=== PATIENT | female | born 1935 | race Caucasian/White ===

== ENCOUNTER 2021-04-11 13:52 | Inpatient (IN) | payer OTHER ==
[2021-04-11 14:26] LABS: Absolute Lymphocytes (CBC) 1.9 K/uL (0.7-4.9); Basophils % 0.3 % (0-1.3); Hematocrit 36.1 % (36.0-45.0); Lymphocytes % 13.7 % (15.3-44.8); RBC Red Blood Cell Count 4.06 M/uL (3.86-4.86)
[2021-04-11] MEDS ORDERED: NA CHLORIDE 0.9% 1,000 ML ONE ×2 (14:27→21:23)
[2021-04-11] MEDS ORDERED: METOPROLOL TARTRATE 5 MG/5 ML INJ IV ONE (14:27)
[2021-04-11 14:35] LABS: Protime INR 1.53
[2021-04-11] MEDS ORDERED: METHYLPREDNISOLONE 125 MG INJ ONE (14:37)
[2021-04-11] MEDS ORDERED: ONDANSETRON 4 MG/2 ML VIAL ONE (14:41)
--- NOTE | 2021-04-11 15:15 | RAD REPORT ---
EXAM DESCRIPTION: RAD - Chest Single View - 04/11/2021 3:00 pm CLINICAL HISTORY: DYSPNEA Chest pain. COMPARISON: No comparisons FINDINGS: Portable technique limits examination quality. Extensive bilateral pulmonary opacities are present, greater on the right. The heart is mildly enlarg ed in size. No displaced fractures.The findings likely indicate underlying COVID infection.
[2021-04-11 15:32] LABS: ALT/SGPT 170 U/L (12-78); AST/SGOT 88 U/L (15-37); Albumin 3.4 g/dL (3.4-5.0); Alkaline Phosphatase 183 U/L (45-117); BUN Blood Urea Nitrogen 22 mg/dL (7-18); Bicarbonate 24 mmol/L (21-32); Bilirubin Direct 0.1 mg/dL (0-0.2); Bilirubin Total 0.5 mg/dL (0.2-1.0); Ferritin 88.3 ng/mL (8-388); Glucose Level 118 mg/dL (74-106); Lipase 96 U/L (73-393); Potassium 3.7 mmol/L (3.5-5.1); Protein, Total 7.3 g/dL (6.4-8.2); Sodium Level 139 mmol/L (136-145); Troponin (Emerg Dept Use Only) < 0.02 ng/mL (0.0-0.045)
[2021-04-11] MEDS ORDERED: HYDROCODONE/CHLORPHEN 5 ML/OSYR ONE (15:34)
[2021-04-11] MEDS ORDERED: PROMETHAZINE-DM 5 ML OSYR PO ONE (16:00)
[2021-04-11] MEDS ORDERED: AMIODARONE HCL 150 MG in D5W 100 ML IV STA (16:43)
--- NOTE | 2021-04-11 16:48 | EDPHYS ---
Physician Documentation [facility] Name: Jarrell Rodrigez Age: 85 yrs Sex: Female : 1935 Arrival Date: 04/11/2021 Time: 13:53 Bed 7 Private MD: ED Physician Bartolome Pinzon HPI: 04/11 16:44 This 85 yrs old Female presents to ER via EMS with complaints of Chest Pain, jr8 shortness of breath - covid+. 16:44 This is a 85-year-old female patient that was brought in by EMS for chest pain and jr8 shortness of breath. Patient recently diagnosed with Covid at [facility] along with atrial fibrillation. Patient was started on Eliquis and diltiazem. Patient also received Regeneron that same day. Patient was discharged home. Normally off oxygen and has not been requiring oxygen per her. Today started to become markedly worse. Patient arrived in atrial fibrillation with RVR and hypoxic at 86% room air.. Historical: - Allergies: 14:53 [place]; jl7 14:53 Levaquin; jl7 14:53 Macrodantin; jl7 - Home Meds: 14:53 amitriptyline 10 mg Oral tab 2 tabs once daily [Active]; apixaban 5 mg oral tab 1 tab 2 jl7 times per day [Active]; aspirin 81 mg Oral TbEC 1 tab once daily [Active]; atorvastatin 20 mg oral tab 1 tab once daily [Active]; chlordiazepoxide HCl 5 mg Oral cap 1 cap [Active]; diltiazem HCl 240 mg Oral CDER 1 cap once daily [Active]; montelukast 10 mg oral tab 1 tab once daily [Active]; Bystolic 10 mg oral tab 1 tab once daily [Active]; - PMHx: 14:53 Hypertensive disorder; Atrial fibrillation; high cholesterol; jl7 - Immunization history:: Adult Immunizations up to date, Client reports receiving the 2nd dose of the Covid vaccine, Date received: September 2020 Sissy. - Social history:: Smoking status: Patient denies any tobacco usage or history of. ROS: 16:44 Eyes: Negative for injury, pain, redness, and discharge, ENT: Negative for injury, jr8 pain, and discharge, Neck: Negative for injury, pain, and swelling, Abdomen/GI: Negative for abdominal pain, nausea, vomiting, diarrhea, and constipation, Back: Negative for injury and pain, MS/Extremity: Negative for injury and deformity, Skin: Negative for injury, rash, and discoloration, Neuro: Negative for headache, weakness, numbness, tingling, and seizure. 16:44 Cardiovascular: Positive for chest pain, Negative for orthopnea, palpitations, paroxysmal nocturnal dyspnea. 16:44 Respiratory: Positive for cough, dyspnea on exertion, shortness of breath. Exam: 16:44 Eyes: Pupils equal round and reactive to light, extra-ocular motions intact. Lids and jr8 lashes normal. Conjunctiva and sclera are non-icteric and not injected. Cornea within normal limits. Periorbital areas with no swelling, redness, or edema. ENT: Nares patent. No nasal discharge, no septal abnormalities noted. Tympanic membranes are normal and external auditory canals are clear. Oropharynx with no redness, swelling, or masses, exudates, or evidence of obstruction, uvula midline. Mucous membranes moist. Neck: Trachea midline, no thyromegaly or masses palpated, and no cervical lymphadenopathy. Supple, full range of motion without nuchal rigidity, or vertebral point tenderness. No Meningismus. 16:44 Abdomen/GI: Soft, non-tender, with normal bowel sounds. No distension or tympany. No guarding or rebound. No evidence of tenderness throughout. Back: No spinal tenderness. No costovertebral tenderness. Full range of motion. Skin: Warm, dry with normal turgor. Normal color with no rashes, no lesions, and no evidence of cellulitis. MS/ Extremity: Pulses equal, no cyanosis. Neurovascular intact. Full, normal range of motion. Neuro: Awake and alert, GCS 15, oriented to person, place, time, and situation. Cranial nerves II-XII grossly intact. Motor strength 5/5 in all extremities. Sensory grossly intact. 16:44 Constitutional: The patient appears alert, awake, uncomfortable. 16:44 Cardiovascular: Rate: tachycardic, Rhythm: irregularly irregular, Pulses: Pulses are 2+ in right radial artery and left radial artery. Heart sounds: S1, normal, S2, normal, Edema: is not appreciated. 16:44 Respiratory: mild respiratory distress is noted, Respirations: tachypnea, that is mild, Breath sounds: wheezing: expiratory that is mild, is heard diffusely. Vital Signs: 13:53 BP 162 / 124; Pulse 145; Resp 26 S; Temp 98.6(O); Pulse Ox 86% on R/A; Weight 77.11 kg jl7 (R); Pain 2/10; 14:00 BP 132 / 117; Pulse 133; Resp 26 S; Pulse Ox 93% on 4 lpm NC; jl7 14:15 BP 158 / 124; Pulse 136; Resp 26; Pulse Ox 92% ; jl7 14:30 BP 152 / 116; Pulse 129; Resp 28; Pulse Ox 90% ; jl7 14:45 BP 157 / 111; Pulse 126; Resp 25; Pulse Ox 90% ; jl7 15:00 BP 152 / 90; Pulse 137; Resp 29 S; Pulse Ox 88% on 4 lpm NC; jl7 15:45 BP 151 / 102; Pulse 134; Resp 29; Pulse Ox 87% on 4 lpm NC; jl7 16:15 BP 157 / 105; Pulse 138; Resp 37; Pulse Ox 84% on 6 lpm NC; jl7 17:00 BP 119 / 90; Pulse 131; Resp 29; Pulse Ox 91% on 100% BiPAP; jl7 17:30 BP 151 / 99; Pulse 116; Resp 32; Pulse Ox 94% on 100% BiPAP; jl7 18:00 BP 128 / 86; Pulse 115; Resp 25; Pulse Ox 98% on 100% BiPAP; jl7 18:30 BP 130 / 96; Pulse 116; Resp 30; Pulse Ox 98% ; jl7 MDM: 13:59 Patient medically screened. jr8 16:46 Data reviewed: vital signs, nurses notes, lab test result(s), EKG, radiologic studies, jr8 CT scan, plain films. Data interpreted: Pulse oximetry: on room air is 86 %. Interpretation: hypoxia. Plan: O2 by NC applied. Counseling: I had a detailed discussion with the patient and/or guardian regarding: the historical points, exam findings, and any diagnostic results supporting the discharge/admit diagnosis, lab results, radiology results, the need for further work-up and treatment in the hospital. 04/11 14:01 Order name: BMP jr8 04/11 14:01 Order name: Blood Culture Adult (2) jr8 04/11 14: Order name: C-Reactive Protein jr8 04/11 14:01 Order name: CBC with Diff jr8 04/11 14:01 Order name: Ferritin; Complete Time: 15:59 jr8 04/11 14:01 Order name: Flu; Complete Time: 15:59 jr8 04/11 14:01 Order name: LFT's; Complete Time: 15:59 8 04/11 14:01 Order name: Lactate; Complete Time: 15:59 8 04/11 14:01 Order name: Lipase; Complete Time: 15:59 8 04/11 14:01 Order name: PT-INR; Complete Time: 15:59 jr8 04/11 14:01 Order name: Procalcitonin; Complete Time: 17:29 8 04/11 14:01 Order name: Ptt, Activated; Complete Time: 15:59 8 04/11 14:01 Order name: Troponin (emerg Dept Use Only); Complete Time: 15:59 8 04/11 14:01 Order name: Urine Microscopic Only [facility] 04/11 14:01 Order name: CXR XRAY; Complete Time: 15:59 8 04/11 14:01 Order name: EKG; Complete Time: 14:02 8 04/11 14:01 Order name: Cardiac monitoring; Complete Time: 14:09 8 04/11 14:02 Order name: Basic Metabolic Panel; Complete Time: 15:59 EDMS 04/11 14:02 Order name: Blood Culture EDNJ 04/11 14:02 Order name: C-Reactive Protein; Complete Time: 15:59 EDMS 04/11 14:02 Order name: CBC with Automated Diff; Complete Time: 14:29 EDMS 04/11 15:59 Order name: CT Chest For PE Angio; Complete Time: 16:58 8 04/11 14:01 Order name: Droplet/Contact Precautions; Complete Time: 14:09 8 04/11 14:01 Order name: EKG - Nurse/Tech; Complete Time: 14:09 8 04/11 14:01 Order name: IV Start; Complete Time: 14:09 8 04/11 14:01 Order name: O2 Per Protocol; Complete Time: 14:09 8 04/11 14:01 Order name: O2 Sat Monitoring; Complete Time: 14:09 8 04/11 17:53 Order name: Veliz; Complete Time: 17:53 jl7 Administered Medications: 14:05 Drug: Lopressor (metoprolol) 5 mg Route: IVP; Site: right forearm; jl7 14:05 Drug: NS 0.9% 1000 ml Route: IV; Rate: 1 bolus; Site: right forearm; jl7 15:00 Follow up: Response: No adverse reaction; IV Intake: 1000ml jl7 15:00 Follow up: Response: No adverse reaction; IV Status: Completed infusion; IV Intake: jl7 1000ml 14:08 Drug: Zofran (Ondansetron) 4 mg Route: IVP; Site: right forearm; jl7 14:52 Follow up: Response: No adverse reaction; Nausea is decreased jl7 14:10 Drug: SOLU-Medrol (methylPrednisoLONE) 125 mg Route: IVP; Site: right forearm; jl7 14:52 Follow up: Response: No adverse reaction jl7 14:15 Drug: Lopressor (metoprolol) 5 mg Route: IVP; Site: right forearm; jl7 14:30 Drug: Lopressor (metoprolol) 5 mg Route: IVP; Site: right forearm; jl7 14:52 Follow up: Response: No adverse reaction; Cardiac rhythm is unchanged jl7 14:37 Not Given (Other Intervention Used): SOLU-Medrol (methylPREDNISolone sodium succinate) jl7 125 mg IM once 16:05 Drug: Promethazine-Dextromethorphan Liquid 5 ml Route: PO; jl7 17:23 Follow up: Response: No adverse reaction jl7 17:00 Drug: amiodarone 150 mg Volume: 100 ml; Route: IVPB; Infused Over: 10 mins; Site: right jl7 forearm; 17:10 Follow up: Response: No adverse reaction; IV Status: Completed infusion jl7 17:11 Drug: amiodarone 900 mg, D5W 500 ml Route: IVPB; Rate: 1 mg/min; Site: right forearm; jl7 19:01 Follow up: IV Status: Infusion continued upon admission jl7 Disposition Summary: 04/11/21 16:48 Hospitalization Ordered Hospitalization Status: Inpatient Admission jr8 Provider: Andrew Pinzon Location: Intensive Care Unit [facility] Condition: Fair jr8 Problem: new jr8 Symptoms: have improved jr8 Bed/Room Type: Standard [facility] Room Assignment: 2-(04/11/21 23:13) tt3 Diagnosis - Persistent atrial fibrillation - With RVR jr8 - Pneumonia due to SARS-associated coronavirus jr8 - Acute respiratory failure with hypoxia jr8 Forms: - Medication Reconciliation Form jr8 - SBAR form jr8 Addendum: 04/14/2021 07:04 Co-signature as Attending Physician, Bartolome Pinzon MD I agree with the assessment and r n plan of care. Attestation: The patient's history, exam findings, diagnostics, and a summary of any interventions or procedures was reviewed in detail with Hira ISLAS. Signatures: Dispatcher [employer] EDNJ Bartolome Pinzon MD MD rn Roszak, Josh, PA PA jr8 Emely Ibarra RN RN jl7 Ernesto Simpson tt3 Corrections: (The following items were deleted from the chart) 04/11 23:13 16:48 jr8 tt3
--- NOTE | 2021-04-11 16:48 | ER ---
Nurse's Notes [facility] Name: Jarrell Rodrigez Age: 85 yrs Sex: Female : 1935 Arrival Date: 04/11/2021 Time: 13:53 Bed 7 Private MD: Diagnosis: Persistent atrial fibrillation-With RVR;Pneumonia due to SARS-associated coronavirus;Acute respiratory failure with hypoxia Presentation: 04/11 13:53 Chief complaint: EMS states: Toned out for chest pain and shortness of breath since jl7 last night, gave nitro paste in route with 81 mg Aspirin, pain decreased from 7/10 to 4/10. Pt O2 88% on RA, gave 4 lpm NC and O2 up to 95%. Pt covid + since Wednesday, had Regeneron infusion yesterday. 13:53 Coronavirus screen: Vaccine status: Patient reports receiving the 2nd dose of the covid jl7 vaccine. Date September 2020 [employer]a shortness of breath, Client presents with at least one sign or symptom that may indicate coronavirus-19. Standard/surgical mask placed on the client. Provider contacted for isolation considerations. Client reports previous positive COVID test result. Date of collection: April 06, 2021 [facility]. Ebola Screen: No symptoms or risks identified at this time. Initial Sepsis Screen: Does the patient meet any 2 criteria? RR > 20 per min. HR > 90 bpm. Yes Does the patient have a suspected source of infection? No. Patient's initial sepsis screen is negative. Risk Assessment: Do you want to hurt yourself or someone else? Patient reports no desire to harm self or others. Onset of symptoms is unknown. Care prior to arrival: Medication(s) given: ASA, 81 mg, x 1, NitroPaste IV initiated. 18 GA, in the right forearm, Glucose check: 130 Oxygen administered. via nasal cannula. Transition of care: patient was not received from another setting of care. 13:53 Method Of Arrival: EMS: [place] [id number] 13:53 Acuity: JAY 2 jl7 Triage Assessment: 13:53 General: Appears in no apparent distress. uncomfortable, Behavior is calm, cooperative, jl7 appropriate for age. Pain: Complains of pain in chest Pain currently is 2 out of 10 on a pain scale. Quality of pain is described as pressure. Neuro: Level of Consciousness is awake, alert, obeys commands, Oriented to person, place, time, situation. Cardiovascular: Patient's skin is warm and dry. Rhythm is atrial fibrillation with rapid ventricular response. Respiratory: Airway is patent Respiratory effort is even, unlabored, Respiratory pattern is symmetrical, tachypnea. Derm: Skin is pink, warm \T\ dry. Historical: - Allergies: 14:53 [place]; jl7 14:53 Levaquin; jl7 14:53 Macrodantin; jl7 - Home Meds: 14:53 amitriptyline 10 mg Oral tab 2 tabs once daily [Active]; apixaban 5 mg oral tab 1 tab 2 jl7 times per day [Active]; aspirin 81 mg Oral TbEC 1 tab once daily [Active]; atorvastatin 20 mg oral tab 1 tab once daily [Active]; chlordiazepoxide HCl 5 mg Oral cap 1 cap [Active]; diltiazem HCl 240 mg Oral CDER 1 cap once daily [Active]; montelukast 10 mg oral tab 1 tab once daily [Active]; Bystolic 10 mg oral tab 1 tab once daily [Active]; - PMHx: 14:53 Hypertensive disorder; Atrial fibrillation; high cholesterol; jl7 - Immunization history:: Adult Immunizations up to date, Client reports receiving the 2nd dose of the Covid vaccine, Date received: September 2020 Sissy. - Social history:: Smoking status: Patient denies any tobacco usage or history of. Screenin:00 Abuse screen: Denies threats or abuse. Denies injuries from another. Nutritional jl7 screening: No deficits noted. Tuberculosis screening: No symptoms or risk factors identified. Fall Risk IV access (20 points). Total [place] Fall Scale indicates No Risk (0-24 pts). Assessment: 14:00 General: See triage assessment. jl7 15:00 Reassessment: Patient appears in no apparent distress at this time. No changes from jl7 previously documented assessment. Patient and/or family updated on plan of care and expected duration. Pain level reassessed. Patient is alert, oriented x 3, equal unlabored respirations, skin warm/dry/pink. 16:21 Reassessment: Pt O2 sats 84% on 6 lpm NC and diaphoretic, ERP notified and at bedside, jl7 high flow O2 ordered, pt's O2 decreased to 80% on 6 lpm NC, placed on non-rebreather, O2 sats increased to 90%, pt transported to CT via stretcher on non- rebreather. 17:23 Reassessment: Pt placed on high flow O2 by RT Ryan, O2 sats remained 87%, pt placed on jl7 BiPap, O2 up to 90%, pt reports feeling better. 18:00 Reassessment: Patient appears in no apparent distress at this time. Patient and/or jl7 family updated on plan of care and expected duration. Pain level reassessed. Patient is alert, oriented x 3, equal unlabored respirations, skin warm/dry/pink. Patient states symptoms have improved. Vital Signs: 13:53 BP 162 / 124; Pulse 145; Resp 26 S; Temp 98.6(O); Pulse Ox 86% on R/A; Weight 77.11 kg jl7 (R); Pain 2/10; 14:00 BP 132 / 117; Pulse 133; Resp 26 S; Pulse Ox 93% on 4 lpm NC; jl7 14:15 BP 158 / 124; Pulse 136; Resp 26; Pulse Ox 92% ; jl7 14:30 BP 152 / 116; Pulse 129; Resp 28; Pulse Ox 90% ; jl7 14:45 BP 157 / 111; Pulse 126; Resp 25; Pulse Ox 90% ; jl7 15:00 BP 152 / 90; Pulse 137; Resp 29 S; Pulse Ox 88% on 4 lpm NC; jl7 15:45 BP 151 / 102; Pulse 134; Resp 29; Pulse Ox 87% on 4 lpm NC; jl7 16:15 BP 157 / 105; Pulse 138; Resp 37; Pulse Ox 84% on 6 lpm NC; jl7 17:00 BP 119 / 90; Pulse 131; Resp 29; Pulse Ox 91% on 100% BiPAP; jl7 17:30 BP 151 / 99; Pulse 116; Resp 32; Pulse Ox 94% on 100% BiPAP; jl7 18:00 BP 128 / 86; Pulse 115; Resp 25; Pulse Ox 98% on 100% BiPAP; jl7 18:30 BP 130 / 96; Pulse 116; Resp 30; Pulse Ox 98% ; jl7 ED Course: 13:53 Patient arrived in ED. as 13:55 Oxygen administration via nasal cannula \T\ 4L/min Response to oxygen therapy: symptoms jl7 improved. 13:59 Hira Julien PA is PHCP. jr8 13:59 Bartolome Pinzon MD is Attending Physician. jr8 14:01 EKG done, by ED staff, reviewed by Hira ISLAS. em1 14:08 Emely Ibarra, MARLEN is Primary Nurse. jl7 14:10 Maintain EMS IV. Dressing intact. Good blood return noted. Site clean \T\ dry. jl7 14:30 Inserted saline lock: 20 gauge in left forearm, using aseptic technique. Blood jl7 collected. 14:30 Arm band placed on right wrist. jl7 14:49 Triage completed. jl7 15:00 CXR XRAY In Process Unspecified. EDMS 15:00 Patient has correct armband on for positive identification. Placed in gown. Bed in low jl7 position. Call light in reach. Side rails up X 1. mosaic floor layer on. Pulse ox on. NIBP on. 16:25 Admitting physician to see patient. jl7 16:39 CT Chest For PE Angio In Process Unspecified. EDMS 16:47 Andrew Pinzon MD is Hospitalizing Provider. jr8 17:52 Veliz cath inserted, using sterile technique, 16 Fr., by nc, balloon inflated, urine jl7 specimen collected. returned clear yellow urine. Patient tolerated well. 19:02 No provider procedures requiring assistance completed. Patient admitted, IV remains in jl7 place. intact, No redness/swelling at site. Administered Medications: 14:05 Drug: Lopressor (metoprolol) 5 mg Route: IVP; Site: right forearm; jl7 14:05 Drug: NS 0.9% 1000 ml Route: IV; Rate: 1 bolus; Site: right forearm; jl7 15:00 Follow up: Response: No adverse reaction; IV Intake: 1000ml jl7 15:00 Follow up: Response: No adverse reaction; IV Status: Completed infusion; IV Intake: jl7 1000ml 14:08 Drug: Zofran (Ondansetron) 4 mg Route: IVP; Site: right forearm; jl7 14:52 Follow up: Response: No adverse reaction; Nausea is decreased jl7 14:10 Drug: SOLU-Medrol (methylPrednisoLONE) 125 mg Route: IVP; Site: right forearm; jl7 14:52 Follow up: Response: No adverse reaction jl7 14:15 Drug: Lopressor (metoprolol) 5 mg Route: IVP; Site: right forearm; jl7 14:30 Drug: Lopressor (metoprolol) 5 mg Route: IVP; Site: right forearm; jl7 14:52 Follow up: Response: No adverse reaction; Cardiac rhythm is unchanged jl7 14:37 Not Given (Other Intervention Used): SOLU-Medrol (methylPREDNISolone sodium succinate) jl7 125 mg IM once 16:05 Drug: Promethazine-Dextromethorphan Liquid 5 ml Route: PO; jl7 17:23 Follow up: Response: No adverse reaction jl7 17:00 Drug: amiodarone 150 mg Volume: 100 ml; Route: IVPB; Infused Over: 10 mins; Site: right jl7 forearm; 17:10 Follow up: Response: No adverse reaction; IV Status: Completed infusion jl7 17:11 Drug: amiodarone 900 mg, D5W 500 ml Route: IVPB; Rate: 1 mg/min; Site: right forearm; jl7 19:01 Follow up: IV Status: Infusion continued upon admission jl7 Intake: 15:00 IV: 1000ml; Total: 1000ml. jl7 15:00 IV: 1000ml; Total: 2000ml. jl7 Outcome: 16:48 Decision to Hospitalize by Provider. jr8 04/12 00:15 Patient left the ED. kc4 Signatures: Dispatcher [employer] Roxana Baker Eric em1 Hira Julien PA PA jr8 Emely Ibarra RN RN jl7 Halina Mireels kc4
--- NOTE | 2021-04-11 16:49 | RAD REPORT ---
EXAM DESCRIPTION: CT - Chest For Pe Angio - 04/11/2021 4:39 pm CLINICAL HISTORY: Chest pain. CHEST PAIN COMPARISON: No comparisons TECHNIQUE: CT angiogram of the pulmonary arteries was performed with MIP. All CT scans are performed using dose optimization technique as appropriate and may include automated exposure control or mA/KV adjustment according to patient size. FINDINGS: No evidence of pulmonary thromboembolism. Thoracic aorta is suboptimally contrast opacified without gross acute finding. Extensive bilateral pulmonary infiltrates are present most likely representing pulmonary edema or pne umonia. Small bilateral pleural effusions are noted, slightly greater on the right. No concerning bony finding. IMPRESSION: No evidence of pulmonary thromboembolism. Extensive bilateral pulmonary opacities likely representing pulmonary edema or pneumonia. Small bilat eral pleural effusions.
[2021-04-11] MEDS ORDERED: AMIODARONE IN DEXTROSE,ISO-OSM 360 MG/200 ML BAG IV ONE (16:52)
[2021-04-11] MEDS ORDERED: AMIODARONE HCL 900 MG in Dextrose 5%-Water 482 ML IV SCH ×2 (17:00→19:00)
[2021-04-11] MEDS: NA CHLORIDE 0.9% 1,000 ML IV SCH (20:28)
[2021-04-11] MEDS ORDERED: BENZONATATE 100 MG CAP PO PRN (20:28)
[2021-04-11] MEDS ORDERED: ACETAMINOPHEN 500 MG TAB PO PRN (20:28)
[2021-04-11] MEDS ORDERED: ONDANSETRON 4 MG/2 ML VIAL IV PRN (20:28)
[2021-04-11] MEDS: ASCORBIC ACID 500 MG TABLET PO SCH (21:00)
[2021-04-11] MEDS ORDERED: METHYLPRED NA SUC 80 MG in NA CHLORIDE 0.9% 100 ML IV SCH (21:00)
[2021-04-11] MEDS ORDERED: ASCORBIC ACID 500 MG TABLET ONE (21:22)
[2021-04-11] MEDS ORDERED: METHYLPREDNISOLONE 40 MG INJ ONE (21:23)
--- NOTE | 2021-04-11 23:23 | P.HP ---
Certification for Inpatient Patient admitted to: Inpatient With expected LOS: >2 Midnights Patient will require the following post-hospital care: Home Health Services (Oxygen, likely home health nursing) Practitioner: I am a practitioner with admitting privileges, knowledge of patient current condition, hospital course, and medical plan of care. Services: Services provided to patient in accordance with Admission requirements found in Title 42 Section 412.3 of the Code of Federal Regulations Patient History Date of Service: 04/11/21 Primary Care Provider: Dr. Austin Reason for admission: Covid Pneumonia/ Atrial Fibrillation with RVR History of Present Illness: Chest Single View - 04/11/2021 3:00 pm CLINICAL HISTORY: DYSPNEA Chest pain. COMPARISON: No comparisons FINDINGS: Extensive bilateral pulmonary opacities are present, greater on the right. The heart is mildly enlarged in size. No displaced fractures. The findings likely indicate underlying COVID infection. CT - Chest For Pe Angio - 04/11/2021 4:39 pm CLINICAL HISTORY: Chest pain. COMPARISON: No comparisons FINDINGS: No evidence of pulmonary thromboembolism. Thoracic aorta is suboptimally contrast opacified without gross acute finding. Extensive bilateral pulmonary infiltrates are present most likely representing pulmonary edema or pneumonia. Small bilateral pleural effusions are noted, slightly greater on the right. No concerning bony finding. IMPRESSION: No evidence of pulmonary thromboembolism. Extensive bilateral pulmonary opacities likely representing pulmonary edema or pneumonia. Small bilateral pleural effusions. 85 year old female diagnosed with Covid and new onset A.Fib in [place] one week ago. She was doing well and had Regeneron Therapy yesterday. This morning she felt a little weak and not quite right. Very soon thereafter she developed significant malaise and severe dyspnea with chest pain. On arrival she was noted to have Atrial Fibrillation with RVR. Her initial O2 was 86%. Allergies No Known Allergies Allergy (Unverified 04/11/21 16:38) Home medications list reviewed: Yes - Past Medical/Surgical History Diabetic: No -: HTN -: CVA -: Hysterectomy -: Cholecystectomy Psychosocial/ Personal History: Retired, lives at home by self - Family History Father -: Heart disease - Social History Smoking Status: Never smoker Alcohol use: No CD- Drugs: No Caffeine use: Yes Place of Residence: Home Review of Systems 10-point ROS is otherwise unremarkable General: Weakness, Malaise Eyes: Unremarkable ENT: Unremarkable Respiratory: Cough, Shortness of Breath, SOB with Excertion Cardiovascular: Chest Pain, Palpitations, Light Headedness Gastrointestinal: Nausea Genitourinary: Unremarkable Musculoskeletal: Unremarkable Integumentary: Unremarkable Neurological: Unremarkable Lymphatics: Unremarkable Physical Examination - Vital Signs Temperature: 98.8 F Blood Pressure: 130/95 Pulse: 100 Respirations: 20 Pulse Ox (%): 98 - Physical Exam General: Alert, Oriented x3, Cooperative, Severe distress HEENT: Atraumatic, Normocephalic Neck: Supple, JVD not distended Respiratory: Normal air movement, Crackles/rales Cardiovascular: Normal pulses, Irregular heart rate/rhythm Capillary refill: Brisk Gastrointestinal: Soft and benign, Non-distended Musculoskeletal: No swelling, No contractures, No erythema Integumentary: No rashes, No breakdown, No significant lesion Neurological: Normal speech, Normal strength at 5/5 x4 extr, Normal tone, Sensation intact External genitalia: Deferred Rectal: Deferred - Studies Laboratory Data (last 24 hrs) 04/11/21 14:10: PT 17.7 H, INR 1.53, APTT 29.1 04/11/21 14:10: WBC 13.60 H, Hgb 11.9 L, Hct 36.1, Plt Count 278 04/11/21 14:10: Sodium 139, Potassium 3.7, BUN 22 H, Creatinine 0.90, Glucose 118 H, Total Bilirubin 0.5, AST 88 H, ALT 170 H, Alkaline Phosphatase 183 H, Lipase 96 Microbiology Data (last 24 hrs): 04/11/21 14:20 Nasopharnyx Influenza Type A Antigen Screen - Final 04/11/21 14:20 Nasopharnyx Influenza Type B Antigen Screen - Final Assessment and Plan - Plan Assessment Pneumonia Atrial Fibrillation HTN Plan Pneumonia: Titrate Oxygen (Bipap) to greater than 92%, Pulmonology Consult. Repeat procalcitonin. Draw Ferritin, D-dimer and CRP. Atrial Fibrillation: Monitor. Cardiology Consult, currently on amiodarone. Rate 100 HTN: Bp not elevated. Monitor DVT prophylaxis: Lovenox 40mg SQ Code Status: DNR Discharge Plan: Home Plan to discharge in: Unknown - Advance Directives Does patient have a Living Will: No Does patient have a Durable POA for Healthcare: No - Code Status/Comfort Care Code Status Assessed: Yes Code Status: Do Not Attempt Resuscitat Critical Care: No Time Spent Managing Pts Care (In Minutes): 70
[2021-04-12 00:58] VITALS: BMI 27.7
[2021-04-12] MEDS: NA CHLORIDE 0.9% 1,000 ML IV SCH (05:46)
[2021-04-12 05:48] LABS: Absolute Lymphocytes (CBC) 0.6 K/uL (0.7-4.9); Basophils % 0.2 % (0-1.3); Hematocrit 33.7 % (36.0-45.0); Lymphocytes % 5.6 % (15.3-44.8); MPV 8.3 fL (7.6-11.3); RBC Red Blood Cell Count 3.79 M/uL (3.86-4.86)
--- NOTE | 2021-04-12 05:54 | P.PN ---
Date of Service: 04/12/21 Subjective: Patient reports feeling significantly better today, breathing much more comfortably, on a nonrebreather overnight. Without any new complaints, denies chest pain. Denies dysuria, nausea/vomiting, diarrhea. 10 point review of systems otherwise negative Physical exam GEN: Alert, oriented HEENT: Normal conjunctiva, sclera anicteric CV: Regular rate and rhythm, no edema Pulm: Mildly labored respirations on nonrebreather ABD: Soft, nontender, nondistended Integumentary: No rashes Neuro: Normal speech, normal affect Problem list Acute hypoxemic respiratory failure secondary to COVID-19 pneumonia, s/p vaccination Rapid atrial fibrillation, paroxysmal, on chronic anticoagulation (eliquis) Titrate oxygen as needed, goal 92% or greater Continue steroids, vitamin supplementation, oxygen supplementation Pulmonology consulted CRP increased today Atrial fibrillation with better rate control, still tachycardic, cardiology consulted. Continue amiodarone drip for now Continue to trend inflammatory markers. Continue ICU level of care VTE: Continue home Eliquis 5 mg twice daily Code: DNR Dispo: Anticipate DC home in a few days. Will need home oxygen Time spent managing patient's care: 35 minutes
[2021-04-12 06:24] LABS: Albumin 2.8 g/dL (3.4-5.0); Bilirubin Total 0.4 mg/dL (0.2-1.0); C-Reactive Protein 75.3 mg/L (<3.00); Ferritin 80.8 ng/mL (8-388); Protein, Total 6.3 g/dL (6.4-8.2); Thyroid Stimulating Hormone 0.352 uIU/mL (0.360-3.740)
[2021-04-12 06:25] LABS: Magnesium 2.2 mg/dL (1.8-2.4); Potassium 4.5 mmol/L (3.5-5.1)
[2021-04-12 06:30] LABS: Blood Morphology Comment NOT SEEN (NOT SEEN); Platelet Estimate ADEQ; White Blood Cell Scan OK (OK)
[2021-04-12] MEDS ORDERED: ENOXAPARIN 40 MG/0.4 ML SQ SCH (09:00)
[2021-04-12] MEDS: VITAMIN D 1000 UNIT TAB PO SCH (09:24)
[2021-04-12] MEDS: ASCORBIC ACID 500 MG TABLET PO SCH ×4 (09:24→19:48)
[2021-04-12] MEDS: THIAMINE HCL 100 MG TABLET PO SCH (09:24)
[2021-04-12] MEDS: ASPIRIN EC 81 MG TAB PO SCH (09:24)
[2021-04-12] MEDS: ZINC SULFATE 220 MG CAP PO SCH (09:24)
[2021-04-12] MEDS: APIXABAN 5 MG TABLET PO SCH ×2 (09:24→19:48)
[2021-04-12] MEDS: METHYLPREDNISOLONE 40 MG INJ IV SCH ×2 (09:24→19:48)
--- NOTE | 2021-04-12 11:14 | EKG ---
Test Date: 2021-04-11 Test Time: 13:55:22 Apartment Property Manager: EUNICE MEASUREMENT RESULTS: Intervals: Rate: 146 CO: QRSD: 76 QT: 308 QTc: 479 Gates: P: CO: QRS: 74 T: 41 INTERPRETIVE STATEMENTS: Atrial fibrillation with rapid ventricular response with premature ventricular or aberrantly conducted complexes Cannot rule out Anterior infarct, age undetermined Abnormal ECG Compared to ECG 08/12/1999 12:29:00 Ventricular premature complex(es) now present Myocardial infarct finding now present Sinus rhythm no longer present Electronically Signed On 04-12-21 11:13:09 CDT by Cedric Talavera
--- NOTE | 2021-04-12 11:56 | P.CNS ---
Date of Consult: 04/12/21 Primary Care Provider: Dr. Austin Chief Complaint: Covid Pneumonia/ Atrial Fibrillation with RVR History of Present Illness: AGe 89 AW COVID penumonia andAfib, was DC home became worse/ SP Regeneron TX/ CT bialteral infiltrates and Bilateral effusion Allergies acetaminophen [From [place]] Allergy (Verified 04/12/21 02:44) Itching hydrocodone [From [place]] Allergy (Verified 04/12/21 02:44) Itching levofloxacin [From Levaquin] Allergy (Verified 04/12/21 02:44) Nausea/Vomiting nitrofurantoin [From Macrodantin] Allergy (Verified 04/12/21 02:44) Hives/Rash Home Medications: Amitriptyline [Elavil] 20 mg PO BEDTIME 04/12/21 Apixaban [Eliquis] 5 mg PO DAILY 04/12/21 Aspirin [Aspirin EC 81 MG] 81 mg PO DAILY 04/12/21 Atorvastatin Calcium 20 mg PO BEDTIME 04/12/21 Chlordiazepoxide HCl [Librium] 5 mg PO BEDTIME 04/12/21 Diltiazem Tab [Cardizem Tab*] 240 mg PO DAILY 04/12/21 Montelukast [Singulair] 10 mg PO DAILY 04/12/21 Nebivolol HCl [Bystolic] 10 mg PO DAILY 04/12/21 - Past Medical/Surgical History Diabetic: No -: HTN -: CVA -: Hysterectomy -: Cholecystectomy Psychosocial/ Personal History: Retired, lives at home by self - Family History Father Medical History: Heart disease - Social History Alcohol use: No CD- Drugs: No Caffeine use: Yes Place of Residence: Home Review of Systems General: Weakness Respiratory: Shortness of Breath Physical Examination Temp Pulse Resp BP Pulse Ox 97.2 F 111 H 20 147/98 H 96 04/12/21 08:00 04/12/21 11:00 04/12/21 11:00 04/12/21 11:00 04/12/21 11:00 General: Alert, In no apparent distress, Oriented x3 Laboratory Data (last 24 hrs) 04/11/21 14:10: PT 17.7 H, INR 1.53, APTT 29.1 04/11/21 14:10: WBC 13.60 H, Hgb 11.9 L, Hct 36.1, Plt Count 278 04/11/21 14:10: Sodium 139, Potassium 3.7, BUN 22 H, Creatinine 0.90, Glucose 118 H, Total Bilirubin 0.5, AST 88 H, ALT 170 H, Alkaline Phosphatase 183 H, Lipase 96 - Problems (1) Pneumonia due to coronavirus disease 2018 Current Visit: Yes Status: Acute Plan: Patient is 85 years of age admitted with coronavirus pneumonia previously vaccinated abnormal liver function tests continue with steroids patient will not qualify for Barcitinib of also added some Lasix patient has a history of chronic A. fib started on amiodarone drip labs reviewed CT scan shows bilateral pleural effusion bilateral infiltrates echo is pending doing better
[2021-04-12] MEDS: FUROSEMIDE 20 MG/ 2ML VIAL IV SCH ×2 (12:23→19:48)
[2021-04-12] MEDS: PANTOPRAZOLE 40MG TABLET PO SCH (12:55)
[2021-04-12] MEDS ORDERED: MAGNESIUM HYDROXIDE 8% 30 ML PO ONE (18:17)
[2021-04-12] MEDS ORDERED: AMIODARONE IN DEXTROSE,ISO-OSM 360 MG/200 ML BAG IV ONE (22:06)
[2021-04-13] MEDS: MELATONIN 5 MG TABLET PO PRN ×2 (00:28→20:05)
[2021-04-13] MEDS: PANTOPRAZOLE 40MG TABLET PO SCH (05:28)
[2021-04-13 05:46] LABS: Absolute Lymphocytes (CBC) 0.7 K/uL (0.7-4.9); MPV 8.2 fL (7.6-11.3)
[2021-04-13 05:51] LABS: Hematocrit 37.5 % (36.0-45.0); Lymphocytes % 3.7 % (15.3-44.8); RBC Red Blood Cell Count 4.21 M/uL (3.86-4.86)
--- NOTE | 2021-04-13 05:54 | P.PN ---
Date of Service: 04/13/21 Subjective: improving, feeling better, more SOB overnight down to 4L NC this morning HR remains elevated, afib, 110-130s. on amio drip BP improved 10 point review of systems otherwise negative Physical exam GEN: Alert, oriented HEENT: Normal conjunctiva, sclera anicteric CV: irregular rate/rhythm, HR: 120s, no edema Pulm: Mildly labored respirations on 4L NC ABD: Soft, nontender, nondistended Integumentary: No rashes Neuro: Normal speech, normal affect Problem list Acute hypoxemic respiratory failure secondary to COVID-19 pneumonia, s/p vaccination Rapid atrial fibrillation, paroxysmal, on chronic anticoagulation (eliquis) Titrate oxygen as needed, goal 92% or greater Continue steroids, vitamin supplementation, oxygen supplementation Pulmonology consulted oxygen requirement improving Afib with slightly better rate control, still in afib. cardiology consulted, recommended increasing amio drip BP much better, restarting bystolic and cardizem Continue to trend inflammatory markers. Continue ICU level of care VTE: Continue home Eliquis 5 mg twice daily Code: DNR Dispo: Anticipate DC home in ~2 days. Will need home oxygen likely downgrade to floor tomorrow Time spent managing patient's care: 35 minutes
[2021-04-13 07:04] LABS: Bilirubin Total 0.5 mg/dL (0.2-1.0); C-Reactive Protein 54.1 mg/L (<3.00); Ferritin 94.7 ng/mL (8-388); Protein, Total 6.8 g/dL (6.4-8.2)
[2021-04-13 07:15] LABS: Magnesium 2.4 mg/dL (1.8-2.4)
[2021-04-13] MEDS ORDERED: AMIODARONE HCL 900 MG in Dextrose 5%-Water 482 ML IV SCH (07:26)
[2021-04-13] MEDS: VITAMIN D 1000 UNIT TAB PO SCH (08:30)
[2021-04-13] MEDS: ASPIRIN EC 81 MG TAB PO SCH (08:31)
[2021-04-13] MEDS: THIAMINE HCL 100 MG TABLET PO SCH (08:31)
[2021-04-13] MEDS: ASCORBIC ACID 500 MG TABLET PO SCH ×4 (08:31→20:05)
[2021-04-13] MEDS: ZINC SULFATE 220 MG CAP PO SCH (08:31)
[2021-04-13] MEDS: MONTELUKAST 10 MG TAB PO SCH (08:31)
[2021-04-13] MEDS: APIXABAN 5 MG TABLET PO SCH ×2 (08:31→20:05)
[2021-04-13] MEDS: FUROSEMIDE 20 MG/ 2ML VIAL IV SCH (08:31)
[2021-04-13] MEDS: METHYLPREDNISOLONE 40 MG INJ IV SCH ×2 (08:32→20:05)
[2021-04-13] MEDS ORDERED: HOME MED 1 EA UNK (Nebivolol Hcl [Bystolic] 10 MG Tablet) PO SCH (09:00)
--- NOTE | 2021-04-13 10:40 | P.PN ---
Subjective Date of Service: 04/13/21 Primary Care Provider: Dr. Austin Chief Complaint: Covid Pneumonia/ Atrial Fibrillation with RVR Subjective: Improving (Patient is doing well alert oriented responsive in A. fib) Review of Systems Respiratory: Shortness of Breath Physical Examination - Vital Signs Temperature: 97.6 F Blood Pressure: 150/86 Pulse: 126 Respirations: 14 Pulse Ox (%): 94 - Physical Exam General: Alert, Oriented x3, Cooperative Assessment & Plan - Problems (Diagnosis) (1) Pneumonia due to coronavirus disease 2018 Current Visit: Yes Status: Acute Plan: Patient is 85 years of age has been previously vaccinated admitted with coronavirus pneumonia and A. fib currently doing better on 4 L of nasal cannula oxygen reduce dose of Solu-Medrol DC Lasix changed to spironolactone blood pressure is elevated labs reviewed white count is mildly elevated blood pressure elevated resume diltiazem and by systolic also on amiodarone drip history of chronic A. fib
[2021-04-13] MEDS: DILTIAZEM HCL 60 MG TAB PO SCH (11:14)
[2021-04-13] MEDS: SPIRONOLACTONE 25 MG TABLET PO SCH (11:14)
[2021-04-13] MEDS ORDERED: NEBIVOLOL HCL 5 MG TAB PO SCH (12:00)
--- NOTE | 2021-04-13 16:49 | PN ---
Date of Progress Note: 04/12/2021 Ms. Rodrigez remained in atrial fibrillation at a rate of 125, blood pressure is 152/86, and O2 saturat ion 94% on nasal cannula. Her white count has gone up to 18. Creatinine remains at 0.9. Her liver function and enzymes remained elevated. Her C-reactive protein remains elevated. Her procalcitonin is 0.05. She is now on amiodarone, Eliquis, aspirin, diltiazem, furosemide, Bystolic. She remained on steroids and antibiotics as well as spironolactone. I think we can increase her amiodarone to 1 m g/minute, continue her diltiazem, and continue her Bystolic, but again I would prefer to try to go of f the amiodarone in the near future and keep her on the other medication and increase the dose for bl ood pressure and heart rate control while continuing the Eliquis. No cardiac workup needed at this p oint. She is a do not resuscitate. I will follow her as needed. DENNIS/KIANNA Voice ID: [id number] Report ID: [id number]
--- NOTE | 2021-04-13 17:34 | CON ---
Date of Consultation: 04/11/2021 Reason For Consultation: Atrial fibrillation in the setting of COVID pneumonia. History Of Present Illness: Ms. Rodrigez is 85. She is a do not resuscitate. Has a history of hypert ension, dyslipidemia, and chronic atrial fibrillation. Came in with COVID pneumonia, rapid atrial fi brillation, 94% saturation on BiPAP, elevated CPKs, CRPs, liver function tests, white count, negative troponin. The patient was taking Singulair at home as well as diltiazem, Bystolic, Eliquis, aspirin , and Lipitor for her medical issues. IV amiodarone has been added in the hospital for rate control. She is also on thiamine, zinc, steroids. In addition to her aspirin, Eliquis and Bystolic have bee n continued. We should also continue her diltiazem. Past Medical History: As stated above. Allergies: SHE IS ALLERGIC TO TYLENOL, LEVAQUIN, MACRODANTIN, AND HYDROCODONE. Review of Systems: Positive for being a do not resuscitate. Social History: Negative. Family History: Unremarkable. Medications: Include Singulair, diltiazem, Bystolic, Eliquis, aspirin, and Lipitor. Physical Examination: Vital Signs: Atrial fibrillation, rate of 113. Vital signs were otherwise stable. Afebrile. HEENT: Negative. Neck: Supple with no bruit. Chest: Revealed some crackles both bases. Cardiac: Revealed atrial fibrillation. Abdomen: Benign. Extremities: Revealed no clubbing, cyanosis. She had trace edema. Diagnostic Data: As stated earlier. Impression And Plan: 1.COVID pneumonia. 2.Hypertension. 3.Dyslipidemia. 4.Rapid atrial fibrillation that is chronic. We should aim for rate control, not cardioversion. Ec hocardiogram is pending. Continue Bystolic, diltiazem, and amiodarone. Increase the rate of amiodar one as needed. Continue treatment for her other problems including dyslipidemia and COVID pneumonia. Continue Eliquis. See what the echocardiogram shows. I will continue to follow. DENNIS/KIANNA Voice ID: [id number] Report ID: [id number]
[2021-04-13] MEDS: ATORVASTATIN 20 MG TAB PO SCH (20:05)
[2021-04-13] MEDS: AMITRIPTYLINE 10 MG TAB PO SCH (20:13)
[2021-04-13] MEDS ORDERED: AMITRIPTYLINE 25 MG TAB PO SCH (21:00)
[2021-04-14 04:58] LABS: Absolute Lymphocytes (CBC) 0.8 K/uL (0.7-4.9); Basophils % 0.1 % (0-1.3); MPV 7.6 fL (7.6-11.3); RBC Red Blood Cell Count 4.18 M/uL (3.86-4.86)
[2021-04-14] MEDS: PANTOPRAZOLE 40MG TABLET PO SCH (05:30)
[2021-04-14 05:37] LABS: Albumin 2.9 g/dL (3.4-5.0); Bilirubin Total 0.6 mg/dL (0.2-1.0); Ferritin 93.2 ng/mL (8-388); Magnesium 2.4 mg/dL (1.8-2.4); Potassium 4.1 mmol/L (3.5-5.1); Protein, Total 6.5 g/dL (6.4-8.2)
--- NOTE | 2021-04-14 06:04 | P.PN ---
Date of Service: 04/14/21 Subjective: Improving, breathing better, slept well last night, heart rate still 110s to low 120s Off amiodarone. No new complaints ROS 10 point review of systems otherwise negative Physical exam GEN: Alert, oriented HEENT: Normal conjunctiva, sclera anicteric CV: irregular rate/rhythm, HR: 120s, no edema Pulm: Mildly labored respirations on 2L NC, mild cough ABD: Soft, nontender, nondistended Integumentary: No rashes Neuro: Normal speech, normal affect Problem list Acute hypoxemic respiratory failure secondary to COVID-19 pneumonia, s/p vaccination Rapid atrial fibrillation, paroxysmal, on chronic anticoagulation (eliquis) Titrate oxygen as needed, goal 92% or greater Continue steroids, vitamin supplementation, oxygen supplementation Pulmonology consulted oxygen requirement improving A. fib is slightly better controlled, off amiodarone. Continue Cardizem. Discontinue Bystolic, changed to metoprolol 100 mg twice daily Patient states she does not believe she has taken metoprolol before. Does not recall any adverse reaction or allergy Inflammatory markers improving VTE: Continue home Eliquis 5 mg twice daily Code: DNR Dispo: Anticipate DC home ~24hrs Continue ICU level of care this morning, if heart rate more stable under 100 bpm. Could possibly be downgraded to the floor this evening Time spent managing patient's care: 35 minutes
[2021-04-14] MEDS: METHYLPREDNISOLONE 40 MG INJ IV SCH ×2 (08:34→19:43)
[2021-04-14] MEDS: ZINC SULFATE 220 MG CAP PO SCH (08:35)
[2021-04-14] MEDS: VITAMIN D 1000 UNIT TAB PO SCH (08:35)
[2021-04-14] MEDS: THIAMINE HCL 100 MG TABLET PO SCH (08:35)
[2021-04-14] MEDS: METOPROLOL TAR 50 MG TAB PO SCH ×2 (08:35→19:42)
[2021-04-14] MEDS: SPIRONOLACTONE 25 MG TABLET PO SCH (08:36)
[2021-04-14] MEDS: ASPIRIN EC 81 MG TAB PO SCH (08:36)
[2021-04-14] MEDS: DILTIAZEM HCL 60 MG TAB PO SCH (08:36)
[2021-04-14] MEDS: MONTELUKAST 10 MG TAB PO SCH (08:36)
[2021-04-14] MEDS: ASCORBIC ACID 500 MG TABLET PO SCH ×4 (08:37→19:43)
[2021-04-14] MEDS: APIXABAN 5 MG TABLET PO SCH ×2 (08:37→19:43)
[2021-04-14] MEDS: MELATONIN 5 MG TABLET PO PRN (19:42)
[2021-04-14] MEDS: AMITRIPTYLINE 10 MG TAB PO SCH (19:42)
[2021-04-14] MEDS: ATORVASTATIN 20 MG TAB PO SCH (19:43)
[2021-04-15] MEDS: PANTOPRAZOLE 40MG TABLET PO SCH (05:19)
[2021-04-15 05:21] LABS: Absolute Lymphocytes (CBC) 0.8 K/uL (0.7-4.9); Basophils % 0.2 % (0-1.3); Lymphocytes % 6.3 % (15.3-44.8); MPV 7.7 fL (7.6-11.3)
[2021-04-15 05:36] LABS: C-Reactive Protein 14.5 mg/L (<3.00); Ferritin 93.1 ng/mL (8-388); Magnesium 2.5 mg/dL (1.8-2.4); Potassium 3.8 mmol/L (3.5-5.1)
[2021-04-15] MEDS: METHYLPREDNISOLONE 40 MG INJ IV SCH (08:24)
[2021-04-15] MEDS: APIXABAN 5 MG TABLET PO SCH ×2 (08:24→19:56)
[2021-04-15] MEDS: ASCORBIC ACID 500 MG TABLET PO SCH (08:24)
[2021-04-15] MEDS: MONTELUKAST 10 MG TAB PO SCH (08:24)
[2021-04-15] MEDS: THIAMINE HCL 100 MG TABLET PO SCH (08:24)
[2021-04-15] MEDS: ZINC SULFATE 220 MG CAP PO SCH (08:24)
[2021-04-15] MEDS: VITAMIN D 1000 UNIT TAB PO SCH (08:24)
[2021-04-15] MEDS: ASPIRIN EC 81 MG TAB PO SCH (08:25)
[2021-04-15] MEDS: SPIRONOLACTONE 25 MG TABLET PO SCH (08:25)
[2021-04-15] MEDS: DILTIAZEM HCL 60 MG TAB PO SCH (08:25)
[2021-04-15] MEDS: METOPROLOL TAR 50 MG TAB PO SCH ×2 (08:26→19:54)
--- NOTE | 2021-04-15 08:57 | ECHO ---
HEIGHT: 5 ft 7 in WEIGHT: 177 lb 0 oz DATE OF STUDY: 04/14/[address]: Cedric Talavera MD 2-DIMENSIONAL: YES M.MODE: YES DOPPLER: YES COLOR FLOW: YES TDS: NO PORTABLE: NO DEFINITY: NO BUBBLE STUDY: NO DIAGNOSIS: ATRIAL FIBRILLATION CARDIAC HISTORY: CATHERIZATION: NO SURGERY: NO PROSTHETIC VALVE: NO PACEMAKER: NO MEASUREMENTS (cm) DIASTOLIC (NORMALS) SYSTOLIC (NORMALS) IVSd 1.1 (0.6-1.2) LA Diam 4.5 (1.9-4.0) LVEF 60% LVIDd 3.3 (3.5-5.7) LVIDs 2.3 (2.0-3.5) %FS 31% LVPWd 1.1 (0.6-1.2) Ao Diam 2.6 (2.0-3.7) 2 DIMENSIONAL ASSESSMENT: RIGHT ATRIUM: NORMAL LEFT ATRIUM: ENLARGED RIGHT VENTRICLE: NORMAL LEFT VENTRICLE: NORMAL TRICUSPID VALVE: MITRAL VALVE: MITRAL ANNULAR CALCIFICATION PULMONIC VALVE: AORTIC VALVE: PERICARDIAL EFFUSION: NONE AORTIC ROOT: NORMAL LEFT VENTRICULAR WALL MOTION: NORMAL DOPPLER/COLOR FLOW: SEE BELOW COMMENTS: NORMAL LEFT VENTRICULAR EJECTION FRACTION 55-60%. DIASTOLIC DYSFUNCTION. 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 MILD TRICUSPID, ATRIAL AND PULMONARY REGURGITATION. LEFT ATRIAL ENLARGEMENT. TECHNOLOGIST: Sepideh GAR
[2021-04-15] MEDS ORDERED: POTASSIUM 25 MEQ EFFERV TAB PO ONE (09:00)
--- NOTE | 2021-04-15 11:30 | P.PN ---
Subjective Date of Service: 04/15/21 Primary Care Provider: Dr. Austin Chief Complaint: Covid Pneumonia/ Atrial Fibrillation with RVR Subjective: Improving (Doign better AFIB) Review of Systems General: Weakness Respiratory: Shortness of Breath Physical Examination - Vital Signs Temperature: 97.4 F Blood Pressure: 146/109 Pulse: 127 Respirations: 19 Pulse Ox (%): 91 - Physical Exam General: Alert, Oriented x1 Assessment & Plan - Problems (Diagnosis) (1) Pneumonia due to coronavirus disease 2019 Current Visit: Yes Status: Acute Plan: Doign well Reduce steroids plan for DC Afib
--- NOTE | 2021-04-15 12:55 | P.PN ---
Subjective Date of Service: 04/15/21 Primary Care Provider: Dr. Austin Chief Complaint: Covid Pneumonia/ Atrial Fibrillation with RVR Patient reports feeling better today. His heart rate is in the 120-130s. Patient denies shortness of breath. She is eating well. She is concerned she will grow weak spending more time in bed. Physical Examination - Vital Signs Temperature: 97.4 F Blood Pressure: 146/109 Pulse: 127 Respirations: 19 Pulse Ox (%): 91 - Physical Exam General: Alert, In no apparent distress, Oriented x3 HEENT: Mucous membr. moist/pink Neck: JVD not distended Respiratory: Clear to auscultation bilaterally, Normal air movement Cardiovascular: No edema, Normal S1 S2, Irregular heart rate/rhythm Gastrointestinal: Soft and benign, Non-distended, No tenderness Musculoskeletal: No swelling Integumentary: No rashes Neurological: Normal strength at 5/5 x4 extr Assessment And Plan - Current Problems (Diagnosis) (1) Acute respiratory failure with hypoxia Current Visit: Yes Status: Acute (2) Pneumonia due to coronavirus disease 2018 Current Visit: Yes Status: Acute (3) Atrial fibrillation with RVR Current Visit: Yes Status: Acute (4) Hypertension Current Visit: Yes Status: Acute - Plan Patient to be in rapid atrial fibrillation. Status post amiodarone drip and currently on Cardizem 240 mg daily and metoprolol 100 mg b.i.d. Case discussed with Dr. Talavera who recommended to increase Cardizem to 360. Patient is on Eliquis. Continue steroids, vitamin supplementation, oxygen supplementation Pulmonology is following. oxygen requirement improving Monitor inflammatory markers. Wean down oxygen as tolerated. VTE: Continue home Eliquis 5 mg twice daily Code: DNR
[2021-04-15] MEDS ORDERED: DILTIAZEM HCL 120 MG SR CAP PO ONE (13:00)
[2021-04-15] MEDS: AMITRIPTYLINE 10 MG TAB PO SCH (19:53)
[2021-04-15] MEDS: ATORVASTATIN 20 MG TAB PO SCH (19:54)
[2021-04-15] MEDS: predniSONE 10 MG TAB PO SCH (19:55)
[2021-04-15] MEDS: MELATONIN 5 MG TABLET PO PRN (19:55)
[2021-04-16 04:48] LABS: Absolute Lymphocytes (CBC) 0.9 K/uL (0.7-4.9); Basophils % 0.4 % (0-1.3); Hematocrit 36.2 % (36.0-45.0); Lymphocytes % 6.5 % (15.3-44.8); MPV 7.5 fL (7.6-11.3); RBC Red Blood Cell Count 4.09 M/uL (3.86-4.86)
[2021-04-16 05:14] LABS: C-Reactive Protein 7.63 mg/L (<3.00); Ferritin 91.4 ng/mL (8-388)
[2021-04-16 05:30] LABS: Blood Morphology Comment NOT SEEN (NOT SEEN); Platelet Estimate ADEQ
[2021-04-16] MEDS: PANTOPRAZOLE 40MG TABLET PO SCH (06:20)
[2021-04-16] MEDS: predniSONE 10 MG TAB PO SCH ×2 (08:01→20:47)
[2021-04-16] MEDS: APIXABAN 5 MG TABLET PO SCH ×2 (08:01→20:47)
[2021-04-16] MEDS: ASPIRIN EC 81 MG TAB PO SCH (08:01)
[2021-04-16] MEDS: MONTELUKAST 10 MG TAB PO SCH (08:01)
[2021-04-16] MEDS: ZINC SULFATE 220 MG CAP PO SCH (08:02)
[2021-04-16] MEDS: METOPROLOL TAR 50 MG TAB PO SCH ×2 (08:02→20:47)
[2021-04-16] MEDS: SPIRONOLACTONE 25 MG TABLET PO SCH (08:02)
[2021-04-16] MEDS: DILTIAZEM HCL 180 MG SR CAP PO SCH (08:03)
[2021-04-16] MEDS: POLYETHYL GLY 3350 17 GM/DOSE PO PRN (10:51)
--- NOTE | 2021-04-16 16:16 | P.PN ---
Subjective Date of Service: 04/16/21 Primary Care Provider: Dr. Austin Chief Complaint: Covid Pneumonia/ Atrial Fibrillation with RVR Patient has no new complaint His heart rate is in the 110-120s Patient denies shortness of breath. She is eating well. Patient ambulating short distances with a walker during PT sessions. Physical Examination - Vital Signs Temperature: 98.1 F Blood Pressure: 117/83 Pulse: 120 Respirations: 15 Pulse Ox (%): 95 - Physical Exam General: Alert, In no apparent distress Neck: JVD not distended Respiratory: Other (Nonlabored breathing) Cardiovascular: No edema, Normal S1 S2, Irregular heart rate/rhythm Gastrointestinal: Normal bowel sounds, Soft and benign, Non-distended, No tenderness Musculoskeletal: No swelling Integumentary: No rashes Neurological: Normal strength at 5/5 x4 extr - Studies Microbiology Data (last 24 hrs): 04/11/21 14:30 Blood - Blood Aerobic Blood Culture - Final No growth in 5 days. 04/11/21 14:30 Blood - Blood Anaerobic Blood Culture - Final No growth in 5 days. 04/11/21 14:25 Blood - Blood Aerobic Blood Culture - Final No growth in 5 days. 04/11/21 14:25 Blood - Blood Anaerobic Blood Culture - Final No growth in 5 days. Assessment And Plan - Current Problems (Diagnosis) (1) Acute respiratory failure with hypoxia Current Visit: Yes Status: Acute (2) Pneumonia due to coronavirus disease 2018 Current Visit: Yes Status: Acute (3) Atrial fibrillation with RVR Current Visit: Yes Status: Acute (4) Hypertension Current Visit: Yes Status: Acute - Plan Patient still in AFib with heart rate between 110-120. Status post amiodarone drip. Cardizem titrated to 360 mg daily. On metoprolol 100 mg b.i.d. Cardiology is following Patient is on Eliquis. Continue steroids, vitamin supplementation, oxygen supplementation Pulmonology is following. oxygen requirement improved Wean down oxygen as tolerated. PT recommend inpatient rehab. Consult placed for acute rehab to evaluate. VTE: Continue home Eliquis 5 mg twice daily Code: DNR
[2021-04-16] MEDS: AMITRIPTYLINE 10 MG TAB PO SCH (20:47)
[2021-04-16] MEDS: ATORVASTATIN 20 MG TAB PO SCH (20:47)
[2021-04-16] MEDS: SENOSIDES 8.6 MG TAB PO SCH (20:48)
[2021-04-17 05:13] LABS: Absolute Lymphocytes (CBC) 1.5 K/uL (0.7-4.9); Basophils % 0.3 % (0-1.3); Hematocrit 39.3 % (36.0-45.0); Lymphocytes % 8.9 % (15.3-44.8); MPV 7.4 fL (7.6-11.3); RBC Red Blood Cell Count 4.45 M/uL (3.86-4.86)
[2021-04-17] MEDS: PANTOPRAZOLE 40MG TABLET PO SCH (05:34)
[2021-04-17 05:50] LABS: Potassium 4.9 mmol/L (3.5-5.1)
[2021-04-17] MEDS: DILTIAZEM HCL 180 MG SR CAP PO SCH (08:05)
[2021-04-17] MEDS: APIXABAN 5 MG TABLET PO SCH (08:08)
[2021-04-17] MEDS: ASPIRIN EC 81 MG TAB PO SCH (08:08)
[2021-04-17] MEDS: ZINC SULFATE 220 MG CAP PO SCH (08:08)
[2021-04-17] MEDS: MONTELUKAST 10 MG TAB PO SCH (08:08)
[2021-04-17] MEDS: SPIRONOLACTONE 25 MG TABLET PO SCH (08:08)
[2021-04-17] MEDS: METOPROLOL TAR 50 MG TAB PO SCH (08:08)
[2021-04-17] MEDS: predniSONE 10 MG TAB PO SCH (08:09)
[2021-04-17] MEDS: POLYETHYL GLY 3350 17 GM/DOSE PO PRN (08:10)
[2021-04-17] MEDS: SENOSIDES 8.6 MG TAB PO SCH (08:10)
[2021-04-17 09:02] VITALS: TEMP 97.7
--- NOTE | 2021-04-17 14:17 | P.PN ---
Subjective Date of Service: 04/17/21 Primary Care Provider: Dr. Austin Chief Complaint: Covid Pneumonia/ Atrial Fibrillation with RVR Patient has no complain His heart rate is in the 100-110 Patient denies shortness of breath. She is eating well. Per physical therapist patient ambulated several feet with with ease yesterday. Physical Examination - Vital Signs Temperature: 97.7 F Blood Pressure: 82/61 Pulse: 106 Respirations: 21 Pulse Ox (%): 97 - Physical Exam General: Alert, In no apparent distress, Oriented x3 HEENT: Mucous membr. moist/pink Neck: JVD not distended Respiratory: Normal air movement, Other (Nonlabored breathing) Cardiovascular: No edema, Normal S1 S2, Irregular heart rate/rhythm Gastrointestinal: Soft and benign, Non-distended, No tenderness Musculoskeletal: No swelling Integumentary: No rashes Neurological: Normal strength at 5/5 x4 extr - Studies Microbiology Data (last 24 hrs): 04/11/21 14:30 Blood - Blood Aerobic Blood Culture - Final No growth in 5 days. 04/11/21 14:30 Blood - Blood Anaerobic Blood Culture - Final No growth in 5 days. 04/11/21 14:25 Blood - Blood Aerobic Blood Culture - Final No growth in 5 days. 04/11/21 14:25 Blood - Blood Anaerobic Blood Culture - Final No growth in 5 days. Assessment And Plan - Current Problems (Diagnosis) (1) Acute respiratory failure with hypoxia Current Visit: Yes Status: Acute (2) Pneumonia due to coronavirus disease 2018 Current Visit: Yes Status: Acute (3) Atrial fibrillation with RVR Current Visit: Yes Status: Acute (4) Hypertension Current Visit: Yes Status: Acute - Plan Status post amiodarone drip. Continue Cardizem 360 mg daily and metoprolol 100 mg b.i.d. Case discussed with Dr. Talavera recommended to continue current dose Cardizem and metoprolol. He will arrange for outpatient evaluation by EP. Continue Eliquis. Continue steroids, vitamin supplementation, oxygen supplementation Pulmonology is following. Patient is stable on 2 L oxygen by nasal cannula VTE: Continue home Eliquis 5 mg twice daily Disposition: Home with home health. Awaiting oxygen to be delivered for discharge. Code: DNR
[2021-04-17 17:04] VITALS: O2SAT 96
--- NOTE | 2021-04-17 17:31 | P.DS ---
Admission Date: 04/11/21 Discharge Date: 04/17/21 Primary Care Provider: Dr. Austin Disposition: DC HOME/HOME HEALTH CARE Discharge Condition: FAIR Reason for Admission: Covid Pneumonia/ Atrial Fibrillation with RVR - Problems (1) Acute respiratory failure with hypoxia Current Visit: Yes Status: Acute (2) Pneumonia due to coronavirus disease 2019 Current Visit: Yes Status: Acute (3) Atrial fibrillation with RVR Current Visit: Yes Status: Acute (4) Hypertension Current Visit: Yes Status: Acute Brief History of Present Illness: 85 year old female diagnosed with Covid and A.Fib in [place] one week ago, had Regeneron Therapy, presented to the emergency department with a complaint of generalized, shortness of breath and chest pain. On arrival she was noted to have Atrial Fibrillation with RVR. Her initial O2 was 86%. Chest x-ray and CTA thorax demonstrated extensive bilateral infiltrates. No PE. Patient was hospit alized for further management. Hospital Course: Patient admitted to the ICU and treated with amiodarone drip. She was transitioned from amiodarone drip to oral Cardizem and metoprolol. She is on Bystolic which was discontinued. Cardizem was titrated up to 360 mg daily. Metoprolol 100 mg twice a day. Patient seen by cardiology-Dr. Talavera recommended rate control. He also recommend outpatient evaluation by EP. Patient was placed on Eliquis anticoagulation. Dr. Talavera will see her in the office and help with arrangement. Patient was stable on oxygen by nasal cannula. She was treated for COVID pneumonia with steroid, vitamin supplementation. Patient seen by pulmonary. She remained stable and oxygen weaned down to 2 L by nasal cannula. She tolerated room air with good oxygen saturation that she desaturate with ambulation. She is deemed stable for discharge. She is discharged with a tapering dose of prednisone. Vital Signs/Physical Exam: Temp Pulse Resp BP Pulse Ox 97.7 F 90 22 H 135/85 91 04/17/21 14:17 04/17/21 16:00 04/17/21 16:00 04/17/21 16:00 04/17/21 16:00 General: Alert, In no apparent distress, Oriented x3 HEENT: Mucous membr. moist/pink Neck: JVD not distended Respiratory: Other (Nonlabored breathing) Cardiovascular: No edema, Irregular heart rate/rhythm Gastrointestinal: Soft and benign, Non-distended Musculoskeletal: No swelling Integumentary: No rashes Neurological: Normal strength at 5/5 x4 extr Laboratory Data at Discharge: WBC 16.90 K/uL (4.3-10.9) H D 04/17/21 04:54 Hgb 13.1 g/dL (12.0-15.0) 04/17/21 04:54 Hct 39.3 % (36.0-45.0) 04/17/21 04:54 Plt Count 314 K/uL (152-406) 04/17/21 04:54 PT 17.7 SECONDS (9.5-12.5) H 04/11/21 14:10 INR 1.53 04/11/21 14:10 APTT 29.1 SECONDS (24.3-36.9) 04/11/21 14:10 Sodium 141 mmol/L (136-145) 04/17/21 04:54 Potassium 4.9 mmol/L (3.5-5.1) 04/17/21 04:54 BUN 25 mg/dL (7-18) H 04/17/21 04:54 Creatinine 0.90 mg/dL (0.55-1.3) 04/17/21 04:54 Glucose 144 mg/dL (74-106) H 04/17/21 04:54 Magnesium 2.4 mg/dL (1.8-2.4) 04/15/21 13:49 Total Bilirubin 0.6 mg/dL (0.2-1.0) 04/14/21 04:40 AST 31 U/L (15-37) 04/14/21 04:40 ALT 123 U/L (12-78) H 04/14/21 04:40 Alkaline Phosphatase 156 U/L (45-117) H 04/14/21 04:40 Triglycerides 57 mg/dL (<150) 04/12/21 05:09 Cholesterol 115 mg/dL (<200) 04/12/21 05:09 HDL Cholesterol 64 mg/dL (40-60) H 04/12/21 05:09 Cholesterol/HDL Ratio 1.80 04/12/21 05:09 Lipase 96 U/L (73-393) 04/11/21 14:10 Home Medications: Amitriptyline [Elavil*] 20 mg PO BEDTIME 04/12/21 Aspirin [Aspirin EC 81 MG] 81 mg PO DAILY 04/12/21 Atorvastatin Calcium 20 mg PO BEDTIME 04/12/21 Chlordiazepoxide HCl [Librium] 5 mg PO BEDTIME 04/12/21 Montelukast [Singulair*] 10 mg PO DAILY 04/12/21 Apixaban [Eliquis] 5 mg PO BID #60 tablet 04/17/21 Benzonatate [Tessalon Perle*] 100 mg PO TID PRN #30 cap 04/17/21 Cholecalciferol (Vitamin D3) [Vitamin D3] 4,000 unit PO DAILY #60 capsule 04/17/21 Diltiazem Cd [Cardizem Cd] 360 mg PO DAILY #60 cap 04/17/21 Metoprolol Tartrate [Lopressor*] 100 mg PO BID #60 tab 04/17/21 Pantoprazole [Protonix Tab*] 40 mg PO DAILYAC #60 tab 04/17/21 Polyethyl Gly 3350 [Glycolax*] 17 gm PO DAILY PRN #30 udbot 04/17/21 Senosides [Senokot*] 17.2 mg PO BID #120 tab 04/17/21 Spironolactone [Aldactone*] 25 mg PO DAILY #30 tab 04/17/21 Zinc Sulfate [Zinc Sulfate*] 220 mg PO DAILY #30 cap 04/17/21 predniSONE [Deltasone*] 10 mg PO BID #21 tab 04/17/21 New Medications: Spironolactone [Aldactone*] 25 mg PO DAILY #30 tab Diltiazem Cd [Cardizem Cd] 360 mg PO DAILY #60 cap predniSONE [Deltasone*] 10 mg PO BID #21 tab Apixaban [Eliquis] 5 mg PO BID #60 tablet Polyethyl Gly 3350 [Glycolax*] 17 gm PO DAILY PRN #30 udbot PRN Reason: Constipation Metoprolol Tartrate [Lopressor*] 100 mg PO BID #60 tab Pantoprazole [Protonix Tab*] 40 mg PO DAILYAC #60 tab Senosides [Senokot*] 17.2 mg PO BID #120 tab Benzonatate [Tessalon Perle*] 100 mg PO TID PRN #30 cap PRN Reason: Cough Cholecalciferol (Vitamin D3) [Vitamin D3] 4,000 unit PO DAILY #60 capsule Zinc Sulfate [Zinc Sulfate*] 220 mg PO DAILY #30 cap Diet: AHA Activity: Ad julienne Followup: NONE,NONE [Primary Care Provider] - 1 Week Ander Jackson MD [ACTIVE - CAN ADMIT] - 1 Week Cedric Talavera MD [ACTIVE - CAN ADMIT] - 1 Week (Dr. Talavera would like to arrange for you to see an chair springer regarding your atrial fibril lation.) Time spent managing pt's care (in minutes): 42
[2021-04-17 17:37] VITALS: BP 132/83
== END 2021-04-17 18:10 | disposition home or self-care (01) | DRG 177 ==
LOC: ER 13:52 → ERHOLD 17:36 → 3RD-ICU 23:56
PROVIDERS: ADMIT Hospitalist; ATTEND Hospitalist
DX: U07.1 COVID-19 (principal); J12.82 Pneumonia due to coronavirus disease 2019; J96.01 Acute respiratory failure with hypoxia; I48.20 Chronic atrial fibrillation, unspecified; I10 Essential (primary) hypertension; E78.5 Hyperlipidemia, unspecified; Z79.01 Long term (current) use of anticoagulants; Z66 Do not resuscitate; Z86.73 Personal history of transient ischemic attack (TIA), and cerebral infarction without residual deficits
CPT/HCPCS: 36415; 51702; 71045; 71275; 80048; 80053; 80061; 80076; 82728; 83605; 83690; 83735; 84132; 84145; 84439; 84443; 84484; 85025; 85379; 85610; 85730; 86140; 87040; 87804; 93005; 93306; 94002; 94660; 96361; 96365; 96366; 96375; 97110; 97116; 97161; 97530; 99285; J0282; J1940; J2405; J2920; J2930; J7030; J7060; J7512; Q9967

== ENCOUNTER 2021-04-27 20:21 | Emergency (ER) | payer OTHER ==
--- NOTE | 2021-04-27 21:21 | EDPHYS ---
Physician Documentation [facility] Name: Jarrell Rodrigez Age: 85 yrs Sex: Female : 1935 Arrival Date: 04/27/2021 Time: 20:24 Bed 16 Private MD: ED Physician Kiel Becker HPI: 04/27 21:15 This 85 yrs old Female presents to ER via Ambulatory with complaints of pkl Hives, Allergic Reaction. 21:15 The patient presents with itching, rash, of the chest and back. Onset: The pkl symptoms/episode began/occurred 4 day(s) ago. Associated signs and symptoms: The patient has no apparent associated signs or symptoms. Possible causes: The patient has no known obvious cause for the symptoms. Historical: - Allergies: 20:57 Levaquin; dc2 20:57 Macrodantin; dc2 20:57 [place]; dc2 - Home Meds: 20:57 amitriptyline 10 mg Oral tab 2 tabs once daily [Active]; aspirin 81 mg Oral TbEC 1 tab dc2 once daily [Active]; apixaban 5 mg Oral tab 1 tab 2 times per day [Active]; Bystolic 10 mg Oral tab 1 tab once daily [Active]; montelukast 10 mg Oral tab 1 tab once daily [Active]; chlordiazepoxide HCl 5 mg Oral cap 1 cap [Active]; atorvastatin 20 mg Oral tab 1 tab once daily [Active]; diltiazem HCl 240 mg Oral CDER 1 cap once daily [Active]; - PMHx: 20:57 Atrial fibrillation; High Cholesterol; Hypertensive disorder; dc2 - Immunization history:: Adult Immunizations up to date, Client reports receiving the 2nd dose of the Covid vaccine, Last tetanus immunization: up to date Flu vaccine is up to date. - Social history:: Smoking status: Patient denies any tobacco usage or history of. Patient/guardian denies using alcohol, street drugs, IV drugs. ROS: 21:15 Eyes: Negative for injury, pain, redness, and discharge, ENT: Negative for injury, pkl pain, and discharge, Neck: Negative for injury, pain, and swelling, Cardiovascular: Negative for chest pain, palpitations, and edema, Respiratory: Negative for shortness of breath, cough, wheezing, and pleuritic chest pain, Abdomen/GI: Negative for abdominal pain, nausea, vomiting, diarrhea, and constipation, Back: Negative for injury and pain, : Negative for injury, bleeding, discharge, and swelling, MS/Extremity: Negative for injury and deformity, Neuro: Negative for headache, weakness, numbness, tingling, and seizure. 21:15 Skin: Positive for rash, of the chest and back. Exam: 21:15 Head/Face: Normocephalic, atraumatic. Eyes: Pupils equal round and reactive to light, pkl extra-ocular motions intact. Lids and lashes normal. Conjunctiva and sclera are non-icteric and not injected. Cornea within normal limits. Periorbital areas with no swelling, redness, or edema. ENT: Nares patent. No nasal discharge, no septal abnormalities noted. Tympanic membranes are normal and external auditory canals are clear. Oropharynx with no redness, swelling, or masses, exudates, or evidence of obstruction, uvula midline. Mucous membranes moist. Neck: Trachea midline, no thyromegaly or masses palpated, and no cervical lymphadenopathy. Supple, full range of motion without nuchal rigidity, or vertebral point tenderness. No Meningismus. Chest/axilla: Normal chest wall appearance and motion. Nontender with no deformity. No lesions are appreciated. Cardiovascular: Regular rate and rhythm with a normal S1 and S2. No gallops, murmurs, or rubs. Normal PMI, no JVD. No pulse deficits. Respiratory: Lungs have equal breath sounds bilaterally, clear to auscultation and percussion. No rales, rhonchi or wheezes noted. No increased work of breathing, no retractions or nasal flaring. Abdomen/GI: Soft, non-tender, with normal bowel sounds. No distension or tympany. No guarding or rebound. No evidence of tenderness throughout. Back: No spinal tenderness. No costovertebral tenderness. Full range of motion. MS/ Extremity: Pulses equal, no cyanosis. Neurovascular intact. Full, normal range of motion. 21:15 Skin: rash can be described as erythematous, on the chest and back. Vital Signs: 20:53 BP 136 / 78; Pulse 92; Resp 18; Temp 97.0; Pulse Ox 100% on 2 lpm NC; Weight 72.57 kg; dc2 Height 5 ft. 7 in. (170.18 cm); Pain 0/10; 20:59 BP 136 / 78; Pulse 92; Resp 18; Temp 97.0; Pulse Ox 98% on R/A; Pain 0/10; dc2 22:01 BP 111 / 98; Pulse 90; Resp 15; Temp 98.6(O); Pulse Ox 100% on 2 lpm NC; Pain 0/10; bc5 20:53 Body Mass Index 25.06 (72.57 kg, 170.18 cm) dc2 MDM: 21:01 Patient medically screened. pkl 21:15 Data reviewed: vital signs, nurses notes. pkl Administered Medications: 21:33 Drug: Decadron (dexamethasone) 10 mg Route: IM; Site: left deltoid; bc5 22:02 Follow up: Response: No adverse reaction bc5 Disposition Summary: 04/27/21 21:20 Discharge Ordered Location: Home pkl Problem: new pkl Symptoms: are unchanged pkl Condition: Stable pkl Diagnosis - Allergic Rash ( Chest and back ) pkl Followup: pkl - With: Steven Iniguez MD - When: 2 - 3 days - Reason: Re-evaluation by your physician Discharge Instructions: - Discharge Summary Sheet pkl Forms: - Medication Reconciliation Form pkl - Thank You Letter pkl - Antibiotic Education pkl - Prescription Opioid Use pkl Prescriptions: - Prednisone 20 mg Oral Tablet - take 1 tablet by ORAL route once daily for 5 days; 5 tablet; Refills: 0, pkl Product Selection Permitted Signatures: Kiel Becker MD MD pkl Samantha Gaspar RN RN bc5 Samaria Hurst RN RN dc2
--- NOTE | 2021-04-27 21:21 | ER ---
Nurse's Notes [facility] Name: Jarrell Rodrigez Age: 85 yrs Sex: Female : 1935 Arrival Date: 04/27/2021 Time: 20:24 Bed 16 Private MD: Diagnosis: Allergic Rash ( Chest and back ) Presentation: 04/27 20:53 Chief complaint: Patient states: " I noticed a bump on my chest last Wednesday and over dc2 the past few days my torso is covered with hives," Pt denies pain but co itching. Denies SOB. Pt is on oxygen ( dependent since having covid) . Coronavirus screen: Vaccine status: Patient reports receiving the 2nd dose of the covid vaccine. Has not received booster of mad[place] Patient reports receiving the 1st dose of the Covid vaccine. Ebola Screen: Patient negative for fever greater than or equal to 101.5 degrees Fahrenheit, and additional compatible Ebola Virus Disease symptoms Patient denies exposure to infectious person. Patient denies travel to an Ebola-affected area in the 21 days before illness onset. No symptoms or risks identified at this time. Onset: The symptoms/episode began/occurred gradually, 1 week(s) ago. Anaphylaxis evaluation, no signs or symptoms of anaphylaxis were noted. Initial Sepsis Screen: Does the patient meet any 2 criteria? No. Patient's initial sepsis screen is negative. Risk Assessment: Do you want to hurt yourself or someone else? Patient reports no desire to harm self or others. Onset of symptoms was March 21, 2021. 20:53 Method Of Arrival: Ambulatory dc2 20:53 Acuity: JAY 3 dc2 21:14 Initial Sepsis Screen: Does the patient have a suspected source of infection? No. bc5 Patient's initial sepsis screen is negative. Triage Assessment: 20:58 General: Appears in no apparent distress. Behavior is calm, cooperative, Pt is on home dc2 oxygen due to covid . Pain: Denies pain. Historical: - Allergies: 20:57 Levaquin; dc2 20:57 Macrodantin; dc2 20:57 [place]; dc2 - Home Meds: 20:57 amitriptyline 10 mg Oral tab 2 tabs once daily [Active]; aspirin 81 mg Oral TbEC 1 tab dc2 once daily [Active]; apixaban 5 mg Oral tab 1 tab 2 times per day [Active]; Bystolic 10 mg Oral tab 1 tab once daily [Active]; montelukast 10 mg Oral tab 1 tab once daily [Active]; chlordiazepoxide HCl 5 mg Oral cap 1 cap [Active]; atorvastatin 20 mg Oral tab 1 tab once daily [Active]; diltiazem HCl 240 mg Oral CDER 1 cap once daily [Active]; - PMHx: 20:57 Atrial fibrillation; High Cholesterol; Hypertensive disorder; dc2 - Immunization history:: Adult Immunizations up to date, Client reports receiving the 2nd dose of the Covid vaccine, Last tetanus immunization: up to date Flu vaccine is up to date. - Social history:: Smoking status: Patient denies any tobacco usage or history of. Patient/guardian denies using alcohol, street drugs, IV drugs. Screenin:13 Abuse screen: Denies threats or abuse. Denies injuries from another. Nutritional bc5 screening: No deficits noted. Tuberculosis screening: No symptoms or risk factors identified. Fall Risk None identified. No fall in past 12 months (0 pts). No secondary diagnosis (0 pts). No IV (0 pts). Ambulatory Aid- None/Bed Rest/Nurse Assist (0 pts). Gait- Normal/Bed Rest/Wheelchair (0 pts) Mental Status- Oriented to own ability (0 pts). Total [place] Fall Scale indicates No Risk (0-24 pts). Assessment: 21:14 Respiratory: Airway is patent Respiratory effort is even, unlabored, Breath sounds are bc5 clear bilaterally. 21:23 Reassessment: Pt reports rash to chest which has gotten progressively worse over the bc5 last week, Pt recently started on multiple new medications. Pt denies SOB at this time. A\\T\\O x 3, RR is even and unlabored, speaking in clear and complete sentences at this time. 21:27 Neuro: No deficits noted. Cardiovascular: No deficits noted. bc5 Vital Signs: 20:53 BP 136 / 78; Pulse 92; Resp 18; Temp 97.0; Pulse Ox 100% on 2 lpm NC; Weight 72.57 kg; dc2 Height 5 ft. 7 in. (170.18 cm); Pain 0/10; 20:59 BP 136 / 78; Pulse 92; Resp 18; Temp 97.0; Pulse Ox 98% on R/A; Pain 0/10; dc2 22:01 BP 111 / 98; Pulse 90; Resp 15; Temp 98.6(O); Pulse Ox 100% on 2 lpm NC; Pain 0/10; bc5 20:53 Body Mass Index 25.06 (72.57 kg, 170.18 cm) dc2 ED Course: 20:24 Patient arrived in ED. bp1 20:57 Triage completed. dc2 21:01 Kiel Becker MD is Attending Physician. pkl 21:02 Samantha Gaspar, RN is Primary Nurse. bc5 21:14 Patient has correct armband on for positive identification. Bed in low position. Call bc5 light in reach. Side rails up X 1. Adult w/ patient. 21:14 Arm band placed on right wrist. bc5 21:14 No provider procedures requiring assistance completed. bc5 21:19 Steven Iniguez MD is Referral Physician. pkl 22:01 Patient did not have IV access during this emergency room visit. bc5 Administered Medications: 21:33 Drug: Decadron (dexamethasone) 10 mg Route: IM; Site: left deltoid; bc5 22:02 Follow up: Response: No adverse reaction bc5 Outcome: 21:20 Discharge ordered by . pkl 22:01 Discharged to home ambulatory, with family. bc5 22:01 Condition: stable 22:01 Discharge instructions given to patient, family, Instructed on discharge instructions, follow up and referral plans. medication usage, Prescriptions given X 2. 22:02 Patient left the ED. bc5 Signatures: Kiel Becker MD MD pkl Louise Mae bp1 Samantha Gaspar, RN RN bc5 Aris, MARLEN Mera RN dc2
[2021-04-27] MEDS ORDERED: dexAMETHasone 10 MG/ML VIAL ONE (21:54)
[2021-04-27 22:15] VITALS: BP 111/98; TEMP 98.6; O2SAT 100
== END 2021-04-27 22:02 | disposition home or self-care (01) ==
LOC: ER 20:21
DX: R21 Rash and other nonspecific skin eruption (principal); I10 Essential (primary) hypertension; E78.00 Pure hypercholesterolemia, unspecified; I48.91 Unspecified atrial fibrillation; Z79.82 Long term (current) use of aspirin; Z88.1 Allergy status to other antibiotic agents; Z88.8 Allergy status to other drugs, medicaments and biological substances
CPT/HCPCS: 96372; 99283; J1100

== ENCOUNTER 2021-05-09 09:00 | Day surgery (SDC) | payer OTHER ==
[2021-05-07 13:14] LABS: Absolute Lymphocytes (CBC) 0.5 K/uL (0.7-4.9); Basophils % 0.3 % (0-1.3); Hematocrit 39.2 % (36.0-45.0); Lymphocytes % 5.6 % (15.3-44.8); RBC Red Blood Cell Count 4.37 M/uL (3.86-4.86)
[2021-05-07 13:26] LABS: Potassium 4.5 mmol/L (3.5-5.1)
[2021-05-07 13:31] LABS: Protime INR 1.41
[2021-05-07 13:54] LABS: Blood Morphology Comment NOT SEEN (NOT SEEN); Platelet Estimate ADEQ; White Blood Cell Scan OK (OK)
[2021-05-09] MEDS ORDERED: NA CHLORIDE 0.9% 500 ML ONE (10:02)
[2021-05-09] MEDS ORDERED: METOPROLOL TARTRATE 5 MG/5 ML INJ IV ONE (10:56)
[2021-05-09] MEDS ORDERED: FLUMAZENIL 0.1 MG/ML (5 mL VIAL) IV ONE (10:57)
[2021-05-09] MEDS ORDERED: MIDAZOLAM HCL 10 ML ONE (10:57)
[2021-05-09] MEDS ORDERED: ATROPINE SULF 1 MG/10 ML SYR IV ONE (10:57)
[2021-05-09 11:44] VITALS: TEMP 97.6
[2021-05-09 12:56] VITALS: BP 124/77; O2SAT 100
--- NOTE | 2021-05-09 21:47 | OP ---
Surgeon: Cedric Talavera MD Blow Off Worker: Argentina Noonan. Admitted on 05/09/2021 as an outpatient for cardioversion. Procedure Performed: Direct current cardioversion. Indication: Recurrent atrial fibrillation, failed amiodarone. She is on Eliquis. Procedure In Detail: The patient brought to the recovery room, given 7 mg of Versed IV push for tota l sedation. Received 1 shock of 100 joules and she converted to sinus rhythm without any complicatio n. She has a few PACs. There were no blood loss. Postoperative Diagnosis: Status post successful cardioversion of atrial fibrillation to sinus rhythm . We will continue her medication including 200 mg of amiodarone p.o. b.i.d. as well as her Eliquis and then she can go home whenever she wakes up. I will see her in the office in about 2 weeks. DENNIS/KIANNA Voice ID: [id number] Report ID: [id number]
--- NOTE | 2021-05-10 14:23 | EKG ---
Test Date: 2021-05-09 Test Time: 11:05:46 Tool Shaper Set Up Operator: [email or web address] MEASUREMENT RESULTS: Intervals: Rate: 80 MA: 194 QRSD: 86 QT: 410 QTc: 472 [place]: P: 82 MA: 194 QRS: -5 T: 41 INTERPRETIVE STATEMENTS: Sinus rhythm with premature atrial complexes Otherwise normal ECG Compared to ECG 04/11/2021 13:55:22 Atrial premature complex(es) now present Atrial fibrillation no longer present Ventricular premature complex(es) no longer present Myocardial infarct finding no longer present Electronically Signed On 05-10-21 14:21:42 CDT by Cedric Talavera
== END 2021-05-09 13:17 | disposition home or self-care (01) ==
LOC: CCL 09:00
DX: I48.0 Paroxysmal atrial fibrillation (principal); I34.0 Nonrheumatic mitral (valve) insufficiency; I65.23 Occlusion and stenosis of bilateral carotid arteries; I10 Essential (primary) hypertension; E78.2 Mixed hyperlipidemia; I87.2 Venous insufficiency (chronic) (peripheral); Z88.6 Allergy status to analgesic agent; Z88.3 Allergy status to other anti-infective agents; Z88.8 Allergy status to other drugs, medicaments and biological substances; Z86.16 Personal history of COVID-19; Z82.49 Family history of ischemic heart disease and other diseases of the circulatory system
CPT/HCPCS: 93005; 85025; 80048; 36415; 85610; 85730; 92960; J2250; J7040

== ENCOUNTER 2022-01-23 09:04 | Inpatient (IN) | payer OTHER ==
[2022-01-23] MEDS ORDERED: NA CHLORIDE 0.9% 500 ML ONE (09:44)
[2022-01-23] MEDS ORDERED: NA CHLORIDE 0.9% 1,000 ML ONE (09:44)
--- NOTE | 2022-01-23 10:01 | RAD REPORT ---
EXAM DESCRIPTION: CT - Head Brain Wo Cont - 01/23/2022 9:52 am CLINICAL HISTORY: dizzywith history of TIA, atrial fibrillation and hypertension COMPARISON: No comparisons TECHNIQUE: Axial 5 mm thick images of the head were obtained without IV contrast. All CT scans are performed using dose optimization technique as appropriate and may include automated exposure control or mA/KV adjustment according to patient size. FINDINGS: No intracranial hemorrhage, mass, edema or shift of mid-line structures. No acute cortical level infarction. No cortical edema or sulcal effacement. Moderate severity chronic ischemic pattern seen throughout the cerebral white matter. A 4 centimeter area of gliosis is present in the posterom edial left occipital lobe. No abnormal extra-axial fluid collections. Ventricles are normal. No signi ficant atrophy changes seen for patient age. Arterial and physiologic calcifications are present. Mastoid air cells and visualized portions of the paranasal sinuses are clear. No acute bony findings. IMPRESSION: No intracranial hemorrhage is present and no acute cortical level infarction seen. Minimal atrophy changes are present. Moderate severity chronic ischemic change seen throughout the ce rebral white matter. 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 Chronic ischemic changes can mask nonhemorrhagic acute infarction. MR brain followup can be obtained if there is ongoing concern for acute ischemia.
[2022-01-23 10:33] LABS: Absolute Lymphocytes (CBC) 1.4 K/uL (0.7-4.9); Hematocrit 38.3 % (36.0-45.0); Lymphocytes % 14.9 % (15.3-44.8); MCV 89.6 fL (80-100); MPV 7.6 fL (7.6-11.3); RBC Red Blood Cell Count 4.27 M/uL (3.86-4.86)
[2022-01-23 10:37] LABS: Protime INR 1.48
[2022-01-23 10:58] LABS: Albumin 3.5 g/dL (3.4-5.0); Bilirubin Direct 0.2 mg/dL (0-0.2); Bilirubin Total 0.5 mg/dL (0.2-1.0); Magnesium 2.4 mg/dL (1.8-2.4); Potassium 3.9 mmol/L (3.5-5.1); Protein, Total 7.3 g/dL (6.4-8.2); Troponin High Sensitivity 7.6 pg/mL (<58.9)
--- NOTE | 2022-01-23 11:36 | RAD REPORT ---
EXAM DESCRIPTION: RAD - Chest Single View - 01/23/2022 10:45 am CLINICAL HISTORY: COUGH COMPARISON: Portable 04/11/2021 TECHNIQUE: AP portable chest image was obtained 01/23/2022 10:45 am . FINDINGS: Diffusely prominent interstitial markings noted. Findings are substantially less prominent than the comparison study which had significant acute disease. No true baseline comparison for the p atient available. Patient could of chronic interstitial lung disease. Acute interstitial edema or inf iltrate are possible. Findings are overall relatively mild. Trachea is midline. Heart and vasculature are normal. No measurable pleural effusion and no pneumotho rax. No acute bony abnormality seen. No acute aortic findings suspected. IMPRESSION: Diffusely prominent interstitial pattern far less pronounced than seen on the only avail able comparison. No focal mass or consolidation. True baseline for the patient is unknown. Interstitial infiltrate or edema cannot be excluded.
--- NOTE | 2022-01-23 12:28 | RAD REPORT ---
EXAM DESCRIPTION: - CP - 01/23/2022 12:14 pm CLINICAL HISTORY: DIZZINESS COMPARISON: No comparisons TECHNIQUE: Real-time sonographic evaluation of bilateral carotid and vertebral systems was performed . Arciniega scale and Doppler interrogation were performed with waveform tracing bilaterally. FINDINGS: Normal high resistance waveforms are noted in both external carotid arteries. The common c arotid arteries and internal carotid arteries show normal low resistance waveforms. Calcified and noncalcified plaquing changes are present in each carotid bulb. Changes extend into the proximal left internal carotid artery. No dissection changes identifiable. Left-sided the systolic v elocities are elevated relative to the right without a clearly defined plaque or stenosis to explain the elevation. Vessels are tortuous. Antegrade flow seen in both vertebral arteries. Velocity values and ratios were recorded and are retained in the patient's imaging records. IMPRESSION: Calcified and noncalcified plaquing changes are present in the right carotid bulb. Visua lly no significant degree of stenosis is identified. The left-side shows bulb and proximal ICA calcified plaquing changes without visual evidence for sign ificant stenosis. The distal left ICA velocity is elevated without a visual stenosis. This elevated v elocity also results in an elevated ICA/ CCA ratio. True hemodynamically significant stenosis on the left is doubtful. If warranted, follow-up MRA or CTA imaging could be performed if there is need to definitively include or exclude stenosis. No evidence of a hemodynamically significant stenosis.
[2022-01-23 12:47] LABS: Urine Blood Negative (Negative); Urine Glucose Negative (Negative); Urine Protein Negative (Negative)
--- NOTE | 2022-01-23 13:16 | ER ---
Nurse's Notes [facility] [place] Name: Jarrell Rodrigez Age: 86 yrs Sex: Female : 1935 Arrival Date: 01/23/2022 Time: 09:08 Bed 4 Private MD: Jun Austin T Diagnosis: Chest pain, unspecified;Dizziness and giddiness;Weakness Presentation: 01/23 09:16 Chief complaint: Patient states: I'm just very dizzy and it's gotten worse and I break iw out in a sweat when I'm not working and I have a tight chest , symptoms started 2 weeks ago. Coronavirus screen: At this time, the client does not indicate any symptoms associated with coronavirus-19. Ebola Screen: Patient negative for fever greater than or equal to 101.5 degrees Fahrenheit, and additional compatible Ebola Virus Disease symptoms Patient denies exposure to infectious person. Patient denies travel to an Ebola-affected area in the 21 days before illness onset. No symptoms or risks identified at this time. Initial Sepsis Screen: Does the patient meet any 2 criteria? No. Patient's initial sepsis screen is negative. Does the patient have a suspected source of infection? No. Patient's initial sepsis screen is negative. Risk Assessment: Do you want to hurt yourself or someone else? Patient reports no desire to harm self or others. Onset of symptoms was January 09, 2022. 09:16 Method Of Arrival: Ambulatory iw 09:16 Acuity: JAY 3 iw Triage Assessment: 09:45 General: Appears in no apparent distress. Behavior is calm, cooperative. Pain: jg9 Complains of pain in chest Pain currently is 3 out of 10 on a pain scale. Historical: - Allergies: 09:18 Levaquin; iw 09:18 Macrodantin; iw 09:18 [place]; iw - Home Meds: 09:18 atorvastatin 20 mg Oral tab 1 tab once daily [Active]; montelukast 10 mg Oral tab 1 tab iw once daily [Active]; 09:19 apixaban 5 mg Oral tab 1 tab 2 times per day [Active]; amiodarone 200 mg Oral tab 1 tab iw 2 times per day [Active]; hydrochlorothiazide 25 mg Oral tab 1 tab once daily [Active]; AREDS [Active]; - PMHx: 09:18 High Cholesterol; Atrial fibrillation; Hypertensive disorder; iw - Immunization history:: Adult Immunizations up to date. - Social history:: Smoking status: Patient denies any tobacco usage or history of. Screenin:42 Abuse screen: Denies threats or abuse. Denies injuries from another. Nutritional jg9 screening: No deficits noted. Tuberculosis screening: No symptoms or risk factors identified. Fall Risk None identified. Assessment: 10:12 Reassessment: No changes from previously documented assessment. Patient and/or family jg9 updated on plan of care and expected duration. Pain level reassessed. Patient is alert, oriented x 3, equal unlabored respirations, skin warm/dry/pink. 11:10 Reassessment: No changes from previously documented assessment. Patient and/or family jg9 updated on plan of care and expected duration. Pain level reassessed. Patient is alert, oriented x 3, equal unlabored respirations, skin warm/dry/pink. 12:12 Reassessment: No changes from previously documented assessment. Patient and/or family jg9 updated on plan of care and expected duration. Pain level reassessed. Patient is alert, oriented x 3, equal unlabored respirations, skin warm/dry/pink. 13:13 Reassessment: Patient and/or family updated on plan of care and expected duration. Pain jg9 level reassessed. Patient is alert, oriented x 3, equal unlabored respirations, skin warm/dry/pink. Patient states feeling better. Patient states symptoms have improved. Vital Signs: 09:16 BP 127 / 62; Pulse 57; Resp 16; Temp 97.9; Pulse Ox 98% on R/A; Weight 77.11 kg; iw 09:45 BP 120 / 51; Pulse 55; Resp 20 S; Pulse Ox 94% ; jg9 10:00 BP 137 / 61; Pulse 54; Resp 22; Pulse Ox 97% on R/A; jg9 10:30 BP 143 / 59; Pulse 53; Resp 21; Pulse Ox 98% on R/A; jg9 13:00 BP 167 / 59; Pulse 62; Resp 18 S; Pulse Ox 98% on R/A; jg9 14:00 BP 169 / 63; Pulse 61; Resp 18 S; Pulse Ox 97% ; jg9 15:00 BP 126 / 50; Pulse 61; Resp 18 S; Pulse Ox 97% on R/A; jg9 16:00 BP 151 / 61; Pulse 59; Resp 18; Pulse Ox 97% ; jg9 17:00 BP 150 / 69; Pulse 58; Resp 17 S; Pulse Ox 95% on R/A; jg9 18:00 BP 160 / 71; Pulse 60; Resp 15 S; Pulse Ox 96% on R/A; jg9 Dora Coma Score: 13:06 Eye Response: spontaneous(4). Verbal Response: oriented(5). Motor Response: obeys evelyn commands(6). Total: 15. NIH Stroke Scale Scores: 13:06 NIHSS Score: 0 evelyn ED Course: 09:08 Patient arrived in ED. mr 09:09 Jun Austin MD is Private Physician. mr 09:18 Triage completed. iw 09:21 Arm band placed on. iw 09:22 Mitch Peterson MD is Attending Physician. evelyn 09:35 Peggy Piña, RN is Primary Nurse. jg9 09:45 Patient has correct armband on for positive identification. Bed in low position. Call jg9 light in reach. Side rails up X 1. 09:54 CT Head Brain wo Cont In Process Unspecified. EDMS 10:12 Inserted saline lock: 22 gauge in left antecubital area, using aseptic technique. Blood jg9 collected. 10:47 XRAY Chest (1 view) In Process Unspecified. EDMS 12:16 US Carotid Artery Bilateral In Process Unspecified. EDMS 13:13 Blake Bledsoe is Hospitalizing Provider. evelyn 13:14 No apparent distress. Resting quietly. Awaiting lab results, Awaiting radiology jg9 results. Awaiting disposition. 19:05 Primary Nurse role handed off by Peggy Piña, RN tw5 19:05 Corinne Garcia is Primary Nurse. tw5 19:07 No provider procedures requiring assistance completed. jg9 19:07 Patient admitted, IV remains in place. jg9 Administered Medications: 10:17 Drug: NS 0.9% 500 ml Route: IV; Rate: bolus; Site: left antecubital; jg9 11:16 Follow up: IV Status: Completed infusion; IV Intake: 500ml jg9 11:24 Drug: NS 0.9% 1000 ml Route: IV; Rate: 125 ml/hr; Site: left antecubital; jg9 19:06 Follow up: IV Status: Completed infusion; IV Intake: 1000ml jg9 Medication: 19:07 VIS not applicable for this client. jg9 Intake: 11:16 IV: 500ml; Total: 500ml. jg9 19:06 IV: 1000ml; Total: 1500ml. jg9 Outcome: 13:16 Decision to Hospitalize by Provider. [facility] 19:07 Condition: stable j9 19:09 Admitted to Med/surg Report called to Attempted to call report. Nurse not assigned at tw this time. 19:24 Admitted to Med/surg accompanied by tech, with chart, Report called to Called report tw5 to adilene RN 19:35 Patient left the ED. tw5 NIH Stroke Scale - NIH Stroke Score Date: 01/23/2022 Time: 13:06 Total Score = 0 1a. Level of Consciousness (LOC) - 0(Alert) 1b. Level of Consciousness (LOC) (Month \T\ Age) - 0(Both) 1c. LOC Commands (Open \T\ Closes Eyes/Clinical Medical Assistant) - 0(Both) 2. Best Gaze (Lateral Gaze Paresis) - 0(Normal) 3. Visual Field Loss - 0(No visual loss) 4. Facial Palsy - 0(Normal) 5a. Left Arm: Motor (10-second hold) - 0(No drift) 5b. Right Arm: Motor (10-second hold) - 0(No drift) 6a. Left Leg: Motor (5-second hold - always test supine) - 0(No drift) 6b. Right Leg: Motor (5-second hold - always test supine) - 0(No drift) 7. Limb Ataxia (finger/nose \T\ heel/manuel - test with eyes open) - 0(Absent) 8. Sensory Loss (pinprick arms/legs/face) - 0(Normal) 9. Best Language: Aphasia (description/naming/reading) - 0(No aphasia) 10. Dysarthria (speech clarity - read or repeat words) - 0(Normal) 11. Extinction and Inattention (visual/tactile/auditory/spatial/personal) - 0(No abnormality) Initials: [facility] Signatures: Dispatcher [employer] EDMitch aB MD MD cha Rivera, Caty Claros RN RN iw Wood, Tiffany [facility] Peggy Piña RN RN jg9 Corrections: (The following items were deleted from the chart) :01 04:18 Home Meds: amitriptyline 10 mg Oral tab 2 tabs once daily; :18 Home Meds: apixaban 5 mg Oral tab 1 tab 2 times per day; :18 Home Meds: aspirin 81 mg Oral TbEC 1 tab once daily; :18 Home Meds: Bystolic 10 mg Oral tab 1 tab once daily; :18 Home Meds: chlordiazepoxide HCl 5 mg Oral cap 1 cap; :18 Home Meds: diltiazem HCl 240 mg Oral CDER 1 cap once daily;
--- NOTE | 2022-01-23 13:17 | EDPHYS ---
Physician Documentation [facility] Name: Jarrell Rodrigez Age: 86 yrs Sex: Female : 1935 Arrival Date: 01/23/2022 Time: 09:08 Bed 4 Private MD: Jun Austin T ED Physician Mitch Peterson HPI: 01/23 13:05 This 86 yrs old Female presents to ER via Ambulatory with complaints of evelyn Dizziness. 13:05 The patient presents with dizziness, generalized weakness. evelyn Historical: - Allergies: 09:18 Levaquin; iw 09:18 Macrodantin; iw 09:18 [place]; iw - Home Meds: 09:18 atorvastatin 20 mg Oral tab 1 tab once daily [Active]; montelukast 10 mg Oral tab 1 tab iw once daily [Active]; 09:19 apixaban 5 mg Oral tab 1 tab 2 times per day [Active]; amiodarone 200 mg Oral tab 1 tab iw 2 times per day [Active]; hydrochlorothiazide 25 mg Oral tab 1 tab once daily [Active]; AREDS [Active]; - PMHx: 09:18 High Cholesterol; Atrial fibrillation; Hypertensive disorder; iw - Immunization history:: Adult Immunizations up to date. - Social history:: Smoking status: Patient denies any tobacco usage or history of. ROS: 13:06 Constitutional: Negative for fever, chills, and weight loss, Eyes: Negative for injury, evelyn pain, redness, and discharge, ENT: Negative for injury, pain, and discharge, Neck: Negative for injury, pain, and swelling, Respiratory: Negative for shortness of breath, cough, wheezing, and pleuritic chest pain, Abdomen/GI: Negative for abdominal pain, nausea, vomiting, diarrhea, and constipation, Back: Negative for injury and pain, : Negative for injury, bleeding, discharge, and swelling, MS/Extremity: Negative for injury and deformity, Skin: Negative for injury, rash, and discoloration, Neuro: Negative for headache, weakness, numbness, tingling, and seizure, Psych: Negative for depression, anxiety, suicide ideation, homicidal ideation, and hallucinations, Allergy/Immunology: Negative for hives, rash, and allergies, Endocrine: Negative for neck swelling, polydipsia, polyuria, polyphagia, and marked weight changes, Hematologic/Lymphatic: Negative for swollen nodes, abnormal bleeding, and unusual bruising. 13:06 Cardiovascular: Positive for chest pain, of the chest. Exam: 13:06 Constitutional: This is a well developed, well nourished patient who is awake, alert, evelyn and in no acute distress. Head/Face: Normocephalic, atraumatic. Eyes: Pupils equal round and reactive to light, extra-ocular motions intact. Lids and lashes normal. Conjunctiva and sclera are non-icteric and not injected. Cornea within normal limits. Periorbital areas with no swelling, redness, or edema. ENT: Nares patent. No nasal discharge, no septal abnormalities noted. Tympanic membranes are normal and external auditory canals are clear. Oropharynx with no redness, swelling, or masses, exudates, or evidence of obstruction, uvula midline. Mucous membranes moist. Neck: Trachea midline, no thyromegaly or masses palpated, and no cervical lymphadenopathy. Supple, full range of motion without nuchal rigidity, or vertebral point tenderness. No Meningismus. Chest/axilla: Normal chest wall appearance and motion. Nontender with no deformity. No lesions are appreciated. Cardiovascular: Regular rate and rhythm with a normal S1 and S2. No gallops, murmurs, or rubs. Normal PMI, no JVD. No pulse deficits. Respiratory: Lungs have equal breath sounds bilaterally, clear to auscultation and percussion. No rales, rhonchi or wheezes noted. No increased work of breathing, no retractions or nasal flaring. Abdomen/GI: Soft, non-tender, with normal bowel sounds. No distension or tympany. No guarding or rebound. No evidence of tenderness throughout. Back: No spinal tenderness. No costovertebral tenderness. Full range of motion. Skin: Warm, dry with normal turgor. Normal color with no rashes, no lesions, and no evidence of cellulitis. MS/ Extremity: Pulses equal, no cyanosis. Neurovascular intact. Full, normal range of motion. Neuro: Awake and alert, GCS 15, oriented to person, place, time, and situation. Cranial nerves II-XII grossly intact. Motor strength 5/5 in all extremities. Sensory grossly intact. Cerebellar exam normal. Normal gait. Psych: Awake, alert, with orientation to person, place and time. Behavior, mood, and affect are within normal limits. 13:08 ECG was reviewed by the Attending Physician. [facility] Vital Signs: 09:16 BP 127 / 62; Pulse 57; Resp 16; Temp 97.9; Pulse Ox 98% on R/A; Weight 77.11 kg; iw 09:45 BP 120 / 51; Pulse 55; Resp 20 S; Pulse Ox 94% ; jg9 10:00 BP 137 / 61; Pulse 54; Resp 22; Pulse Ox 97% on R/A; jg9 10:30 BP 143 / 59; Pulse 53; Resp 21; Pulse Ox 98% on R/A; jg9 13:00 BP 167 / 59; Pulse 62; Resp 18 S; Pulse Ox 98% on R/A; jg9 14:00 BP 169 / 63; Pulse 61; Resp 18 S; Pulse Ox 97% ; jg9 15:00 BP 126 / 50; Pulse 61; Resp 18 S; Pulse Ox 97% on R/A; jg9 16:00 BP 151 / 61; Pulse 59; Resp 18; Pulse Ox 97% ; jg9 17:00 BP 150 / 69; Pulse 58; Resp 17 S; Pulse Ox 95% on R/A; jg9 18:00 BP 160 / 71; Pulse 60; Resp 15 S; Pulse Ox 96% on R/A; jg9 NIH Stroke Scale Scores: 13:06 NIHSS Score: 0 evelyn [place] Coma Score: 13:06 Eye Response: spontaneous(4). Verbal Response: oriented(5). Motor Response: obeys [facility] commands(6). Total: 15. MDM: 09:22 Patient medically screened. [facility] 13:09 Differential diagnosis: abnormal EKG, acute pericarditis, anxiety, coronary artery evelyn disease chest wall pain, congestive heart failure Cholelithiasis gastritis, pancreatitis, pneumonia, pulmonary embolus, stable angina, unstable angina. HEART Score: History: Slightly Suspicious (0), ECG: Normal (0), Age: > or = 65 years (2), Risk Factors: > or = 3 Risk factors for atherosclerotic disease (2), [Hypercholesterolemia] [Hypertension] [+ Family HX] Troponin: < or = 1 x Normal Limit (0), Total Score = 4. Differential diagnosis: cardiac arrhythmia, generalized weakness, hypovolemia, idiopathic dizziness. The patient was not given aspirin in the Emergency Department. The patient's deep vein thrombosis risk score was calculated as follows: Total Score: 0. This patient was found to be at low risk for a deep vein thrombosis by using the Well's assessment criteria. The patient's pulmonary embolism risk score was calculated as follows: Total Score: 0-2 points. This patient was found to be at low risk for a pulmonary embolism by using the Well's assessment criteria. FRANCK Risk Score: 1 - patient's age is greater or equal to 65 years, 1 - Three or more CAD risk factors, 1- Known CAD, TOTAL SCORE = 3. Data reviewed: vital signs, nurses notes, lab test result(s), EKG, radiologic studies, CT scan, plain films. Data interpreted: alum plant operator: rate is 53 beats/min, rhythm is regular, Pulse oximetry: on room air is 98 %. Test interpretation: by ED physician or midlevel provider: ECG, plain radiologic studies. Counseling: I had a detailed discussion with the patient and/or guardian regarding: the historical points, exam findings, and any diagnostic results supporting the discharge/admit diagnosis, lab results, radiology results, the need for further work-up and treatment in the hospital. 01/23 09: Order name: Basic Metabolic Panel; Complete Time: :01/23 Order name: CBC with Diff; Complete Time: :01/23: Order name: LFT's; Complete Time: :01/23: Order name: Magnesium; Complete Time: :01/23: Order name: NT PRO-BNP; Complete Time: :01/23: Order name: PT-INR; Complete Time: :01/23: Order name: Troponin HS; Complete Time: :01/23: Order name: XRAY Chest (1 view); Complete Time: 12:59 01/23: Order name: Lipase; Complete Time: :01/23: Order name: SARS-COV-2 RT PCR (Document "Date of Onset" if Symptomatic); Complete Time: evelyn 12:59 01/23 09:26 Order name: US Carotid Artery Bilateral; Complete Time: 12:59 01/23:26 Order name: CT Head Brain wo Cont; Complete Time: 11:14 [facility] 01/23 12:48 Order name: Urine Dipstick-Ancillary; Complete Time: 12:59 EDMS 01/23 13:04 Order name: Echo w/ Doppler 01/23 09:26 Order name: EKG; Complete Time: 09:27 evelyn 01/23 09:26 Order name: Cardiac monitoring; Complete Time: 09:36 [facility] 01/23 09:26 Order name: EKG - Nurse/Tech; Complete Time: 09:41 evelyn 01/23 09:26 Order name: IV Saline Lock; Complete Time: 10:13 evelyn 01/23 09:26 Order name: Labs collected and sent; Complete Time: 10:13 [facility] 01/23 09:26 Order name: O2 Sat Monitoring; Complete Time: 09:36 [facility] 01/23 09:26 Order name: Urine Dipstick-Ancillary (obtain specimen); Complete Time: 13:11 [facility] 01/23 15:39 Order name: MRI Stroke Protocol eb EC:08 Rate is 56 beats/min. Rhythm is regular. QRS [place] is Normal. MS interval is normal. QRS evelyn interval is normal. QT interval is normal. No Q waves. T waves are Normal. No ST changes noted. Clinical impression: Sinus bradycardia and No evidence of ischemia. Interpreted by me. Reviewed by me. Administered Medications: 10:17 Drug: NS 0.9% 500 ml Route: IV; Rate: bolus; Site: left antecubital; jg9 11:16 Follow up: IV Status: Completed infusion; IV Intake: 500ml jg9 11:24 Drug: NS 0.9% 1000 ml Route: IV; Rate: 125 ml/hr; Site: left antecubital; jg9 19:06 Follow up: IV Status: Completed infusion; IV Intake: 1000ml jg9 Disposition Summary: 01/23/22 13:16 Hospitalization Ordered Hospitalization Status: Observation evelyn Provider: Blake Bledsoe cha Location: Telemetry/MedSurg (observation) evelyn Condition: Stable evelyn Problem: new evelyn Symptoms: have improved evelyn Bed/Room Type: Standard evelyn Room Assignment: 213(01/23/22 18:35) dw Diagnosis - Chest pain, unspecified evelyn - Dizziness and giddiness evelyn - Weakness evelyn Forms: - Medication Reconciliation Form evelyn - SBAR form evelyn NIH Stroke Scale - NIH Stroke Score Date: 01/23/2022 Time: 13:06 Total Score = 0 1a. Level of Consciousness (LOC) - 0(Alert) 1b. Level of Consciousness (LOC) (Month \\T\\ Age) - 0(Both) 1c. LOC Commands (Open \\T\\ Closes Eyes/Acetone Button Paster) - 0(Both) 2. Best Gaze (Lateral Gaze Paresis) - 0(Normal) 3. Visual Field Loss - 0(No visual loss) 4. Facial Palsy - 0(Normal) 5a. Left Arm: Motor (10-second hold) - 0(No drift) 5b. Right Arm: Motor (10-second hold) - 0(No drift) 6a. Left Leg: Motor (5-second hold - always test supine) - 0(No drift) 6b. Right Leg: Motor (5-second hold - always test supine) - 0(No drift) 7. Limb Ataxia (finger/nose \\T\\ heel/manuel - test with eyes open) - 0(Absent) 8. Sensory Loss (pinprick arms/legs/face) - 0(Normal) 9. Best Language: Aphasia (description/naming/reading) - 0(No aphasia) 10. Dysarthria (speech clarity - read or repeat words) - 0(Normal) 11. Extinction and Inattention (visual/tactile/auditory/spatial/personal) - 0(No abnormality) Initials: evelyn Signatures: Dispatcher [employer] Bruna Lyman RN RN dw Anderson, Corey, MD MD cha Williams, Irene, RN RN iw Gilmore, Jennifer, RN RN jg9 Corrections: (The following items were deleted from the chart) 09:18 Home Meds: amitriptyline 10 mg Oral tab 2 tabs once daily; 09:18 Home Meds: apixaban 5 mg Oral tab 1 tab 2 times per day; 09:18 Home Meds: aspirin 81 mg Oral TbEC 1 tab once daily; :18 Home Meds: Bystolic 10 mg Oral tab 1 tab once daily; 09:18 Home Meds: chlordiazepoxide HCl 5 mg Oral cap 1 cap; 09:18 Home Meds: diltiazem HCl 240 mg Oral CDER 1 cap once daily; iw iw 13:23 09:26 Oxygen Per Protocol ordered. evelyn jg9 18:35 13:16 evelyn dw
--- NOTE | 2022-01-23 14:03 | P.HP ---
Certification for Inpatient Patient admitted to: Observation With expected LOS: <2 Midnights Practitioner: I am a practitioner with admitting privileges, knowledge of patient current condition, hospital course, and medical plan of care. Services: Services provided to patient in accordance with Admission requirements found in Title 42 Section 412.3 of the Code of Federal Regulations Patient History Date of Service: 01/23/22 Reason for admission: Dizziness and chest tightness History of Present Illness: 86-year-old male with a history of hypertension and CVA presented to the [facility] department with a complaint of progressive dizziness of about 3 days duration. She stated dizziness was worse today and therefore presented to the emergency department for evaluation. She reports dizziness at rest, feels like her head is spinning, associated with nausea, no vomiting. She denied any tinnitus. She reports history of peripheral neuropathy with some difficulty with ambulation at baseline. She also reports chest tightness of onset this morning. She denied any shortness of breath. Work-up in the emergency department has been unremarkable, CBC, BMP unremarkable, initial troponin negative, EKG demonstrated sinus bradycardia. Head CT negative for any acute disease. Carotid Doppler shows no significant carotid artery stenosis. She was still feeling dizzy during my examination in the ED. Patient is hospitalized for further evaluation and management. Allergies acetaminophen [From [place]] Allergy (Verified 04/12/21 02:44) Itching hydrocodone [From [place]] Allergy (Verified 04/12/21 02:44) Itching levofloxacin [From Levaquin] Allergy (Verified 04/12/21 02:44) Nausea/Vomiting nitrofurantoin [From Macrodant[place]] Allergy (Verified 04/12/21 02:44) Hives/Rash Home Medications: Amitriptyline [Elavil*] 20 mg PO BEDTIME 04/12/21 Aspirin [Aspirin EC 81 MG] 81 mg PO DAILY 04/12/21 Atorvastatin Calcium 20 mg PO BEDTIME 04/12/21 Chlordiazepoxide HCl [Librium] 5 mg PO BEDTIME 04/12/21 Montelukast [Singulair*] 10 mg PO DAILY 04/12/21 Apixaban [Eliquis] 5 mg PO BID #60 tablet 04/17/21 Benzonatate [Tessalon Perle*] 100 mg PO TID PRN #30 cap 04/17/21 Cholecalciferol (Vitamin D3) [Vitamin D3] 4,000 unit PO DAILY #60 capsule 04/17/21 Diltiazem Cd [Cardizem Cd] 360 mg PO DAILY #60 cap 04/17/21 Metoprolol Tartrate [Lopressor*] 100 mg PO BID #60 tab 04/17/21 Pantoprazole [Protonix Tab*] 40 mg PO DAILYAC #60 tab 04/17/21 Polyethyl Gly 3350 [Glycolax*] 17 gm PO DAILY PRN #30 udbot 04/17/21 Senosides [Senokot*] 17.2 mg PO BID #120 tab 04/17/21 Spironolactone [Aldactone*] 25 mg PO DAILY #30 tab 04/17/21 Zinc Sulfate [Zinc Sulfate*] 220 mg PO DAILY #30 cap 04/17/21 predniSONE [Deltasone*] 10 mg PO BID #21 tab 04/17/21 - Past Medical/Surgical History Diabetic: No -: HTN -: CVA -: Hysterectomy -: Cholecystectomy Psychosocial/ Personal History: Retired, lives at home by self - Family History Father -: Heart disease - Social History Alcohol use: No CD- Drugs: No Caffeine use: Yes Review of Systems Other: She denied any diarrhea or abdominal pain. She denied any headache. She denied any fever or upper respiratory symptoms. Except as documented, all other systems reviewed and negative. Physical Examination - Physical Exam General: Alert, In no apparent distress, Oriented x3 HEENT: PERRLA, Mucous membr. moist/pink, Other (No nystagmus), EOMI Neck: Supple, 2+ carotid pulse no bruit, JVD not distended Respiratory: Clear to auscultation bilaterally, Normal air movement Cardiovascular: No edema, Regular rate/rhythm, Normal S1 S2, No murmurs Capillary refill: <2 Seconds Gastrointestinal: Normal bowel sounds, Soft and benign, Non-distended, No tenderness Musculoskeletal: No swelling, No tenderness Integumentary: No rashes, No erythema, No cyanosis Neurological: Normal speech, Normal strength at 5/5 x4 extr, Cranial nerves 3-12 intact Lymphatics: No axilla or inguinal lymphadenopathy - Studies Laboratory Data (last 24 hrs) 01/23/22 10:10: PT 16.4 H, INR 1.48 01/23/22 10:10: WBC 9.2, Hgb 12.9, Hct 38.3, Plt Count 279 01/23/22 10:10: Sodium 139, Potassium 3.9, BUN 26 H, Creatinine 1.30, Glucose 108 H, Magnesium 2.4, Total Bilirubin 0.5, AST 45 H, ALT 67, Alkaline Phosphatase 145 H, Lipase 103 Assessment and Plan - Problems (Diagnosis) (1) Vertigo Current Visit: Yes Status: Acute (2) History of CVA (cerebrovascular accident) Current Visit: Yes Status: Acute (3) Chronic atrial fibrillation Current Visit: Yes Status: Acute (4) Chest pain Current Visit: Yes Status: Acute (5) Hypertension Current Visit: No Status: Acute - Plan Placed under observation on the medical floor Trend troponin. Given her history of CVA in the past need to rule out acute CVA as a cause of the vertigo. MRI of the brain ordered. Ativan IV as needed. Meclizine p.o. as needed. Continue home medications including Eliquis for A. fib anticoagulation. Aspirin. Continue A. fib rate control medications. PT consult. - Advance Directives Does patient have a Living Will: Yes Does patient have a Durable POA for Healthcare: No
[2022-01-23] MEDS ORDERED: LORazepam 2 MG/ML VIAL IV ONE (17:00)
[2022-01-23] MEDS ORDERED: ACETAMINOPHEN 500 MG TAB PO PRN (19:37)
[2022-01-23] MEDS ORDERED: NITROGLYCERIN 0.4 MG/TAB SL PRN (19:37)
[2022-01-23 20:30] VITALS: BMI 26.6
[2022-01-23] MEDS ORDERED: APIXABAN 5 MG TABLET PO SCH (21:00)
[2022-01-23] MEDS: APIXABAN 2.5 MG TABLET PO SCH (21:00)
[2022-01-23] MEDS: ATORVASTATIN 20 MG TAB PO SCH (21:00)
[2022-01-23 21:11] LABS: Troponin High Sensitivity 11.1 pg/mL (<58.9)
[2022-01-23] MEDS ORDERED: AMIODARONE HCL 200 MG TAB PO ONE (23:00)
[2022-01-24 04:44] LABS: Absolute Lymphocytes (CBC) 1.4 K/uL (0.7-4.9); Hematocrit 36.6 % (36.0-45.0); Lymphocytes % 17.4 % (15.3-44.8); MCV 91.2 fL (80-100); MPV 7.9 fL (7.6-11.3); RBC Red Blood Cell Count 4.01 M/uL (3.86-4.86)
[2022-01-24 05:03] LABS: Potassium 3.4 mmol/L (3.5-5.1)
[2022-01-24] MEDS ORDERED: AMIODARONE HCL 200 MG TAB PO SCH (09:00)
[2022-01-24] MEDS ORDERED: ENOXAPARIN 40 MG/0.4 ML SQ SCH (09:00)
[2022-01-24] MEDS ORDERED: CHOLECALCIFEROL 2000 UNIT PO SCH (09:00)
[2022-01-24] MEDS: MONTELUKAST 10 MG TAB PO SCH (10:17)
[2022-01-24] MEDS: ASPIRIN EC 81 MG TAB PO SCH (10:17)
[2022-01-24] MEDS: APIXABAN 2.5 MG TABLET PO SCH ×2 (10:18→21:00)
[2022-01-24] MEDS: hydroCHLOROthiazide 25 MG TAB PO SCH (10:18)
[2022-01-24] MEDS: VITAMIN D 5,000 UNIT CAP PO SCH (10:18)
[2022-01-24] MEDS ORDERED: HYDRALAZINE HCL 20 MG/ML VIAL IV PRN (12:11)
--- NOTE | 2022-01-24 12:11 | P.PN ---
Subjective Date of Service: 01/24/22 Chief Complaint: Dizziness and chest tightness Patient still complaining of dizziness and vertigo. She did tolerate physical therapy and ambulated several feet. Physical Examination - Vital Signs Temperature: 97.6 F Blood Pressure: 163/66 Pulse: 57 Respirations: 14 Pulse Ox (%): 94 - Physical Exam General: Alert, In no apparent distress, Oriented x3 HEENT: Mucous membr. moist/pink Neck: Supple, JVD not distended Respiratory: Clear to auscultation bilaterally, Normal air movement Cardiovascular: No edema, Normal S1 S2, Irregular heart rate/rhythm Gastrointestinal: Normal bowel sounds, Soft and benign, Non-distended, No tenderness Musculoskeletal: No swelling Integumentary: No rashes Neurological: Normal strength at 5/5 x4 extr Assessment And Plan - Current Problems (Diagnosis) (1) Vertigo Current Visit: Yes Status: Acute (2) History of CVA (cerebrovascular accident) Current Visit: Yes Status: Acute (3) Chronic atrial fibrillation Current Visit: Yes Status: Acute (4) Chest pain Current Visit: Yes Status: Acute (5) Hypertension Current Visit: No Status: Acute - Plan Troponin trended negative. Patient seen by cardiology-Dr. Talavera who is planning possible cardiac cath on Wednesday. Given her history of CVA in the past need to rule out acute CVA as a cause of the vertigo. MRI of the brain ordered will be done on Wednesday. Ativan IV as needed. Meclizine p.o. as needed. Continue home medications including Eliquis and amiodarone for A. fib anticoagulation. Aspirin. Continue PT.
[2022-01-24] MEDS ORDERED: LORazepam 2 MG/ML VIAL IV ONE (14:00)
--- NOTE | 2022-01-24 14:26 | RAD REPORT ---
EXAM DESCRIPTION: MRI - MRA Head Wo Cont - 01/24/2022 2:15 pm CLINICAL HISTORY: Altered mental status CVA COMPARISON: No comparisons FINDINGS: 3D noncontrast [id number] MR angiography of the [place] was performed. No aneurysm, flow-limiting stenosis or vascular malformation is seen. No vasculitis or named branch o cclusion identified. Forward flow seen in codominant vertebral arteries. The visualized dural venous sinuses appear patent. IMPRESSION: No significant flow abnormality of the [place] is identified.
--- NOTE | 2022-01-24 14:29 | RAD REPORT ---
EXAM DESCRIPTION: MRI - Brain W/Wo Cont - 01/24/2022 2:16 pm CLINICAL HISTORY: Altered mental status COMPARISON: MRA Head Wo Cont dated 01/24/2022; MRA Neck W/Wo Cont dated 01/24/2022 TECHNIQUE: Sagittal and axial T1-weighted images were obtained. Axial PD/heavily T2-weighted and T2- FLAIR images were obtained along with axial DWI/ADC mapping sequences. Coronal heavily T2 weighted s equence obtained. Axial and coronal post-contrast T1-weighted images were also obtained. A 17 ml Mul tihance contrast following utilized. FINDINGS: No intracranial hemorrhage, mass or acute infarction. There is no edema or shift of midli ne structures. No extra-axial fluid collections. [place]-matter/white matter junction is preserved. Sig nal voids are seen as a normal finding in the major intracranial vessels. Patient has old infarction changes in the posteroinferior left occipital lobe. Trace amount of encephalomalacia seen in the pat lar position of the right occipital lobe. Additional moderate severity chronic ischemic change seen t hroughout the cerebral white matter. No significant brainstem, thalamus or basal ganglia signal abnor malities. Ventricles are in proportion to volume loss. Post-contrast images show normal enhancement. No dural thickening. Mastoid air cells and paranasal sinuses are clear. IMPRESSION: No acute infarction change. No acute intracranial finding identifiable. Atrophy, chronic ischemic change and old infarction changes are present, as detailed above, matching the recent CT head examination.
--- NOTE | 2022-01-24 14:31 | RAD REPORT ---
EXAM DESCRIPTION: MRI - MRA Neck W/Wo Cont - 01/24/2022 2:15 pm CLINICAL HISTORY: CVA, weakness, dizziness COMPARISON: MRI brain same date, carotid ultrasound January 23 TECHNIQUE: MR angiography of the cervical vasculature performed. Coronal imaging plane acquisition u tilized. A 17 MultiHance contrast volume was utilized. Coronal reformatted images were generated and reviewed. Vertical axis 3D rotational projections obtained using maximum intensity projection protoco l. FINDINGS: Aortic arch is 3 vessel configuration with no origins stenosis. No vertebral artery origin stenoses present. The bilateral common carotid and internal carotid arteries show no occlusion or fl ow restricting lesion. No significant atherosclerotic change, dissection or acute finding identifiabl e. Codominant vertebral arteries also without stenosis, dissection or significant abnormality. IMPRESSION: MRA neck examination shows no significant finding.
[2022-01-24] MEDS: ATORVASTATIN 20 MG TAB PO SCH (21:00)
[2022-01-24] MEDS: AMIODARONE HCL 200 MG TAB PO SCH (21:30)
--- NOTE | 2022-01-25 03:08 | CON ---
Date of Consultation: 01/24/2022 The patient was admitted on 01/23/[address] Bledsoe's service. I saw the patient on 01/24/2022. Reason For Consultation: Unstable angina. History Of Present Illness: Ms. Rodrigez is 86, very healthy for her age, has a history of paroxysmal atrial fibrillation, dyslipidemia, hypertension, and asthma. Came in with episode of chest pain, tig htness, diaphoresis with dizziness. BNP was 2512. Her troponin was negative. EKG was nonspecific. Continues to have chest pain. Her chest pain was exertional. Denied any nausea or vomiting. Denie d any PND, orthopnea, pedal edema, palpitations, or syncope. Past Medical History: As stated above. Medications: Include, 1.Amiodarone. 2.Eliquis. 3.Lipitor. 4.Hydrochlorothiazide. 5.Singulair. Allergies: SHE IS ALLERGIC TO TYLENOL, HYDROCODONE, AND LEVAQUIN. Review of Systems: Negative. Social History: Negative. Family History: Noncontributory. Physical Examination: Vital Signs: Stable, afebrile. HEENT: Negative. Neck: Supple. No bruit, lymphadenopathy, JVD, or thyromegaly. Chest: Her chest is clear to auscultation and percussion. Cardiac: Revealed a regular rhythm and rate without any murmurs, gallops, or rubs. Abdomen: Benign. Extremities: Revealed no clubbing, cyanosis, or edema. Diagnostic Data: Chest x-ray was negative. CT of the head showed old left occipital lobe 4 cm CVA, showed possible left carotid stenosis. Echocardiogram in April 2021, showed mild pulmonary hyperte nsion with an ejection fraction of 60%. Impression And Plan: 1.Unstable angina with substernal chest pressure, diaphoresis, exertional chest pain radiating to th e arm, multiple cardiac risk factors. I think she needs to have a heart catheterization to define he r coronary anatomy. She agrees to proceed. She understands the risks and the benefits of the proced ure. 2.Possible left carotid stenosis. We will perform a carotid angiogram as well. 3.Old cerebrovascular accident in the left occipital lobe. 4.Atrial fibrillation and sinus rhythm on amiodarone and Eliquis status post cardioversion in 2020. We will hold the Eliquis. Her other problems include hypertension, asthma, dyslipidemia, an d mild pulmonary hypertension. All of those are stable at this point. We will continue to follow elizabeth AVILA Voice ID: [id number] Report ID: [id number]
[2022-01-25] MEDS: ASPIRIN EC 81 MG TAB PO SCH (08:21)
[2022-01-25] MEDS: hydroCHLOROthiazide 25 MG TAB PO SCH (08:21)
[2022-01-25] MEDS: MONTELUKAST 10 MG TAB PO SCH (08:21)
[2022-01-25] MEDS: VITAMIN D 5,000 UNIT CAP PO SCH (08:22)
--- NOTE | 2022-01-25 14:43 | EKG ---
Test Date: 2022-01-23 Test Time: 09:40:26 Safety Manager: ANTOINETTE MEASUREMENT RESULTS: Intervals: Rate: 53 HI: 196 QRSD: 86 QT: 510 QTc: 478 [place]: P: 66 HI: 196 QRS: -1 T: 47 INTERPRETIVE STATEMENTS: Sinus bradycardia Otherwise normal ECG Compared to ECG 05/09/2021 11:05:46 Sinus rhythm no longer present Atrial premature complex(es) no longer present Electronically Signed On 01-25-22 14:41:25 CDT by Cedric Talavera
--- NOTE | 2022-01-25 15:17 | P.PN ---
Subjective Date of Service: 01/25/22 Chief Complaint: Dizziness and chest tightness Patient denies any dizziness or vertigo today. She has been ambulating with a walker during physical therapy. Physical Examination - Vital Signs Temperature: 97.5 F Blood Pressure: 127/60 Pulse: 52 Respirations: 14 Pulse Ox (%): 97 - Physical Exam General: Alert, In no apparent distress, Oriented x3 HEENT: Mucous membr. moist/pink Neck: JVD not distended Respiratory: Clear to auscultation bilaterally, Normal air movement Cardiovascular: No edema, Normal S1 S2, Irregular heart rate/rhythm Gastrointestinal: Normal bowel sounds, Soft and benign, Non-distended, No tenderness Musculoskeletal: No swelling Integumentary: No rashes, No erythema Neurological: Normal speech, Normal strength at 5/5 x4 extr Assessment And Plan - Current Problems (Diagnosis) (1) Vertigo Current Visit: Yes Status: Acute (2) History of CVA (cerebrovascular accident) Current Visit: Yes Status: Acute (3) Chronic atrial fibrillation Current Visit: Yes Status: Acute (4) Chest pain Current Visit: Yes Status: Acute (5) Hypertension Current Visit: No Status: Acute - Plan Troponin trended negative. Patient seen by cardiology-Dr. Talavera who is planning possible cardiac cath on Wednesday. MRI of the brain negative for acute CVA. Vertigo likely secondary to BPPV. Ativan IV as needed. Meclizine p.o. as needed. Continue home medications including Eliquis and amiodarone for A. fib anticoagulation. Aspirin. Continue PT.
--- NOTE | 2022-01-25 20:06 | PN ---
Date of Progress Note: 01/25/2022 Ms. Rodrigez was admitted with chest pain, weakness, diaphoresis, shortness of breath consistent with u nstable angina. She was dizzy. Carotid Doppler showed a possible left carotid stenosis. She had ru led out for an IA, but I still feel that her carotid stenosis is significant. I think her symptoms a re consistent with unstable angina. She has never had a heart catheterization before. Her Eliquis w as held. She has atrial fibrillation, but she is in sinus rhythm, on amiodarone. She takes Lipitor, hydrochlorothiazide, and Singulair. CT of the head showed an old stroke. We will plan for a heart catheterization and a carotid angiogram in the morning. DENNIS/KIANNA Voice ID: [id number] Report ID: [id number]
[2022-01-25] MEDS: ATORVASTATIN 20 MG TAB PO SCH (21:00)
[2022-01-25] MEDS: AMIODARONE HCL 200 MG TAB PO SCH (21:30)
[2022-01-26 06:08] LABS: Absolute Lymphocytes (CBC) 1.6 K/uL (0.7-4.9); Lymphocytes % 16.3 % (15.3-44.8); MPV 7.8 fL (7.6-11.3); RBC Red Blood Cell Count 4.17 M/uL (3.86-4.86)
[2022-01-26] MEDS: ASPIRIN EC 81 MG TAB PO SCH (06:15)
[2022-01-26 06:16] LABS: Potassium 3.2 mmol/L (3.5-5.1)
--- NOTE | 2022-01-26 06:59 | ECHO ---
HEIGHT: 5 ft 7 in WEIGHT: 170 lb 0 oz DATE OF STUDY: 01/23/[address]: Mitch Peterson MD 2-DIMENSIONAL: YES M.MODE: YES DOPPLER: YES COLOR FLOW: YES TDS: PORTABLE: YES DEFINITY: BUBBLE STUDY: DIAGNOSIS: DIZZY CARDIAC HISTORY: CATHERIZATION: NO SURGERY: NO PROSTHETIC VALVE: NO PACEMAKER: NO MEASUREMENTS (cm) DIASTOLIC (NORMALS) SYSTOLIC (NORMALS) IVSd 1.2 (0.6-1.2) LA Diam 3.7 (1.9-4.0) LVEF 79% LVIDd 3.9 (3.5-5.7) LVIDs 2.1 (2.0-3.5) %FS 47% LVPWd 1.3 (0.6-1.2) Ao Diam 2.8 (2.0-3.7) 2 DIMENSIONAL ASSESSMENT: RIGHT ATRIUM: NORMAL LEFT ATRIUM: NORMAL RIGHT VENTRICLE: NORMAL LEFT VENTRICLE: NORMAL TRICUSPID VALVE: NORMAL MITRAL VALVE: MITRAL ANNULAR CALCIFICATION PULMONIC VALVE: NORMAL AORTIC VALVE: NORMAL PERICARDIAL EFFUSION: NONE AORTIC ROOT: NORMAL LEFT VENTRICULAR WALL MOTION: NORMAL DOPPLER/COLOR FLOW: MILD MITRAL AND TRICUSPID REGURGITATION. COMMENTS: MILD MITRAL AND TRICUSPID REGURGITATION. NORMAL RIGHT VENTRICULAR SYSTOLIC PRESSURE. NORMAL LEFT VENTRICULAR SIZE AND FUNCTION. NO WAL MOTION. TECHNOLOGIST: AN ALCARAZ
[2022-01-26] MEDS: MONTELUKAST 10 MG TAB PO SCH (08:31)
[2022-01-26] MEDS: hydroCHLOROthiazide 25 MG TAB PO SCH (08:31)
[2022-01-26] MEDS: VITAMIN D 5,000 UNIT CAP PO SCH (08:31)
[2022-01-26] MEDS ORDERED: NA CHLORIDE 0.9% 500 ML ONE (08:40)
[2022-01-26] MEDS ORDERED: ATROPINE SULF 1 MG/10 ML SYR IV ONE (09:50)
[2022-01-26] MEDS ORDERED: HEPA 1000U/500MLS 1,000 UNIT/500 ML BAG IV ONE (09:50)
[2022-01-26] MEDS ORDERED: MIDAZOLAM HCL 2 MG/2 ML INJ ONE ×2 (09:51→10:26)
[2022-01-26] MEDS ORDERED: NA CHLORIDE 0.9% 0 ML IV ONE (09:51)
[2022-01-26] MEDS ORDERED: FENTANYL CITR 100 MCG/2 ML ONE ×2 (09:51→09:57)
[2022-01-26] MEDS ORDERED: LIDOCAINE 1% 20 ML MDV ONE (09:51)
[2022-01-26] MEDS ORDERED: NITROGLYCERIN 100 MCG/ML SYR (for cath lab use only) IV ONE (09:52)
--- NOTE | 2022-01-26 11:42 | OP ---
Surgeon: Cedric Talavera MD Hr Administrator: Ms. Mary Del Valle. Admitted to Dr. Bledsoe on 01/25/2022 with unstable angina and possible left carotid stenosis. Procedure In Detail: She was brought to the cath lab technologist today as an outpatient, prepped and draped in r outine sterile fashion. Given Versed and fentanyl for sedation. A 6-[place] sheath was introduced in the right common femoral artery successfully without any complications. She had 10 cc of Xylocaine used. We used a Seldinger technique. Angiography there was normal. Angio-Seal was used to close th e case. Samir catheter left and right were used to cannulate the left main and right main. Her RC A was normal. Her circumflex was normal. Her LAD had some diffuse plaquing with about 20% to 30% pr oximal stenosis. The JR4 catheter was then used to cannulate both right common carotid and left comm on carotids separately. She had normal bilateral common carotids, normal bilateral ECAs. Her left I CA and right ICA had about a 30% stenosis, they were very tortuous. There were no complications. Th e patient tolerated the procedure well. Blood Loss: 5 cc. Postoperative Diagnosis: Mild cardiovascular disease and mild coronary artery disease. Plan: Plan is for medical therapy. Anesthesia: Total conscious sedation was 60 minutes. DENNIS/KIANNA Voice ID: [id number] Report ID: [id number]
[2022-01-26] MEDS ORDERED: POTASSIUM 25 MEQ EFFERV TAB PO ONE (11:55)
[2022-01-26 12:07] VITALS: BP 153/69; TEMP 97.4
--- NOTE | 2022-01-26 12:12 | P.DS ---
Admission Date: 01/25/22 Discharge Date: 01/26/22 Disposition: ROUTINE DISCHARGE Discharge Condition: FAIR Reason for Admission: Dizziness and chest tightness - Problems (1) Vertigo Current Visit: Yes Status: Acute (2) History of CVA (cerebrovascular accident) Current Visit: Yes Status: Acute (3) Chronic atrial fibrillation Current Visit: Yes Status: Acute (4) Chest pain Current Visit: Yes Status: Acute (5) Hypertension Current Visit: No Status: Acute Brief History of Present Illness: 86-year-old male with a history of hypertension and CVA presented to the emergency department with a complaint of progressive dizziness of about 3 days duration. She stated dizziness was worse today and therefore presented to the emergency department for evaluation. She reports dizziness at rest, feels like her head is spinning, associated with nausea, no vomiting. She denied any ti nnitus. She reports history of peripheral neuropathy with some difficulty with ambulation at baseline. She also reports chest tightness of onset this morning. She denied any shortness of breath. Work-up in the emergency department has been unremarkable, CBC, BMP unremarkable, initial troponin negative, EKG demonstrated sinus bradycardia. Head CT negative for any acute disease. Carotid Doppler shows no significant carotid artery stenosis. She was still feeling dizzy during my examination in the ED. Patient hospitalized for further evaluation and management. Hospital Course: Patient admitted to the medical floor. Troponin trended negative. She was given symptomatic treatment for dizziness and vertigo. Seen by PT for vestibular exercises. MRI of the brain done was negative for acute stroke, MRA head and neck also unremarkable. She was seen by cardiology-Dr. Talavera for chest pain recommended cardiac cath today showed given her high CAD risk factors. Cardiac cath done today showed mild coronary artery disease. Patient was able to ambulate with a walker in the hallway during PT. Vitals are stable, patient deemed stable for discharge. All her home medications resumed on discharge including Eliquis. Added aspirin for mild coronary artery and carotid artery disease. Vital Signs/Physical Exam: Temp Pulse Resp BP Pulse Ox 97.7 F 56 16 112/56 L 97 01/26/22 08:15 01/26/22 10:50 01/26/22 10:50 01/26/22 10:50 01/26/22 08:00 General: Alert, In no apparent distress, Oriented x3 HEENT: Mucous membr. moist/pink Neck: Supple, JVD not distended Respiratory: Clear to auscultation bilaterally, Normal air movement Cardiovascular: No edema, Regular rate/rhythm, Normal S1 S2 Capillary refill: <2 Seconds Gastrointestinal: Normal bowel sounds, Soft and benign, Non-distended, No tenderness Musculoskeletal: No swelling Integumentary: No rashes, No cyanosis Neurological: Normal strength at 5/5 x4 extr Laboratory Data at Discharge: WBC 9.9 K/uL (4.3-10.9) D 01/26/22 05:48 Hgb 12.9 g/dL (12.0-15.0) 01/26/22 05:48 Hct 38.0 % (36.0-45.0) 01/26/22 05:48 Plt Count 252 K/uL (152-406) 01/26/22 05:48 PT 16.4 SECONDS (9.5-12.5) H 01/23/22 10:10 INR 1.48 01/23/22 10:10 Sodium 141 mmol/L (136-145) 01/26/22 05:45 Potassium 3.2 mmol/L (3.5-5.1) L 01/26/22 05:45 BUN 24 mg/dL (7-18) H 01/26/22 05:45 Creatinine 0.95 mg/dL (0.55-1.3) 01/26/22 05:45 Glucose 107 mg/dL (74-106) H 01/26/22 05:45 Magnesium 2.4 mg/dL (1.8-2.4) 01/23/22 10:10 Total Bilirubin 0.5 mg/dL (0.2-1.0) 01/23/22 10:10 AST 45 U/L (15-37) H 01/23/22 10:10 ALT 67 U/L (12-78) 01/23/22 10:10 Alkaline Phosphatase 145 U/L (45-117) H 01/23/22 10:10 Triglycerides 57 mg/dL (<150) 01/23/22 20:06 Cholesterol 157 mg/dL (<200) 01/23/22 20:06 HDL Cholesterol 87 mg/dL (40-60) H 01/23/22 20:06 Cholesterol/HDL Ratio 1.80 01/23/22 20:06 Lipase 103 U/L (73-393) 01/23/22 10:10 Home Medications: Atorvastatin Calcium 20 mg PO BEDTIME 04/12/21 Montelukast [Singulair*] 10 mg PO DAILY 04/12/21 Apixaban [Eliquis] 5 mg PO BID #60 tablet 04/17/21 Cholecalciferol (Vitamin D3) [Vitamin D3] 4,000 unit PO DAILY #60 capsule 04/17/21 Amiodarone HCl [Cordarone*] 1 tab PO DAILY 01/23/22 hydroCHLOROthiazide [Hydrochlorothiazide] 1 tab PO DAILY 01/23/22 Aspirin [Aspirin EC 81 MG] 81 mg PO DAILY #30 tablet. 01/26/22 New Medications: Aspirin [Aspirin EC 81 MG] 81 mg PO DAILY #30 tablet. Diet: AHA Activity: Ad julienne Followup: Jun Austin MD [Primary Care Provider] - 1-2 Weeks Time spent managing pt's care (in minutes): 33
[2022-01-26 13:49] VITALS: O2SAT 97
--- OUTSIDE RECORDS SUMMARY | 2022-01-29 06:41 | XMS REPORT | Continuity of Care Document ---
:1935 Author Organization [facility] t Address [address] [place] [address] Care Team Providers Name Role Phone Nick Austin Primary Care Physician Therapy, Covid Infusion Attending Clinician Unavailable Rob HULL, A Attending Clinician Bita RIVAS Attending Clinician Unavailable Doctor Unassigned, Name Attending Clinician Unavailable Payers Payer Name Policy Type Policy Number Effective Date Expiration Date S ource Problems Condition Condition Condition Status Onset Resolution Last Treating Co mments Source Name Details Category Date Date Treatment Clinician Date ACUTE Diagnosis Active 2018-11-21 Mem oria ARTERIAL 30 22:18:00 l ISCHEMIC ACUTE 00:00: Todd STROKE ARTERIAL 00 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 [facility] CVA Diagnosis Active 2018-11-08 Mem oria ISCHEMIC 30 23:39:00 l CVA 00:00: Todd ISCHEMIC 00 Active 11/08/2018 [facility], Problem 2018-11-13 Mem oria unspecifie 22:16:16 l d Illness, Cipriano n unspecifie d 11/13/2018 [facility] Cerebral Problem Active 2020-08-08 Mem oria infarction 22:29:33 l (disorder) Cerebral He rmann infarction (disorder) Active Problem 08/08/2020 [facility] Hypertensi Problem Active 2020-08-08 M emoria ve 22:29:33 l disorder, [place] systemic Hypertensi arterial ve (disorder) disorder, systemic arterial (disorder) [facility] Hyperlipid Problem Active 2020-08-08 M emoria emia 22:29:33 l (disorder) Cipriano n Hyperlipid emia (disorder) Active Problem 08/08/2020 [facility] Memory Problem Active 2020-08-08 Memor ia impairment 22:29:33 l (finding) Memory Caitlin nn impairment (finding) Active Problem 08/08/2020 [facility] CEREB Diagnosis Active 2018-11-21 Mem oria INFRC D/T 22:18:00 l UNSP OCCLS CEREB Caitlin nn OR STENOS INFRC D/T OF UNSP OCCLS OR STENOS OF Active [facility] ILLNESS, Diagnosis Active 2018-11-08 M emoria UNSPECIFIE 23:39:00 l D ILLNESS, Cipriano n UNSPECIFIE D Active [facility] Allergies, Adverse Reactions, Alerts Allergy Allergy Status Severity Reaction(s) Onset Inactive Treating Comm ents Source Name Type Date Date Clinician Nitrofur Propensi Active Unknown - Uni vers antoin ty to See comments 04-10 ity of [place] adverse 00:00: [place] stalline reaction 00 [facility] NITROFUR DRUG Active Unknown-Cmnt Un cecile ANTOIN INGREDI 04-10 ity of MACROCRY 00:00: [place] STALLINE 00 [facility] NO KNOWN Drug Active Univers ALLERGIE Class ity of [facility] Pollen Pollen Active Memoria l [place] HYDROcod HYDROcod Active Memori a one one l Todd Social History Social Habit Start Date Stop Date Quantity Comments Source Sex Assigned At [birth year] [facility] 00:00:00 00:00:00 [facility] Smoking Status Start Date Stop Date Source Unknown if ever smoked [facility] Social History [facility] Medications Ordered Filled Start Stop Current Ordering Indication Dosage Frequency Signature Comments Components Source Medication Medication Date Date Medication? Clinician (SIG) Name Name casirivimab 2020- No [id number] 1200mg 1,200 mg, Univers -imdevimab 04-10 Subcutaneo it y of (REGEN-COV 20:30: 19:25 us, ONCE, [place] (EUA)) 00 :00 1 dose, On Medical injection [place] [facility] 1,200 mg 04/10/21 at 1530, Routine atorvastati 2018-07 Yes = 2 tab, Me moria n 10 mg 1-18 PO, l oral tablet 17:33: Bedtime, # [place] 27 180 tab, 3 Refill(s), Pharmacy: [place] [id number] [facility] atorvastati Yes 80 mg = 1 M emoria n 80 mg 6-28 tab, PO, l oral tablet 16:09: Bedtime, # [place] 47 90 tab, 0 Refill(s), Pharmacy: [place] [id number] [facility] amitriptyli Yes 20 mg = 2 M emoria ne 10 mg 5-17 tab, PO, l oral tablet 21:35: Bedtime, 0 [place] 00 Refill(s) Aspirin 81 Yes 81 mg = 1 Me moria MG Enteric 5-03 tab, PO, l Coated 21:06: Daily, # Todd Tablet 00 90 tab, 0 Refill(s) atorvastati Yes 80 mg = 1 M emoria n 80 mg 5-03 tab, PO, l oral tablet 21:06: Bedtime, # [place] 00 90 tab, 0 Refill(s) Amitriptyli No Amitriptyl Memoria ne 10mg tab -03 ine 10mg l 02:00: tab, 2 [place] 00 tab, Drug form: MISC, Route: PO, Bedtime, 11/10/18 21:00:00 CDT, Duration: 30 day, Stop date: 12/09/18 21:00:00 CDT Chlordiazep No Chlordiaze Memoria oxide cap 5 11-11 poxide cap l mg 02:00: 5 mg, 1 [place] 00 cap, Drug form: MISC, Route: PO, Bedtime, 11/10/18 21:00:00 CDT, Duration: 30 day, Stop date: 12/09/18 21:00:00 CDT Aspirin No Notes: Do Memor ia 11-10 not crush l 03:00: or chew. (Same As: Ecotrin) atorvastati No Notes: Bull sheridan n 11-10 (Same as: l 02:00: Lipitor) Limbitrol No 1 tab, Memori a 11-10 Route: PO, l 02:00: Dosing Weight 75.1, kg, Bedtime, Start date: 11/09/18 21:00:00 CDT, Duration: 30 day, Stop date: 12/08/18 21:00:00 CDT Lovenox No Notes: Memoria 5- (Same as: l 02:00: Lovenox) Docusate No Notes: Memoria 5- (Same as: l 22:00: Colace) (Do Not Crush) sennosides, No Notes: Bull sheridan RESIDENTIAL 8.6 MG 11-09 (Same as: l Oral Tablet 22:00: Senokot) He rm Bystolic No Notes: Memoria - (same as: l 16:00: Bystolic) montelukast No Notes: Bull sheridan - (Same l 16:00: as:Singula ir) Saline No Notes: Memoria Flush 0.9% 11-09 Same as: l 14:00: BD Posiflush Sterile Limbitrol Yes PO, Memoria 11-09 Bedtime, 0 l 13:06: Refill(s) nebivolol Yes 10 mg = 1 Mem oria 10 MG Oral - tab, PO, l Tablet 12:38: Daily, # [place] [Bystolic] 00 30 tab, 0 Refill(s) Fexofenadin Yes 60 mg = 1 M emoria e - tab, PO, l hydrochlori 12:38: BID, # 60 H ermann de 60 MG 00 tab, 0 Oral Tablet Refill(s) [Maira] montelukast Yes PO, Daily, Memoria -01 0 l 12:38: Refill(s) Insulin No Notes: Memoria Lispro 11-09 (Same as: l 04:43: Humalog) Roll in palms of hands gently; Do not shake vigorously . WASTE: F/P - Black; E - Municipal Trash Bin Stable for 28 days at room temperatur e. Expires in days from ____Date Glucagon No 1 mg, Memoria 5- Route: IM, l 04:43: Drug form: Todd 00 PDR/INJ, PRN, kg, PRN Blood Glucose Results, Start date: 11/08/18 23:43:00 CDT, Duration: 30 day, Stop date: 12/08/18 23:42:00 CDT Dextrose No 25 gm, 50 Bull sheridan 50% Syringe 5-01 mL, Route: l 04:43: IVP, Drug Todd Form: INJ, kg, PRN, PRN Blood Glucose Results, Start date: 11/08/18 23:43:00 CDT, Duration: 30 day, Stop date: 12/08/18 23:42:00 CDT Melatonin 3 No Notes: Bull sheridan MG Extended 11-09 (Same as: l Release 04:30: Melatonin) Herm rosario Tablet Zofran No Notes: Memoria 5- (Same as: l 04:28: Zofran) [place] potassium No Notes: Memori a phosphate-s - (Same as: l odium 04:27: Phos-NaK) phosphate 00 Each 1.5 250 mg-280 gm pkt has mg-160 mg 250mg oral powder phosphorou for s. Mix reconstitut w/2.5oz ion water and stir. potassium No Notes: Memori a phosphate 5- (Same as: l 04:27: K Phosphate. ) Do not infuse phosphorou s concurrent ly in the same line as TPN or IVF that contains calcium. For double lumen central lines, phosphorou s may be infused in a separate lumen from TPN. 1 mMol phoshate has 1.47 mEq potassium Infuse over 4 hours sodium No Notes: Memoria phosphate 5-01 Infuse l 04:27: over 4 [place] hour. Do not infuse phosphorou s concurrent ly in the same line as TPN or IVF that contains calcium. For double lumen central lines, phosphorou s may be infused in a separate lumen from TPN. Potassium No Notes: Memori a Chloride 5- (Same as: l 04:27: K-Dur 20) [place] 00 "Do Not Crush" Give with food and full glass of water For patients unable to swallow tablet, dissolve in one half glass of water. Allow about 2 minutes for the tablets to disintegra te. Stir before giving to prepare slurry and administer . Please exclude Patient s with feeding tube less than 14 Tong[place] (Dobhoff, J-tube etc) and pediatric and patients. Calcium No Notes: Memoria Gluconate 11-09 WASTE: F/P l 04:27: - Sink; E [place] 00 - Municipal Trash Bin Calcium No Notes: Memoria Carbonate 11-09 (Same As: l 500 MG 04:27: Tums) [place] Chewable 00 Calcium Tablet Carbonate 500 mg = 200 mg elemental calcium Dose = mg calcium carbonate ( mg elemental calcium) Magnesium No Notes: Memori a Sulfate 11-09 WASTE: F/P l 04:27: - Sink; E - Municipal Trash Bin Magnesium No Notes: Memori a Oxide 11-09 (Same as: l 04:27: Mag-Ox Todd 00 400) Magnesium oxide 656fn=399o g elemental magnesium Dose=____m g magnesium oxide (___mg elemental magnesium) Saline No Notes: Memoria Flush 0.9% 11-09 Same as: l 04:25: BD Todd 00 Posiflush Sterile Acetaminoph No Notes: Do M emoria en 11-09 not exceed l 04:25: 4 gm/day. (Same as: Tylenol) Labetalol No Notes: Memori a 11-09 (Same as: l 04:25: Normodyne, [place] 00 Trandate) Push over 2 minutes Give bolus over 2-3 minutes. Vital Signs Vital Name Observation Time Observation Value Comments Source Systolic blood 2021-04-10 20:10:00 147 mm[Hg] Univer sity [facility] Diastolic blood 2021-04-10 20:10:00 99 mm[facility]Hg[facility] 2021-04-10 20:10:00 105 /min [facility] Body temperature 2021-04-10 20:10:00 36.28 Leann [facility] [place] [facility] Respiratory rate 2021-04-10 20:10:00 18 /min [facility] Oxygen saturation in 2021-04-10 20:10:00 93 /min [facility] Arterial blood by [facility] Pulse oximetry Branch Body height 2021-04-10 19:22:00 170.2 cm [facility] Body weight 2021-04-10 19:22:00 77.111 kg [facility] BMI 2021-04-10 19:22:00 26.63 kg/m2 [facility] Systolic (mm Hg) 2019-08-04 15:30:00 Bull rial Todd Diastolic (mm Hg) 2019-08-04 15:30:00 Mem orial [place] Heart Rate 2019-08-04 15:30:00 [facility] Respitory Rate 2019-08-04 15:30:00 Memori al Todd Height 2019-08-04 15:30:00 170.18 cm [facility] Todd Weight 2019-08-04 15:30:00 [facility] [place] BMI Calculated 2019-08-04 15:30:00 Memori al [place] Systolic (mm Hg) 2019-04-07 14:38:00 Bull rial Todd Diastolic (mm Hg) 2019-04-07 14:38:00 Mem orial Todd Heart Rate 2019-04-07 14:38:00 [facility] [place] Respitory Rate 2019-04-07 14:38:00 Memori al [place] Height 2019-04-07 14:38:00 167.64 cm [facility] Weight 2019-04-07 14:38:00 [facility] BMI Calculated 2019-04-07 14:38:00 Memori al [place] Height 2019-01-06 15:31:00 165.1 cm [facility] BMI Calculated 2019-01-06 15:31:00 Memori al [place] Weight 2019-01-06 15:31:00 [facility] Heart Rate 2019-01-06 15:31:00 [facility] [place] Systolic (mm Hg) 2019-01-06 15:31:00 Bull rial [place] Diastolic (mm Hg) 2019-01-06 15:31:00 Mem orial Todd Respitory Rate 2019-01-06 15:31:00 Memori al [place] Heart Rate 2018-11-25 21:06:00 Memorial [place] Respitory Rate 2018-11-25 21:06:00 Memori al [place] BMI Calculated 2018-11-25 21:06:00 Memori al [place] Weight 2018-11-25 21:06:00 [facility] [place] Height 2018-11-25 21:06:00 165.1 cm [facility] Systolic (mm Hg) 2018-11-25 21:06:00 Bull rial Todd Diastolic (mm Hg) 2018-11-25 21:06:00 Mem orial [place] Respitory Rate 2018-11-11 17:30:00 Memori al [place] Systolic (mm Hg) 2018-11-11 17:30:00 Bull rial Todd Diastolic (mm Hg) 2018-11-11 17:30:00 Mem orial Todd Heart Rate 2018-11-11 17:30:00 [facility] Temperature Oral (F) 2018-11-11 17:30:00 98.2 F [facility] Systolic (mm Hg) 2018-11-11 13:00:00 Bull rial Todd Diastolic (mm Hg) 2018-11-11 13:00:00 Mem orial [place] Heart Rate 2018-11-11 13:00:00 [facility] [place] Respitory Rate 2018-11-11 13:00:00 Memori al Todd Temperature Oral (F) 2018-11-11 13:00:00 99.8 F [facility] Systolic (mm Hg) 2018-11-11 09:00:00 Bull rial [place] Diastolic (mm Hg) 2018-11-11 09:00:00 Mem orial Todd Respitory Rate 2018-11-11 09:00:00 Memori al [place] Heart Rate 2018-11-11 09:00:00 [facility] Temperature Oral (F) 2018-11-11 09:00:00 98.3 F [facility] [place] BMI Calculated 2018-11-09 04:49:00 Memori al [place] Height 2018-11-09 04:49:00 167.64 cm [facility] [place] Weight 2018-11-09 04:49:00 [facility] [place] Procedures Procedure Date / Time Performing Clinician Source Performed CONSENT/REFUSAL FOR 2021-04-10 05:01:00 Doctor Unassigned, No Un [facility] DIAGNOSIS AND TREATMENT Name Medical Branch Gallbladder stone [facility] nn removal<sup>1</sup> Hysterectomy<sup>2</sup [facility] [place] > Knee [facility] arthroplasty<sup>3</sup > Encounters Start End Encounter Admission Attending Care Care Encounter Source Date/Time Date/Time Type Type Clinicians Facility Department ID 2018-11-08 Inpatient [facility] MED [id number] [facility]HS W 22:56:00 2021-04-10 2021-04-10 Nurse Therapy, Adc Covid Infusion [facility] [id number] Univers 14:04:17 15:04:17 Visit Brandon Rivas [id number] ity [facility] [id number] [place] [facility] [id number] [place] [id number] Branch 2021-04-10 2021-04-10 Outpatient R ROB [facility] [id number] Univers 14:00:00 14:00:[address] [facility] 2021-04-10 2021-04-10 Orders Doctor SARGENT [id number] Univers 00:00:00 00:00:00 Only Unassigned, EVERETT [id number] ity of [facility] [id number] Pito as [id number] [address] 2020-08-06 2020-08-06 Ambulatory nullFlavo MNA [id number] Memoria 15:30:00 15:30:00 Pre-Reg r Neurology 06 l Holbrookny Galavizann 2020-02-02 2020-02-03 Outpatient nullFlavo MNA [id number] Memoria 14:30:00 04:59:59 r Neurology 05 l María [place] 2020-02-02 2020-02-02 Ambulatory nullFlavo MNA [id number] Memoria 14:30:00 14:30:00 Pre-Reg r Neurology 04 l Holbrook [place] 2019-08-04 2019-08-05 Outpatient nullFlavo MNA [id number] Memoria 15:45:00 05:59:59 r Neurology 03 l María Galavizann 2019-04-07 2019-04-08 Outpatient nullFlavo MNA [id number] Memoria 14:30:00 04:59:59 r Neurology 02 l [facility] 2019-01-06 2019-01-07 Outpatient nullFlavo [facility] [id number] Memoria 15:15:00 04:59:59 r Neurology 01 l [facility] 2018-11-25 2018-11-26 Outpatient nullFlavo [facility] [id number] Memoria 21:00:00 04:59:59 r Neurology 00 l [facility] 2018-11-09 2018-11-12 Inpatient nullFlavo [facility] [id number] Memoria 03:56:00 00:00:00 r [place] 20 l [facility] Results Test Description Test Time Test Comments Results Result Comments Source CHEM PANEL 2018-11-11 10:11:00 Test Item Value Reference Range Interpretation Comme nts Phosphorus (test code = Phosphorus) 2.9 2.5-4.5 [facility] [employer] [id number] 10:11:00 Test Item Value Reference Range Interpretation Comments Magnesium Lvl (test code = Magnesium 2.0 1.8-2.4 Lvl) [facility] [id number] 10:11:00 Test Item Value Reference Range Interpretation Comments A/G Ratio (test code = A/G Ratio) 0.8 1 0.7-1.6 [facility] [employer] [id number] 10:11:00 Test Item Value Reference Range Interpretation Comments Globulin (test code = Globulin) 3.8 2.7-4.2 [facility] [employer] [id number] 10:11:00 Test Item Value Reference Range Interpretation Comments B/C Ratio (test code = B/C Ratio) 19 1 6-25 [facility] [employer] [id number] 10:11:00 Test Item Value Reference Range Interpretation Comments AGAP (test code = AGAP) 14.9 10.0-20.0 [facility] [employer] [id number] 10:11:00 Test Item Value Reference Range Interpretation Comments eGFR (test code = eGFR) 68 [facility] [place] [facility] [employer] [id number] 10:11:00 Test Item Value Reference Range Interpretation Comments Bili Total (test code = Bili Total) 0.8 0.2-1.3 [facility] [employer] [id number] 10:11:00 Test Item Value Reference Range Interpretation Comments Alk Phos (test code = Alk Phos) 128 39-136 [facility]2019-05-03 10:11:00 Test Item Value Reference Range Interpretation Comments AST (test code = AST) 26 See_Comment [Auto mated message] The system which ge nerated this result transmit zen reference range : <=37. The reference range was not used to interpr et this result as albina l/abnormal. [facility]2019-05-03 10:11:00 Test Item Value Reference Range Interpretation Comments ALT (test code = ALT) 36 See_Comment [Auto mated message] The system which ge nerated this result transmit zen reference range : <=65. The reference range was not used to interpr et this result as albina l/abnormal. [facility]2019-05-03 10:11:00 Test Item Value Reference Range Interpretation Comments Albumin Lvl (test code = Albumin Lvl) 3.1 3.5-5.0 [facility]2019-05-03 10:11:00 Test Item Value Reference Range Interpretation Comments Potassium Lvl (test code = Potassium 3.9 3.5-5.1 Lvl) [facility]2019-05-03 10:11:00 Test Item Value Reference Range Interpretation Comments Creatinine Lvl (test code = Creatinine 0.80 0.50-1.40 Lvl) [facility]2019-05-03 10:11:00 Test Item Value Reference Range Interpretation Comments Glucose Lvl (test code = Glucose Lvl) 77 70-99 [facility]2019-05-03 10:11:00 Test Item Value Reference Range Interpretation Comments Sodium Lvl (test code = Sodium Lvl) 140 135-145 [facility]2019-05-03 10:11:00 Test Item Value Reference Range Interpretation Comments BUN (test code = BUN) 15 7-22 [facility]2019-05-03 10:11:00 Test Item Value Reference Range Interpretation Comments Calcium Lvl (test code = Calcium Lvl) 8.6 8.5-10.5 [facility]2019-05-03 10:11:00 Test Item Value Reference Range Interpretation Comments Total Protein (test code = Total 6.9 6.4-8.4 Protein) [facility]2019-05-03 10:11:00 Test Item Value Reference Range Interpretation Comments CO2 (test code = CO2) 22 24-32 [facility] [id number] 10:11:00 Test Item Value Reference Range Interpretation Comments Chloride Lvl (test code = Chloride Lvl) 107 95-109 [id number] 10:11:00 Test Item Value Reference Range Interpretation Comments MPV (test code = MPV) 8.5 7.4-10.4 [facility] [id number] 10:11:00 Test Item Value Reference Range Interpretation Comments Platelet (test code = Platelet) 237 133-450 [facility] [id number] 10:11:00 Test Item Value Reference Range Interpretation Comments MCHC (test code = MCHC) 32.5 32.0-36.0 [facility] An[id number] 10:11:00 Test Item Value Reference Range Interpretation Comments RDW (test code = RDW) 14.0 11.5-14.5 [facility] An[id number] 10:11:00 Test Item Value Reference Range Interpretation Comments WBC (test code = WBC) 9.0 3.7-10.4 [facility] [id number] 10:11:00 Test Item Value Reference Range Interpretation Comments RBC (test code = RBC) 4.06 4.20-5.40 [facility] [id number] 10:11:00 Test Item Value Reference Range Interpretation Comments MCH (test code = MCH) 29.9 pg 27.0-31.0 [facility] AntonioZuywtzwTAHXDKZMLW8269-10-06 10:11:00 Test Item Value Reference Range Interpretation Comments Hct (test code = Hct) 37.3 36.0-48.0 [facility] A[id number] 10:11:00 Test Item Value Reference Range Interpretation Comments MCV (test code = MCV) 92.0 80.0-98.0 [facility] Anton[id number] 10:11:00 Test Item Value Reference Range Interpretation Comments Hgb (test code = Hgb) 12.1 12.0-16.0 [facility] Anton[id number] 10:11:00 Test Item Value Reference Range Interpretation Comments Eosinophils (test code = 2.7 See_Comment [A utomated message] The Eosinophils) system which ge nerated this result tra nsmitted reference range : <=4.0. The reference r tara was not used to int erpret this result as normal/abnormal . [facility] AntonioMaxnjhgTZLYKHVPCG5832-26-70 10:11:00 Test Item Value Reference Range Interpretation Comments Lymphocytes # (test code = Lymphocytes 1.9 1.0-5.5 #) [facility] [id number] 10:11:00 Test Item Value Reference Range Interpretation Comments Neutrophils # (test code = Neutrophils 5.9 1.5-8.1 #) [facility] [id number] 10:11:00 Test Item Value Reference Range Interpretation Comments Basophils (test code = 0.3 See_Comment [Aut omated message] The Basophils) system which ge nerated this result tra nsmitted reference range : <=1.0. The reference r tara was not used to int erpret this result as normal/abnormal . [facility] A[id number] 10:11:00 Test Item Value Reference Range Interpretation Comments Monocytes # (test code 0.9 See_Comment [Aut omated message] The = Monocytes #) system which generated this result tra nsmitted reference range : <=0.8. The reference r tara was not used to int erpret this result as normal/abnormal . [facility] Anton[id number] 10:11:00 Test Item Value Reference Range Interpretation Comments Eosinophils # (test code 0.2 See_Comment [A utomated message] The = Eosinophils #) system [facility] h generated this result tra nsmitted reference range : <=0.5. The reference r tara was not used to int erpret this result as normal/abnormal . [facility] AntonioPxisdpfGHHSIINNXF5099-07-53 10:11:00 Test Item Value Reference Range Interpretation Comments Monocytes (test code = Monocytes) 10.5 2.0-12.0 [facility] AntonioSkiqzezQGAIADDYTE9315-48-00 10:11:00 Test Item Value Reference Range Interpretation Comments Lymphocytes (test code = Lymphocytes) 20.6 20.0-40.0 [facility] Anton[id number] 10:11:00 Test Item Value Reference Range Interpretation Comments Segs (test code = Segs) 65.9 45.0-75.0 [facility] [id number] 10:10:00 Test Item Value Reference Range Interpretation Comments Hgb (test code = Hgb) 12.1 12.0-16.0 [facility] Anton[id number] 10:10:00 Test Item Value Reference Range Interpretation Comments MCH (test code = MCH) 29.7 pg 27.0-31.0 [facility] [id number] 10:10:00 Test Item Value Reference Range Interpretation Comments MPV (test code = MPV) 8.8 7.4-10.4 [facility] [id number] 10:10:00 Test Item Value Reference Range Interpretation Comments Platelet (test code = Platelet) 226 133-450 [facility] Anton[id number] 10:10:00 Test Item Value Reference Range Interpretation Comments RDW (test code = RDW) 14.0 11.5-14.5 [facility] A[id number] 10:10:00 Test Item Value Reference Range Interpretation Comments Monocytes # (test code 0.8 See_Comment [Aut omated message] The = Monocytes #) system which generated this result tra nsmitted reference range : <=0.8. The reference r tara was not used to int erpret this result as normal/abnormal . [facility] AntonioDrtxmskRPHIANPXLE0719-87-06 10:10:00 Test Item Value Reference Range Interpretation Comments Lymphocytes # (test code = Lymphocytes 1.7 1.0-5.5 #) [facility] AntonioRdowytaWVDSPDLKOT2636-67-31 10:10:00 Test Item Value Reference Range Interpretation Comments Neutrophils # (test code = Neutrophils 6.7 1.5-8.1 #) [facility] AntonioRgayrptQQDZMPHMND8401-91-16 10:10:00 Test Item Value Reference Range Interpretation Comments Basophils (test code = 0.5 See_Comment [Aut omated message] The Basophils) system which ge nerated this result tra nsmitted reference range : <=1.0. The reference r tara was not used to int erpret this result as normal/abnormal . [facility] AntonioTvnymdqXNZEFJLAGS7870-14-54 10:10:00 Test Item Value Reference Range Interpretation Comments Eosinophils (test code = 1.4 See_Comment [A utomated message] The Eosinophils) system which ge nerated this result tra nsmitted reference range : <=4.0. The reference r tara was not used to int erpret this result as normal/abnormal . [facility] AntonioXmyuhhiUHDRPRNIDB5331-21-09 10:10:00 Test Item Value Reference Range Interpretation Comments Eosinophils # (test code 0.1 See_Comment [A utomated message] The = Eosinophils #) system whic h generated this result tra nsmitted reference range : <=0.5. The reference r tara was not used to int erpret this result as normal/abnormal . [facility] AntonioVszsqzxUCDPBLYNBK5106-02-43 10:10:00 Test Item Value Reference Range Interpretation Comments Monocytes (test code = Monocytes) 9.0 2.0-12.0 [facility] AntonioSgkrufeBKGJPUYCVJ3135-02-52 10:10:00 Test Item Value Reference Range Interpretation Comments Lymphocytes (test code = Lymphocytes) 17.9 20.0-40.0 [facility] AntonioVbngeuoSUZPKDDIWY2231-18-44 10:10:00 Test Item Value Reference Range Interpretation Comments Segs (test code = Segs) 71.2 45.0-75.0 [facility]2019-05-02 10:10:00 Test Item Value Reference Range Interpretation Comments Magnesium Lvl (test code = Magnesium 2.1 1.8-2.4 Lvl) [facility]2019-05-02 10:10:00 Test Item Value Reference Range Interpretation Comments Phosphorus (test code = Phosphorus) 2.9 2.5-4.5 [facility]EUTLRXJETJ0032-34-55 10:10:00 Test Item Value Reference Range Interpretation Comments AGAP (test code = AGAP) 12.7 10.0-20.0 [facility] MichiganTphimmrJHCTAESVVIBP2376-85-70 10:10:00 Test Item Value Reference Range Interpretation Comments eGFR (test code = eGFR) 68 [facility]ZxyafsgWDOAUDYGECWQ4418-50-26 10:10:00 Test Item Value Reference Range Interpretation Comments Calcium Lvl (test code = Calcium Lvl) 8.7 8.5-10.5 [facility] MichiganWligsltJMWECQQATXHB7818-06-78 10:10:00 Test Item Value Reference Range Interpretation Comments CO2 (test code = CO2) 24 24-32 [facility] MichiganDmtyxmnPCHAXBBKLCKI0720-77-80 10:10:00 Test Item Value Reference Range Interpretation Comments Chloride Lvl (test code = Chloride Lvl) 109 95-109 [facility] MichiganTqhirvhURFFBWZZQPGW3178-33-60 10:10:00 Test Item Value Reference Range Interpretation Comments Potassium Lvl (test code = Potassium 3.7 3.5-5.1 Lvl) [facility] MichiganOrkrisoBQSXTSSXTJKP7880-78-48 10:10:00 Test Item Value Reference Range Interpretation Comments Sodium Lvl (test code = Sodium Lvl) 142 135-145 [facility] MichiganFdpjnmlPIPVGJUOVODI9010-67-63 10:10:00 Test Item Value Reference Range Interpretation Comments Glucose Lvl (test code = Glucose Lvl) 86 70-99 [facility] MichiganXesvtfvQEPLLPVVVAFZ8570-24-51 10:10:00 Test Item Value Reference Range Interpretation Comments Creatinine Lvl (test code = Creatinine 0.80 0.50-1.40 Lvl) [facility] MichiganMhjkysrJJJGDQHMNIGR9698-89-94 10:10:00 Test Item Value Reference Range Interpretation Comments BUN (test code = BUN) 14 7-22 [facility] AntonioIqvegzlESSDFWGKLW0941-78-00 10:10:00 Test Item Value Reference Range Interpretation Comments RBC (test code = RBC) 4.07 4.20-5.40 [facility]WB[facility]ZDMB6149[facility]-53 10:10:00 Test Item Value Reference Range Interpretation Comments WBC (test code = WBC) 9.4 3.7-10.4 [facility] AntonioEambjhoBYLDEIYOHW4469-72-78 10:10:00 Test Item Value Reference Range Interpretation Comments MCV (test code = MCV) 90.5 80.0-98.0 [facility] HospitalJwwboffVNWNWMVKIH9554-68-32 10:10:00 Test Item Value Reference Range Interpretation Comments Hct (test code = Hct) 36.8 36.0-48.0 [facility] HospitalFgtjzupWPWCDZVOQA4950-08-28 10:10:00 Test Item Value Reference Range Interpretation Comments MCHC (test code = MCHC) 32.9 32.0-36.0 [facility] [id number] 16:25:00 Test Item Value Reference Range Interpretation Comments Troponin-I (test code 0.02 See_Comment [Auto mated message] The = Troponin-I) system which g enerated this result transmit zen reference range : <=0.40. The reference r tara was not used to interpr et this result as albina l/abnormal. [facility]annC[facility] [id number] 10:17:00 Test Item Value Reference Range Interpretation Comments Troponin-I (test code 0.02 See_Comment [Auto mated message] The = Troponin-I) system which g enerated this result transmit zen reference range : <=0.40. The reference r tara was not used to interpr et this result as albina l/abnormal. [facility] [id number] 10:17:00 Test Item Value Reference Range Interpretation Comments U Amph Scr (test code Negative *NA*(11/09/18 = U Amph Scr) 5:17 AM) [facility] [id number] 10:17:00 Test Item Value Reference Range Interpretation Comments U Opiate Scr (test Negative *NA*(11/09/18 code = U Opiate Scr) 5:17 AM) [facility] [id number] 10:17:00 Test Item Value Reference Range Interpretation Comments U Cannab Scr (test Negative *NA*(11/09/18 code = U Cannab Scr) 5:17 AM) [facility] [id number] 10:17:00 Test Item Value Reference Range Interpretation Comments U Cocaine Scr (test Negative *NA*(11/09/18 code = U Cocaine Scr) 5:17 AM) [facility] [id number] 10:17:00 Test Item Value Reference Range Interpretation Comments U Benzodiaz Scr (test Positive *ABN*(11/09/18 code = U Benzodiaz Scr) 5:17 AM) [facility] [id number] 10:17:00 Test Item Value Reference Range Interpretation Comments U Adilene Scr (test code Negative *NA*(11/09/18 = U Adilene Scr) 5:17 AM) [facility] [id number] 10:17:00 Test Item Value Reference Range Interpretation Comments UDS Note (test code = See Note (11/09/18 5:17 UDS Note) AM) [facility] [id number] 10:17:00 Test Item Value Reference Range Interpretation Comments U Phencyclidine Scr (test Negative *NA*(11/09/18 code = U Phencyclidine 5:17 AM) Scr) [facility] [id number] 10:17:00 Test Item Value Reference Range Interpretation Comments UA Sq Epi (test code = UA Sq Epi) None Seen [facility] AND [id number] 10:17:00 Test Item Value Reference Range Interpretation Comments UA Bacteria (test code = UA Occasional /HPF Bacteria) [facility] AND [id number] 10:17:00 Test Item Value Reference Range Interpretation Comments UA Mucus (test code = UA Mucus) Few /LPF [facility] AND [id number] 10:17:00 Test Item Value Reference Range Interpretation Comments UA Urobilinogen (test code = UA no gt 0.1-1.0 Urobilinogen) [facility] AND [id number] 10:17:00 Test Item Value Reference Range Interpretation Comments UA Color (test code = UA Color) Ltyellow [facility] AND [id number] 10:17:00 Test Item Value Reference Range Interpretation Comments UA RBC (test code = 7 See_Comment [Automa zen message] The UA RBC) system which ge nerated this result transmit zen reference range : <=2. The reference range was not used to interpr et this result as albina l/abnormal. [facility] AND [id number] 10:17:00 Test Item Value Reference Range Interpretation Comments UA WBC (test code = 2 See_Comment [Automa zen message] The UA WBC) system which ge nerated this result transmit zen reference range : <=5. The reference range was not used to interpr et this result as albina l/abnormal. [facility] AND [id number] 10:17:00 Test Item Value Reference Range Interpretation Comments UA Leuk Est (test code Trace *ABN*(11/09/18 5:17 = UA Leuk Est) AM) [facility] AND [id number] 10:17:00 Test Item Value Reference Range Interpretation Comments UA Bili (test code = Negative *NA*(11/09/18 UA Bili) 5:17 AM) [facility] AND [id number] 10:17:00 Test Item Value Reference Range Interpretation Comments UA Blood (test code = Small *ABN*(11/09/18 UA Blood) 5:17 AM) [facility] AND [id number] 10:17:00 Test Item Value Reference Range Interpretation Comments UA Nitrite (test code Negative (11/09/18 5:17 = UA Nitrite) AM) [facility] AND [id number] 10:17:00 Test Item Value Reference Range Interpretation Comments UA Ketones (test code = UA Trace mg/dL Ketones) [facility] AND [id number] 10:17:00 Test Item Value Reference Range Interpretation Comments UA pH (test code = UA pH) 6.0 1 5.0-8.0 [facility] AND [id number] 10:17:00 Test Item Value Reference Range Interpretation Comments UA Glucose (test code = UA Negative mg/dL Glucose) [facility] AND [id number] 10:17:00 Test Item Value Reference Range Interpretation Comments UA Protein (test code = UA Negative mg/dL Protein) [facility] AND [id number] 10:17:00 Test Item Value Reference Range Interpretation Comments UA Spec Grav (test code = UA Spec 1.008 1 Grav) [facility] AND [id number] 10:17:00 Test Item Value Reference Range Interpretation Comments UA Turbidity (test code = Clear (11/09/18 5:17 UA Turbidity) AM) [facility] HospitalBACTERIAL - [id number] 09:07:00 Test Item Value Reference Range Interpretation Comments MRSA by PCR (test Negative (11/09/18 4:07 code = MRSA by PCR) AM) [facility] CenterSh[facility] [employer] [id number] 09:07:00 Test Item Value Reference Range Interpretation Comments Bili Direct (test code 0.1 See_Comment [Aut omated message] The = Bili Direct) system which generated this result tra nsmitted reference range : <=0.3. The reference r tara was not used to int erpret this result as albina l/abnormal. [facility] HospitalSmarTots [id number] 09:07:00 Test Item Value Reference Range Interpretation Comments Globulin (test code = Globulin) 3.5 2.7-4.2 [facility] HospitalSmar[facility] [id number] 09:07:00 Test Item Value Reference Range Interpretation Comments A/G Ratio (test code = A/G Ratio) 1.0 1 0.7-1.6 [place] [id number] 09:07:00 Test Item Value Reference Range Interpretation Comments B/C Ratio (test code = B/C Ratio) 24 1 6-25 [place] [id number] 09:07:00 Test Item Value Reference Range Interpretation Comments AGAP (test code = AGAP) 8.7 10.0-20.0 [place] [id number] 09:07:00 Test Item Value Reference Range Interpretation Comments eGFR (test code = eGFR) 59 [facility]2019-05-01 09:07:00 Test Item Value Reference Range Interpretation Comments Total Protein (test code = Total 7.1 6.4-8.4 Protein) [place] [id number] 09:07:00 Test Item Value Reference Range Interpretation Comments Albumin Lvl (test code = Albumin Lvl) 3.6 3.5-5.0 [facility]2019-05-01 09:07:00 Test Item Value Reference Range Interpretation Comments ALT (test code = ALT) 51 See_Comment [Auto mated message] The system which ge nerated this result transmit zen reference range : <=65. The reference range was not used to interpr et this result as albina l/abnormal. [facility]2019-05-01 09:07:00 Test Item Value Reference Range Interpretation Comments AST (test code = AST) 33 See_Comment [Auto mated message] The system which ge nerated this result transmit zen reference range : <=37. The reference range was not used to interpr et this result as albina l/abnormal. [facility]2019-05-01 09:07:00 Test Item Value Reference Range Interpretation Comments Bili Total (test code = Bili Total) 0.5 0.2-1.3 [place] [id number] 09:07:00 Test Item Value Reference Range Interpretation Comments Alk Phos (test code = Alk Phos) 143 39-136 [facility]2019-05-01 09:07:00 Test Item Value Reference Range Interpretation Comments Glucose Lvl (test code = Glucose Lvl) 122 70-99 [place] 733409-05-01 09:07:00 Test Item Value Reference Range Interpretation Comments Creatinine Lvl (test code = Creatinine 0.90 0.50-1.40 Lvl) [facility]2019-05-01 09:07:00 Test Item Value Reference Range Interpretation Comments BUN (test code = BUN) 22 7-22 [facility]2019-05-01 09:07:00 Test Item Value Reference Range Interpretation Comments Sodium Lvl (test code = Sodium Lvl) 138 135-145 [facility]2019-05-01 09:07:00 Test Item Value Reference Range Interpretation Comments Potassium Lvl (test code = Potassium 3.7 3.5-5.1 Lvl) [facility]2019-05-01 09:07:00 Test Item Value Reference Range Interpretation Comments Chloride Lvl (test code = Chloride Lvl) 107 95-109 [facility]2019-05-01 09:07:00 Test Item Value Reference Range Interpretation Comments CO2 (test code = CO2) 26 24-32 [facility]2019-05-01 09:07:00 Test Item Value Reference Range Interpretation Comments Calcium Lvl (test code = Calcium Lvl) 8.8 8.5-10.5 [facility] AntonioZrekwezLFKWJNCOII9031-71-66 09:07:00 Test Item Value Reference Range Interpretation Comments Neutrophils # (test code = Neutrophils 11.5 1.5-8.1 #) [facility] AntonioOiwqtosAGXSSWSPYK3047-22-22 09:07:00 Test Item Value Reference Range Interpretation Comments Lymphocytes # (test code = Lymphocytes 0.8 1.0-5.5 #) [facility] AntonioGtquvhiXGYZWCSHAW9102-71-22 09:07:00 Test Item Value Reference Range Interpretation Comments Lymphocytes (test code = Lymphocytes) 5.8 20.0-40.0 [place] 074099-05-01 09:07:00 Test Item Value Reference Range Interpretation Comments Basophils (test code = 0.1 See_Comment [Aut omated message] The Basophils) system which ge nerated this result tra nsmitted reference range : <=1.0. The reference r tara was not used to int erpret this result as normal/abnormal . [facility] AntonioRzdcqouADOYXUJOES6235-52-72 09:07:00 Test Item Value Reference Range Interpretation Comments Monocytes # (test code 0.9 See_Comment [Aut omated message] The = Monocytes #) system which generated this result tra nsmitted reference range : <=0.8. The reference r tara was not used to int erpret this result as normal/abnormal . [facility] AntonioBrfoznwKOBGCDYFYO1302-40-49 09:07:00 Test Item Value Reference Range Interpretation Comments Segs (test code = Segs) 87.6 45.0-75.0 [facility] A[id number] 09:07:00 Test Item Value Reference Range Interpretation Comments Monocytes (test code = Monocytes) 6.5 2.0-12.0 [facility] AntonioOymrrshKELHOOTJKN1227-26-91 09:07:00 Test Item Value Reference Range Interpretation Comments Platelet (test code = Platelet) 229 133-450 [facility] AntonioMhawfbcHLCHYLOUXL0194-75-97 09:07:00 Test Item Value Reference Range Interpretation Comments MPV (test code = MPV) 8.6 7.4-10.4 [facility] AntonioJvxvqnaRILTMIPPAW1902-30-58 09:07:00 Test Item Value Reference Range Interpretation Comments WBC (test code = WBC) 13.2 3.7-10.4 [facility] AntonioEzfniriAQOMPTPWIQ9799-12-40 09:07:00 Test Item Value Reference Range Interpretation Comments RBC (test code = RBC) 4.22 4.20-5.40 [facility] AntonioGefjkyiCNPCKNIUDE0705-09-41 09:07:00 Test Item Value Reference Range Interpretation Comments Hgb (test code = Hgb) 12.1 12.0-16.0 [facility] AntonioGltjhzgAKKBYWTZSM6595-93-00 09:07:00 Test Item Value Reference Range Interpretation Comments Hct (test code = Hct) 37.9 36.0-48.0 [facility] AntonioTgbizcxWAFIFOFTDR8109-21-90 09:07:00 Test Item Value Reference Range Interpretation Comments MCH (test code = MCH) 28.7 pg 27.0-31.0 [facility] AntonioRpmwvyuNBMATRUAFW6476-17-75 09:07:00 Test Item Value Reference Range Interpretation Comments MCHC (test code = MCHC) 31.9 32.0-36.0 [facility] AntonioCvgmvsrKYUEKMVFHB9847-95-79 09:07:00 Test Item Value Reference Range Interpretation Comments RDW (test code = RDW) 13.7 11.5-14.5 [facility] AntonioIkhaulpIIXTKKTMSP9278-67-60 09:07:00 Test Item Value Reference Range Interpretation Comments MCV (test code = MCV) 90.0 80.0-98.0 [facility] HospitalBhrhuawPDHAGN8172-73-14 09:07:00 Test Item Value Reference Range Interpretation Comments VLDL (test code = VLDL) 9 1 [facility] CenterTqytierRZFFQH0679-44-93 09:07:00 Test Item Value Reference Range Interpretation Comments LDL (Calculated) (test code = LDL 87 (Calculated)) [facility] CenterTpvqcmoRDMSOE1053-69-37 09:07:00 Test Item Value Reference Range Interpretation Comments Trig (test code = Trig) 45 [facility] CenterTbbhhuzAOPPEJ7477-73-82 09:07:00 Test Item Value Reference Range Interpretation Comments Chol (test code = Chol) 163 [facility] HospitalBfzwvojHDQVZT7127-99-51 09:07:00 Test Item Value Reference Range Interpretation Comments HDL (test code = HDL) 67 [facility] HospitalBbedyerYFGUBO3482-98-46 09:07:00 Test Item Value Reference Range Interpretation Comments CHD Risk (test code = CHD Risk) 2.43 1 3.90-5.80 [facility] HospitalSPECIAL JHCJPWVEH3316-05-26 09:07:00 Test Item Value Reference Range Interpretation Comments Hgb A1C (test code = Hgb A1C) 5.8 [facility] HospitalCARDIAC [id number] 05:00:00 Test Item Value Reference Range Interpretation Comments Troponin-I (test code 0.02 See_Comment [Auto mated message] The = Troponin-I) system which g enerated this result transmit zen reference range : <=0.40. The reference r tara was not used to interpr et this result as albina l/abnormal. [facility] HospitalCnsrkriYDEFXFKXDF4838-38-92 05:00:00 Test Item Value Reference Range Interpretation Comments D-Dimer (test code = D-Dimer) 4.23 [facility]
== END 2022-01-26 14:00 | disposition home or self-care (01) | DRG 149 ==
LOC: ER 09:04 → ERHOLD 13:58 → 2ND 18:54 → OBSVTOIN 01-25 12:06
PROVIDERS: ADMIT Internal Medicine; ATTEND Internal Medicine
PROC: B3051ZZ Plain Radiography of Bilateral Common Carotid Arteries using Low Osmolar Contrast (ICD-10-PCS; principal; 2022-01-26)
PROC: B2011ZZ Plain Radiography of Multiple Coronary Arteries using Low Osmolar Contrast (ICD-10-PCS; 2022-01-26)
DX: H81.10 Benign paroxysmal vertigo, unspecified ear (principal); I25.110 Atherosclerotic heart disease of native coronary artery with unstable angina pectoris; I10 Essential (primary) hypertension; G62.9 Polyneuropathy, unspecified; I48.0 Paroxysmal atrial fibrillation; I65.23 Occlusion and stenosis of bilateral carotid arteries; I77.1 Stricture of artery; Z86.73 Personal history of transient ischemic attack (TIA), and cerebral infarction without residual deficits; Z20.822 Contact with and (suspected) exposure to COVID-19
CPT/HCPCS: 36415; 70450; 70544; 70549; 70553; 71045; 80048; 80061; 80076; 81003; 83690; 83735; 83880; 84484; 85025; 85610; 93005; 93306; 93454; 93880; 94760; 96360; 96361; 97110; 97116; 97161; 97530; 99285; A9577; C1760; C1893; G0269; G0378; J0583; J1644; J2250; J3010; J7030; J7040; U0003

== ENCOUNTER 2022-02-09 01:25 | Emergency (ER) | payer OTHER ==
[2022-02-09 02:50] LABS: Absolute Lymphocytes (CBC) 1.4 K/uL (0.7-4.9); Hematocrit 36.4 % (36.0-45.0); Lymphocytes % 13.8 % (15.3-44.8); MCV 91.2 fL (80-100); MPV 8.3 fL (7.6-11.3); RBC Red Blood Cell Count 3.99 M/uL (3.86-4.86)
[2022-02-09 03:02] LABS: Potassium 3.8 mmol/L (3.5-5.1); Troponin High Sensitivity 11.8 pg/mL (<58.9)
--- NOTE | 2022-02-09 06:07 | EDPHYS ---
Physician Documentation [facility] Name: Jarrell Rodrigez Age: 86 yrs Sex: Female : 1935 Arrival Date: 02/09/2022 Time: 01:32 Bed 15 Private MD: ED Physician Ty Sterling HPI: 02/09 01:56 This 86 yrs old Female presents to ER via Ambulatory with complaints of Chest kdr Tightness, Shoulder Pain. 01:56 The patient or guardian reports chest pain that is located primarily in the anterior kdr chest wall, bilaterally. Onset: gradually, 2 day(s) ago. The pain does not radiate. Associated signs and symptoms: Pertinent positives: lightheadedness, nausea. Duration: The patient or guardian reports multiple episodes, that have now resolved, that are intermittent, that wax and wane, last 2 evenings. Modifying factors: The symptoms are alleviated by nothing. the symptoms are aggravated by nothing. Severity of pain: At its worst the pain was very mild mild in the emergency department the pain is unchanged. The patient has not experienced similar symptoms in the past. The patient has been recently seen by a physician: Patient was started on isosorbide on Wednesday. She has had 2 doses. Historical: - Allergies: 01:47 Levaquin; lp1 01:47 Macrodantin; lp1 01:47 [place]; lp1 - Home Meds: 01:47 amiodarone 200 mg Oral tab 1 tab 2 times per day [Active]; atorvastatin 20 mg Oral tab lp1 1 tab once daily [Active]; montelukast 10 mg Oral tab 1 tab once daily [Active]; hydrochlorothiazide 25 mg Oral tab 1 tab once daily [Active]; apixaban 5 mg Oral tab 1 tab 2 times per day [Active]; nebivolol oral [Active]; - PMHx: 01:47 Atrial fibrillation; High Cholesterol; Hypertensive disorder; lp1 - Immunization history:: Adult Immunizations up to date. - Social history:: Smoking status: Patient denies any tobacco usage or history of. ROS: 01:56 Constitutional: Negative for fever, chills, and weight loss, Eyes: Negative for injury, kdr pain, redness, and discharge, ENT: Negative for injury, pain, and discharge, Neck: Negative for injury, pain, and swelling, Respiratory: Negative for shortness of breath, cough, wheezing, and pleuritic chest pain, Abdomen/GI: Negative for abdominal pain, nausea, vomiting, diarrhea, and constipation, Back: Negative for injury and pain, : Negative for injury, bleeding, discharge, and swelling, MS/Extremity: Negative for injury and deformity, Skin: Negative for injury, rash, and discoloration, Neuro: Negative for headache, weakness, numbness, tingling, and seizure activity. Psych: Negative for depression, anxiety, suicide ideation, homicidal ideation, and hallucinations, Allergy/Immunology: Negative for hives, rash, and allergies, Endocrine: Negative for neck swelling, polydipsia, polyuria, polyphagia, and marked weight changes, Hematologic/Lymphatic: Negative for swollen nodes, abnormal bleeding, and unusual bruising. 01:56 Cardiovascular: Positive for chest pain, Pressure or tightness. Exam: 01:56 Constitutional: This is a well developed, well nourished patient who is awake, alert, kdr and in no acute distress. Head/Face: Normocephalic, atraumatic. Eyes: Pupils equal round and reactive to light, extra-ocular motions intact. Lids and lashes normal. Conjunctiva and sclera are non-icteric and not injected. Cornea within normal limits. Periorbital areas with no swelling, redness, or edema. Neck: Trachea midline, no thyromegaly or masses palpated, and no cervical lymphadenopathy. Supple, full range of motion without nuchal rigidity, or vertebral point tenderness. No Meningismus. Chest/axilla: Normal chest wall appearance and motion. Nontender with no deformity. No lesions are appreciated. Cardiovascular: Regular rate and rhythm with a normal S1 and S2. No gallops, murmurs, or rubs. Normal PMI, no JVD. No pulse deficits. Respiratory: Lungs have equal breath sounds bilaterally, clear to auscultation and percussion. No rales, rhonchi or wheezes noted. No increased work of breathing, no retractions or nasal flaring. Abdomen/GI: Soft, non-tender, with normal bowel sounds. No distension or tympany. No guarding or rebound. No evidence of tenderness throughout. Back: No spinal tenderness. No costovertebral tenderness. Full range of motion. Skin: Warm, dry with normal turgor. Normal color with no rashes, no lesions, and no evidence of cellulitis. MS/ Extremity: Pulses equal, no cyanosis. Neurovascular intact. Full, normal range of motion. Neuro: Awake and alert, GCS 15, oriented to person, place, time, and situation. Cranial nerves II-XII grossly intact. Motor strength 5/5 in all extremities. Sensory grossly intact. Cerebellar exam normal. Normal gait. Psych: Awake, alert, with orientation to person, place and time. Behavior, mood, and affect are within normal limits. 02:02 ECG was reviewed by the Attending Physician. kdr Vital Signs: 01:53 Weight 77.11 kg (R); Height 5 ft. 7 in. (170.18 cm); lp1 02:00 BP 173 / 60; Pulse 50; Resp 19; Temp 98.5; Pulse Ox 97% on R/A; Weight 77.11 kg; Height ke1 5 ft. 7 in. (170.18 cm); Pain 4/10; 02:27 BP 167 / 62; Pulse 51; Resp 21; Pulse Ox 96% on R/A; Pain 3/10; ke1 02:50 BP 159 / 58; Pulse 48; Resp 16; Pulse Ox 100% on R/A; Pain 1/10; ke1 05:22 BP 153 / 63; Pulse 60; Resp 16; Pulse Ox 99% on R/A; Pain 1/10; ke1 02:00 Body Mass Index 26.63 (77.11 kg, 170.18 cm) ke1 MDM: 06:06 Patient medically screened. kdr 07:25 Data reviewed: vital signs, nurses notes, lab test result(s), radiologic studies. kdr Counseling: I had a detailed discussion with the patient and/or guardian regarding: the historical points, exam findings, and any diagnostic results supporting the discharge/admit diagnosis, lab results, radiology results, the need for outpatient follow up. 02/09 01:42 Order name: Basic Metabolic Panel; Complete Time: 03:09 kdr 02/09 01:42 Order name: CBC with Diff; Complete Time: 03:09 kdr 02/09 01:42 Order name: NT PRO-BNP; Complete Time: 03:09 kdr 02/09 01:42 Order name: Troponin HS; Complete Time: 03:09 kdr 02/09 01:56 Order name: Troponin High Sensitivity: Draw second trop 2 hours after initial draw; kdr Complete Time: 06:02 02/09 06:21 Order name: SARS-COV-2 RT PCR (Document "Date of Onset" if Symptomatic); Complete Time: ke1 08:08 02/09 01:42 Order name: XRAY Chest (1 view) kdr 02/09 01:42 Order name: EKG; Complete Time: 01:44 kdr 02/09 01:42 Order name: Cardiac monitoring; Complete Time: 02:05 kdr 02/09 01:42 Order name: EKG - Nurse/Tech; Complete Time: 02:05 kdr 02/09 01:42 Order name: IV Saline Lock; Complete Time: 02:14 kdr 02/09 01:42 Order name: Labs collected and sent; Complete Time: 02:14 kdr 02/09 01:42 Order name: O2 Per Protocol; Complete Time: 02:05 kdr 02/09 06:21 Order name: Flu; Complete Time: 08:08 ke1 02/09 01:42 Order name: O2 Sat Monitoring; Complete Time: 02:05 kdr EC:02 Rate is 50 beats/min. Rhythm is regular, Sinus bradycardia with No ectopy. QRS [place] is kdr Normal. PA interval is normal. QRS interval is normal. QT interval is normal. Clinical impression: Sinus bradycardia. Administered Medications: No medications were administered Disposition Summary: 02/09/22 06:06 Discharge Ordered Location: Home kdr Problem: new kdr Symptoms: have improved kdr Condition: Stable kdr Diagnosis - Chest pressure/tightness kdr Followup: kdr - With: Private Physician - When: 2 - 3 days - Reason: If symptoms return, Further diagnostic work-up, Recheck today's complaints, Continuance of care, Re-evaluation by your physician Discharge Instructions: - Discharge Summary Sheet kdr - Chest Wall Pain, [id number] kdr - Nonspecific Chest Pain, Adult, [id number] kdr Forms: - Medication Reconciliation Form kdr - Thank You Letter kdr Prescriptions: - Zofran 4 mg Oral Tablet - take 1 tablet by ORAL route every 4-6 hours As needed; 12 tablet; Refills: 0, kdr Product Selection Permitted Signatures: Dispatcher [facility] Ty Nogueira MD MD kdr Bartolome Pinzon MD MD rn Brooklyn Hyde RN RN lp1 Brown, Audra, PA PA sb3
--- NOTE | 2022-02-09 06:07 | ER ---
Nurse's Notes [facility] Name: Jarrell Rodirgez Age: 86 yrs Sex: Female : 1935 Arrival Date: 02/09/2022 Time: 01:32 Bed 15 Private MD: Diagnosis: Chest pressure/tightness Presentation: 02/09 01:46 Chief complaint: Patient states: Chest tightness the last 2 nights, with some lp1 discomfort between shoulders making it feel like she cannot take a deep breath; Reports recent cardiac cath by Dr. Talavera 2 weeks ago. Coronavirus screen: At this time, the client does not indicate any symptoms associated with coronavirus-19. Ebola Screen: No symptoms or risks identified at this time. Risk Assessment: Do you want to hurt yourself or someone else? Patient reports no desire to harm self or others. Onset of symptoms was February 09, 2022. 01:46 Method Of Arrival: Ambulatory lp1 01:46 Acuity: JAY 3 lp1 02:05 Initial Sepsis Screen: Does the patient meet any 2 criteria? No. Patient's initial ke1 sepsis screen is negative. Does the patient have a suspected source of infection? No. Patient's initial sepsis screen is negative. Triage Assessment: 02:03 General: Appears in no apparent distress. Behavior is appropriate for age. Pain: ke1 Complains of pain in chest Pain radiates to shoulders Pain currently is 4 out of 10 on a pain scale. at worst was 4 out of 10 on a pain scale. level that patient reports is acceptable is 5 out of 10 on a pain scale. Neuro: Level of Consciousness is awake, alert, Oriented to person, place, time, situation. Cardiovascular: Rhythm is sinus bradycardia. Historical: - Allergies: 01:47 Levaquin; lp1 01:47 Macrodantin; lp1 01:47 [place]; lp1 - Home Meds: 01:47 amiodarone 200 mg Oral tab 1 tab 2 times per day [Active]; atorvastatin 20 mg Oral tab lp1 1 tab once daily [Active]; montelukast 10 mg Oral tab 1 tab once daily [Active]; hydrochlorothiazide 25 mg Oral tab 1 tab once daily [Active]; apixaban 5 mg Oral tab 1 tab 2 times per day [Active]; nebivolol oral [Active]; - PMHx: 01:47 Atrial fibrillation; High Cholesterol; Hypertensive disorder; lp1 - Immunization history:: Adult Immunizations up to date. - Social history:: Smoking status: Patient denies any tobacco usage or history of. Screenin:02 Abuse screen: Denies threats or abuse. Nutritional screening: No deficits noted. ke1 Tuberculosis screening: No symptoms or risk factors identified. 02:15 Fall Risk No fall in past 12 months (0 pts). No secondary diagnosis (0 pts). IV access ke1 (20 points). Ambulatory Aid- None/Bed Rest/Nurse Assist (0 pts). Gait- Normal/Bed Rest/Wheelchair (0 pts) Mental Status- Oriented to own ability (0 pts). Total [place] Fall Scale indicates No Risk (0-24 pts). Assessment: 02:15 Pain: Pain began 2-3 days ago. ke1 02:16 Pain: Complains of pain in chest Pain radiates to shoulders. ke1 03:19 Reassessment: Patient appears in no apparent distress at this time. Patient and/or ke1 family updated on plan of care and expected duration. Pain level reassessed. Patient is alert, oriented x 3, equal unlabored respirations, skin warm/dry/pink. Patient states feeling better. Patient states symptoms have improved. 06:28 Reassessment: new order for covid swab, patient is waiting on result before discharge. ke1 07:00 Reassessment: RECD REPORT FROM ANDREW GEE. 86YO WF P/W ABD PAIN AND CHEST PAIN. ALL bp CURRENT ORDERS COMPLETED, D/C ON HOLD FOR SWAB RESULTS. 08:36 Reassessment: PT D/C HOME AMBULATORY WITH FAMILY. bp Vital Signs: 01:53 Weight 77.11 kg (R); Height 5 ft. 7 in. (170.18 cm); lp1 02:00 BP 173 / 60; Pulse 50; Resp 19; Temp 98.5; Pulse Ox 97% on R/A; Weight 77.11 kg; Height ke1 5 ft. 7 in. (170.18 cm); Pain 4/10; 02:27 BP 167 / 62; Pulse 51; Resp 21; Pulse Ox 96% on R/A; Pain 3/10; ke1 02:50 BP 159 / 58; Pulse 48; Resp 16; Pulse Ox 100% on R/A; Pain 1/10; ke1 05:22 BP 153 / 63; Pulse 60; Resp 16; Pulse Ox 99% on R/A; Pain 1/10; ke1 02:00 Body Mass Index 26.63 (77.11 kg, 170.18 cm) ke1 ED Course: 01:32 Patient arrived in ED. ja2 01:36 Andrew Young, MARLEN is Primary Nurse. ke1 01:42 Ty Sterling MD is Attending Physician. kdr 01:45 Arm band placed on. lp1 01:47 Triage completed. lp1 01:54 Patient maintains SpO2 saturation greater than 95% on room air. lp1 02:05 Bed in low position. Call light in reach. ke1 02:15 Client placed on continuous cardiac and pulse oximetry monitoring. NIBP monitoring ke1 applied. campus monitor on. Pulse ox on. NIBP on. 02:15 Inserted saline lock: 20 gauge in right forearm, using aseptic technique. ke1 02:41 X-ray completed. Portable x-ray completed in exam room. Patient tolerated procedure mh1 well. 02:45 XRAY Chest (1 view) In Process Unspecified. EDMS 06:08 No provider procedures requiring assistance completed. ke1 07:00 IV discontinued, intact, bleeding controlled, No redness/swelling at site. Pressure bp dressing applied. Administered Medications: No medications were administered Medication: 01:54 VIS not applicable for this client. lp1 Outcome: 06:06 Discharge ordered by . kdr 08:37 Discharged to home ambulatory, with family. bp 08:37 Condition: stable 08:37 Discharge instructions given to patient, family, Instructed on discharge instructions, follow up and referral plans. Demonstrated understanding of instructions, follow-up care. 08:37 Patient left the ED. bp Signatures: Dispatcher [employer] EDMS yT Sterling MD MD [facility] Tere Pedroza 1 Brooklyn Hyde RN RN 1 Felipe Otero RN RN bp Sheyla Gamboa 2 Andrew Young, MARLEN RN ke1 Corrections: (The following items were deleted from the chart) 02:18 02:03 Pain: Complains of pain in shoulders Pain currently is 4 out of 10 on a pain ke1 scale. at worst was 4 out of 10 on a pain scale. level that patient reports is acceptable is 5 out of 10 on a pain scale. ke1 02:18 02:03 General: Per patient chest tighthness that she cannot describes as pain. ke1 ke1
[2022-02-09 08:57] VITALS: TEMP 98.5
[2022-02-09 09:19] VITALS: BP 153/63; O2SAT 99
--- NOTE | 2022-02-09 12:20 | EKG ---
Test Date: 2022-02-09 Test Time: 01:57:58 Nail Professional: PELON MEASUREMENT RESULTS: Intervals: Rate: 50 TX: 196 QRSD: 94 QT: 516 QTc: 470 [place]: P: 89 TX: 196 QRS: 35 T: 57 INTERPRETIVE STATEMENTS: Sinus bradycardia Otherwise normal ECG Compared to ECG 01/23/2022 09:40:26 No significant changes Electronically Signed On 02-09-22 12:19:45 CDT by Ulises Martinez
--- NOTE | 2022-02-09 13:15 | RAD REPORT ---
EXAM DESCRIPTION: RAD - Chest Single View - 02/09/2022 2:43 am CLINICAL HISTORY: CHEST PAIN TECHNIQUE: Frontal view of the chest. COMPARISON: XR Chest dated 01/23/2022 FINDINGS: Lungs: Hyperinflation and coarsened interstitial markings. No focal consolidation. Pleural space: Unremarkable. No pneumothorax. Heart: The cardiac silhouette is mildly enlarged, stable. Mediastinum: Unremarkable. Bones/joints: Unremarkable. Vasculature: Thoracic aortic atherosclerosis. IMPRESSION: No acute disease. Electronically signed by: Evelina Solano MD 02/09/2022 3:16 AM CDT Due to temporary technical issues with the PACS/Fluency reporting system, reports are being signed by the in house radiologists without review as a courtesy to insure prompt reporting. The interpreting radiologist is fully responsible for the content of the report.
== END 2022-02-09 08:37 | disposition home or self-care (01) ==
LOC: ER 01:25
DX: R07.89 Other chest pain (principal); I10 Essential (primary) hypertension; I48.91 Unspecified atrial fibrillation; E78.00 Pure hypercholesterolemia, unspecified; Z20.822 Contact with and (suspected) exposure to COVID-19; Z88.1 Allergy status to other antibiotic agents
CPT/HCPCS: 93005; 85025; 80048; 36415; 84484 ×2; 83880; 87804 ×2; 71045; U0003; 99285

== ENCOUNTER 2022-03-30 09:00 | Emergency (ER) | payer OTHER ==
--- OUTSIDE RECORDS SUMMARY | 2022-03-30 09:07 | XMS REPORT | Continuity of Care Document ---
:1935 Author Organization [facility] t Address [address] [place] [address] Care Team Providers Name Role Phone Geovanna Jun [place] Primary Care Physician Therapy, Adc Covid Infusion Attending Clinician Unavailable Brandon Rivas MD Attending Clinician BRANDON RIVAS Attending Clinician Unavailable Doctor Unassigned, [place] Attending Clinician Unavailable Angel Rodríguez Attending Clinician Mitul Ontiveros I Attending Clinician Mitul Ontiveros I Admitting Clinician Payers Payer Name Policy Type Policy Number Effective Date Expiration Date S ource Problems Condition Condition Condition Status Onset Resolution Last Treating Co mments Source Name Details Category Date Date Treatment Clinician Date ACUTE ACUTE Diagnosis Active 2018-11-21 Me moria ARTERIAL ARTERIAL 11-08 22:18:00 l ISCHEMIC ISCHEMIC 00:00: Cipriano lee STROKE STROKE 00 MULTIFOCA MULTIFOCA Active 11/08/2018 [facility] CVA CVA Diagnosis Active 2018-11-08 Mem oria ISCHEMIC ISCHEMIC 11-08 23:39:00 l Active 00:00: Todd 11/08/[address] [facility] Illness, Illness, Problem 2018-11-13 Memoria unspecifie unspecifie 22:16:16 l d d Todd 11/13/2018 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 ILLNESS, ILLNESS, Diagnosis Active 2018-11-08 Memoria UNSPECIFIE UNSPECIFIE 23:39:00 l D D Active Todd [facility] Allergies, Adverse Reactions, Alerts Allergy Allergy Status Severity Reaction(s) Onset Inactive Treating Comm ents Source Name Type Date Date Clinician Nitrofur Propensi Active Unknown - Uni vers antoin ty to See comments 04-10 ity of [place] adverse 00:00: [place] stalline reaction 00 Medica l s Branch NITROFUR DRUG Active Unknown-Cmnt Un cecile ANTOIN INGREDI 04-10 ity of MACROCRY 00:00: [place] STALLINE 00 Medical Branch NO KNOWN Drug Active Univers ALLERGIE Class ity of [facility] HYDROcod HYDROcod Active Memori a one one l [place] Pollen Pollen Active Memoria l [place] Social History Social Habit Start Date Stop Date Quantity Comments Source Sex Assigned At [birth year] [facility] 00:00:00 00:00:00 Medical Branch Smoking Status Start Date Stop Date Source Unknown if ever smoked [facility] Social History [facility] Medications Ordered Filled Start Stop Current Ordering Indication Dosage Frequency Signature Comments Components Source Medication Medication Date Date Medication? Clinician (SIG) Name Name casirivimab 2020- No [id number] 1200mg 1,200 mg, Univers -imdevimab 04-10 Subcutaneo it y of (REGEN-COV 20:30: 19:25 us, ONCE, [place] (EUA)) 00 :00 1 dose, On Medical injection [place] Branch 1,200 mg 04/10/21 at 1530, Routine atorvastati 2018-07 Yes = 2 tab, Me moria n 10 mg 1-18 PO, l oral tablet 17:33: Bedtime, # [place] 27 180 tab, 3 Refill(s), Pharmacy: [place] [id number] [facility] atorvastati 2018-07 Yes = 2 tab, Me moria n 10 mg 1-18 PO, l oral tablet 17:33: Bedtime, # [place] 27 180 tab, 3 Refill(s), Pharmacy: [place] [id number] [facility] atorvastati Yes 80 mg = 1 M emoria n 80 mg 6-28 tab, PO, l oral tablet 16:09: Bedtime, # [place] 47 90 tab, 0 Refill(s), Pharmacy: [place] [id number] [facility] atorvastati Yes 80 mg = 1 M emoria n 80 mg 6-28 tab, PO, l oral tablet 16:09: Bedtime, # [place] 47 90 tab, 0 Refill(s), Pharmacy: [place] [id number] [facility] amitriptyli Yes 20 mg = 2 M emoria ne 10 mg 5-17 tab, PO, l oral tablet 21:35: Bedtime, 0 [place] 00 Refill(s) amitriptyli 2019 Yes 20 mg = 2 M emoria ne 10 mg 5-17 tab, PO, l oral tablet 21:35: Bedtime, 0 [place] 00 Refill(s) Aspirin 81 2019-0 Yes 81 mg = 1 Me moria MG Enteric 5-03 tab, PO, l Coated 21:06: Daily, # [place] Tablet 00 90 tab, 0 Refill(s) atorvastati 2019 Yes 80 mg = 1 M emoria n 80 mg 5-03 tab, PO, l oral tablet 21:06: Bedtime, # [place] 00 90 tab, 0 Refill(s) Aspirin 81 2019- Yes 81 mg = 1 Me moria MG Enteric 5-03 tab, PO, l Coated 21:06: Daily, # [place] Tablet 00 90 tab, 0 Refill(s) atorvastati Yes 80 mg = 1 M emoria n 80 mg 5-03 tab, PO, l oral tablet 21:06: Bedtime, # [place] 00 90 tab, 0 Refill(s) Amitriptyli No Amitriptyl Memoria ne 10mg tab 5-03 ine 10mg l 02:00: tab, 2 [place] 00 tab, Drug form: MISC, Route: PO, Bedtime, 11/10/18 21:00:00 CDT, Duration: 30 day, Stop date: 12/09/18 21:00:00 CDT Chlordiazep No Chlordiaze Memoria oxide cap 5 5-03 poxide cap l mg 02:00: 5 mg, 1 [place] 00 cap, Drug form: MISC, Route: PO, Bedtime, 11/10/18 21:00:00 CDT, Duration: 30 day, Stop date: 12/09/18 21:00:00 CDT Amitriptyli No Amitriptyl Memoria ne 10mg tab 5-03 ine 10mg l 02:00: tab, 2 [place] 00 tab, Drug form: MISC, Route: PO, Bedtime, 11/10/18 21:00:00 CDT, Duration: 30 day, Stop date: 12/09/18 21:00:00 CDT Chlordiazep No Chlordiaze Memoria oxide cap 5 5-03 poxide cap l mg 02:00: 5 mg, 1 [place] 00 cap, Drug form: MISC, Route: PO, Bedtime, 11/10/18 21:00:00 CDT, Duration: 30 day, Stop date: 12/09/18 21:00:00 CDT Aspirin No Notes: Do Memor ia 5-02 not crush l 03:00: or chew. (Same As: Ecotrin) Aspirin No Notes: Do Memor ia 5-02 not crush l 03:00: or chew. (Same As: Ecotrin) atorvastati No Notes: Bull sheridan n -02 (Same as: l 02:00: Lipitor) Limbitrol No 1 tab, Memori a 5- Route: PO, l 02:00: Dosing [place] 00 Weight 75.1, kg, Bedtime, Start date: 11/09/18 21:00:00 CDT, Duration: 30 day, Stop date: 12/08/18 21:00:00 CDT Lovenox No Notes: Memoria 5-02 (Same as: l 02:00: Lovenox) atorvastati No Notes: Bull sheridan n 5-02 (Same as: l 02:00: Lipitor) Limbitrol No 1 tab, Memori a 5- Route: PO, l 02:00: Dosing Weight 75.1, kg, Bedtime, Start date: 11/09/18 21:00:00 CDT, Duration: 30 day, Stop date: 12/08/18 21:00:00 CDT Lovenox No Notes: Memoria 5-02 (Same as: l 02:00: Lovenox) Docusate No Notes: Memoria 5-01 (Same as: l 22:00: Colace) [place] 00 (Do Not Crush) sennosides, No Notes: Bull sheridan FDC 8.6 MG 5-01 (Same as: l Oral Tablet 22:00: Senokot) Docusate No Notes: Memoria 5-01 (Same as: l 22:00: Colace) [place] (Do Not Crush) sennosides, No Notes: Bull sheridan FDC 8.6 MG 5-01 (Same as: l Oral Tablet 22:00: Senokot) Bystolic No Notes: Memoria 5-01 (same as: l 16:00: Bystolic) montelukast No Notes: Bull sheridan 5-01 (Same l 16:00: as:Singula [place] 00 ir) Bystolic No Notes: Memoria 5-01 (same as: l 16:00: Bystolic) [place] 00 montelukast No Notes: Bull sheridan 5-01 (Same l 16:00: as:Singula [place] 00 ir) Saline No Notes: Memoria Flush 0.9% 11-09 Same as: l 14:00: BD Posiflush Sterile Saline No Notes: Memoria Flush 0.9% 11-09 Same as: l 14:00: BD Posiflush Sterile Limbitrol Yes PO, Memoria 5- Bedtime, 0 l 13:06: Refill(s) [place] Limbitrol Yes PO, Memoria 5 Bedtime, 0 l 13:06: Refill(s) [place] 00 nebivolol Yes 10 mg = 1 Mem oria 10 MG Oral 5-01 tab, PO, l Tablet 12:38: Daily, # Todd [Bystolic] 00 30 tab, 0 Refill(s) Fexofenadin Yes 60 mg = 1 M emoria e 5-01 tab, PO, l hydrochlori 12:38: BID, # 60 H ermann de 60 MG 00 tab, 0 Oral Tablet Refill(s) [Maira] montelukast Yes PO, Daily, Memoria 11-09 0 l 12:38: Refill(s) nebivolol Yes 10 mg = 1 Mem oria 10 MG Oral 5-01 tab, PO, l Tablet 12:38: Daily, # [place] [Bystolic] 00 30 tab, 0 Refill(s) Fexofenadin Yes 60 mg = 1 M emoria e 5-01 tab, PO, l hydrochlori 12:38: BID, # 60 H ermann de 60 MG 00 tab, 0 Oral Tablet Refill(s) [Maira] montelukast Yes PO, Daily, Memoria -01 0 l 12:38: Refill(s) [place] Insulin No Notes: Memoria Lispro 11-09 (Same as: l 04:43: Humalog) Roll in palms of hands gently; Do not shake vigorously . WASTE: F/P - Black; E - Municipal Trash Bin Stable for 28 days at room temperatur e. Expires in days from ____Date Glucagon 2019-0 No 1 mg, Memoria 5-01 Route: IM, l 04:43: Drug form: [place] 00 PDR/INJ, PRN, kg, PRN Blood Glucose Results, Start date: 11/08/18 23:43:00 CDT, Duration: 30 day, Stop date: 12/08/18 23:42:00 CDT Dextrose 2018-0 No 25 gm, 50 Bull sheridan 50% Syringe 5-01 mL, Route: l 04:43: IVP, Drug Todd Form: INJ, kg, PRN, PRN Blood Glucose Results, Start date: 11/08/18 23:43:00 CDT, Duration: 30 day, Stop date: 12/08/18 23:42:00 CDT Insulin No Notes: Memoria Lispro - (Same as: l 04:43: Humalog) Roll in palms of hands gently; Do not shake vigorously . WASTE: F/P - Black; E - Municipal Trash Bin Stable for 28 days at room temperatur e. Expires in days from ____Date Glucagon 2018-0 No 1 mg, Memoria 5- Route: IM, l 04:43: Drug form: Todd PDR/INJ, PRN, kg, PRN Blood Glucose Results, Start date: 11/08/18 23:43:00 CDT, Duration: 30 day, Stop date: 12/08/18 23:42:00 CDT Dextrose 0 No 25 gm, 50 Bull sheridan 50% Syringe 5-01 mL, Route: l 04:43: IVP, Drug Form: INJ, kg, PRN, PRN Blood Glucose Results, Start date: 11/08/18 23:43:00 CDT, Duration: 30 day, Stop date: 12/08/18 23:42:00 CDT Melatonin No Notes: Bull sheridan MG Extended 5- (Same as: l Release 04:30: Melatonin) Herm rosario Tablet 00 Melatonin No Notes: Bull sheridan MG Extended 5- (Same as: l Release 04:30: Melatonin) Herm rosario Tablet Zofran No Notes: Memoria 5-01 (Same as: l 04:28: Zofran) [place] 00 Zofran No Notes: Memoria - (Same as: l 04:28: Zofran) [place] 00 potassium No Notes: Memori a phosphate-s 11-09 (Same as: l odium 04:27: Phos-NaK) phosphate 00 Each 1.5 250 mg-280 gm pkt has mg-160 mg 250mg oral powder phosphorou for s. Mix reconstitut w/2.5oz ion water and stir. potassium No Notes: Memori a phosphate 11-09 (Same as: l 04:27: K [place] 00 Phosphate. ) Do not infuse phosphorou s concurrent ly in the same line as TPN or IVF that contains calcium. For double lumen central lines, phosphorou s may be infused in a separate lumen from TPN. 1 mMol phoshate has 1.47 mEq potassium Infuse over 4 hours sodium No Notes: Memoria phosphate 11-09 Infuse l 04:27: over 4 [place] 00 hour. Do not infuse phosphorou s concurrent ly in the same line as TPN or IVF that contains calcium. For double lumen central lines, phosphorou s may be infused in a separate lumen from TPN. Potassium No Notes: Memori a Chloride 11-09 (Same as: l 04:27: K-Dur 20) "Do Not Crush" Give with food and full glass of water For patients unable to swallow tablet, dissolve in one half glass of water. Allow about 2 minutes for the tablets to disintegra te. Stir before giving to prepare slurry and administer . Please exclude Patient s with feeding tube less than 14 [place]uv[place] (Dobhoff, J-tube etc) and pediatric and patients. Calcium No Notes: Memoria Gluconate 11-09 WASTE: F/P l 04:27: - Sink; E 00 - [facility] Tra Bin Calcium No Notes: Memoria Carbonate 11-09 (Same As: l 500 MG 04:27: Tums) [place] Chewable 00 Calcium Tablet Carbonate 500 mg = 200 mg elemental calcium Dose = mg calcium carbonate ( mg elemental calcium) Magnesium No Notes: Memori a Sulfate 11-09 WASTE: F/P l 04:27: - Sink; E - Municipal Trash Bin Magnesium No Notes: Memori a Oxide - (Same as: l :27: Mag-Ox [place] 00 400) Magnesium oxide 013eq=220i g elemental magnesium Dose=____m g magnesium oxide (___mg elemental magnesium) potassium No Notes: Memori a phosphate-s 11-09 (Same as: l odium 04:27: Phos-NaK) [place] phosphate 00 Each 1.5 250 mg-280 gm pkt has mg-160 mg 250mg oral powder phosphorou for s. Mix reconstitut w/2.5oz ion water and stir. potassium No Notes: Memori a phosphate 11-09 (Same as: l :27: K [place] 00 Phosphate. ) Do not infuse phosphorou s concurrent ly in the same line as TPN or IVF that contains calcium. For double lumen central lines, phosphorou s may be infused in a separate lumen from TPN. 1 mMol phoshate has 1.47 mEq potassium Infuse over 4 hours sodium No Notes: Memoria phosphate 11-09 Infuse l 04:27: over 4 [place] 00 hour. Do not infuse phosphorou s concurrent ly in the same line as TPN or IVF that contains calcium. For double lumen central lines, phosphorou s may be infused in a separate lumen from TPN. Potassium No Notes: Memori a Chloride 11-09 (Same as: l :27: K-Dur 20) "Do Not Crush" Give with food and full glass of water For patients unable to swallow tablet, dissolve in one half glass of water. Allow about 2 minutes for the tablets to disintegra te. Stir before giving to prepare slurry and administer . Please exclude Patient s with feeding tube less than 14 [place] (Dobhoff, J-tube etc) and pediatric and patients. Calcium No Notes: Memoria Gluconate 11-09 WASTE: F/P l 04:27: - Sink; E - Municipal Trash Bin Calcium No Notes: Memoria Carbonate 11-09 (Same As: l 500 MG 04:27: Tums) [place] Chewable 00 Calcium Tablet Carbonate 500 mg = 200 mg elemental calcium Dose = mg calcium carbonate ( mg elemental calcium) Magnesium No Notes: Memori a Sulfate 11-09 WASTE: F/P l 04:27: - Sink; E [place] 00 - Municipal Trash Bin Magnesium No Notes: Memori a Oxide 11-09 (Same as: l 04:27: Mag-Ox [place] 00 400) Magnesium oxide 213ks=324s g elemental magnesium Dose=____m g magnesium oxide (___mg elemental magnesium) Saline No Notes: Memoria Flush 0.9% 11-09 Same as: l 04:25: BD [place] Posiflush Sterile Acetaminoph No Notes: Do M emoria en 11-09 not exceed l 04:25: 4 gm/day. [place] 00 (Same as: Tylenol) Labetalol No Notes: Memori a 11-09 (Same as: l 04:25: Normodyne, [place] 00 Trandate) Push over 2 minutes Give bolus over 2-3 minutes. Saline No Notes: Memoria Flush 0.9% 11-09 Same as: l 04:25: BD [place] 00 Posiflush Sterile Acetaminoph No Notes: Do M emoria en 11-09 not exceed l 04:25: 4 gm/day. Todd (Same as: Tylenol) Labetalol No Notes: Memori a 11-09 (Same as: l 04:25: Normodyne, [place] 00 Trandate) Push over 2 minutes Give bolus over 2-3 minutes. Vital Signs Vital Name Observation Time Observation Value Comments Source Systolic blood 2021-04-10 20:10:00 147 mm[Hg] [facility] Diastolic blood 2021-04-10 20:10:00 99 mm[Hg] [facility] [place] Heart rate 2021-04-10 20:10:00 105 /min [facility] Body temperature 2021-04-10 20:10:00 36.28 [facility] Respiratory rate 2021-04-10 20:10:00 18 /min [facility] Oxygen saturation in 2021-04-10 20:10:00 93 /min [facility] Arterial blood by [facility] Pulse oximetry Branch Body height 2021-04-10 19:22:00 170.2 cm [facility] Body weight 2021-04-10 19:22:00 77.111 kg [facility] BMI 2021-04-10 19:22:00 26.63 kg/m2 [facility] Systolic (mm Hg) 2019-08-04 15:30:00 Bull rial [place] Diastolic (mm Hg) 2019-08-04 15:30:00 Mem orial [place] Heart Rate 2019-08-04 15:30:00 [facility] [place] Respitory Rate 2019-08-04 15:30:00 Memori al [place] Height 2019-08-04 15:30:00 170.18 cm [facility] [place] Weight 2019-08-04 15:30:00 [facility] [place] BMI Calculated 2019-08-04 15:30:00 Memori al [place] Systolic (mm Hg) 2019-04-07 14:38:00 Bull rial [place] Diastolic (mm Hg) 2019-04-07 14:38:00 Mem orial [place] Heart Rate 2019-04-07 14:38:00 [facility] [place] Respitory Rate 2019-04-07 14:38:00 Memori al [place] Height 2019-04-07 14:38:00 167.64 cm [facility] [place] Weight 2019-04-07 14:38:00 [facility] [place] BMI Calculated 2019-04-07 14:38:00 Memori al [place] Height 2019-01-06 15:31:00 165.1 cm [facility] [place] BMI Calculated 2019-01-06 15:31:00 Memori al [place] Weight 2019-01-06 15:31:00 [facility] [place] Heart Rate 2019-01-06 15:31:00 [facility] [place] Systolic (mm Hg) 2019-01-06 15:31:00 Bull rial [place] Diastolic (mm Hg) 2019-01-06 15:31:00 Mem orial [place] Respitory Rate 2019-01-06 15:31:00 Memori al [place] Heart Rate 2018-11-25 21:06:00 [facility] [place] Respitory Rate 2018-11-25 21:06:00 Memori al [place] BMI Calculated 2018-11-25 21:06:00 Memori al [place] Weight 2018-11-25 21:06:00 [facility] [place] Height 2018-11-25 21:06:00 165.1 cm [facility] [place] Systolic (mm Hg) 2018-11-25 21:06:00 Bull rial [place] Diastolic (mm Hg) 2018-11-25 21:06:00 Mem orial [place] Respitory Rate 2018-11-11 17:30:00 Memori al [place] Systolic (mm Hg) 2018-11-11 17:30:00 Bull rial [place] Diastolic (mm Hg) 2018-11-11 17:30:00 Mem orial [place] Heart Rate 2018-11-11 17:30:00 [facility] [place] Temperature Oral (F) 2018-11-11 17:30:00 98.2 F [facility] [place] Systolic (mm Hg) 2018-11-11 13:00:00 Bull rial [place] Diastolic (mm Hg) 2018-11-11 13:00:00 Mem orial [place] Heart Rate 2018-11-11 13:00:00 [facility] [place] Respitory Rate 2018-11-11 13:00:00 Memori al [place] Temperature Oral (F) 2018-11-11 13:00:00 99.8 F [facility] [place] Systolic (mm Hg) 2018-11-11 09:00:00 Bull rial [place] Diastolic (mm Hg) 2018-11-11 09:00:00 Mem orial [place] Respitory Rate 2018-11-11 09:00:00 Memori al [place] Heart Rate 2018-11-11 09:00:00 [facility] [place] Temperature Oral (F) 2018-11-11 09:00:00 98.3 F [facility] [place] BMI Calculated 2018-11-09 04:49:00 Memori al [place] Height 2018-11-09 04:49:00 167.64 cm [facility] [place] Weight 2018-11-09 04:49:00 [facility] [place] Procedures Procedure Date / Time Performing Clinician Source Performed CONSENT/REFUSAL FOR 2021-04-10 05:01:00 Doctor Unassigned, No Un [facility] DIAGNOSIS AND TREATMENT Name Medical Branch Gallbladder stone [facility] Caitlin nn removal<sup>1</sup> Hysterectomy<sup>2</sup [facility] [place] > Knee [facility] [place] arthroplasty<sup>3</sup > Encounters Start End Encounter Admission Attending Care Care Encounter Source Date/Time Date/Time Type Type Clinicians Facility Department ID 2018-11-08 Inpatient [facility] [id number] [facility] W 22:56:00 2021-04-10 2021-04-10 Nurse Therapy, Adc Covid Infusion [facility] [id number] Univers 14:04:17 15:04:17 Visit Brandon Rivas [id number] ity [facility] [id number] [facility] s Surgical [id number] [place] [id number] Branch 2021-04-10 2021-04-10 Outpatient R LITA [facility] [id number] Univers 14:00:00 14:00:00 BRANDON billings [facility] 2021-04-10 2021-04-10 Orders Doctor ROSETTA [id number] Univers 00:00:00 00:00:00 Only Unassigned, [place] [id number] ity [id number] Pito as [id number] [address] 2020-08-06 2020-08-06 Ambulatory nullFlavo MNA [id number] Memoria 15:30:00 15:30:00 Pre-Reg r Neurology 06 l María Brooks 2020-08-06 2020-08-06 Ambulatory nullFlavo MNA [id number] Memoria 15:30:00 15:30:00 Pre-Reg r Neurology 06 l María Brooks 2020-08-06 2020-08-06 Outpatient MHIE MHIE [id number] Memoria 09:30:00 09:30:00 Tami garcia [place] 2020-08-06 2020-08-06 Outpatient YOUSIF RodríguezSCHMALCOLM [id number] 09:30:00 09:30:00 Angel Decker 2020-02-02 2020-02-03 Outpatient nullFlavo MNA [id number] Memoria 14:30:00 04:59:59 r Neurology 05 l María Brooks 2020-02-02 2020-02-03 Outpatient nullFlavo MNA [id number] Memoria 14:30:00 04:59:59 r Neurology 05 l María Brooks 2020-02-02 2020-02-02 [facility] [id number] 09:30:00 23:59:59 Angel 05 Jeronimo 2020-02-02 2020-02-02 Ambulatory nullFlavo MNA [id number] Memoria 14:30:00 14:30:00 Pre-Reg r Neurology 04 l María Brooks 2020-02-02 2020-02-02 Ambulatory nullFlavo MNA [id number] Memoria 14:30:00 14:30:00 Pre-Reg r Neurology 04 l María Brooks 2020-02-02 2020-02-02 Outpatient MHIE MHIE [id number] Memoria 09:30:00 09:30:00 05 jose [place] 2020-02-02 2020-02-02 Outpatient MHIE MHIE [id number] Memoria 09:30:00 09:30:00 04 jose [place] 2020-02-02 2020-02-02 [facility] [id number] 09:30:00 09:30:00 Angel 04 Jeronimo 2019-08-04 2019-08-05 Outpatient nullFlavo MNA [id number] Memoria 15:45:00 05:59:59 r Neurology 03 jose Brooks 2019-08-04 2019-08-05 Outpatient nullFlavo MNA [id number] Memoria 15:45:00 05:59:59 r Neurology 03 jose Brooks 2019-08-04 2019-08-04 Outpatient Marcos [facility]ER [facility] [id number] 09:45:00 23:59:59 Angel 03 Jeronimo 2019-08-04 2019-08-04 Outpatient MHIE MHIE [id number] Memoria 09:45:00 09:45:00 03 jose Brooks 2019-04-07 2019-04-08 Outpatient nullFlavo MNA [id number] Memoria 14:30:00 04:59:59 r Neurology 02 l [place] 2019-04-07 2019-04-08 Outpatient nullFlavo MNA [id number] Memoria 14:30:00 04:59:59 [facility] 2019-04-07 [facility] [id number] 09:30:00 23:59:59 Angel 02 [facility] 2019-04-07 2019-04-07 Outpatient MHIE MHIE [id number] Memoria 09:30:00 09:30:00 02 jose [place] 2019-01-06 2019-01-07 Outpatient nullFlavo MNA [id number] Memoria 15:15:00 04:59:59 r Neurology 01 l [facility] 2019-01-06 2019-01-07 Outpatient nullFlavo MNA [id number] Memoria 15:15:00 04:59:59 r Neurology 01 l [facility] 2019-01-06 2019-01-06 Outpatient [facility] [id number] 10:15:00 23:59:59 Angel [facility] 2019-01-06 2019-01-06 Outpatient MHIE MHIE [id number] Memoria 10:15:00 10:15:00 01 jose [place] 2018-11-25 2018-11-26 Outpatient nullFlavo MNA [id number] Memoria 21:00:00 04:59:59 r Neurology 00 l [facility] 2018-11-25 2018-11-26 Outpatient nullFlavo MNA [id number] Memoria 21:00:00 04:59:59 r Neurology 00 l [facility] 2018-11-25 2018-11-25 Outpatient [facility] [id number] 16:00:00 23:59:59 Angel 00 [facility] 2018-11-25 2018-11-25 Outpatient MHIE MHIE [id number] Memoria 16:00:00 16:00:00 00 jose [place] 2018-11-09 2018-11-12 Inpatient nullFlavo [facility] [id number] Memoria 03:56:00 00:00:00 r [place] 20 l [facility] 2018-11-09 2018-11-12 Inpatient nullFlavo [facility] [id number] Memoria 03:56:00 00:00:00 r [place] 20 l [facility] 2018-11-08 2018-11-11 Outpatient [facility] [id number] 22:56:00 19:00:00 Mitul I 20 Results Test Description Test Time Test Comments Results Result Comments Source HEMATOLOGY 2018-11-11 10:11:00 Test Item Value Reference Range Interpretation Comme nts Basophils (test code = 0.3 See_Comment [Aut omated message] The system Basophils) which generated this result transmitted ref erence range: <=1.0. The reference r tara was not used to interpret this result as normal/abnormal . [id number] 10:11:00 Test Item Value Reference Range Interpretation Comments Monocytes # (test code 0.9 See_Comment [Aut omated message] The = Monocytes #) system which generated this result tra nsmitted reference range : <=0.8. The reference r tara was not used to int erpret this result as normal/abnormal . [facility] [id number] 10:11:00 Test Item Value Reference Range Interpretation Comments Eosinophils # (test code 0.2 See_Comment [A utomated message] The = Eosinophils #) system whic h generated this result tra nsmitted reference range : <=0.5. The reference r tara was not used to int erpret this result as normal/abnormal . [facility] [id number] 10:11:00 Test Item Value Reference Range Interpretation Comments Monocytes (test code = Monocytes) 10.5 2.0-12.0 [place] [id number] 10:11:00 Test Item Value Reference Range Interpretation Comments Lymphocytes (test code = Lymphocytes) 20.6 20.0-40.0 [place] [id number] 10:11:00 Test Item Value Reference Range Interpretation Comments Segs (test code = Segs) 65.9 45.0-75.0 [facility]2019-05-03 10:11:00 Test Item Value Reference Range Interpretation Comments Phosphorus (test code = Phosphorus) 2.9 2.5-4.5 [facility]2019-05-03 10:11:00 Test Item Value Reference Range Interpretation Comments Magnesium Lvl (test code = Magnesium 2.0 1.8-2.4 Lvl) [facility]2019-05-03 10:11:00 Test Item Value Reference Range Interpretation Comments A/G Ratio (test code = A/G Ratio) 0.8 1 0.7-1.6 [facility]2019-05-03 10:11:00 Test Item Value Reference Range Interpretation Comments Globulin (test code = Globulin) 3.8 2.7-4.2 [facility]2019-05-03 10:11:00 Test Item Value Reference Range Interpretation Comments B/C Ratio (test code = B/C Ratio) 19 1 6-25 [facility]2019-05-03 10:11:00 Test Item Value Reference Range Interpretation Comments AGAP (test code = AGAP) 14.9 10.0-20.0 [facility]2019-05-03 10:11:00 Test Item Value Reference Range Interpretation Comments eGFR (test code = eGFR) 68 [facility]2019-05-03 10:11:00 Test Item Value Reference Range Interpretation Comments Bili Total (test code = Bili Total) 0.8 0.2-1.3 [facility]2019-05-03 10:11:00 Test Item Value Reference Range Interpretation Comments Alk Phos (test code = Alk Phos) 128 39-136 [facility]2019-05-03 10:11:00 Test Item Value Reference Range Interpretation Comments AST (test code = AST) 26 See_Comment [Auto mated message] The system which ge nerated this result transmit zen reference range : <=37. The reference range was not used to interpr et this result as albina l/abnormal. [facility]2019-05-03 10:11:00 Test Item Value Reference Range Interpretation Comments ALT (test code = ALT) 36 See_Comment [Auto mated message] The system which ge nerated this result transmit zen reference range : <=65. The reference range was not used to interpr et this result as albina l/abnormal. [facility]2019-05-03 10:11:00 Test Item Value Reference Range Interpretation Comments Albumin Lvl (test code = Albumin Lvl) 3.1 3.5-5.0 [facility]2019-05-03 10:11:00 Test Item Value Reference Range Interpretation Comments Potassium Lvl (test code = Potassium 3.9 3.5-5.1 Lvl) [facility]2019-05-03 10:11:00 Test Item Value Reference Range Interpretation Comments Creatinine Lvl (test code = Creatinine 0.80 0.50-1.40 Lvl) [facility]2019-05-03 10:11:00 Test Item Value Reference Range Interpretation Comments Glucose Lvl (test code = Glucose Lvl) 77 70-99 [facility]2019-05-03 10:11:00 Test Item Value Reference Range Interpretation Comments Sodium Lvl (test code = Sodium Lvl) 140 135-145 [facility]2019-05-03 10:11:00 Test Item Value Reference Range Interpretation Comments BUN (test code = BUN) 15 7-22 [facility]2019-05-03 10:11:00 Test Item Value Reference Range Interpretation Comments Calcium Lvl (test code = Calcium Lvl) 8.6 8.5-10.5 [facility]2019-05-03 10:11:00 Test Item Value Reference Range Interpretation Comments Total Protein (test code = Total 6.9 6.4-8.4 Protein) [facility]2019-05-03 10:11:00 Test Item Value Reference Range Interpretation Comments CO2 (test code = CO2) 22 24-32 [facility]2019-05-03 10:11:00 Test Item Value Reference Range Interpretation Comments Chloride Lvl (test code = Chloride Lvl) 107 95-109 [facility] SouthHvdxgpeGWOUGSKOTL2340-47-55 10:11:00 Test Item Value Reference Range Interpretation Comments MPV (test code = MPV) 8.5 7.4-10.4 [facility] SouthUfuwfnoGITCLXXRAO1072-77-52 10:11:00 Test Item Value Reference Range Interpretation Comments Platelet (test code = Platelet) 237 133-450 [facility] SouthWsvoqvdOXXPUGQXKZ5336-39-84 10:11:00 Test Item Value Reference Range Interpretation Comments MCHC (test code = MCHC) 32.5 32.0-36.0 [facility] SouthLzttdalEJQOVRWHPJ0485-36-01 10:11:00 Test Item Value Reference Range Interpretation Comments RDW (test code = RDW) 14.0 11.5-14.5 [facility] SouthVejzvzgXGZGUDQSQM8330-54-65 10:11:00 Test Item Value Reference Range Interpretation Comments WBC (test code = WBC) 9.0 3.7-10.4 [facility] SouthDxeaggyXTHBHXABYG0495-00-62 10:11:00 Test Item Value Reference Range Interpretation Comments RBC (test code = RBC) 4.06 4.20-5.40 [facility] SouthUgrzldpEYELUINPAK0107-79-80 10:11:00 Test Item Value Reference Range Interpretation Comments MCH (test code = MCH) 29.9 pg 27.0-31.0 [facility] SouthAggnnwjKCQQASHLMD2380-14-24 10:11:00 Test Item Value Reference Range Interpretation Comments Hct (test code = Hct) 37.3 36.0-48.0 [facility] SouthNsewkveKWDMLWABXN5302-83-35 10:11:00 Test Item Value Reference Range Interpretation Comments MCV (test code = MCV) 92.0 80.0-98.0 [facility] SouthDcugftxYAUXXFUOHX8594-93-09 10:11:00 Test Item Value Reference Range Interpretation Comments Hgb (test code = Hgb) 12.1 12.0-16.0 [facility] SouthRgqgslgLWLGPKEIBF3006-46-74 10:11:00 Test Item Value Reference Range Interpretation Comments Eosinophils (test code = 2.7 See_Comment [A utomated message] The Eosinophils) system which ge nerated this result tra nsmitted reference range : <=4.0. The reference r tara was not used to int erpret this result as normal/abnormal . [facility] SouthDkuyprpBAZSRRRPPQ7545-27-81 10:11:00 Test Item Value Reference Range Interpretation Comments Lymphocytes # (test code = Lymphocytes 1.9 1.0-5.5 #) [facility] SouthEvigsfbNXATXUIRFB1399-96-94 10:11:00 Test Item Value Reference Range Interpretation Comments Neutrophils # (test code = Neutrophils 5.9 1.5-8.1 #) [facility]2019-05-03 10:11:00 Test Item Value Reference Range Interpretation Comments Phosphorus (test code = Phosphorus) 2.9 2.5-4.5 [facility]2019-05-03 10:11:00 Test Item Value Reference Range Interpretation Comments Magnesium Lvl (test code = Magnesium 2.0 1.8-2.4 Lvl) [facility]2019-05-03 10:11:00 Test Item Value Reference Range Interpretation Comments A/G Ratio (test code = A/G Ratio) 0.8 1 0.7-1.6 [place]229-05-03 10:11:00 Test Item Value Reference Range Interpretation Comments Globulin (test code = Globulin) 3.8 2.7-4.2 [facility]2019-05-03 10:11:00 Test Item Value Reference Range Interpretation Comments B/C Ratio (test code = B/C Ratio) 19 1 6-25 [place] 476229-05-03 10:11:00 Test Item Value Reference Range Interpretation Comments AGAP (test code = AGAP) 14.9 10.0-20.0 [facility]2019-05-03 10:11:00 Test Item Value Reference Range Interpretation Comments eGFR (test code = eGFR) 68 [facility]2019-05-03 10:11:00 Test Item Value Reference Range Interpretation Comments Bili Total (test code = Bili Total) 0.8 0.2-1.3 [place] 476229-05-03 10:11:00 Test Item Value Reference Range Interpretation Comments Alk Phos (test code = Alk Phos) 128 39-136 [facility]2019-05-03 10:11:00 Test Item Value Reference Range Interpretation Comments AST (test code = AST) 26 See_Comment [Auto mated message] The system which ge nerated this result transmit zen reference range : <=37. The reference range was not used to interpr et this result as albina l/abnormal. [facility]2019-05-03 10:11:00 Test Item Value Reference Range Interpretation Comments ALT (test code = ALT) 36 See_Comment [Auto mated message] The system which ge nerated this result transmit zen reference range : <=65. The reference range was not used to interpr et this result as albina l/abnormal. [facility]2019-05-03 10:11:00 Test Item Value Reference Range Interpretation Comments Albumin Lvl (test code = Albumin Lvl) 3.1 3.5-5.0 [facility]2019-05-03 10:11:00 Test Item Value Reference Range Interpretation Comments Potassium Lvl (test code = Potassium 3.9 3.5-5.1 Lvl) [facility]2019-05-03 10:11:00 Test Item Value Reference Range Interpretation Comments Creatinine Lvl (test code = Creatinine 0.80 0.50-1.40 Lvl) [facility]2019-05-03 10:11:00 Test Item Value Reference Range Interpretation Comments Glucose Lvl (test code = Glucose Lvl) 77 70-99 [facility]2019-05-03 10:11:00 Test Item Value Reference Range Interpretation Comments Sodium Lvl (test code = Sodium Lvl) 140 135-145 [facility]2019-05-03 10:11:00 Test Item Value Reference Range Interpretation Comments BUN (test code = BUN) 15 7-22 [facility]2019-05-03 10:11:00 Test Item Value Reference Range Interpretation Comments Calcium Lvl (test code = Calcium Lvl) 8.6 8.5-10.5 [facility]2019-05-03 10:11:00 Test Item Value Reference Range Interpretation Comments Total Protein (test code = Total 6.9 6.4-8.4 Protein) [facility]2019-05-03 10:11:00 Test Item Value Reference Range Interpretation Comments CO2 (test code = CO2) 22 24-32 [facility]2019-05-03 10:11:00 Test Item Value Reference Range Interpretation Comments Chloride Lvl (test code = Chloride Lvl) 107 95-109 [facility] SouthCoawkslWJQBWZLWLV3791-33-57 10:11:00 Test Item Value Reference Range Interpretation Comments MPV (test code = MPV) 8.5 7.4-10.4 [facility] SouthTepudpgCUYEGVOPTI0681-67-86 10:11:00 Test Item Value Reference Range Interpretation Comments Platelet (test code = Platelet) 237 133-450 [facility] SouthTfwyzcjLWUVGPVDTF1168-62-15 10:11:00 Test Item Value Reference Range Interpretation Comments MCHC (test code = MCHC) 32.5 32.0-36.0 [facility] SouthTvxahlzSJQTPBFLLO3086-19-55 10:11:00 Test Item Value Reference Range Interpretation Comments RDW (test code = RDW) 14.0 11.5-14.5 [facility] SouthMpcpynfRUUTTRGHKS7564-64-44 10:11:00 Test Item Value Reference Range Interpretation Comments WBC (test code = WBC) 9.0 3.7-10.4 [facility] SouthSesrxmuWYXAHGIZTA7539-49-25 10:11:00 Test Item Value Reference Range Interpretation Comments RBC (test code = RBC) 4.06 4.20-5.40 [facility] SouthQadpqydOSOXVJIFRM2152-55-47 10:11:00 Test Item Value Reference Range Interpretation Comments MCH (test code = MCH) 29.9 pg 27.0-31.0 [facility] SouthMdfdelnTOGZCBJFCG9484-13-61 10:11:00 Test Item Value Reference Range Interpretation Comments Hct (test code = Hct) 37.3 36.0-48.0 [facility] SouthWzbxpyoIJFUWVPOMG5529-76-65 10:11:00 Test Item Value Reference Range Interpretation Comments MCV (test code = MCV) 92.0 80.0-98.0 [facility] SouthWwnraekYFALPFABEY2990-91-56 10:11:00 Test Item Value Reference Range Interpretation Comments Hgb (test code = Hgb) 12.1 12.0-16.0 [facility] SouthUuaitqqQRZXHFUVXN9920-97-94 10:11:00 Test Item Value Reference Range Interpretation Comments Eosinophils (test code = 2.7 See_Comment [A utomated message] The Eosinophils) system which ge nerated this result tra nsmitted reference range : <=4.0. The reference r tara was not used to int erpret this result as normal/abnormal . [facility] SouthNplfwefOLCSKECXBR7253-32-85 10:11:00 Test Item Value Reference Range Interpretation Comments Lymphocytes # (test code = Lymphocytes 1.9 1.0-5.5 #) [facility] SouthBzwauevMLTUVKOZCR1842-65-36 10:11:00 Test Item Value Reference Range Interpretation Comments Neutrophils # (test code = Neutrophils 5.9 1.5-8.1 #) [facility] SouthJbeavoxRHPMNOXEKR6021-52-15 10:11:00 Test Item Value Reference Range Interpretation Comments Basophils (test code = 0.3 See_Comment [Aut omated message] The Basophils) system which ge nerated this result tra nsmitted reference range : <=1.0. The reference r tara was not used to int erpret this result as normal/abnormal . [facility] SouthYxpotmzJGNIKZFYUQ5674-97-24 10:11:00 Test Item Value Reference Range Interpretation Comments Monocytes # (test code 0.9 See_Comment [Aut omated message] The = Monocytes #) system which generated this result tra nsmitted reference range : <=0.8. The reference r tara was not used to int erpret this result as normal/abnormal . [facility] SouthBdsaelrENHCCFSRAH5695-51-80 10:11:00 Test Item Value Reference Range Interpretation Comments Eosinophils # (test code 0.2 See_Comment [A utomated message] The = Eosinophils #) system whic h generated this result tra nsmitted reference range : <=0.5. The reference r tara was not used to int erpret this result as normal/abnormal . [facility] SouthGvzdcwnTCALBHAUDI4982-39-52 10:11:00 Test Item Value Reference Range Interpretation Comments Monocytes (test code = Monocytes) 10.5 2.0-12.0 [facility] SouthNuhevrhBSZPWGFJID5663-17-82 10:11:00 Test Item Value Reference Range Interpretation Comments Lymphocytes (test code = Lymphocytes) 20.6 20.0-40.0 [facility] SouthMrlycfuPAPFXDADYQ1118-76-44 10:11:00 Test Item Value Reference Range Interpretation Comments Segs (test code = Segs) 65.9 45.0-75.0 [facility] SouthQqkvmhjZBTGVMZOKT4557-02-53 10:10:00 Test Item Value Reference Range Interpretation Comments Hgb (test code = Hgb) 12.1 12.0-16.0 [facility] SouthYfbweoyYQBNCBSOAS9278-41-36 10:10:00 Test Item Value Reference Range Interpretation Comments MCH (test code = MCH) 29.7 pg 27.0-31.0 [facility] SouthEpqsqzdJCTTKNGDYB9028-87-33 10:10:00 Test Item Value Reference Range Interpretation Comments MPV (test code = MPV) 8.8 7.4-10.4 [facility] SouthVeeruhdLRGPBDGFBL8914-85-22 10:10:00 Test Item Value Reference Range Interpretation Comments Platelet (test code = Platelet) 226 133-450 [facility] SouthWjlfixcWGNXPAOJMS2751-45-67 10:10:00 Test Item Value Reference Range Interpretation Comments RDW (test code = RDW) 14.0 11.5-14.5 [facility] SouthHtrcbpoFEHQRTGBZP0181-67-89 10:10:00 Test Item Value Reference Range Interpretation Comments Monocytes # (test code 0.8 See_Comment [Aut omated message] The = Monocytes #) system which generated this result tra nsmitted reference range : <=0.8. The reference r taar was not used to int erpret this result as normal/abnormal . [facility] SouthWxqjzawHAXGUBWIKC5802-13-02 10:10:00 Test Item Value Reference Range Interpretation Comments Lymphocytes # (test code = Lymphocytes 1.7 1.0-5.5 #) [facility] SouthOlviaswGMTYYKSVIG4729-50-34 10:10:00 Test Item Value Reference Range Interpretation Comments Neutrophils # (test code = Neutrophils 6.7 1.5-8.1 #) [facility] SouthAixtmumJGPBQDNCOU4126-25-29 10:10:00 Test Item Value Reference Range Interpretation Comments Basophils (test code = 0.5 See_Comment [Aut omated message] The Basophils) system which ge nerated this result tra nsmitted reference range : <=1.0. The reference r tara was not used to int erpret this result as normal/abnormal . [facility] SouthQjvfoatRXULXYAHIW4025-31-27 10:10:00 Test Item Value Reference Range Interpretation Comments Eosinophils (test code = 1.4 See_Comment [A utomated message] The Eosinophils) system which ge nerated this result tra nsmitted reference range : <=4.0. The reference r tara was not used to int erpret this result as normal/abnormal . [facility] SouthHlwsownISKIEGOTKU1451-29-89 10:10:00 Test Item Value Reference Range Interpretation Comments Eosinophils # (test code 0.1 See_Comment [A utomated message] The = Eosinophils #) system whic h generated this result tra nsmitted reference range : <=0.5. The reference r tara was not used to int erpret this result as normal/abnormal . [facility] SouthTxszfycHFHVISBGDH4105-57-54 10:10:00 Test Item Value Reference Range Interpretation Comments Monocytes (test code = Monocytes) 9.0 2.0-12.0 [facility] SouthKrbfutgPVRYYNWEPK9663-29-24 10:10:00 Test Item Value Reference Range Interpretation Comments Lymphocytes (test code = Lymphocytes) 17.9 20.0-40.0 [facility] SouthPumsvpcBLMNBXZPIW9637-69-76 10:10:00 Test Item Value Reference Range Interpretation Comments Segs (test code = Segs) 71.2 45.0-75.0 [facility]2019-05-02 10:10:00 Test Item Value Reference Range Interpretation Comments Magnesium Lvl (test code = Magnesium 2.1 1.8-2.4 Lvl) [facility]2019-05-02 10:10:00 Test Item Value Reference Range Interpretation Comments Phosphorus (test code = Phosphorus) 2.9 2.5-4.5 [facility]GtumpfjJQZIIYHKQFGR1984-08-06 10:10:00 Test Item Value Reference Range Interpretation Comments AGAP (test code = AGAP) 12.7 10.0-20.0 [facility]2019-05-02 10:10:00 Test Item Value Reference Range Interpretation Comments Magnesium Lvl (test code = Magnesium 2.1 1.8-2.4 Lvl) [facility]2019-05-02 10:10:00 Test Item Value Reference Range Interpretation Comments Phosphorus (test code = Phosphorus) 2.9 2.5-4.5 [facility] HospitalYydmdcqXOTREJAVVRFD8042-59-62 10:10:00 Test Item Value Reference Range Interpretation Comments AGAP (test code = AGAP) 12.7 10.0-20.0 [facility] HospitalXcbcyowWXVSATLODEXG2702-14-85 10:10:00 Test Item Value Reference Range Interpretation Comments eGFR (test code = eGFR) 68 [facility] HospitalSlwqgzyOOOUNDGKTVBL1991-45-63 10:10:00 Test Item Value Reference Range Interpretation Comments Calcium Lvl (test code = Calcium Lvl) 8.7 8.5-10.5 [facility] HospitalRdkgdfqLRDQTHVSTDKV9493-55-86 10:10:00 Test Item Value Reference Range Interpretation Comments CO2 (test code = CO2) 24 24-32 [facility] HospitalZjikzbeRNHIKISUWAMI3509-94-63 10:10:00 Test Item Value Reference Range Interpretation Comments Chloride Lvl (test code = Chloride Lvl) 109 95-109 [facility] HospitalBifpgxfSLJJLMIDLCOC7083-98-72 10:10:00 Test Item Value Reference Range Interpretation Comments Potassium Lvl (test code = Potassium 3.7 3.5-5.1 Lvl) [facility] HospitalWovqgapCSSAOFIFHKVA2291-37-00 10:10:00 Test Item Value Reference Range Interpretation Comments Sodium Lvl (test code = Sodium Lvl) 142 135-145 [facility] HospitalYtknrfhTLCZGYMNULWB7755-48-03 10:10:00 Test Item Value Reference Range Interpretation Comments Glucose Lvl (test code = Glucose Lvl) 86 70-99 [facility] HospitalIsqfbqpPAQSGXPPWVVX3059-75-83 10:10:00 Test Item Value Reference Range Interpretation Comments Creatinine Lvl (test code = Creatinine 0.80 0.50-1.40 Lvl) [facility] HospitalIkwepakGNDFZMBIMFUC1120-02-65 10:10:00 Test Item Value Reference Range Interpretation Comments BUN (test code = BUN) 14 7-22 [facility] SouthSzuivryTBUBGMUGSS6696-78-06 10:10:00 Test Item Value Reference Range Interpretation Comments RBC (test code = RBC) 4.07 4.20-5.40 [facility] SouthTrcaunbOWFNFJZZCS5790-09-02 10:10:00 Test Item Value Reference Range Interpretation Comments WBC (test code = WBC) 9.4 3.7-10.4 [facility] SouthXwptkklNUVFCSTPKM2489-38-21 10:10:00 Test Item Value Reference Range Interpretation Comments MCV (test code = MCV) 90.5 80.0-98.0 [facility] SouthSdlapmjVHADHQLAPV4529-50-07 10:10:00 Test Item Value Reference Range Interpretation Comments Hct (test code = Hct) 36.8 36.0-48.0 [facility] SouthMezrsvaWPSIIHVFFP2859-51-70 10:10:00 Test Item Value Reference Range Interpretation Comments MCHC (test code = MCHC) 32.9 32.0-36.0 [facility] SouthTbpapfpIEMDWGJPIA2525-77-97 10:10:00 Test Item Value Reference Range Interpretation Comments Hgb (test code = Hgb) 12.1 12.0-16.0 [facility] SouthUidrfwbFDYZZTKAAG0585-20-63 10:10:00 Test Item Value Reference Range Interpretation Comments MCH (test code = MCH) 29.7 pg 27.0-31.0 [facility] SouthCvyipihWSEZOQELUS4619-31-22 10:10:00 Test Item Value Reference Range Interpretation Comments MPV (test code = MPV) 8.8 7.4-10.4 [facility] SouthCotfhfuMCQHDSLLNM0974-61-56 10:10:00 Test Item Value Reference Range Interpretation Comments Platelet (test code = Platelet) 226 133-450 [facility] SouthYnrzdaaSPFMLBTWJI1535-90-57 10:10:00 Test Item Value Reference Range Interpretation Comments RDW (test code = RDW) 14.0 11.5-14.5 [facility] SouthNjhvvvcTDMHLHFYON4368-78-96 10:10:00 Test Item Value Reference Range Interpretation Comments Monocytes # (test code 0.8 See_Comment [Aut omated message] The = Monocytes #) system which generated this result tra nsmitted reference range : <=0.8. The reference r tara was not used to int erpret this result as normal/abnormal . [facility] SouthSeehiumPGNOEJEQOD1252-63-73 10:10:00 Test Item Value Reference Range Interpretation Comments Lymphocytes # (test code = Lymphocytes 1.7 1.0-5.5 #) [facility] SouthSltvlfySWVNHJSFKZ7459-19-34 10:10:00 Test Item Value Reference Range Interpretation Comments Neutrophils # (test code = Neutrophils 6.7 1.5-8.1 #) [facility] SouthWzthpbiVRPYYWUIXA0854-44-65 10:10:00 Test Item Value Reference Range Interpretation Comments Basophils (test code = 0.5 See_Comment [Aut omated message] The Basophils) system which ge nerated this result tra nsmitted reference range : <=1.0. The reference r tara was not used to int erpret this result as normal/abnormal . [facility] SouthPvtcnvdKEXRFGRFHV6803-99-31 10:10:00 Test Item Value Reference Range Interpretation Comments Eosinophils (test code = 1.4 See_Comment [A utomated message] The Eosinophils) system which ge nerated this result tra nsmitted reference range : <=4.0. The reference r tara was not used to int erpret this result as normal/abnormal . [facility] SouthGduekfeIIQRGHGDMR3714-91-50 10:10:00 Test Item Value Reference Range Interpretation Comments Eosinophils # (test code 0.1 See_Comment [A utomated message] The = Eosinophils #) system [facility] generated this result tra nsmitted reference range : <=0.5. The reference r tara was not used to int erpret this result as normal/abnormal . [facility] SouthWqndyfsCLIIOOHWHS0099-30-88 10:10:00 Test Item Value Reference Range Interpretation Comments Monocytes (test code = Monocytes) 9.0 2.0-12.0 [facility] SouthMttmotpZCPHONIQBL9834-23-63 10:10:00 Test Item Value Reference Range Interpretation Comments Lymphocytes (test code = Lymphocytes) 17.9 20.0-40.0 [facility] SouthFhsqrmjOFFSJWKPCQ1467-64-49 10:10:00 Test Item Value Reference Range Interpretation Comments Segs (test code = Segs) 71.2 45.0-75.0 [facility][id number] 10:10:00 Test Item Value Reference Range Interpretation Comments eGFR (test code = eGFR) 68 [facility] HospitalZfbfyujDIJXOGKHVGWQ9327-83-32 10:10:00 Test Item Value Reference Range Interpretation Comments Calcium Lvl (test code = Calcium Lvl) 8.7 8.5-10.5 [facility] HospitalEecbsknALZAWGDFTGOF4376-41-07 10:10:00 Test Item Value Reference Range Interpretation Comments CO2 (test code = CO2) 24 24-32 [facility] HospitalXiqxdtzBALLQNEBQCOA7736-91-03 10:10:00 Test Item Value Reference Range Interpretation Comments Chloride Lvl (test code = Chloride Lvl) 109 95-109 [facility] HospitalGtnoaylXIQMMIIVBPWV8979-06-79 10:10:00 Test Item Value Reference Range Interpretation Comments Potassium Lvl (test code = Potassium 3.7 3.5-5.1 Lvl) [facility] HospitalSfsculyQCINZGBZICMG2741-41-25 10:10:00 Test Item Value Reference Range Interpretation Comments Sodium Lvl (test code = Sodium Lvl) 142 135-145 [facility] HospitalCkilgphEIDDHFATZZBN8215-07-07 10:10:00 Test Item Value Reference Range Interpretation Comments Glucose Lvl (test code = Glucose Lvl) 86 70-99 [facility] HospitalPhtqozgYSDPLMSENOUT0588-54-89 10:10:00 Test Item Value Reference Range Interpretation Comments Creatinine Lvl (test code = Creatinine 0.80 0.50-1.40 Lvl) [facility] HospitalZyceyqvVWBSOYORUGEO8307-75-10 10:10:00 Test Item Value Reference Range Interpretation Comments BUN (test code = BUN) 14 7-22 [facility] SouthOhlacivCWLJKKPNFE7914-28-75 10:10:00 Test Item Value Reference Range Interpretation Comments RBC (test code = RBC) 4.07 4.20-5.40 [facility] SouthYmhvaujGQCXZXUILQ6692-32-04 10:10:00 Test Item Value Reference Range Interpretation Comments WBC (test code = WBC) 9.4 3.7-10.4 [facility] SouthGacjxsgIZPRAQXOQN2576-41-88 10:10:00 Test Item Value Reference Range Interpretation Comments MCV (test code = MCV) 90.5 80.0-98.0 [facility] SouthRrvbtpdLGYAWTSQBL1447-20-79 10:10:00 Test Item Value Reference Range Interpretation Comments Hct (test code = Hct) 36.8 36.0-48.0 [facility]GsluhwbEKYZEOQHFD2156-79-50 10:10:00 Test Item Value Reference Range Interpretation Comments MCHC (test code = MCHC) 32.9 32.0-36.0 [facility] [id number] 16:25:00 Test Item Value Reference Range Interpretation Comments Troponin-I (test code 0.02 See_Comment [Auto mated message] The = Troponin-I) system which g enerated this result transmit zen reference range : <=0.40. The reference r tara was not used to interpr et this result as albina l/abnormal. [facility]Point [facility] UniversityAR[facility] [id number] 16:25:00 Test Item Value Reference Range Interpretation Comments Troponin-I (test code 0.02 See_Comment [Auto mated message] The = Troponin-I) system which g enerated this result transmit zen reference range : <=0.40. The reference r tara was not used to interpr et this result as albina l/abnormal. [facility]AR[facility] [id number] 10:17:00 Test Item Value Reference Range Interpretation Comments Troponin-I (test code 0.02 See_Comment [Auto mated message] The = Troponin-I) system which g enerated this result transmit zen reference range : <=0.40. The reference r tara was not used to interpr et this result as albina l/abnormal. [facility] [employer] [id number] 10:17:00 Test Item Value Reference Range Interpretation Comments U Amph Scr (test code Negative *NA*(11/09/18 = U Amph Scr) 5:17 AM) [facility]Health[facility]seDR[facility] [id number] 10:17:00 Test Item Value Reference Range Interpretation Comments U Opiate Scr (test Negative *NA*(11/09/18 code = U Opiate Scr) 5:17 AM) [facility] [employer]DR[employer] [id number] 10:17:00 Test Item Value Reference Range Interpretation Comments U Cannab Scr (test Negative *NA*(11/09/18 code = U Cannab Scr) 5:17 AM) [facility]Vrvana [id number] 10:17:00 Test Item Value Reference Range Interpretation Comments U Cocaine Scr (test Negative *NA*(11/09/18 code = U Cocaine Scr) 5:17 AM) [facility] [id number] 10:17:00 Test Item Value Reference Range Interpretation Comments U Benzodiaz Scr (test Positive *ABN*(11/09/18 code = U Benzodiaz Scr) 5:17 AM) [facility] [id number] 10:17:00 Test Item Value Reference Range Interpretation Comments U Adilene Scr (test code Negative *NA*(11/09/18 = U Adilene Scr) 5:17 AM) [facility] [id number] 10:17:00 Test Item Value Reference Range Interpretation Comments UDS Note (test code = See Note (11/09/18 5:17 UDS Note) AM) [facility] [id number] 10:17:00 Test Item Value Reference Range Interpretation Comments U Phencyclidine Scr (test Negative *NA*(11/09/18 code = U Phencyclidine 5:17 AM) Scr) [facility] [id number] 10:17:00 Test Item Value Reference Range Interpretation Comments UA Sq Epi (test code = UA Sq Epi) None Seen [facility] [id number] 10:17:00 Test Item Value Reference Range Interpretation Comments UA Bacteria (test code = UA Occasional /HPF Bacteria) [facility] [id number] 10:17:00 Test Item Value Reference Range Interpretation Comments UA Mucus (test code = UA Mucus) Few /LPF [facility] [id number] 10:17:00 Test Item Value Reference Range Interpretation Comments UA Urobilinogen (test code = UA no gt 0.1-1.0 Urobilinogen) [facility] [id number] 10:17:00 Test Item Value Reference Range Interpretation Comments UA Color (test code = UA Color) Ltyellow [facility] [id number] 10:17:00 Test Item Value Reference Range Interpretation Comments UA RBC (test code = 7 See_Comment [Automa zen message] The UA RBC) system which ge nerated this result transmit zen reference range : <=2. The reference range was not used to interpr et this result as albina l/abnormal. [facility] [id number] 10:17:00 Test Item Value Reference Range Interpretation Comments UA WBC (test code = 2 See_Comment [Automa zen message] The UA WBC) system which ge nerated this result transmit zen reference range : <=5. The reference range was not used to interpr et this result as albina l/abnormal. [facility] AND [id number] 10:17:00 Test Item Value Reference Range Interpretation Comments UA Leuk Est (test code Trace *ABN*(11/09/18 5:17 = UA Leuk Est) AM) [facility] AND [id number] 10:17:00 Test Item Value Reference Range Interpretation Comments UA Bili (test code = Negative *NA*(11/09/18 UA Bili) 5:17 AM) [facility] AND [id number] 10:17:00 Test Item Value Reference Range Interpretation Comments UA Blood (test code = Small *ABN*(11/09/18 UA Blood) 5:17 AM) [facility] AND [id number] 10:17:00 Test Item Value Reference Range Interpretation Comments UA Nitrite (test code Negative (11/09/18 5:17 = UA Nitrite) AM) [facility] AND [id number] 10:17:00 Test Item Value Reference Range Interpretation Comments UA Ketones (test code = UA Trace mg/dL Ketones) [facility] AND [id number] 10:17:00 Test Item Value Reference Range Interpretation Comments UA pH (test code = UA pH) 6.0 1 5.0-8.0 [facility] AND [id number] 10:17:00 Test Item Value Reference Range Interpretation Comments UA Glucose (test code = UA Negative mg/dL Glucose) [facility] AND [id number] 10:17:00 Test Item Value Reference Range Interpretation Comments UA Protein (test code = UA Negative mg/dL Protein) [facility] AND [id number] 10:17:00 Test Item Value Reference Range Interpretation Comments UA Spec Grav (test code = UA Spec 1.008 1 Grav) [facility] AND [id number] 10:17:00 Test Item Value Reference Range Interpretation Comments UA Turbidity (test code = Clear (11/09/18 5:17 UA Turbidity) AM) [facility] [id number] 10:17:00 Test Item Value Reference Range Interpretation Comments Troponin-I (test code 0.02 See_Comment [Auto mated message] The = Troponin-I) system which g enerated this result transmit zen reference range : <=0.40. The reference r tara was not used to interpr et this result as albina l/abnormal. [facility] [id number] 10:17:00 Test Item Value Reference Range Interpretation Comments U Amph Scr (test code Negative *NA*(11/09/18 = U Amph Scr) 5:17 AM) [facility] [id number] 10:17:00 Test Item Value Reference Range Interpretation Comments U Opiate Scr (test Negative *NA*(11/09/18 code = U Opiate Scr) 5:17 AM) [facility] [id number] 10:17:00 Test Item Value Reference Range Interpretation Comments U Cannab Scr (test Negative *NA*(11/09/18 code = U Cannab Scr) 5:17 AM) [facility] [id number] 10:17:00 Test Item Value Reference Range Interpretation Comments U Cocaine Scr (test Negative *NA*(11/09/18 code = U Cocaine Scr) 5:17 AM) [facility] [id number] 10:17:00 Test Item Value Reference Range Interpretation Comments U Benzodiaz Scr (test Positive *ABN*(11/09/18 code = U Benzodiaz Scr) 5:17 AM) [facility] [id number] 10:17:00 Test Item Value Reference Range Interpretation Comments U Adilene Scr (test code Negative *NA*(11/09/18 = U Adilene Scr) 5:17 AM) [facility] [id number] 10:17:00 Test Item Value Reference Range Interpretation Comments UDS Note (test code = See Note (11/09/18 5:17 UDS Note) AM) [facility] [id number] 10:17:00 Test Item Value Reference Range Interpretation Comments U Phencyclidine Scr (test Negative *NA*(11/09/18 code = U Phencyclidine 5:17 AM) Scr) [facility] HermannURINE AND [id number] 10:17:00 Test Item Value Reference Range Interpretation Comments UA Sq Epi (test code = UA Sq Epi) None Seen [facility] AND [id number] 10:17:00 Test Item Value Reference Range Interpretation Comments UA Bacteria (test code = UA Occasional /HPF Bacteria) [facility] AND [id number] 10:17:00 Test Item Value Reference Range Interpretation Comments UA Mucus (test code = UA Mucus) Few /LPF [facility] AND [id number] 10:17:00 Test Item Value Reference Range Interpretation Comments UA Urobilinogen (test code = UA no gt 0.1-1.0 Urobilinogen) [facility] AND [id number] 10:17:00 Test Item Value Reference Range Interpretation Comments UA Color (test code = UA Color) Ltyellow [facility] AND [id number] 10:17:00 Test Item Value Reference Range Interpretation Comments UA RBC (test code = 7 See_Comment [Automa zen message] The UA RBC) system which ge nerated this result transmit zen reference range : <=2. The reference range was not used to interpr et this result as albina l/abnormal. [facility] AND [id number] 10:17:00 Test Item Value Reference Range Interpretation Comments UA WBC (test code = 2 See_Comment [Automa zen message] The UA WBC) system which ge nerated this result transmit zen reference range : <=5. The reference range was not used to interpr et this result as albina l/abnormal. [facility] AND [id number] 10:17:00 Test Item Value Reference Range Interpretation Comments UA Leuk Est (test code Trace *ABN*(11/09/18 5:17 = UA Leuk Est) AM) [facility] AND [id number] 10:17:00 Test Item Value Reference Range Interpretation Comments UA Bili (test code = Negative *NA*(11/09/18 UA Bili) 5:17 AM) [facility] AND [id number] 10:17:00 Test Item Value Reference Range Interpretation Comments UA Blood (test code = Small *ABN*(11/09/18 UA Blood) 5:17 AM) [facility] AND [id number] 10:17:00 Test Item Value Reference Range Interpretation Comments UA Nitrite (test code Negative (11/09/18 5:17 = UA Nitrite) AM) [facility] AND [id number] 10:17:00 Test Item Value Reference Range Interpretation Comments UA Ketones (test code = UA Trace mg/dL Ketones) [facility] AND [id number] 10:17:00 Test Item Value Reference Range Interpretation Comments UA pH (test code = UA pH) 6.0 1 5.0-8.0 [facility] AND [id number] 10:17:00 Test Item Value Reference Range Interpretation Comments UA Glucose (test code = UA Negative mg/dL Glucose) [facility] AND [id number] 10:17:00 Test Item Value Reference Range Interpretation Comments UA Protein (test code = UA Negative mg/dL Protein) [facility] AND [id number] 10:17:00 Test Item Value Reference Range Interpretation Comments UA Spec Grav (test code = UA Spec 1.008 1 Grav) [facility] AND [id number] 10:17:00 Test Item Value Reference Range Interpretation Comments UA Turbidity (test code = Clear (11/09/18 5:17 UA Turbidity) AM) [facility] - [id number] 09:07:00 Test Item Value Reference Range Interpretation Comments MRSA by PCR (test Negative (11/09/18 4:07 code = MRSA by PCR) AM) [facility]CHE[facility] [id number] 09:07:00 Test Item Value Reference Range Interpretation Comments Bili Direct (test code 0.1 See_Comment [Aut omated message] The = Bili Direct) system which generated this result tra nsmitted reference range : <=0.3. The reference r tara was not used to int erpret this result as albina l/abnormal. [facility] HospitalBirchbox [id number] 09:07:00 Test Item Value Reference Range Interpretation Comments Globulin (test code = Globulin) 3.5 2.7-4.2 [facility] [id number] 09:07:00 Test Item Value Reference Range Interpretation Comments A/G Ratio (test code = A/G Ratio) 1.0 1 0.7-1.6 [place] 476229-05-01 09:07:00 Test Item Value Reference Range Interpretation Comments B/C Ratio (test code = B/C Ratio) 24 1 6-25 [place] 476229-05-01 09:07:00 Test Item Value Reference Range Interpretation Comments AGAP (test code = AGAP) 8.7 10.0-20.0 [place] 476229-05-01 09:07:00 Test Item Value Reference Range Interpretation Comments eGFR (test code = eGFR) 59 [place] 476229-05-01 09:07:00 Test Item Value Reference Range Interpretation Comments Total Protein (test code = Total 7.1 6.4-8.4 Protein) [place] 476229-05-01 09:07:00 Test Item Value Reference Range Interpretation Comments Albumin Lvl (test code = Albumin Lvl) 3.6 3.5-5.0 [place] 476229-05-01 09:07:00 Test Item Value Reference Range Interpretation Comments ALT (test code = ALT) 51 See_Comment [Auto mated message] The system which ge nerated this result transmit zen reference range : <=65. The reference range was not used to interpr et this result as albina l/abnormal. [facility]2019-05-01 09:07:00 Test Item Value Reference Range Interpretation Comments AST (test code = AST) 33 See_Comment [Auto mated message] The system which ge nerated this result transmit zen reference range : <=37. The reference range was not used to interpr et this result as albina l/abnormal. [facility]2019-05-01 09:07:00 Test Item Value Reference Range Interpretation Comments Bili Total (test code = Bili Total) 0.5 0.2-1.3 [place] 476229-05-01 09:07:00 Test Item Value Reference Range Interpretation Comments Alk Phos (test code = Alk Phos) 143 39-136 [facility]2019-05-01 09:07:00 Test Item Value Reference Range Interpretation Comments Glucose Lvl (test code = Glucose Lvl) 122 70-99 [facility]2019-05-01 09:07:00 Test Item Value Reference Range Interpretation Comments Creatinine Lvl (test code = Creatinine 0.90 0.50-1.40 Lvl) [facility]2019-05-01 09:07:00 Test Item Value Reference Range Interpretation Comments BUN (test code = BUN) 22 7-22 [facility]2019-05-01 09:07:00 Test Item Value Reference Range Interpretation Comments Sodium Lvl (test code = Sodium Lvl) 138 135-145 [facility]2019-05-01 09:07:00 Test Item Value Reference Range Interpretation Comments Potassium Lvl (test code = Potassium 3.7 3.5-5.1 Lvl) [facility]2019-05-01 09:07:00 Test Item Value Reference Range Interpretation Comments Chloride Lvl (test code = Chloride Lvl) 107 95-109 [facility]2019-05-01 09:07:00 Test Item Value Reference Range Interpretation Comments CO2 (test code = CO2) 26 24-32 [facility]2019-05-01 09:07:00 Test Item Value Reference Range Interpretation Comments Calcium Lvl (test code = Calcium Lvl) 8.8 8.5-10.5 [facility] [id number] 09:07:00 Test Item Value Reference Range Interpretation Comments Neutrophils # (test code = Neutrophils 11.5 1.5-8.1 #) [facility] SouthDinudluTBJUBQFVPJ5121-72-28 09:07:00 Test Item Value Reference Range Interpretation Comments Lymphocytes # (test code = Lymphocytes 0.8 1.0-5.5 #) [facility] SouthDokexbkGCCDCWDXQD0132-02-97 09:07:00 Test Item Value Reference Range Interpretation Comments Lymphocytes (test code = Lymphocytes) 5.8 20.0-40.0 [facility] SouthAgrdqpqIJHYUDJDGQ9856-71-62 09:07:00 Test Item Value Reference Range Interpretation Comments Basophils (test code = 0.1 See_Comment [Aut omated message] The Basophils) system which ge nerated this result tra nsmitted reference range : <=1.0. The reference r tara was not used to int erpret this result as normal/abnormal . [facility] [id number] 09:07:00 Test Item Value Reference Range Interpretation Comments Monocytes # (test code 0.9 See_Comment [Aut omated message] The = Monocytes #) system which generated this result tra nsmitted reference range : <=0.8. The reference r tara was not used to int erpret this result as normal/abnormal . [facility] SouthNuqpufbTKZWPYCTVC8390-56-30 09:07:00 Test Item Value Reference Range Interpretation Comments Segs (test code = Segs) 87.6 45.0-75.0 [facility] SouthIrobyycEXDWXNEWQC7127-26-30 09:07:00 Test Item Value Reference Range Interpretation Comments Monocytes (test code = Monocytes) 6.5 2.0-12.0 [facility] SouthKcacfrtGKPVYFWCCY6465-28-86 09:07:00 Test Item Value Reference Range Interpretation Comments Platelet (test code = Platelet) 229 133-450 [facility] SouthJodixbmXMVQNWCKVQ6711-88-40 09:07:00 Test Item Value Reference Range Interpretation Comments MPV (test code = MPV) 8.6 7.4-10.4 [facility] SouthAuppaysJPNJSIHJJI7330-07-39 09:07:00 Test Item Value Reference Range Interpretation Comments WBC (test code = WBC) 13.2 3.7-10.4 [facility] SouthWjnqpjlUSUAHALIQA1611-33-56 09:07:00 Test Item Value Reference Range Interpretation Comments RBC (test code = RBC) 4.22 4.20-5.40 [facility] SouthUmkooggTPADNIFBCE6134-70-59 09:07:00 Test Item Value Reference Range Interpretation Comments Hgb (test code = Hgb) 12.1 12.0-16.0 [facility] SouthWwpwrfxZBMZRBNXHK5169-36-27 09:07:00 Test Item Value Reference Range Interpretation Comments Hct (test code = Hct) 37.9 36.0-48.0 [facility] SouthElbhnoaHZCLFUBFRC7815-52-89 09:07:00 Test Item Value Reference Range Interpretation Comments MCH (test code = MCH) 28.7 pg 27.0-31.0 [facility] SouthVpeyjyoQPQJZYQGWG7943-10-22 09:07:00 Test Item Value Reference Range Interpretation Comments MCHC (test code = MCHC) 31.9 32.0-36.0 [facility] SouthAuklwxlYFKNSJPFIY3943-05-27 09:07:00 Test Item Value Reference Range Interpretation Comments RDW (test code = RDW) 13.7 11.5-14.5 [facility] SouthAwltnwtCUKAHCVCRB7980-60-69 09:07:00 Test Item Value Reference Range Interpretation Comments MCV (test code = MCV) 90.0 80.0-98.0 [facility] HospitalFpexibuZIZJPT2323-91-85 09:07:00 Test Item Value Reference Range Interpretation Comments VLDL (test code = VLDL) 9 1 [facility] HospitalBdxozlfZVKWWE9632-29-50 09:07:00 Test Item Value Reference Range Interpretation Comments LDL (Calculated) (test code = LDL 87 (Calculated)) [facility] HospitalKyivwmaHTANWH1349-07-68 09:07:00 Test Item Value Reference Range Interpretation Comments Trig (test code = Trig) 45 [facility] HospitalZpdittlCPZFME9898-95-59 09:07:00 Test Item Value Reference Range Interpretation Comments Chol (test code = Chol) 163 [facility] HospitalVnaoczvUOUJAP9994-28-24 09:07:00 Test Item Value Reference Range Interpretation Comments HDL (test code = HDL) 67 [facility] HospitalHymoncqPFPMAY4900-71-46 09:07:00 Test Item Value Reference Range Interpretation Comments CHD Risk (test code = CHD Risk) 2.43 1 3.90-5.80 [facility]SPE[facility] [id number] 09:07:00 Test Item Value Reference Range Interpretation Comments Hgb A1C (test code = Hgb A1C) 5.8 [facility] HospitalBACTERIAL - [id number] 09:07:00 Test Item Value Reference Range Interpretation Comments MRSA by PCR (test Negative (11/09/18 4:07 code = MRSA by PCR) AM) [facility] HospitalCrave.com [id number] 09:07:00 Test Item Value Reference Range Interpretation Comments Bili Direct (test code 0.1 See_Comment [Aut omated message] The = Bili Direct) system which generated this result tra nsmitted reference range : <=0.3. The reference r tara was not used to int erpret this result as albina l/abnormal. [facility] MEDNAX [id number] 09:07:00 Test Item Value Reference Range Interpretation Comments Globulin (test code = Globulin) 3.5 2.7-4.2 [facility] HospitalCrave.[facility] [id number] 09:07:00 Test Item Value Reference Range Interpretation Comments A/G Ratio (test code = A/G Ratio) 1.0 1 0.7-1.6 [facility] HospitalCrave.[facility] [id number] 09:07:00 Test Item Value Reference Range Interpretation Comments B/C Ratio (test code = B/C Ratio) 24 1 6-25 [facility]2019-05-01 09:07:00 Test Item Value Reference Range Interpretation Comments AGAP (test code = AGAP) 8.7 10.0-20.0 [place] 476229-05-01 09:07:00 Test Item Value Reference Range Interpretation Comments eGFR (test code = eGFR) 59 [facility]2019-05-01 09:07:00 Test Item Value Reference Range Interpretation Comments Total Protein (test code = Total 7.1 6.4-8.4 Protein) [facility]2019-05-01 09:07:00 Test Item Value Reference Range Interpretation Comments Albumin Lvl (test code = Albumin Lvl) 3.6 3.5-5.0 [facility]2019-05-01 09:07:00 Test Item Value Reference Range Interpretation Comments ALT (test code = ALT) 51 See_Comment [Auto mated message] The system which ge nerated this result transmit zen reference range : <=65. The reference range was not used to interpr et this result as albina l/abnormal. [facility]2019-05-01 09:07:00 Test Item Value Reference Range Interpretation Comments AST (test code = AST) 33 See_Comment [Auto mated message] The system which ge nerated this result transmit zen reference range : <=37. The reference range was not used to interpr et this result as albina l/abnormal. [facility]2019-05-01 09:07:00 Test Item Value Reference Range Interpretation Comments Bili Total (test code = Bili Total) 0.5 0.2-1.3 [facility]2019-05-01 09:07:00 Test Item Value Reference Range Interpretation Comments Alk Phos (test code = Alk Phos) 143 39-136 [facility]2019-05-01 09:07:00 Test Item Value Reference Range Interpretation Comments Glucose Lvl (test code = Glucose Lvl) 122 70-99 [facility]2019-05-01 09:07:00 Test Item Value Reference Range Interpretation Comments Creatinine Lvl (test code = Creatinine 0.90 0.50-1.40 Lvl) [place] [id number] 09:07:00 Test Item Value Reference Range Interpretation Comments BUN (test code = BUN) 22 7-22 [facility]2019-05-01 09:07:00 Test Item Value Reference Range Interpretation Comments Sodium Lvl (test code = Sodium Lvl) 138 135-145 [place] [id number] 09:07:00 Test Item Value Reference Range Interpretation Comments Potassium Lvl (test code = Potassium 3.7 3.5-5.1 Lvl) [facility]2019-05-01 09:07:00 Test Item Value Reference Range Interpretation Comments Chloride Lvl (test code = Chloride Lvl) 107 95-109 [facility]2019-05-01 09:07:00 Test Item Value Reference Range Interpretation Comments CO2 (test code = CO2) 26 24-32 [place] [id number] 09:07:00 Test Item Value Reference Range Interpretation Comments Calcium Lvl (test code = Calcium Lvl) 8.8 8.5-10.5 [facility]yqlapwQPDBMAAOLJ8964-57-88 09:07:00 Test Item Value Reference Range Interpretation Comments Neutrophils # (test code = Neutrophils 11.5 1.5-8.1 #) [facility] SouthNzoldfbGGDFSBRANJ2471-63-44 09:07:00 Test Item Value Reference Range Interpretation Comments Lymphocytes # (test code = Lymphocytes 0.8 1.0-5.5 #) [facility] SouthSwszyquONPTKWYKZS5481-26-24 09:07:00 Test Item Value Reference Range Interpretation Comments Lymphocytes (test code = Lymphocytes) 5.8 20.0-40.0 [facility] SouthHyuhpmyBVWRNMWHNK6202-64-08 09:07:00 Test Item Value Reference Range Interpretation Comments Basophils (test code = 0.1 See_Comment [Aut omated message] The Basophils) system which ge nerated this result tra nsmitted reference range : <=1.0. The reference r tara was not used to int erpret this result as normal/abnormal . [facility] SouthRgnpuvsHFGWOKFYXR5011-89-78 09:07:00 Test Item Value Reference Range Interpretation Comments Monocytes # (test code 0.9 See_Comment [Aut omated message] The = Monocytes #) system which generated this result tra nsmitted reference range : <=0.8. The reference r tara was not used to int erpret this result as normal/abnormal . [facility] SouthThafnucNORQCICVZC6746-42-27 09:07:00 Test Item Value Reference Range Interpretation Comments Segs (test code = Segs) 87.6 45.0-75.0 [facility] SouthIvptmtdHYDERQGFJV9713-04-29 09:07:00 Test Item Value Reference Range Interpretation Comments Monocytes (test code = Monocytes) 6.5 2.0-12.0 [facility] SouthIdjtbkkLWDVILXGCP8710-96-29 09:07:00 Test Item Value Reference Range Interpretation Comments Platelet (test code = Platelet) 229 133-450 [facility] SouthDqwervoQNLEJEUGBP6920-17-97 09:07:00 Test Item Value Reference Range Interpretation Comments MPV (test code = MPV) 8.6 7.4-10.4 [facility] SouthGgbbckdISXSUKZNVR3685-55-44 09:07:00 Test Item Value Reference Range Interpretation Comments WBC (test code = WBC) 13.2 3.7-10.4 [facility] SouthLnjpjveLCBMJGQGNQ5211-50-71 09:07:00 Test Item Value Reference Range Interpretation Comments RBC (test code = RBC) 4.22 4.20-5.40 [facility] SouthLwqbaktHZOCBLHYOB4186-00-08 09:07:00 Test Item Value Reference Range Interpretation Comments Hgb (test code = Hgb) 12.1 12.0-16.0 [facility] SouthIoxvvipGNHNREBWDH3499-79-33 09:07:00 Test Item Value Reference Range Interpretation Comments Hct (test code = Hct) 37.9 36.0-48.0 [facility] SouthFucbmdrXERXEPGKFG1225-92-21 09:07:00 Test Item Value Reference Range Interpretation Comments MCH (test code = MCH) 28.7 pg 27.0-31.0 [facility] SouthFtihahlFQUBUZTPSB0070-35-17 09:07:00 Test Item Value Reference Range Interpretation Comments MCHC (test code = MCHC) 31.9 32.0-36.0 [facility] SouthUpfmjxnOPUMGYTFGI3260-30-87 09:07:00 Test Item Value Reference Range Interpretation Comments RDW (test code = RDW) 13.7 11.5-14.5 [facility] SouthAvzalueDJDENHLLYQ8260-99-15 09:07:00 Test Item Value Reference Range Interpretation Comments MCV (test code = MCV) 90.0 80.0-98.0 [facility]Ffi[facility]IHIBWJ6933-59-98 09:07:00 Test Item Value Reference Range Interpretation Comments VLDL (test code = VLDL) 9 1 [facility]CXCCKO6284[facility]10-87 09:07:00 Test Item Value Reference Range Interpretation Comments LDL (Calculated) (test code = LDL 87 (Calculated)) [facility]xwAXWBUJ9951-38-61 09:07:00 Test Item Value Reference Range Interpretation Comments Trig (test code = Trig) 45 [facility] HospitalLsvfjiuZWAMHT1743-85-41 09:07:00 Test Item Value Reference Range Interpretation Comments Chol (test code = Chol) 163 [facility] HospitalHhhsavaWZGHOJ4038-51-95 09:07:00 Test Item Value Reference Range Interpretation Comments HDL (test code = HDL) 67 [facility]YesxlkuXPGDOP9815-85-39 09:07:00 Test Item Value Reference Range Interpretation Comments CHD Risk (test code = CHD Risk) 2.43 1 3.90-5.80 [facility] VULRMVTWR2586-77-90 09:07:00 Test Item Value Reference Range Interpretation Comments Hgb A1C (test code = Hgb A1C) 5.8 [facility] [id number] 05:00:00 Test Item Value Reference Range Interpretation Comments Troponin-I (test code 0.02 See_Comment [Auto mated message] The = Troponin-I) system which g enerated this result transmit zne reference range : <=0.40. The reference r tara was not used to interpr et this result as albina l/abnormal. [facility]fns[facility]vlFCQFNRYADD5178-67-56 05:00:00 Test Item Value Reference Range Interpretation Comments D-Dimer (test code = D-Dimer) 4.23 [facility] [id number] 05:00:00 Test Item Value Reference Range Interpretation Comments Troponin-I (test code 0.02 See_Comment [Auto mated message] The = Troponin-I) system which g enerated this result transmit zen reference range : <=0.40. The reference r tara was not used to interpr et this result as albina l/abnormal. [facility] HospitalPyjjtfnWOARXYKVSW8997-29-72 05:00:00 Test Item Value Reference Range Interpretation Comments D-Dimer (test code = D-Dimer) 4.23 [facility]
[2022-03-30] MEDS ORDERED: MORPHINE 2 MG/ML SYR ONE (09:47)
[2022-03-30 09:54] LABS: Absolute Lymphocytes (CBC) 0.9 K/uL (0.7-4.9); Hematocrit 35.4 % (36.0-45.0); Lymphocytes % 10.6 % (15.3-44.8); MCV 90.3 fL (80-100); MPV 7.7 fL (7.6-11.3); RBC Red Blood Cell Count 3.92 M/uL (3.86-4.86)
[2022-03-30] MEDS ORDERED: ONDANSETRON 4 MG/2 ML VIAL ONE (09:56)
[2022-03-30] MEDS ORDERED: LIDOCAINE 4% PATCH TD ONE (10:00)
[2022-03-30] MEDS ORDERED: methocarbamoL 500 MG TAB PO ONE (10:00)
[2022-03-30 10:24] LABS: Albumin 3.3 g/dL (3.4-5.0); Bilirubin Total 0.8 mg/dL (0.2-1.0); Protein, Total 6.9 g/dL (6.4-8.2); Troponin High Sensitivity 11.7 pg/mL (<58.9)
--- NOTE | 2022-03-30 13:14 | RAD REPORT ---
EXAM DESCRIPTION: CT - Head C Spine Lizandro Castlelanos - 03/30/2022 12:54 pm CLINICAL HISTORY: Head and neck injury with chest and abdominal pain status post fall. Head and neck pain . TECHNIQUE: Computed axial tomography of the head and cervical spine was obtained Computed axial tomography of the chest, abdomen and pelvis was obtained. 100 cc Isovue-300 was given intravenously coronal and sagittal reconstruction was performed. All CT scans are performed using dose optimization technique as appropriate and may include automated exposure control or mA/KV adjustment according to patient size. COMPARISON: CT chest 2020 CT head January 2022 FINDINGS: An intracranial bleed is not seen. 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 The ventricles are normal in caliber. An extra-axial fluid collection is not noted. Fluid within the sinuses is not seen A cervical fracture is not seen. No dislocation is seen. Moderate spondylosis distal cervical spine. Loss of the normal lordosis could be secondary to muscle spasm or be chronic. A mediastinal hematoma is not noted. Small bilateral pleural effusions.. A lung contusion is not seen . The liver, spleen, pancreas, adrenals, kidneys and bladder do not demonstrate a traumatic injury Small hiatal hernia IMPRESSION: No acute intracranial abnormality is seen A cervical fracture is not visualized. If the patient continues have symptoms to suggest intracranial /spinal cord pathology then MRI would be recommended. No traumatic injury involving the chest, abdomen or pelvis is seen.
--- NOTE | 2022-03-30 14:39 | EDPHYS ---
Physician Documentation [facility] Name: Jarrell Rodrigez Age: 86 yrs Sex: Female : 1935 Arrival Date: 03/30/2022 Time: 09:03 Bed 14 Private MD: Jun Austin T ED Physician Elina Lerma HPI: 03/30 09:26 This 86 yrs old Female presents to ER via Ambulatory with complaints of Rib Pain From sd2 Fall. 09:26 86-year-old female presents with chief complaint of injuries from a fall that occurred sd2 5 days ago. She reports she was walking and got dizzy and fell but cannot recall how she fell or if she hit her head. Unknown loss of consciousness. The patient is currently on Eliquis. The patient has had ongoing issues with dizziness and was recently admitted and had an MRI performed that was negative. Her daughter reports she had her first and only dose of gabapentin the night before which may have contributed to her worsening dizziness and fall. She has not had any more gabapentin and has been improving since then. The patient complains mostly of left-sided rib pain that wraps around to her left anterior chest wall as well as some left hip pain. She denies any head pain, neck or back pain. She has been ambulatory since the fall. Pt reports taking Aleve once yesterday and today and that she was afraid to take Tylenol due to being told on Wednesday by her doctor that her liver function tests were elevated. . Historical: - Allergies: 09:18 Levaquin; ph 09:18 Macrodantin; ph 09:18 [place]; ph - Home Meds: 09:18 amiodarone 200 mg Oral tab 1 tab 2 times per day [Active]; apixaban 5 mg Oral tab 1 tab ph 2 times per day [Active]; atorvastatin 20 mg Oral tab 1 tab once daily [Active]; hydrochlorothiazide 25 mg Oral tab 1 tab once daily [Active]; montelukast 10 mg Oral tab 1 tab once daily [Active]; nebivolol Oral [Active]; - PMHx: 09:18 Atrial fibrillation; High Cholesterol; Hypertensive disorder; ph - Immunization history:: Adult Immunizations unknown. - Social history:: Smoking status: Patient denies any tobacco usage or history of. ROS: 09:26 Constitutional: Negative for fever, chills, and weight loss, Eyes: Negative for injury, sd2 pain, redness, and discharge, Cardiovascular: Positive for chest pain, Negative for palpitations, and edema, Respiratory: Negative for shortness of breath, cough, wheezing. Abdomen/GI: Negative for abdominal pain, nausea, vomiting, diarrhea. MS/Extremity: Negative for injury and deformity, Skin: Negative for injury, rash, and discoloration, Neuro: Negative for headache, numbness and tingling. Exam: 09:26 Constitutional: This is a well developed, well nourished patient who is awake, alert, sd2 and in no acute distress. Head/Face: Normocephalic, atraumatic. Eyes: EOMI, normal conjunctiva bilaterally Chest/axilla: Normal chest wall appearance and motion. TTP of L lateral chest wall along the rib which traces around to L anterior chest wall on the same rib, no associated crepitus Cardiovascular: Regular rate and rhythm with a normal S1 and S2. No gallops, murmurs, or rubs. 2+ distal pulses. Respiratory: Lungs have equal breath sounds bilaterally, clear to auscultation and percussion. No rales, rhonchi or wheezes noted. No increased work of breathing, no retractions or nasal flaring. Abdomen/GI: Soft, non-tender, with normal bowel sounds. No guarding or rebound. No evidence of tenderness throughout. Skin: Warm, dry with normal turgor. Normal color with no rashes, no lesions, and no evidence of cellulitis. Old bruising noted to L breast and L hip. MS/ Extremity: Pulses equal, no cyanosis. Neurovascular intact. Full, normal range of motion. Ambulatory without difficulty. Psych: Awake, alert, with orientation to person, place and time. Behavior, mood, and affect are within normal limits. 11:29 ECG was reviewed by the Attending Physician. NSR, rate 60, no STEMI criteria, baseline sd2 artifact present Vital Signs: 09:15 BP 161 / 72; Pulse 62; Resp 18; Temp 97.5; Pulse Ox 95% on R/A; Weight 72.57 kg; ph 09:30 BP 150 / 71; Pulse 58; Resp 17; Pulse Ox 97% on R/A; tp1 10:30 BP 177 / 73; Pulse 59; Resp 17; Pulse Ox 96% on R/A; tp1 11:35 BP 159 / 70; Pulse 59; Resp 20; Pulse Ox 95% on R/A; tp1 12:30 BP 139 / 68; Pulse 60; Resp 21; Pulse Ox 95% ; tp1 13:30 BP 166 / 72; Pulse 63; Resp 19; Pulse Ox 95% on R/A; tp1 14:30 BP 122 / 53; Pulse 67; Resp 19; Pulse Ox 97% on R/A; tp1 MDM: 09:08 Patient medically screened. sd2 09:26 Differential diagnosis: Differential diagnosis includes but is not limited to: sd2 Fracture, contusion, abrasion, closed head injury, pneumothorax, intra-abdominal injury, intracranial hemorrhage, spinal injury among others. Data reviewed: vital signs, nurses notes, old medical records. 14:36 Data reviewed: lab test result(s), EKG, radiologic studies. Counseling: I had a sd2 detailed discussion with the patient and/or guardian regarding: the historical points, exam findings, and any diagnostic results supporting the discharge/admit diagnosis, lab results, radiology results, the need for outpatient follow up, to return to the emergency department if symptoms worsen or persist or if there are any questions or concerns that arise at home. Medical screen evaluation completed. EMTALA emergency medical condition absent. ED course: Labs and imaging reviewed. Labs grossly WNCL. Trop neg. EKG with no ischemic changes. CT imaging with no acute traumatic injuries noted. Pt feeling much improved after treatment in ER. Requesting discharge home. Comfortable with plan for outpatient follow up and continued supportive care at home. Verbalizes understanding of strict return precautions.. 03/30 09:25 Order name: CBC with Diff; Complete Time: 10:00 sd2 03/30 09:25 Order name: CMP; Complete Time: 10:34 sd2 03/30 09:25 Order name: Troponin High Sensitivity; Complete Time: 10:34 sd2 03/30 12:48 Order name: Head C Spine Cap W Con; Complete Time: 13:53 EDMS 03/30 09:25 Order name: EKG - Nurse/Tech; Complete Time: 11:56 sd2 Administered Medications: 09:47 Drug: Zofran (Ondansetron) 4 mg Route: IVP; Site: right antecubital; tp1 11:07 Follow up: Response: No adverse reaction tp1 09:53 Drug: morphine 2 mg Route: IVP; Infused Over: 4 mins; Site: right antecubital; tp1 10:20 Follow up: Response: Pain is decreased tp1 10:42 Drug: Methocarbamol 500 mg Route: PO; tp1 11:20 Follow up: Response: Pain is decreased tp1 10:45 Drug: Lidoderm Patch 5 % (700 mg/patch) 1 patches {Note: left ribs.} Route: Topical; tp1 Site: affected area; 11:20 Follow up: Response: Pain is decreased tp1 14:57 Drug: Tylenol 1000 mg Route: PO; tp1 15:09 Follow up: Response: Medication administered at discharge. tp1 Disposition Summary: 03/30/22 14:38 Discharge Ordered Location: Home sd2 Problem: new sd2 Symptoms: have improved sd2 Condition: Stable sd2 Diagnosis - Left rib contusion sd2 - Closed head injury sd2 - Bruising of left hip sd2 Followup: sd2 - With: Jun Austin MD - When: 5 - 6 days - Reason: Recheck today's complaints, Continuance of care, Re-evaluation by your physician Discharge Instructions: - Discharge Summary Sheet sd2 - Rib Contusion sd2 - Head Injury, Adult sd2 Forms: - Medication Reconciliation Form sd2 - Thank You Letter sd2 - Antibiotic Education sd2 - Prescription Opioid Use sd2 Prescriptions: - Tramadol 50 mg Oral Tablet - take 1 tablet by ORAL route every 6 hours as needed; 12 tablet; Refills: 0, sd2 Product Selection Permitted Signatures: Dispatcher [employer] Tanya Baez RN RN ph Parker, Tiffany, RN RN tp1 Elina Lerma MD MD sd2 Corrections: (The following items were deleted from the chart) 09:30 09:26 86-year-old female presents with chief complaint of injuries from a fall that sd2 occurred 5 days ago. She reports she was walking and got dizzy and fell but cannot recall how she fell or if she hit her head. Unknown loss of consciousness. The patient is currently on Eliquis. The patient has had ongoing issues with dizziness and was recently admitted and had an MRI performed that was negative. Her daughter reports she had her first and only dose of gabapentin the night before which may have contributed to her worsening dizziness and fall. She has not had any more gabapentin and has been improving since then. The patient complains mostly of left-sided rib pain that wraps around to her left anterior chest wall as well as some left hip pain. She denies any head pain, neck or back pain. She has been ambulatory since the fall. . sd2 12:55 12:49 Head C Spine Cap W Con ordered. EDMS EDMS
--- NOTE | 2022-03-30 14:39 | ER ---
Nurse's Notes [facility] Name: Jarrell Rodrigez Age: 86 yrs Sex: Female : 1935 Arrival Date: 03/30/2022 Time: 09:03 Bed 14 Private MD: Jun Austin T Diagnosis: Left rib contusion;Closed head injury;Bruising of left hip Presentation: 03/30 09:15 Chief complaint: Patient states: Fell on Wed, family reports that she had just ph started taking Gabapentin and thinks it made her dizzy/unsteady, pt states that she started having L sided rib pain Wednesday, denies hitting head or LOC. Coronavirus screen: Vaccine status: Patient reports receiving the 1st dose of the Covid vaccine. Ebola Screen: No symptoms or risks identified at this time. Initial Sepsis Screen: Does the patient meet any 2 criteria? No. Patient's initial sepsis screen is negative. Does the patient have a suspected source of infection? No. Patient's initial sepsis screen is negative. Risk Assessment: Do you want to hurt yourself or someone else? Patient reports no desire to harm self or others. Onset of symptoms was March 30, 2022. 09:15 Method Of Arrival: Ambulatory ph 09:15 Acuity: JAY 3 ph Triage Assessment: : General: Appears in no apparent distress. comfortable, well groomed, Behavior is calm, ph cooperative, appropriate for age. Neuro: Level of Consciousness is awake, alert, obeys commands, Oriented to person, place, time, situation. Cardiovascular: Capillary refill < 3 seconds in bilateral fingers Patient's skin is warm and dry. Derm: Skin is pink, warm \T\ dry. Historical: - Allergies: 09:18 Levaquin; ph 09:18 Macrodantin; ph 09:18 [place]; ph - Home Meds: 09:18 amiodarone 200 mg Oral tab 1 tab 2 times per day [Active]; apixaban 5 mg Oral tab 1 tab ph 2 times per day [Active]; atorvastatin 20 mg Oral tab 1 tab once daily [Active]; hydrochlorothiazide 25 mg Oral tab 1 tab once daily [Active]; montelukast 10 mg Oral tab 1 tab once daily [Active]; nebivolol Oral [Active]; - PMHx: 09:18 Atrial fibrillation; High Cholesterol; Hypertensive disorder; ph - Immunization history:: Adult Immunizations unknown. - Social history:: Smoking status: Patient denies any tobacco usage or history of. Screenin:10 Abuse screen: Denies threats or abuse. Denies injuries from another. Nutritional tp1 screening: No deficits noted. Tuberculosis screening: No symptoms or risk factors identified. Fall Risk Fall in past 12 months (25 points). No secondary diagnosis (0 pts). IV access (20 points). Ambulatory Aid- None/Bed Rest/Nurse Assist (0 pts). Gait- Normal/Bed Rest/Wheelchair (0 pts) Mental Status- Oriented to own ability (0 pts). Assessment: 09:30 General: Appears in no apparent distress. uncomfortable, Behavior is calm, cooperative. tp1 Pain: Complains of pain in left side or ribs, left hip Pain currently is 9 out of 10 on a pain scale. Quality of pain is described as sharp, Pain began Wednesday. Neuro: Level of Consciousness is awake, alert, obeys commands, Oriented to person, place, time, situation. Cardiovascular: Patient's skin is warm and dry. Respiratory: Airway is patent Respiratory effort is even, unlabored. GI: Abdomen is round non-distended, Abd is soft and non tender. : No signs and/or symptoms were reported regarding the genitourinary system. EENT: No signs and/or symptoms were reported regarding the EENT system. Derm: Bruising that is yellow, on left shoulder, left upper arm, left hip abrasion to the left elbow. Musculoskeletal: Circulation, motion, and sensation intact. 09:45 Reassessment: received VO from Dr. Lerma to administer Zofran 4 mg IVP X1. tp1 10:45 Reassessment: Patient appears in no apparent distress at this time. Patient and/or tp1 family updated on plan of care and expected duration. Pain level reassessed. Patient is alert, oriented x 3, equal unlabored respirations, skin warm/dry/pink. states pain medication has helped, pain is now a /10. 11:36 Reassessment: Patient appears in no apparent distress at this time. Patient is alert, tp1 oriented x 3, equal unlabored respirations, skin warm/dry/pink. denies pain as long as still. 12:33 Reassessment: Patient appears in no apparent distress at this time. No changes from tp1 previously documented assessment. Patient and/or family updated on plan of care and expected duration. Pain level reassessed. Patient is alert, oriented x 3, equal unlabored respirations, skin warm/dry/pink. states no pain as long as still. 12:40 Reassessment: escorted to CT via stretcher by technical translator. tp1 13:34 Reassessment: Patient appears in no apparent distress at this time. Patient and/or tp1 family updated on plan of care and expected duration. Pain level reassessed. Patient is alert, oriented x 3, equal unlabored respirations, skin warm/dry/pink. pt stated pain was aggravated with ambulation during CT. States pain has calmed down now that she is back in bed. Rates pain 0/10 currently. provider notified. 14:30 Reassessment: Patient appears in no apparent distress at this time. No changes from tp1 previously documented assessment. Patient is alert, oriented x 3, equal unlabored respirations, skin warm/dry/pink. Vital Signs: 09:15 BP 161 / 72; Pulse 62; Resp 18; Temp 97.5; Pulse Ox 95% on R/A; Weight 72.57 kg; ph 09:30 BP 150 / 71; Pulse 58; Resp 17; Pulse Ox 97% on R/A; tp1 10:30 BP 177 / 73; Pulse 59; Resp 17; Pulse Ox 96% on R/A; tp1 11:35 BP 159 / 70; Pulse 59; Resp 20; Pulse Ox 95% on R/A; tp1 12:30 BP 139 / 68; Pulse 60; Resp 21; Pulse Ox 95% ; tp1 13:30 BP 166 / 72; Pulse 63; Resp 19; Pulse Ox 95% on R/A; tp1 14:30 BP 122 / 53; Pulse 67; Resp 19; Pulse Ox 97% on R/A; tp1 ED Course: 09:03 Patient arrived in ED. rg4 09:04 Jun Austin MD is Private Physician. rg4 09:08 Elina Lerma MD is Attending Physician. sd2 09:18 Triage completed. ph 09:18 Arm band placed on Patient placed in an exam room. ph 09:32 Shen, Tanya, RN is Primary Nurse. ph 09:40 Patient has correct armband on for positive identification. Placed in gown. Bed in low tp1 position. Call light in reach. Side rails up X2. Adult w/ patient. 09:40 Client placed on continuous cardiac and pulse oximetry monitoring. NIBP monitoring tp1 applied. 09:43 Inserted saline lock: 20 gauge in right forearm, using aseptic technique. Blood tp1 collected. 09:59 Corinne Garner, MARLEN is Primary Nurse. tp1 10:45 EKG done, by ED staff. tp1 11:57 No provider procedures requiring assistance completed. tp1 12:55 Head C Spine Cap W Con In Process Unspecified. EDMS 14:38 Jun Austin MD is Referral Physician. sd2 15:08 IV discontinued, intact, bleeding controlled, No redness/swelling at site. Pressure tp1 dressing applied. Administered Medications: 09:47 Drug: Zofran (Ondansetron) 4 mg Route: IVP; Site: right antecubital; tp1 11:07 Follow up: Response: No adverse reaction tp1 09:53 Drug: morphine 2 mg Route: IVP; Infused Over: 4 mins; Site: right antecubital; tp1 10:20 Follow up: Response: Pain is decreased tp1 10:42 Drug: Methocarbamol 500 mg Route: PO; tp1 11:20 Follow up: Response: Pain is decreased tp1 10:45 Drug: Lidoderm Patch 5 % (700 mg/patch) 1 patches {Note: left ribs.} Route: Topical; tp1 Site: affected area; 11:20 Follow up: Response: Pain is decreased tp1 14:57 Drug: Tylenol 1000 mg Route: PO; tp1 15:09 Follow up: Response: Medication administered at discharge. tp1 Medication: 11:57 VIS not applicable for this client. tp1 Outcome: 14:38 Discharge ordered by . sd2 15:08 Discharged to home via wheelchair. tp1 15:08 Condition: good 15:08 Discharge instructions given to patient, Instructed on discharge instructions, follow up and referral plans. medication usage, Demonstrated understanding of instructions, follow-up care, medications, Prescriptions given X 1. 15:09 Patient left the ED. tp1 Signatures: Dispatcher [employer] [facility] Tanya Shen RN RN ph Zainab Noonan rg4 Corinne Garner RN RN tp1 Elina Lerma MD MD sd2 Corrections: (The following items were deleted from the chart) 10:33 09:43 Inserted saline lock: 20 gauge in right antecubital area, using aseptic tp1 technique. Blood collected. tp1 13:36 13:34 Reassessment: Patient appears in no apparent distress at this time. Patient tp1 and/or family updated on plan of care and expected duration. Pain level reassessed. Patient is alert, oriented x 3, equal unlabored respirations, skin warm/dry/pink. pt stated pain was aggravated with ambulation during CT. States pain has calmed down now that she is back in bed. Rates pain 0/10 currently. tp1
[2022-03-30] MEDS ORDERED: ACETAMINOPHEN 500 MG TAB ONE (14:56)
[2022-03-31 18:32] VITALS: TEMP 97.5
[2022-03-31 18:47] VITALS: BP 122/53; O2SAT 97
--- NOTE | 2022-04-01 06:37 | EKG ---
Test Date: 2022-03-30 Test Time: 10:45:42 Park Activities Coordinator: REEMA MEASUREMENT RESULTS: Intervals: Rate: 60 MN: 200 QRSD: 90 QT: 472 QTc: 472 [place]: P: 65 MN: 200 QRS: 58 T: 42 INTERPRETIVE STATEMENTS: Normal sinus rhythm Normal ECG Compared to ECG 02/09/2022 01:57:58 Sinus bradycardia no longer present Electronically Signed On 04-01-22 06:32:08 CDT by Cedric Talavera
== END 2022-03-30 15:09 | disposition home or self-care (01) ==
LOC: ER 09:00
DX: S20.212A Contusion of left front wall of thorax, initial encounter (principal); S70.02XA Contusion of left hip, initial encounter; S09.90XA Unspecified injury of head, initial encounter
CPT/HCPCS: 93005; 85025; 36415; 84484; 80053; 70450; 72125; 71260; 74177; 96375; 96374; 99284; Q9967; J2001; J2270; J2405

== ENCOUNTER 2023-01-07 10:36 | Emergency (ER) | payer OTHER ==
--- OUTSIDE RECORDS SUMMARY | 2023-01-07 10:43 | XMS REPORT | Continuity of Care Document ---
:1935 Author Organization [facility] t Address [address] [place] [address] [address] [place] [address] Care Team Providers Name Role Phone Jun [place] Primary Care Physician Therapy, Adc Covid Infusion Attending Clinician Unavailable Brandon Rivas MD Attending Clinician BRANDON RIVAS Attending Clinician Unavailable Doctor Unassigned, [place] Attending Clinician Unavailable Angel Rodríguez Attending Clinician [...] STROKE STROKE 00 MULTIFOCA MULTIFOCA Active 11/08/2018 [facility] CVA CVA Diagnosis Active 2018-11-08 Mem oria ISCHEMIC ISCHEMIC 11-08 23:39:00 l Active 00:00: Todd 11/08/2018 00 [facility] Illness, Illness, Problem 2018-11-13 Memoria unspecifie unspecifie 22:16:16 l d d Todd 11/13/2018 [facility] Cerebral Cerebral Problem Active 2020-08-08 Memoria infarction [...] OR STENOS OR STENOS OF OF Active [facility] ILLNESS, ILLNESS, Diagnosis Active 2018-11-08 Memoria UNSPECIFIE UNSPECIFIE 23:39:00 l D D Active Todd [facility] Allergies, Adverse Reactions, Alerts Allergy [...] Drug Active [facility] ALLERGIE Class [facility] HYDROcod HYDROcod Active Memori a one one l [place] Pollen Pollen Active Memoria l Todd Social History Social Habit Start Date Stop Date Quantity Comments Source Sex Assigned At [birth year] [facility] 00:00:00 00:00:00 Medical Branch Smoking Status Start Date Stop Date Source Unknown if ever smoked [facility] Social History [facility] Medications Ordered Filled Start Stop Current Ordering Indication Dosage Frequency Signature Comments Components Source Medication Medication Date Date Medication? Clinician (SIG) Name Name casirivimab 2020- No [id number] 1200mg 1,200 mg, Univers -imdevimab 04-10 Subcutaneo it y of (REGEN-COV 20:30: 19:25 us, ONCE, [place] (EUA)) 00 :00 1 dose, On Medical injection [place] Branch 1,200 mg 04/10/21 at 1530, Routine atorvastati 2018-07 Yes = 2 tab, Me moria n 10 mg 1-18 PO, l oral tablet 17:33: Bedtime, # Whitman 27 180 tab, 3 Refill(s), Pharmacy: [place] [id number] [facility] atorvastati 2018-07 Yes = 2 tab, Me moria n 10 mg 1-18 PO, l oral tablet 17:33: Bedtime, # Todd 27 180 tab, 3 Refill(s), Pharmacy: [place] [id number] [facility] atorvastati Yes 80 mg = 1 M emoria n 80 mg 6-28 tab, PO, l oral tablet 16:09: Bedtime, # Todd 47 90 tab, 0 Refill(s), Pharmacy: [place] [id number] [facility] atorvastati Yes 80 mg = 1 M emoria n 80 mg 6-28 tab, PO, l oral tablet 16:09: Bedtime, # Todd 47 90 tab, 0 Refill(s), Pharmacy: [place] [id number] [facility] amitriptyli Yes 20 mg = 2 M emoria ne 10 mg 5-17 tab, PO, l oral tablet 21:35: Bedtime, 0 Todd 00 Refill(s) amitriptyli 2019 Yes 20 mg = 2 M emoria ne 10 mg 5-17 tab, PO, l oral tablet 21:35: Bedtime, 0 Whitman 00 Refill(s) Aspirin 81 2019-0 Yes 81 mg = 1 Me moria MG Enteric 5-03 tab, PO, l Coated 21:06: Daily, # Todd Tablet 00 90 tab, 0 Refill(s) atorvastati 2019 Yes 80 mg = 1 M emoria n 80 mg 5-03 tab, PO, l oral tablet 21:06: Bedtime, # Todd 00 90 tab, 0 Refill(s) Aspirin 81 2019- Yes 81 mg = 1 Me moria MG Enteric 5-03 tab, PO, l Coated 21:06: Daily, # Whitman Tablet 00 90 tab, 0 Refill(s) atorvastati Yes 80 mg = 1 M emoria n 80 mg 5-03 tab, PO, l oral tablet 21:06: Bedtime, # Whitman 00 90 tab, 0 Refill(s) Amitriptyli No Amitriptyl Memoria ne 10mg tab 5-03 ine 10mg l 02:00: tab, 2 Whitman 00 tab, Drug form: MISC, Route: PO, Bedtime, 11/10/18 21:00:00 CDT, Duration: 30 day, Stop date: 12/09/18 21:00:00 CDT Chlordiazep No Chlordiaze Memoria oxide cap 5 5-03 poxide cap l mg 02:00: 5 mg, 1 Todd 00 cap, Drug form: MISC, Route: PO, Bedtime, 11/10/18 21:00:00 CDT, Duration: 30 day, Stop date: 12/09/18 21:00:00 CDT Amitriptyli No Amitriptyl Memoria ne 10mg tab 5-03 ine 10mg l 02:00: tab, 2 Whitman 00 tab, Drug form: MISC, Route: PO, Bedtime, 11/10/18 21:00:00 CDT, Duration: 30 day, Stop date: 12/09/18 21:00:00 CDT Chlordiazep No Chlordiaze Memoria oxide cap 5 5-03 poxide cap l mg 02:00: 5 mg, 1 Todd 00 cap, Drug form: MISC, Route: PO, [...] a 5- Route: PO, l 02:00: Dosing Whitman 00 Weight 75.1, kg, Bedtime, Start date: [...] Memoria 5-01 (Same as: l 22:00: Colace) Whitman 00 (Do Not Crush) sennosides, No Notes: Bull sheridan LONG TERM 8.6 MG 5-01 (Same as: l Oral Tablet 22:00: Senokot) Docusate No Notes: Memoria 5-01 (Same as: l 22:00: Colace) Todd (Do Not Crush) sennosides, No Notes: Bull sheridan LONG TERM 8.6 MG 5-01 (Same as: l Oral Tablet 22:00: Senokot) Bystolic No Notes: Memoria 5-01 (same as: l 16:00: Bystolic) montelukast No Notes: Bull sheridan 5-01 (Same l 16:00: as:Singula Whitman 00 ir) Bystolic No Notes: Memoria 5-01 (same as: l 16:00: Bystolic) Todd 00 montelukast No Notes: Bull sheridan 5-01 (Same l 16:00: as:Singula Otdd 00 ir) Saline No Notes: Memoria Flush 0.9% 11-09 Same as: l 14:00: BD Posiflush Sterile Saline No Notes: Memoria Flush 0.9% 11-09 Same as: l 14:00: BD Posiflush Sterile Limbitrol Yes PO, Memoria 5- Bedtime, 0 l 13:06: Refill(s) Todd Limbitrol Yes PO, Memoria 5 Bedtime, 0 l 13:06: Refill(s) Whitman 00 nebivolol Yes 10 mg = 1 [...] 5-01 Route: IM, l 04:43: Drug form: Todd 00 PDR/INJ, PRN, kg, PRN Blood Glucose Results, Start date: 11/08/18 23:43:00 CDT, Duration: 30 day, Stop date: 12/08/18 23:42:00 CDT Dextrose 2018-0 No 25 gm, 50 Bull sheridan 50% Syringe 5-01 mL, Route: l 04:43: IVP, Drug Whitman Form: INJ, kg, PRN, PRN Blood Glucose [...] Memoria 5-01 (Same as: l 04:28: Zofran) Todd 00 Zofran No Notes: Memoria - (Same as: l 04:28: Zofran) Todd 00 potassium No Notes: Memori a phosphate-s 11-09 (Same as: l odium 04:27: Phos-NaK) phosphate 00 Each 1.5 250 mg-280 gm pkt has mg-160 mg 250mg oral powder phosphorou for s. Mix reconstitut w/2.5oz ion water and stir. potassium No Notes: Memori a phosphate 11-09 (Same as: l 04:27: K Whitman 00 Phosphate. ) Do not infuse phosphorou s concurrent ly in the same line as TPN or IVF that contains calcium. For double lumen central lines, phosphorou s may be infused in a separate lumen from TPN. 1 mMol phoshate has 1.47 mEq potassium Infuse over 4 hours sodium No Notes: Memoria phosphate 11-09 Infuse l 04:27: over 4 Whitman 00 hour. Do not infuse phosphorou s [...] s with feeding tube less than 14 [place] (Dobhoff, J-tube etc) and pediatric and patients. Calcium No Notes: Memoria Gluconate 11-09 WASTE: F/P l 04:27: - Sink; E 00 - [facility] Tra Bin Calcium No Notes: Memoria Carbonate [...] Oxide - (Same as: l :27: Mag-Ox Whitman 00 400) Magnesium oxide 692qr=620v g elemental magnesium Dose=____m g magnesium oxide (___mg elemental magnesium) potassium No Notes: Memori a phosphate-s 11-09 (Same as: l odium 04:27: Phos-NaK) Whitman phosphate 00 Each 1.5 250 mg-280 gm pkt has mg-160 mg 250mg oral powder phosphorou for s. Mix reconstitut w/2.5oz ion water and stir. potassium No Notes: Memori a phosphate 11-09 (Same as: l :27: K Todd 00 Phosphate. ) Do not [...] s with feeding tube less than 14 [place] (Dobhoff, J-tube etc) and pediatric and patients. Calcium No Notes: Memoria Gluconate 11-09 WASTE: F/P l 04:27: - Sink; E - Municipal Trash Bin Calcium No Notes: Memoria Carbonate 11-09 (Same As: l 500 MG 04:27: Tums) Whitman Chewable 00 Calcium Tablet Carbonate 500 mg = 200 mg elemental calcium Dose = mg calcium carbonate ( mg elemental calcium) Magnesium No Notes: Memori a Sulfate 11-09 WASTE: F/P l 04:27: - Sink; E Whitman 00 - Municipal Trash Bin Magnesium No Notes: Memori a Oxide 11-09 (Same as: l 04:27: Mag-Ox Todd 00 400) Magnesium oxide 303lg=139h g elemental magnesium Dose=____m g magnesium oxide (___mg elemental magnesium) Saline No Notes: Memoria Flush 0.9% 11-09 Same as: l 04:25: BD Whitman Posiflush Sterile Acetaminoph No Notes: Do M emoria en 11-09 not exceed l 04:25: 4 gm/day. Whitman 00 (Same as: Tylenol) Labetalol No Notes: Memori a 11-09 (Same as: l 04:25: Normodyne, Whitman 00 Trandate) Push over 2 minutes Give [...] 2021-04-10 20:10:00 147 mm[Hg] [facility] Diastolic blood 2021-04-10 20:10:00 99 mm[Hg] [facility] Heart rate 2021-04-10 20:10:00 105 /min [facility] Body temperature 2021-04-10 20:10:00 36.28 [facility] Respiratory rate 2021-04-10 20:10:00 18 /min [facility] Oxygen saturation in 2021-04-10 20:10:00 93 /min [facility] Arterial blood by [facility] Pulse oximetry Branch Body height 2021-04-10 19:22:00 170.2 cm [facility] Body weight 2021-04-10 19:22:00 77.111 kg [facility] BMI 2021-04-10 19:22:00 26.63 kg/m2 [facility] Systolic (mm Hg) 2019-08-04 15:30:00 Bull rial Whitman Diastolic (mm Hg) 2019-08-04 15:30:00 Mem orial Whitman Heart Rate 2019-08-04 15:30:00 [facility] Todd Respitory Rate 2019-08-04 15:30:00 Memori al [place]man Height 2019-08-04 15:30:00 170.18 cm [facility] Todd Weight 2019-08-04 15:30:00 [facility] Todd BMI Calculated 2019-08-04 15:30:00 Memori al [place] Systolic (mm Hg) 2019-04-07 14:38:00 Bull rial Whitman Diastolic (mm Hg) 2019-04-07 14:38:00 Mem orial Todd Heart Rate 2019-04-07 14:38:00 [facility] Todd Respitory Rate 2019-04-07 14:38:00 Memori al Todd Height 2019-04-07 14:38:00 167.64 cm Memorial Whitman Weight 2019-04-07 14:38:00 [facility] Todd BMI Calculated 2019-04-07 14:38:00 Memori al Todd Height 2019-01-06 15:31:00 165.1 cm [facility] Todd BMI Calculated 2019-01-06 15:31:00 Memori al Todd Weight 2019-01-06 15:31:00 [facility] Whitman Heart Rate 2019-01-06 15:31:00 [facility] Todd Systolic (mm Hg) 2019-01-06 15:31:00 Bull rial Todd Diastolic (mm Hg) 2019-01-06 15:31:00 Mem orial Todd Respitory Rate 2019-01-06 15:31:00 Memori al Todd Heart Rate 2018-11-25 21:06:00 Memorial Whitman Respitory Rate 2018-11-25 21:06:00 Memori al Whitman BMI Calculated 2018-11-25 21:06:00 Memori al Todd Weight 2018-11-25 21:06:00 Memorial Todd Height 2018-11-25 21:06:00 165.1 cm [facility] Todd Systolic (mm Hg) 2018-11-25 21:06:00 Bull rial Todd Diastolic (mm Hg) 2018-11-25 21:06:00 Mem orial Whitman Respitory Rate 2018-11-11 17:30:00 Memori al Whitman Systolic (mm Hg) 2018-11-11 17:30:00 Bull rial Whitman Diastolic (mm Hg) 2018-11-11 17:30:00 Mem orial Todd Heart Rate 2018-11-11 17:30:00 [facility] Todd Temperature Oral (F) 2018-11-11 17:30:00 98.2 F [facility] Whitman Systolic (mm Hg) 2018-11-11 13:00:00 Bull rial Todd Diastolic (mm Hg) 2018-11-11 13:00:00 Mem orial Todd Heart Rate 2018-11-11 13:00:00 [facility] Todd Respitory Rate 2018-11-11 13:00:00 Memori al Whitman Temperature Oral (F) 2018-11-11 13:00:00 99.8 F [facility] Todd Systolic (mm Hg) 2018-11-11 09:00:00 Bull rial Whitman Diastolic (mm Hg) 2018-11-11 09:00:00 Mem orial Whitman Respitory Rate 2018-11-11 09:00:00 Memori al Whitman Heart Rate 2018-11-11 09:00:00 [facility] Todd Temperature Oral (F) 2018-11-11 09:00:00 98.3 F [facility] Todd BMI Calculated 2018-11-09 04:49:00 Memori al Todd Height 2018-11-09 04:49:00 167.64 cm [facility] Whitman Weight 2018-11-09 04:49:00 [facility] Todd Procedures Procedure Date / Time Performing Clinician Source Performed CONSENT/REFUSAL FOR 2021-04-10 05:01:00 Doctor Unassigned, No Un [facility] DIAGNOSIS AND TREATMENT Name Medical Branch Gallbladder stone Memorial Caitlin nn removal<sup>1</sup> Hysterectomy<sup>2</sup Memorial Todd > Knee Memorial Todd arthroplasty<sup>3</sup > Encounters Start End Encounter Admission Attending Care Care Encounter Source Date/Time Date/Time Type Type Clinicians Facility Department ID 2018-11-08 Inpatient [facility] MED [id number] [facility] W 22:56:00 2021-04-10 2021-04-10 Nurse Therapy, Adc Covid Infusion RUST [id number] Univers 14:04:17 15:04:17 Visit Brandon Rivas [id number] ity [facility] [id number] [facility] s Surgical [id number] [place] [address] Branch 2021-04-10 2021-04-10 Outpatient R [facility] [id number] Univers 14:00:00 14:00:[address] [facility] [place] [place] 2021-04-10 2021-04-10 Orders Doctor ROSETAT [id number] Univers 00:00:00 00:00:00 Only Unassigned, [place]T [id number] ity [facility] [id number] Pito as [id number] [address] 2020-08-06 2020-08-06 Ambulatory nullFlavo MNA [id number] Memoria 15:30:00 15:30:00 Pre-Reg r Neurology 06 l María Brooks 2020-08-06 2020-08-06 Ambulatory nullFlavo MNA [id number] Memoria 15:30:00 15:30:00 Pre-Reg r Neurology 06 l María Brooks 2020-08-06 2020-08-06 Outpatient MHIE MHIE [id number] Memoria 09:30:00 09:30:00 Tami garcia Todd 2020-08-06 2020-08-06 Outpatient YOUSIF RodríguezSCHMALCOLM [id number] 09:30:00 09:30:00 Angel Decker 2020-02-02 2020-02-03 Outpatient nullFlavo MNA [id number] Memoria 14:30:00 04:59:59 r Neurology 05 l María Brooks 2020-02-02 2020-02-03 Outpatient nullFlavo MNA [id number] Memoria 14:30:00 04:59:59 r Neurology 05 l María Brooks 2020-02-02 2020-02-02 [facility] [id number] 09:30:00 23:59:59 Angel 05 Jeronimo 2020-02-02 2020-02-02 Ambulatory nullFlavo MNA [id number] Memoria 14:30:00 14:30:00 Pre-Reg r Neurology 04 l María Brooks 2020-02-02 2020-02-02 Ambulatory nullFlavo MNA [id number] Memoria 14:30:00 14:30:00 Pre-Reg r Neurology 04 l María Brooks 2020-02-02 2020-02-02 Outpatient MHIE MHIE [id number] Memoria 09:30:00 09:30:00 05 jose Todd 2020-02-02 2020-02-02 Outpatient MHIE MHIE [id number] Memoria 09:30:00 09:30:00 04 jose Whitman 2020-02-02 2020-02-02 Outpatient [facility] [id number] 09:30:00 09:30:00 Angel 04 Jeronimo 2019-08-04 2019-08-05 Outpatient nullFlavo MNA [id number] Memoria 15:45:00 05:59:59 r Neurology 03 jose Brooks 2019-08-04 2019-08-05 Outpatient nullFlavo MNA [id number] Memoria 15:45:00 05:59:59 r Neurology 03 jose Brooks 2019-08-04 2019-08-04 Outpatient Marcos [facility] [id number] 09:45:00 23:59:59 Angel 03 Jeronimo 2019-08-04 2019-08-04 Outpatient MHIE MHIE [id number] Memoria 09:45:00 09:45:00 03 jose Brooks 2019-04-07 2019-04-08 Outpatient nullFlavo MNA [id number] Memoria 14:30:00 04:59:59 r Neurology 02 l [facility] 2019-04-07 2019-04-08 Outpatient nullFlavo MNA [id number] Memoria 14:30:00 04:59:59 [facility] 2019-04-07 2019-04-07 Outpatient Mar[facility] [id number] 09:30:00 23:59:59 Angel 02 [facility] 2019-04-07 2019-04-07 Outpatient MHIE MHIE [id number] Memoria 09:30:00 09:30:00 02 jose Whitman 2019-01-06 2019-01-07 Outpatient nullFlavo MNA [id number] Memoria 15:15:00 04:59:59 r Neurology 01 l [facility] 2019-01-06 2019-01-07 Outpatient nullFlavo MNA [id number] Memoria 15:15:00 04:59:59 r Neurology 01 l [facility] 2019-01-06 2019-01-06 Outpatient Marcos [facility] [id number] 10:15:00 23:59:59 Angel [facility] 2019-01-06 2019-01-06 Outpatient MHIE MHIE [id number] Memoria 10:15:00 10:15:00 01 jose Whitman 2018-11-25 2018-11-26 Outpatient nullFlavo MNA [id number] Memoria 21:00:00 04:59:59 r Neurology 00 l [facility] 2018-11-25 2018-11-26 Outpatient nullFlavo MNA [id number] Memoria 21:00:00 04:59:59 r Neurology 00 l [facility] 2018-11-25 2018-11-25 Outpatient Marcos [facility] [id number] 16:00:00 23:59:59 Angel 00 [facility] 2018-11-25 2018-11-25 Outpatient MHIE MHIE [id number] Memoria 16:00:00 16:00:00 00 jose Whitman 2018-11-09 2018-11-12 Inpatient nullFlavo Memorial [id number] Memoria 03:56:00 00:00:00 r Todd [address] [facility] 2018-11-09 2018-11-12 Inpatient nullFlavo Memorial [id number] Memoria 03:56:00 00:00:00 r Todd [address] [facility] 2018-11-08 2018-11-11 Outpatient [facility] [id number] 22:56:00 19:00:00 Mitul I 20 Results Test Description Test Time Test Comments Results Result Comments Source CHEM PANEL 2018-11-11 10:11:00 Test Item Value Reference Range Interpretation Comme nts Phosphorus (test code = Phosphorus) 2.9 2.5-4.5 [facility]2019-05-03 10:11:00 Test Item Value Reference Range Interpretation Comments Magnesium Lvl (test code = Magnesium 2.0 1.8-2.4 Lvl) [facility]2019-05-03 10:11:00 Test Item Value Reference Range Interpretation Comments A/G Ratio (test code = A/G Ratio) 0.8 1 0.7-1.6 [facility]2019-05-03 10:11:00 Test Item Value Reference Range Interpretation Comments Globulin (test code = Globulin) 3.8 2.7-4.2 [facility]2019-05-03 10:11:00 Test Item Value Reference Range Interpretation Comments B/C Ratio (test code = B/C Ratio) 19 1 6-25 [facility]2019-05-03 10:11:00 Test Item Value Reference Range Interpretation Comments AGAP (test code = AGAP) 14.9 10.0-20.0 [facility]2019-05-03 10:11:00 Test Item Value Reference Range Interpretation Comments eGFR (test code = eGFR) 68 [facility]2019-05-03 10:11:00 Test Item Value Reference Range Interpretation Comments Bili Total (test code = Bili Total) 0.8 0.2-1.3 [facility]2019-05-03 10:11:00 Test Item Value Reference Range Interpretation Comments Alk Phos (test code = Alk Phos) 128 39-136 [facility]2019-05-03 10:11:00 Test Item Value Reference Range Interpretation Comments AST (test code = AST) 26 See_Comment [Auto mated message] The system which ge nerated this result transmit zen reference range : <=37. The reference range was not used to interpr et this result as albina l/abnormal. [facility] [id number] 10:11:00 Test Item Value Reference Range Interpretation Comments ALT (test code = ALT) 36 See_Comment [Auto mated message] The system which ge nerated this result transmit zen reference range : <=65. The reference range was not used to interpr et this result as albina l/abnormal. [facility]2019-05-03 10:11:00 Test Item Value Reference Range Interpretation Comments Albumin Lvl (test code = Albumin Lvl) 3.1 3.5-5.0 [facility]2019-05-03 10:11:00 Test Item Value Reference Range Interpretation Comments Potassium Lvl (test code = Potassium 3.9 3.5-5.1 Lvl) [facility]2019-05-03 10:11:00 Test Item Value Reference Range Interpretation Comments Creatinine Lvl (test code = Creatinine 0.80 0.50-1.40 Lvl) [facility]2019-05-03 10:11:00 Test Item Value Reference Range Interpretation Comments Glucose Lvl (test code = Glucose Lvl) 77 70-99 [facility]2019-05-03 10:11:00 Test Item Value Reference Range Interpretation Comments Sodium Lvl (test code = Sodium Lvl) 140 135-145 [facility]2019-05-03 10:11:00 Test Item Value Reference Range Interpretation Comments BUN (test code = BUN) 15 7-22 [facility]2019-05-03 10:11:00 Test Item Value Reference Range Interpretation Comments Calcium Lvl (test code = Calcium Lvl) 8.6 8.5-10.5 [facility]2019-05-03 10:11:00 Test Item Value Reference Range Interpretation Comments Total Protein (test code = Total 6.9 6.4-8.4 Protein) [facility]2019-05-03 10:11:00 Test Item Value Reference Range Interpretation Comments CO2 (test code = CO2) 22 24-32 [facility]2019-05-03 10:11:00 Test Item Value Reference Range Interpretation Comments Chloride Lvl (test code = Chloride Lvl) 107 95-109 [id number] 10:11:00 Test Item Value Reference Range Interpretation Comments MPV (test code = MPV) 8.5 7.4-10.4 [facility] [id number] 10:11:00 Test Item Value Reference Range Interpretation Comments Platelet (test code = Platelet) 237 133-450 [facility] [id number] 10:11:00 Test Item Value Reference Range Interpretation Comments MCHC (test code = MCHC) 32.5 32.0-36.0 [facility] [id number] 10:11:00 Test Item Value Reference Range Interpretation Comments RDW (test code = RDW) 14.0 11.5-14.5 [facility] [id number] 10:11:00 Test Item Value Reference Range Interpretation Comments WBC (test code = WBC) 9.0 3.7-10.4 [facility] [id number] 10:11:00 Test Item Value Reference Range Interpretation Comments RBC (test code = RBC) 4.06 4.20-5.40 [facility] [id number] 10:11:00 Test Item Value Reference Range Interpretation Comments MCH (test code = MCH) 29.9 pg 27.0-31.0 [facility] [id number] 10:11:00 Test Item Value Reference Range Interpretation Comments Hct (test code = Hct) 37.3 36.0-48.0 [facility] [id number] 10:11:00 Test Item Value Reference Range Interpretation Comments MCV (test code = MCV) 92.0 80.0-98.0 [facility] [id number] 10:11:00 Test Item Value Reference Range Interpretation Comments Hgb (test code = Hgb) 12.1 12.0-16.0 [facility] [id number] 10:11:00 Test Item Value Reference Range Interpretation Comments Eosinophils (test code = 2.7 See_Comment [A utomated message] The Eosinophils) system which ge nerated this result tra nsmitted reference range : <=4.0. The reference r tara was not used to int erpret this result as normal/abnormal . [facility] [id number] 10:11:00 Test Item Value Reference Range Interpretation Comments Lymphocytes # (test code = Lymphocytes 1.9 1.0-5.5 #) [facility] [id number] 10:11:00 Test Item Value Reference Range Interpretation Comments Neutrophils # (test code = Neutrophils 5.9 1.5-8.1 #) [facility] [id number] 10:11:00 Test Item Value Reference Range Interpretation Comments Basophils (test code = 0.3 See_Comment [Aut omated message] The Basophils) system which ge nerated this result tra nsmitted reference range : <=1.0. The reference r tara was not used to int erpret this result as normal/abnormal . [facility] [id number] 10:11:00 Test Item Value Reference Range Interpretation Comments Monocytes # (test code 0.9 See_Comment [Aut omated message] The = Monocytes #) system which generated this result tra nsmitted reference range : <=0.8. The reference r tara was not used to int erpret this result as normal/abnormal . [facility] [id number] 10:11:00 Test Item Value Reference Range Interpretation Comments Eosinophils # (test code 0.2 See_Comment [A utomated message] The = Eosinophils #) system wh h generated this result tra nsmitted reference range : <=0.5. The reference r tara was not used to int erpret this result as normal/abnormal . [facility] DistrictSlgscedXQNBFCBQYN4971-65-76 10:11:00 Test Item Value Reference Range Interpretation Comments Monocytes (test code = Monocytes) 10.5 2.0-12.0 [facility] DistrictRegfwreQOQIAVSQUT5407-08-94 10:11:00 Test Item Value Reference Range Interpretation Comments Lymphocytes (test code = Lymphocytes) 20.6 20.0-40.0 [facility] DistrictBpvqecnLAPKNGSYXH8119-28-33 10:11:00 Test Item Value Reference Range Interpretation Comments Segs (test code = Segs) 65.9 45.0-75.0 [facility] DistrictLmfniarXYUETHTYGT7955-48-16 10:11:00 Test Item Value Reference Range Interpretation Comments Basophils (test code = 0.3 See_Comment [Aut omated message] The Basophils) system which ge nerated this result tra nsmitted reference range : <=1.0. The reference r tara was not used to int erpret this result as normal/abnormal . [facility] DistrictOhpzlnkRWXMOXXOLY5860-38-35 10:11:00 Test Item Value Reference Range Interpretation Comments Monocytes # (test code 0.9 See_Comment [Aut omated message] The = Monocytes #) system which generated this result tra nsmitted reference range : <=0.8. The reference r tara was not used to int erpret this result as normal/abnormal . [facility] DistrictNgomtaaZMOLYKCYPA8618-48-32 10:11:00 Test Item Value Reference Range Interpretation Comments Eosinophils # (test code 0.2 See_Comment [A utomated message] The = Eosinophils #) system whic h generated this result tra nsmitted reference range : <=0.5. The reference r tara was not used to int erpret this result as normal/abnormal . [facility] DistrictIgdplysYXWSHBFDBX3323-47-26 10:11:00 Test Item Value Reference Range Interpretation Comments Monocytes (test code = Monocytes) 10.5 2.0-12.0 [facility] DistrictDnmqwkuHBNJYUSWLN9978-13-13 10:11:00 Test Item Value Reference Range Interpretation Comments Lymphocytes (test code = Lymphocytes) 20.6 20.0-40.0 [facility] DistrictJsiduxxAZQWDIPAOR9232-11-37 10:11:00 Test Item Value Reference Range Interpretation Comments Segs (test code = Segs) 65.9 45.0-75.0 [facility]2019-05-03 10:11:00 Test Item Value Reference Range Interpretation Comments Phosphorus (test code = Phosphorus) 2.9 2.5-4.5 [facility]2019-05-03 10:11:00 Test Item Value Reference Range Interpretation Comments Magnesium Lvl (test code = Magnesium 2.0 1.8-2.4 Lvl) [facility]2019-05-03 10:11:00 Test Item Value Reference Range Interpretation Comments A/G Ratio (test code = A/G Ratio) 0.8 1 0.7-1.6 [facility]2019-05-03 10:11:00 Test Item Value Reference Range Interpretation Comments Globulin (test code = Globulin) 3.8 2.7-4.2 [facility]2019-05-03 10:11:00 Test Item Value Reference Range Interpretation Comments B/C Ratio (test code = B/C Ratio) 19 1 6-25 [facility]2019-05-03 10:11:00 Test Item Value Reference Range Interpretation Comments AGAP (test code = AGAP) 14.9 10.0-20.0 [facility]2019-05-03 10:11:00 Test Item Value Reference Range Interpretation Comments eGFR (test code = eGFR) 68 [facility]2019-05-03 10:11:00 Test Item Value Reference Range Interpretation Comments Bili Total (test code = Bili Total) 0.8 0.2-1.3 [facility]2019-05-03 10:11:00 Test Item Value Reference Range Interpretation Comments Alk Phos (test code = Alk Phos) 128 39-136 [facility]2019-05-03 10:11:00 Test Item Value Reference Range Interpretation Comments AST (test code = AST) 26 See_Comment [Auto mated message] The system which ge nerated this result transmit zen reference range : <=37. The reference range was not used to interpr et this result as albina l/abnormal. [place] 141899-05-03 10:11:00 Test Item Value Reference Range Interpretation Comments ALT (test code = ALT) 36 See_Comment [Auto mated message] The system which ge nerated this result transmit zen reference range : <=65. The reference range was not used to interpr et this result as albina l/abnormal. [facility]2019-05-03 10:11:00 Test Item Value Reference Range Interpretation Comments Albumin Lvl (test code = Albumin Lvl) 3.1 3.5-5.0 [facility]2019-05-03 10:11:00 Test Item Value Reference Range Interpretation Comments Potassium Lvl (test code = Potassium 3.9 3.5-5.1 Lvl) [facility]2019-05-03 10:11:00 Test Item Value Reference Range Interpretation Comments Creatinine Lvl (test code = Creatinine 0.80 0.50-1.40 Lvl) [facility]2019-05-03 10:11:00 Test Item Value Reference Range Interpretation Comments Glucose Lvl (test code = Glucose Lvl) 77 70-99 [facility]2019-05-03 10:11:00 Test Item Value Reference Range Interpretation Comments Sodium Lvl (test code = Sodium Lvl) 140 135-145 [facility]2019-05-03 10:11:00 Test Item Value Reference Range Interpretation Comments BUN (test code = BUN) 15 7-22 [facility]2019-05-03 10:11:00 Test Item Value Reference Range Interpretation Comments Calcium Lvl (test code = Calcium Lvl) 8.6 8.5-10.5 [facility]2019-05-03 10:11:00 Test Item Value Reference Range Interpretation Comments Total Protein (test code = Total 6.9 6.4-8.4 Protein) [facility]2019-05-03 10:11:00 Test Item Value Reference Range Interpretation Comments CO2 (test code = CO2) 22 24-32 [facility]2019-05-03 10:11:00 Test Item Value Reference Range Interpretation Comments Chloride Lvl (test code = Chloride Lvl) 107 95-109 [facility] DistrictPfguejfTKPLFAJQFD3971-53-84 10:11:00 Test Item Value Reference Range Interpretation Comments MPV (test code = MPV) 8.5 7.4-10.4 [facility] DistrictGiysejrGNUIBBDEAL0240-68-26 10:11:00 Test Item Value Reference Range Interpretation Comments Platelet (test code = Platelet) 237 133-450 [facility] DistrictOmlcketFHDNZEDDMA7985-87-67 10:11:00 Test Item Value Reference Range Interpretation Comments MCHC (test code = MCHC) 32.5 32.0-36.0 [facility] DistrictSmytewyKDVUTBILDE0476-11-52 10:11:00 Test Item Value Reference Range Interpretation Comments RDW (test code = RDW) 14.0 11.5-14.5 [facility] DistrictFjkwkcdCLSMCUUNYZ5279-57-71 10:11:00 Test Item Value Reference Range Interpretation Comments WBC (test code = WBC) 9.0 3.7-10.4 [facility] DistrictVlltxxoKEERTIBOZW4300-34-59 10:11:00 Test Item Value Reference Range Interpretation Comments RBC (test code = RBC) 4.06 4.20-5.40 [facility] DistrictSwtutsiFKTMKKLTKH9779-12-44 10:11:00 Test Item Value Reference Range Interpretation Comments MCH (test code = MCH) 29.9 pg 27.0-31.0 [facility] DistrictAnizsbfUOKGYVXEJM6180-90-77 10:11:00 Test Item Value Reference Range Interpretation Comments Hct (test code = Hct) 37.3 36.0-48.0 [facility] DistrictOsmpgofSVEKEZTKGQ7647-87-23 10:11:00 Test Item Value Reference Range Interpretation Comments MCV (test code = MCV) 92.0 80.0-98.0 [facility] DistrictKnhbplgQJILRHQXAX9367-49-38 10:11:00 Test Item Value Reference Range Interpretation Comments Hgb (test code = Hgb) 12.1 12.0-16.0 [facility] DistrictEisxmnjXKLGDMDBWG2361-59-40 10:11:00 Test Item Value Reference Range Interpretation Comments Eosinophils (test code = 2.7 See_Comment [A utomated message] The Eosinophils) system which ge nerated this result tra nsmitted reference range : <=4.0. The reference r tara was not used to int erpret this result as normal/abnormal . [facility] DistrictGbvvroaOPRYYSFNFW7078-68-16 10:11:00 Test Item Value Reference Range Interpretation Comments Lymphocytes # (test code = Lymphocytes 1.9 1.0-5.5 #) [facility] DistrictYtpuzofSQXYVEOEJW0593-24-10 10:11:00 Test Item Value Reference Range Interpretation Comments Neutrophils # (test code = Neutrophils 5.9 1.5-8.1 #) [facility]2019-05-02 10:10:00 Test Item Value Reference Range Interpretation Comments Magnesium Lvl (test code = Magnesium 2.1 1.8-2.4 Lvl) [facility]2019-05-02 10:10:00 Test Item Value Reference Range Interpretation Comments Phosphorus (test code = Phosphorus) 2.9 2.5-4.5 [facility] HospitalIzvpvikFVTHZTGIGYJL3591-59-54 10:10:00 Test Item Value Reference Range Interpretation Comments AGAP (test code = AGAP) 12.7 10.0-20.0 [facility] HospitalQqqszrrWAAPATPHYXPT9940-00-15 10:10:00 Test Item Value Reference Range Interpretation Comments eGFR (test code = eGFR) 68 [facility] HospitalTyrnianOULUCSMBCGPY6941-95-73 10:10:00 Test Item Value Reference Range Interpretation Comments Calcium Lvl (test code = Calcium Lvl) 8.7 8.5-10.5 [facility] HospitalCxgtryvYMNRVXWULXOC0745-29-01 10:10:00 Test Item Value Reference Range Interpretation Comments CO2 (test code = CO2) 24 24-32 [facility] HospitalYsfchzzSUGDUEDLBTPV6013-97-24 10:10:00 Test Item Value Reference Range Interpretation Comments Chloride Lvl (test code = Chloride Lvl) 109 95-109 [facility] HospitalEclfpbvTQAXYGZEASUI1277-25-49 10:10:00 Test Item Value Reference Range Interpretation Comments Potassium Lvl (test code = Potassium 3.7 3.5-5.1 Lvl) [facility] HospitalHnshwirCTKPDSETIOPX3089-81-44 10:10:00 Test Item Value Reference Range Interpretation Comments Sodium Lvl (test code = Sodium Lvl) 142 135-145 [facility] HospitalGinhxnlVKWIIIHMKGWU4116-77-19 10:10:00 Test Item Value Reference Range Interpretation Comments Glucose Lvl (test code = Glucose Lvl) 86 70-99 [facility] HospitalUsqoogfXHYPPSKASURK9361-36-09 10:10:00 Test Item Value Reference Range Interpretation Comments Creatinine Lvl (test code = Creatinine 0.80 0.50-1.40 Lvl) [facility] HospitalEgyiexfAHQPVPZGHSMJ1399-09-10 10:10:00 Test Item Value Reference Range Interpretation Comments BUN (test code = BUN) 14 7-22 [facility] DistrictJgxzjlfDLDJNPNGCE0299-17-65 10:10:00 Test Item Value Reference Range Interpretation Comments RBC (test code = RBC) 4.07 4.20-5.40 [facility] DistrictQinyyvaQLJJHAGWWF4606-87-33 10:10:00 Test Item Value Reference Range Interpretation Comments WBC (test code = WBC) 9.4 3.7-10.4 [facility] DistrictYvftithYWBBXIRUVT1199-16-55 10:10:00 Test Item Value Reference Range Interpretation Comments MCV (test code = MCV) 90.5 80.0-98.0 [facility] DistrictDbndwlkEBCOUAQKOD5642-90-20 10:10:00 Test Item Value Reference Range Interpretation Comments Hct (test code = Hct) 36.8 36.0-48.0 [facility] DistrictJndxhheLFSUVAKKBW9237-92-44 10:10:00 Test Item Value Reference Range Interpretation Comments MCHC (test code = MCHC) 32.9 32.0-36.0 [facility] DistrictHfomblnXHSVWVGBUD4132-03-59 10:10:00 Test Item Value Reference Range Interpretation Comments Hgb (test code = Hgb) 12.1 12.0-16.0 [facility] DistrictKxlzjmmZJBJHKXMWF6847-08-17 10:10:00 Test Item Value Reference Range Interpretation Comments MCH (test code = MCH) 29.7 pg 27.0-31.0 [facility] DistrictWnyqcpwCPRHCNNYUU7537-30-49 10:10:00 Test Item Value Reference Range Interpretation Comments MPV (test code = MPV) 8.8 7.4-10.4 [facility] DistrictXoowhuzDUBBUESPWS2297-10-80 10:10:00 Test Item Value Reference Range Interpretation Comments Platelet (test code = Platelet) 226 133-450 [facility] DistrictPhoffapCBHWSZNPMG8965-62-16 10:10:00 Test Item Value Reference Range Interpretation Comments RDW (test code = RDW) 14.0 11.5-14.5 [facility] DistrictBfqtlbiLGDQDULYED3916-15-85 10:10:00 Test Item Value Reference Range Interpretation Comments Monocytes # (test code 0.8 See_Comment [Aut omated message] The = Monocytes #) system which generated this result tra nsmitted reference range : <=0.8. The reference r tara was not used to int erpret this result as normal/abnormal . [facility] DistrictJzgobxvCRWSGKFWSG5675-66-27 10:10:00 Test Item Value Reference Range Interpretation Comments Lymphocytes # (test code = Lymphocytes 1.7 1.0-5.5 #) [facility] DistrictFwcckhzXOSJRNTHMN1066-53-47 10:10:00 Test Item Value Reference Range Interpretation Comments Neutrophils # (test code = Neutrophils 6.7 1.5-8.1 #) [facility] DistrictBigerbnIDSWHHWJWE7727-35-92 10:10:00 Test Item Value Reference Range Interpretation Comments Basophils (test code = 0.5 See_Comment [Aut omated message] The Basophils) system which ge nerated this result tra nsmitted reference range : <=1.0. The reference r tara was not used to int erpret this result as normal/abnormal . [facility] DistrictJpxkpdkVOFYMRPVSJ3233-23-55 10:10:00 Test Item Value Reference Range Interpretation Comments Eosinophils (test code = 1.4 See_Comment [A utomated message] The Eosinophils) system which ge nerated this result tra nsmitted reference range : <=4.0. The reference r tara was not used to int erpret this result as normal/abnormal . [facility] DistrictSewmtxiUAKBXKUOWZ7576-58-13 10:10:00 Test Item Value Reference Range Interpretation Comments Eosinophils # (test code 0.1 See_Comment [A utomated message] The = Eosinophils #) system whic h generated this result tra nsmitted reference range : <=0.5. The reference r tara was not used to int erpret this result as normal/abnormal . [facility] DistrictJsfrhpeBWVJXVIIGT3197-78-13 10:10:00 Test Item Value Reference Range Interpretation Comments Monocytes (test code = Monocytes) 9.0 2.0-12.0 [facility] DistrictHxxmaepOSDEHFBYFE4980-58-05 10:10:00 Test Item Value Reference Range Interpretation Comments Lymphocytes (test code = Lymphocytes) 17.9 20.0-40.0 [facility] DistrictRvfxjqaTXVYPLEMNL6210-09-69 10:10:00 Test Item Value Reference Range Interpretation Comments Segs (test code = Segs) 71.2 45.0-75.0 [facility]2019-05-02 10:10:00 Test Item Value Reference Range Interpretation Comments Magnesium Lvl (test code = Magnesium 2.1 1.8-2.4 Lvl) [facility]2019-05-02 10:10:00 Test Item Value Reference Range Interpretation Comments Phosphorus (test code = Phosphorus) 2.9 2.5-4.5 [facility] HospitalRdsdufeYGNAXWJSDPJJ3968-63-50 10:10:00 Test Item Value Reference Range Interpretation Comments AGAP (test code = AGAP) 12.7 10.0-20.0 [facility] HospitalUyxwpgvSIGOZMSRLNUB8497-62-17 10:10:00 Test Item Value Reference Range Interpretation Comments eGFR (test code = eGFR) 68 [facility] HospitalSggnrptNNBMNPMYUWXY3803-96-02 10:10:00 Test Item Value Reference Range Interpretation Comments Calcium Lvl (test code = Calcium Lvl) 8.7 8.5-10.5 [facility] HospitalSlzaeboNEURLKIDXPFR5377-49-30 10:10:00 Test Item Value Reference Range Interpretation Comments CO2 (test code = CO2) 24 24-32 [facility] HospitalWrdyjtmGMQMPCVXLLGM3197-64-49 10:10:00 Test Item Value Reference Range Interpretation Comments Chloride Lvl (test code = Chloride Lvl) 109 95-109 [facility] HospitalZoevyyjAPCDKMUOUOMP6431-96-58 10:10:00 Test Item Value Reference Range Interpretation Comments Potassium Lvl (test code = Potassium 3.7 3.5-5.1 Lvl) [facility] HospitalKjktlkjLZCXLINCNINX1934 10:10:00 Test Item Value Reference Range Interpretation Comments Sodium Lvl (test code = Sodium Lvl) 142 135-145 [facility] HospitalSeyqcyfEPPIYAKEPWBB5099-27-88 10:10:00 Test Item Value Reference Range Interpretation Comments Glucose Lvl (test code = Glucose Lvl) 86 70-99 [facility] HospitalAbotrrjVSKCUYZWWRHQ3070-98-37 10:10:00 Test Item Value Reference Range Interpretation Comments Creatinine Lvl (test code = Creatinine 0.80 0.50-1.40 Lvl) [facility] HospitalUqugwstYKAMJXKBILMJ9260-71-03 10:10:00 Test Item Value Reference Range Interpretation Comments BUN (test code = BUN) 14 7-22 [facility] DistrictJeboqqhKUTSZDFWZE3730-96-65 10:10:00 Test Item Value Reference Range Interpretation Comments RBC (test code = RBC) 4.07 4.20-5.40 [facility] DistrictHbhvdelDNFJYNUONG9250-36-21 10:10:00 Test Item Value Reference Range Interpretation Comments WBC (test code = WBC) 9.4 3.7-10.4 [facility] DistrictAwkdqroDSJBYPBCLE7781-35-13 10:10:00 Test Item Value Reference Range Interpretation Comments MCV (test code = MCV) 90.5 80.0-98.0 [facility] DistrictNdafashLKAGXWCRCQ9515-86-79 10:10:00 Test Item Value Reference Range Interpretation Comments Hct (test code = Hct) 36.8 36.0-48.0 [facility] DistrictWtvalrvQZBOYGNSKT0778-00-81 10:10:00 Test Item Value Reference Range Interpretation Comments MCHC (test code = MCHC) 32.9 32.0-36.0 [facility] DistrictEvjcvuuTVQSBHGMSV4850-00-83 10:10:00 Test Item Value Reference Range Interpretation Comments Hgb (test code = Hgb) 12.1 12.0-16.0 [facility] DistrictSmvsvvqBAAMWATQZS5083-52-06 10:10:00 Test Item Value Reference Range Interpretation Comments MCH (test code = MCH) 29.7 pg 27.0-31.0 [facility] DistrictSfxoobmIARTABYKEJ1081-06-08 10:10:00 Test Item Value Reference Range Interpretation Comments MPV (test code = MPV) 8.8 7.4-10.4 [facility] DistrictJqzxudcPKGSVJFGMD7001-88-12 10:10:00 Test Item Value Reference Range Interpretation Comments Platelet (test code = Platelet) 226 133-450 [facility] DistrictCpmpsjgJUKKLWRPHS5937-19-60 10:10:00 Test Item Value Reference Range Interpretation Comments RDW (test code = RDW) 14.0 11.5-14.5 [facility] DistrictWtwerkrELQMAVLBAV9138-77-69 10:10:00 Test Item Value Reference Range Interpretation Comments Monocytes # (test code 0.8 See_Comment [Aut omated message] The = Monocytes #) system which generated this result tra nsmitted reference range : <=0.8. The reference r tara was not used to int erpret this result as normal/abnormal . [facility] DistrictSqygmruZWJESCVNBO1577-24-09 10:10:00 Test Item Value Reference Range Interpretation Comments Lymphocytes # (test code = Lymphocytes 1.7 1.0-5.5 #) [facility] DistrictQnozjsuIZNFINZPMW2136-59-45 10:10:00 Test Item Value Reference Range Interpretation Comments Neutrophils # (test code = Neutrophils 6.7 1.5-8.1 #) [facility] DistrictMdnqyevBYTXJLQVNN3084-90-66 10:10:00 Test Item Value Reference Range Interpretation Comments Basophils (test code = 0.5 See_Comment [Aut omated message] The Basophils) system which ge nerated this result tra nsmitted reference range : <=1.0. The reference r tara was not used to int erpret this result as normal/abnormal . [facility] DistrictVcyaxzrBKPDDYLSPP6212-07-36 10:10:00 Test Item Value Reference Range Interpretation Comments Eosinophils (test code = 1.4 See_Comment [A utomated message] The Eosinophils) system which ge nerated this result tra nsmitted reference range : <=4.0. The reference r tara was not used to int erpret this result as normal/abnormal . [facility] DistrictKslxospBJXRUDQUHB7617-75-79 10:10:00 Test Item Value Reference Range Interpretation Comments Eosinophils # (test code 0.1 See_Comment [A utomated message] The = Eosinophils #) system whic h generated this result tra nsmitted reference range : <=0.5. The reference r tara was not used to int erpret this result as normal/abnormal . [facility] DistrictUmptphoVICRTKGWEM3840-02-98 10:10:00 Test Item Value Reference Range Interpretation Comments Monocytes (test code = Monocytes) 9.0 2.0-12.0 [facility] DistrictCchzdujJQJYICPKLP1158-87-27 10:10:00 Test Item Value Reference Range Interpretation Comments Lymphocytes (test code = Lymphocytes) 17.9 20.0-40.0 [facility] ResourcesAufwtkfZJDYWAWYWX5217-09-40 10:10:00 Test Item Value Reference Range Interpretation Comments Segs (test code = Segs) 71.2 45.0-75.0 [facility] ResourcesCARAD[facility] KSLMJBA0643-01-69 16:25:00 Test Item Value Reference Range Interpretation Comments Troponin-I (test code 0.02 See_Comment [Auto mated message] The = Troponin-I) system which g enerated this result transmit zen reference range : <=0.40. The reference r tara was not used to interpr et this result as albina l/abnormal. [facility] CLQHXQY5581-02-08 16:25:00 Test Item Value Reference Range Interpretation Comments Troponin-I (test code 0.02 See_Comment [Auto mated message] The = Troponin-I) system which g enerated this result transmit zen reference range : <=0.40. The reference r tara was not used to interpr et this result as albina l/abnormal. [facility] ResourcesTigerlilyADVENTHEALTH [facility] LLAZLFI8222-81-17 10:17:00 Test Item Value Reference Range Interpretation Comments Troponin-I (test code 0.02 See_Comment [Auto mated message] The = Troponin-I) system which g enerated this result transmit zen reference range : <=0.40. The reference r tara was not used to interpr et this result as albina l/abnormal. [facility] ResourcesDR[facility] RIEVQQ1601-37-10 10:17:00 Test Item Value Reference Range Interpretation Comments U Amph Scr (test code Negative *NA*(11/09/18 = U Amph Scr) 5:17 AM) [facility] ResourcesDR[facility] UTXSIJ2394-40-03 10:17:00 Test Item Value Reference Range Interpretation Comments U Opiate Scr (test Negative *NA*(11/09/18 code = U Opiate Scr) 5:17 AM) [facility] DJQEMN2818-60-76 10:17:00 Test Item Value Reference Range Interpretation Comments U Cannab Scr (test Negative *NA*(11/09/18 code = U Cannab Scr) 5:17 AM) [facility] ResourcesDR[facility] ICUUOK5390-25-89 10:17:00 Test Item Value Reference Range Interpretation Comments U Cocaine Scr (test Negative *NA*(11/09/18 code = U Cocaine Scr) 5:17 AM) [facility] [id number] 10:17:00 Test Item Value Reference Range Interpretation Comments U Benzodiaz Scr (test Positive *ABN*(11/09/18 code = U Benzodiaz Scr) 5:17 AM) [facility] [id number] 10:17:00 Test Item Value Reference Range Interpretation Comments U Adilene Scr (test code Negative *NA*(11/09/18 = U Adilene Scr) 5:17 AM) [facility] [id number] 10:17:00 Test Item Value Reference Range Interpretation Comments UDS Note (test code = See Note (11/09/18 5:17 UDS Note) AM) [facility] [id number] 10:17:00 Test Item Value Reference Range Interpretation Comments U Phencyclidine Scr (test Negative *NA*(11/09/18 code = U Phencyclidine 5:17 AM) Scr) [facility] [id number] 10:17:00 Test Item Value Reference Range Interpretation Comments UA Sq Epi (test code = UA Sq Epi) None Seen [facility] [id number] 10:17:00 Test Item Value Reference Range Interpretation Comments UA Bacteria (test code = UA Occasional /HPF Bacteria) [facility] [id number] 10:17:00 Test Item Value Reference Range Interpretation Comments UA Mucus (test code = UA Mucus) Few /LPF [facility] [id number] 10:17:00 Test Item Value Reference Range Interpretation Comments UA Urobilinogen (test code = UA no gt 0.1-1.0 [facility]ogen) [facility] [id number] 10:17:00 Test Item Value Reference Range Interpretation Comments UA Color (test code = UA Color) Ltyellow [facility] [id number] 10:17:00 Test Item Value Reference Range Interpretation Comments UA RBC (test code = 7 See_Comment [Automa zen message] The UA RBC) system which ge nerated this result transmit zen reference range : <=2. The reference range was not used to interpr et this result as albina l/abnormal. [facility] [id number] 10:17:00 Test Item Value Reference Range Interpretation Comments UA WBC (test code = 2 See_Comment [Automa zen message] The UA WBC) system which ge nerated this result transmit zen reference range : <=5. The reference range was not used to interpr et this result as albina l/abnormal. [facility] AND [id number] 10:17:00 Test Item Value Reference Range Interpretation Comments UA Leuk Est (test code Trace *ABN*(11/09/18 5:17 = UA Leuk Est) AM) [facility] AND [id number] 10:17:00 Test Item Value Reference Range Interpretation Comments UA Bili (test code = Negative *NA*(11/09/18 UA Bili) 5:17 AM) [facility] AND [id number] 10:17:00 Test Item Value Reference Range Interpretation Comments UA Blood (test code = Small *ABN*(11/09/18 UA Blood) 5:17 AM) [facility] AND [id number] 10:17:00 Test Item Value Reference Range Interpretation Comments UA Nitrite (test code Negative (11/09/18 5:17 = UA Nitrite) AM) [facility] AND [id number] 10:17:00 Test Item Value Reference Range Interpretation Comments UA Ketones (test code = UA Trace mg/dL Ketones) [facility] AND [id number] 10:17:00 Test Item Value Reference Range Interpretation Comments UA pH (test code = UA pH) 6.0 1 5.0-8.0 [facility] AND [id number] 10:17:00 Test Item Value Reference Range Interpretation Comments UA Glucose (test code = UA Negative mg/dL Glucose) [facility] AND [id number] 10:17:00 Test Item Value Reference Range Interpretation Comments UA Protein (test code = UA Negative mg/dL Protein) [facility] AND [id number] 10:17:00 Test Item Value Reference Range Interpretation Comments UA Spec Grav (test code = UA Spec 1.008 1 Grav) [facility] AND [id number] 10:17:00 Test Item Value Reference Range Interpretation Comments UA Turbidity (test code = Clear (11/09/18 5:17 UA Turbidity) AM) [facility] [id number] 10:17:00 Test Item Value Reference Range Interpretation Comments Troponin-I (test code 0.02 See_Comment [Auto mated message] The = Troponin-I) system which g enerated this result transmit zen reference range : <=0.40. The reference r tara was not used to interpr et this result as albina l/abnormal. [facility] [id number] 10:17:00 Test Item Value Reference Range Interpretation Comments U Amph Scr (test code Negative *NA*(11/09/18 = U Amph Scr) 5:17 AM) [facility] [id number] 10:17:00 Test Item Value Reference Range Interpretation Comments U Opiate Scr (test Negative *NA*(11/09/18 code = U Opiate Scr) 5:17 AM) [facility] [id number] 10:17:00 Test Item Value Reference Range Interpretation Comments U Cannab Scr (test Negative *NA*(11/09/18 code = U Cannab Scr) 5:17 AM) [facility] [id number] 10:17:00 Test Item Value Reference Range Interpretation Comments U Cocaine Scr (test Negative *NA*(11/09/18 code = U Cocaine Scr) 5:17 AM) [facility] [id number] 10:17:00 Test Item Value Reference Range Interpretation Comments U Benzodiaz Scr (test Positive *ABN*(11/09/18 code = U Benzodiaz Scr) 5:17 AM) [facility] [id number] 10:17:00 Test Item Value Reference Range Interpretation Comments U Adilene Scr (test code Negative *NA*(11/09/18 = U Adilene Scr) 5:17 AM) [facility] [id number] 10:17:00 Test Item Value Reference Range Interpretation Comments UDS Note (test code = See Note (11/09/18 5:17 UDS Note) AM) [facility] [id number] 10:17:00 Test Item Value Reference Range Interpretation Comments U Phencyclidine Scr (test Negative *NA*(11/09/18 code = U Phencyclidine 5:17 AM) Scr) [facility] [id number] 10:17:00 Test Item Value Reference Range Interpretation Comments UA Sq Epi (test code = UA Sq Epi) None Seen [facility] AND [id number] 10:17:00 Test Item Value Reference Range Interpretation Comments UA Bacteria (test code = UA Occasional /HPF Bacteria) [facility] AND [id number] 10:17:00 Test Item Value Reference Range Interpretation Comments UA Mucus (test code = UA Mucus) Few /LPF [facility] AND [id number] 10:17:00 Test Item Value Reference Range Interpretation Comments UA Urobilinogen (test code = UA no gt 0.1-1.0 Urobilinogen) [facility] AND [id number] 10:17:00 Test Item Value Reference Range Interpretation Comments UA Color (test code = UA Color) Ltyellow [facility] AND [id number] 10:17:00 Test Item Value Reference Range Interpretation Comments UA RBC (test code = 7 See_Comment [Automa zen message] The UA RBC) system which ge nerated this result transmit zen reference range : <=2. The reference range was not used to interpr et this result as albina l/abnormal. [facility] AND [id number] 10:17:00 Test Item Value Reference Range Interpretation Comments UA WBC (test code = 2 See_Comment [Automa zen message] The UA WBC) system which ge nerated this result transmit zen reference range : <=5. The reference range was not used to interpr et this result as albina l/abnormal. [facility] AND [id number] 10:17:00 Test Item Value Reference Range Interpretation Comments UA Leuk Est (test code Trace *ABN*(11/09/18 5:17 = UA Leuk Est) AM) [facility] AND [id number] 10:17:00 Test Item Value Reference Range Interpretation Comments UA Bili (test code = Negative *NA*(11/09/18 UA Bili) 5:17 AM) [facility] AND [id number] 10:17:00 Test Item Value Reference Range Interpretation Comments UA Blood (test code = Small *ABN*(11/09/18 UA Blood) 5:17 AM) [facility] AND [id number] 10:17:00 Test Item Value Reference Range Interpretation Comments UA Nitrite (test code Negative (11/09/18 5:17 = UA Nitrite) AM) [facility] AND [id number] 10:17:00 Test Item Value Reference Range Interpretation Comments UA Ketones (test code = UA Trace mg/dL Ketones) [facility] AND [id number] 10:17:00 Test Item Value Reference Range Interpretation Comments UA pH (test code = UA pH) 6.0 1 5.0-8.0 [facility] AND [id number] 10:17:00 Test Item Value Reference Range Interpretation Comments UA Glucose (test code = UA Negative mg/dL Glucose) [facility] AND [id number] 10:17:00 Test Item Value Reference Range Interpretation Comments UA Protein (test code = UA Negative mg/dL Protein) [facility] AND [id number] 10:17:00 Test Item Value Reference Range Interpretation Comments UA Spec Grav (test code = UA Spec 1.008 1 Grav) [facility] AND [id number] 10:17:00 Test Item Value Reference Range Interpretation Comments UA Turbidity (test code = Clear (11/09/18 5:17 UA Turbidity) AM) [facility] - [id number] 09:07:00 Test Item Value Reference Range Interpretation Comments MRSA by PCR (test Negative (11/09/18 4:07 code = MRSA by PCR) AM) [facility] ResourcesCHE[facility] [id number] 09:07:00 Test Item Value Reference Range Interpretation Comments Bili Direct (test code 0.1 See_Comment [Aut omated message] The = Bili Direct) system which generated this result tra nsmitted reference range : <=0.3. The reference r tara was not used to int erpret this result as albina l/abnormal. [facility] ResourcesIn[facility] [id number] 09:07:00 Test Item Value Reference Range Interpretation Comments Globulin (test code = Globulin) 3.5 2.7-4.2 [facility] Resources[facility] [id number] 09:07:00 Test Item Value Reference Range Interpretation Comments A/G Ratio (test code = A/G Ratio) 1.0 1 0.7-1.6 [facility]2019-05-01 09:07:00 Test Item Value Reference Range Interpretation Comments B/C Ratio (test code = B/C Ratio) 24 1 6-25 [place] 141899-05-01 09:07:00 Test Item Value Reference Range Interpretation Comments AGAP (test code = AGAP) 8.7 10.0-20.0 [place] 141899-05-01 09:07:00 Test Item Value Reference Range Interpretation Comments eGFR (test code = eGFR) 59 [facility]2019-05-01 09:07:00 Test Item Value Reference Range Interpretation Comments Total Protein (test code = Total 7.1 6.4-8.4 Protein) [place] 141899-05-01 09:07:00 Test Item Value Reference Range Interpretation Comments Albumin Lvl (test code = Albumin Lvl) 3.6 3.5-5.0 [place] 141899-05-01 09:07:00 Test Item Value Reference Range Interpretation Comments ALT (test code = ALT) 51 See_Comment [Auto mated message] The system which ge nerated this result transmit zen reference range : <=65. The reference range was not used to interpr et this result as albina l/abnormal. [facility]2019-05-01 09:07:00 Test Item Value Reference Range Interpretation Comments AST (test code = AST) 33 See_Comment [Auto mated message] The system which ge nerated this result transmit zen reference range : <=37. The reference range was not used to interpr et this result as albina l/abnormal. [facility]2019-05-01 09:07:00 Test Item Value Reference Range Interpretation Comments Bili Total (test code = Bili Total) 0.5 0.2-1.3 [place] 141899-05-01 09:07:00 Test Item Value Reference Range Interpretation Comments Alk Phos (test code = Alk Phos) 143 39-136 [place] 141899-05-01 09:07:00 Test Item Value Reference Range Interpretation Comments Glucose Lvl (test code = Glucose Lvl) 122 70-99 [facility]2019-05-01 09:07:00 Test Item Value Reference Range Interpretation Comments Creatinine Lvl (test code = Creatinine 0.90 0.50-1.40 Lvl) [facility]2019-05-01 09:07:00 Test Item Value Reference Range Interpretation Comments BUN (test code = BUN) 22 7-22 [facility]2019-05-01 09:07:00 Test Item Value Reference Range Interpretation Comments Sodium Lvl (test code = Sodium Lvl) 138 135-145 [place] 141899-05-01 09:07:00 Test Item Value Reference Range Interpretation Comments Potassium Lvl (test code = Potassium 3.7 3.5-5.1 Lvl) [facility]2019-05-01 09:07:00 Test Item Value Reference Range Interpretation Comments Chloride Lvl (test code = Chloride Lvl) 107 95-109 [facility]2019-05-01 09:07:00 Test Item Value Reference Range Interpretation Comments CO2 (test code = CO2) 26 24-32 [place] 141899-05-01 09:07:00 Test Item Value Reference Range Interpretation Comments Calcium Lvl (test code = Calcium Lvl) 8.8 8.5-10.5 [facility] DistrictQowtqpoQLUTASFNXX5645-28-03 09:07:00 Test Item Value Reference Range Interpretation Comments Neutrophils # (test code = Neutrophils 11.5 1.5-8.1 #) [facility] DistrictCkpnfiwCVNXGBCWIB0193-45-99 09:07:00 Test Item Value Reference Range Interpretation Comments Lymphocytes # (test code = Lymphocytes 0.8 1.0-5.5 #) [facility] Di[id number] 09:07:00 Test Item Value Reference Range Interpretation Comments Lymphocytes (test code = Lymphocytes) 5.8 20.0-40.0 [place] 479379-05-01 09:07:00 Test Item Value Reference Range Interpretation Comments Basophils (test code = 0.1 See_Comment [Aut omated message] The Basophils) system which ge nerated this result tra nsmitted reference range : <=1.0. The reference r tara was not used to int erpret this result as normal/abnormal . [facility] DistrictDpwvzkjTCPFAIYDVA7281-15-40 09:07:00 Test Item Value Reference Range Interpretation Comments Monocytes # (test code 0.9 See_Comment [Aut omated message] The = Monocytes #) system which generated this result tra nsmitted reference range : <=0.8. The reference r tara was not used to int erpret this result as normal/abnormal . [facility] DistrictFrzvugsITCMEGDRZB5219-79-42 09:07:00 Test Item Value Reference Range Interpretation Comments Segs (test code = Segs) 87.6 45.0-75.0 [facility] DistrictVyhlosdVLJVOUAYPL5680-31-05 09:07:00 Test Item Value Reference Range Interpretation Comments Monocytes (test code = Monocytes) 6.5 2.0-12.0 [facility] DistrictWjjfqwvBEIXVASDRP1561-55-75 09:07:00 Test Item Value Reference Range Interpretation Comments Platelet (test code = Platelet) 229 133-450 [facility] DistrictBrssxnmZJIFVIKISR4030-93-51 09:07:00 Test Item Value Reference Range Interpretation Comments MPV (test code = MPV) 8.6 7.4-10.4 [facility] DistrictZwguwbbBGLGCFEITC2146-04-64 09:07:00 Test Item Value Reference Range Interpretation Comments WBC (test code = WBC) 13.2 3.7-10.4 [facility] DistrictEmaqxddBXSGFMLUUA8412-36-84 09:07:00 Test Item Value Reference Range Interpretation Comments RBC (test code = RBC) 4.22 4.20-5.40 [facility] DistrictFzvsgpkQKLZIYWTNF3675-78-13 09:07:00 Test Item Value Reference Range Interpretation Comments Hgb (test code = Hgb) 12.1 12.0-16.0 [facility] DistrictRucarlkHFSKMFTPZL9367-98-80 09:07:00 Test Item Value Reference Range Interpretation Comments Hct (test code = Hct) 37.9 36.0-48.0 [facility] DistrictNjwbkolNINZQOKCAZ5331-91-88 09:07:00 Test Item Value Reference Range Interpretation Comments MCH (test code = MCH) 28.7 pg 27.0-31.0 [facility] DistrictNtniblxEJKGQGYSHV1373-04-25 09:07:00 Test Item Value Reference Range Interpretation Comments MCHC (test code = MCHC) 31.9 32.0-36.0 [facility] DistrictPpjlebuHAQJNAVPIM5793-22-58 09:07:00 Test Item Value Reference Range Interpretation Comments RDW (test code = RDW) 13.7 11.5-14.5 [facility] DistrictUwewwvnKGYAGPGLHF0187-69-73 09:07:00 Test Item Value Reference Range Interpretation Comments MCV (test code = MCV) 90.0 80.0-98.0 [facility] CenterBaouusiCGEXXO3203-81-24 09:07:00 Test Item Value Reference Range Interpretation Comments VLDL (test code = VLDL) 9 1 [facility] CenterNancohyONISCZ2452-55-60 09:07:00 Test Item Value Reference Range Interpretation Comments LDL (Calculated) (test code = LDL 87 (Calculated)) [facility] CenterUfhzmavIHBEYF6829-72-21 09:07:00 Test Item Value Reference Range Interpretation Comments Trig (test code = Trig) 45 [facility] CenterCfmvblkHUQESU1757-92-43 09:07:00 Test Item Value Reference Range Interpretation Comments Chol (test code = Chol) 163 [facility] CenterHawrwudJLIATI6309-14-97 09:07:00 Test Item Value Reference Range Interpretation Comments HDL (test code = HDL) 67 [facility] CenterEvdjdjwJJMEXH4760-51-52 09:07:00 Test Item Value Reference Range Interpretation Comments CHD Risk (test code = CHD Risk) 2.43 1 3.90-5.80 [facility] ResourcesSPECIAL WTVCLGPFF1888-99-71 09:07:00 Test Item Value Reference Range Interpretation Comments Hgb A1C (test code = Hgb A1C) 5.8 [facility] ResourcesBACTERIAL - [id number] 09:07:00 Test Item Value Reference Range Interpretation Comments MRSA by PCR (test Negative (11/09/18 4:07 code = MRSA by PCR) AM) [facility] CenterQuotteCHEM [id number] 09:07:00 Test Item Value Reference Range Interpretation Comments Bili Direct (test code 0.1 See_Comment [Aut omated message] The = Bili Direct) system which generated this result tra nsmitted reference range : <=0.3. The reference r tara was not used to int erpret this result as albina l/abnormal. [facility] [employer] [id number] 09:07:00 Test Item Value Reference Range Interpretation Comments Globulin (test code = Globulin) 3.5 2.7-4.2 [facility] CenterSentim[facility] Corporation [id number] 09:07:00 Test Item Value Reference Range Interpretation Comments A/G Ratio (test code = A/G Ratio) 1.0 1 0.7-1.6 [facility] [id number] 09:07:00 Test Item Value Reference Range Interpretation Comments B/C Ratio (test code = B/C Ratio) 24 1 6-25 [facility]2019-05-01 09:07:00 Test Item Value Reference Range Interpretation Comments AGAP (test code = AGAP) 8.7 10.0-20.0 [place] 141899-05-01 09:07:00 Test Item Value Reference Range Interpretation Comments eGFR (test code = eGFR) 59 [facility]2019-05-01 09:07:00 Test Item Value Reference Range Interpretation Comments Total Protein (test code = Total 7.1 6.4-8.4 Protein) [facility]2019-05-01 09:07:00 Test Item Value Reference Range Interpretation Comments Albumin Lvl (test code = Albumin Lvl) 3.6 3.5-5.0 [place] 141899-05-01 09:07:00 Test Item Value Reference Range Interpretation Comments ALT (test code = ALT) 51 See_Comment [Auto mated message] The system which ge nerated this result transmit zen reference range : <=65. The reference range was not used to interpr et this result as albina l/abnormal. [facility]2019-05-01 09:07:00 Test Item Value Reference Range Interpretation Comments AST (test code = AST) 33 See_Comment [Auto mated message] The system which ge nerated this result transmit zen reference range : <=37. The reference range was not used to interpr et this result as albina l/abnormal. [facility]2019-05-01 09:07:00 Test Item Value Reference Range Interpretation Comments Bili Total (test code = Bili Total) 0.5 0.2-1.3 [facility]2019-05-01 09:07:00 Test Item Value Reference Range Interpretation Comments Alk Phos (test code = Alk Phos) 143 39-136 [facility]2019-05-01 09:07:00 Test Item Value Reference Range Interpretation Comments Glucose Lvl (test code = Glucose Lvl) 122 70-99 [facility]2019-05-01 09:07:00 Test Item Value Reference Range Interpretation Comments Creatinine Lvl (test code = Creatinine 0.90 0.50-1.40 Lvl) [facility]2019-05-01 09:07:00 Test Item Value Reference Range Interpretation Comments BUN (test code = BUN) 22 7-22 [facility]2019-05-01 09:07:00 Test Item Value Reference Range Interpretation Comments Sodium Lvl (test code = Sodium Lvl) 138 135-145 [facility]2019-05-01 09:07:00 Test Item Value Reference Range Interpretation Comments Potassium Lvl (test code = Potassium 3.7 3.5-5.1 Lvl) [facility]2019-05-01 09:07:00 Test Item Value Reference Range Interpretation Comments Chloride Lvl (test code = Chloride Lvl) 107 95-109 [facility]2019-05-01 09:07:00 Test Item Value Reference Range Interpretation Comments CO2 (test code = CO2) 26 24-32 [place] 141899-05-01 09:07:00 Test Item Value Reference Range Interpretation Comments Calcium Lvl (test code = Calcium Lvl) 8.8 8.5-10.5 [facility] DistrictVcpzudyDUZIJNAZLH9694-88-40 09:07:00 Test Item Value Reference Range Interpretation Comments Neutrophils # (test code = Neutrophils 11.5 1.5-8.1 #) [facility] DistrictKeaghpoEXQSDLOOYO8528-12-87 09:07:00 Test Item Value Reference Range Interpretation Comments Lymphocytes # (test code = Lymphocytes 0.8 1.0-5.5 #) [facility] DistrictBpbhcfeOTOHGJDEPX8828-57-84 09:07:00 Test Item Value Reference Range Interpretation Comments Lymphocytes (test code = Lymphocytes) 5.8 20.0-40.0 [place] 479379-05-01 09:07:00 Test Item Value Reference Range Interpretation Comments Basophils (test code = 0.1 See_Comment [Aut omated message] The Basophils) system which ge nerated this result tra nsmitted reference range : <=1.0. The reference r tara was not used to int erpret this result as normal/abnormal . [facility] DistrictOqccpxvGMZSIHLNXI6308-06-53 09:07:00 Test Item Value Reference Range Interpretation Comments Monocytes # (test code 0.9 See_Comment [Aut omated message] The = Monocytes #) system which generated this result tra nsmitted reference range : <=0.8. The reference r tara was not used to int erpret this result as normal/abnormal . [facility] DistrictXsqvlfyEUNWOEHSIC4915-68-15 09:07:00 Test Item Value Reference Range Interpretation Comments Segs (test code = Segs) 87.6 45.0-75.0 [facility] DistrictUrascqyKJXUKRKCLV9693-91-23 09:07:00 Test Item Value Reference Range Interpretation Comments Monocytes (test code = Monocytes) 6.5 2.0-12.0 [facility] DistrictUhpgpbxXRYPJMYJME5169-65-85 09:07:00 Test Item Value Reference Range Interpretation Comments Platelet (test code = Platelet) 229 133-450 [facility] DistrictOtuwedcSKYMRVPEKV0896-73-88 09:07:00 Test Item Value Reference Range Interpretation Comments MPV (test code = MPV) 8.6 7.4-10.4 [facility] DistrictBhgbpblLZUKTLJDVR1651-65-04 09:07:00 Test Item Value Reference Range Interpretation Comments WBC (test code = WBC) 13.2 3.7-10.4 [facility] DistrictQasdiqrGQNEGYJGVD9014-15-71 09:07:00 Test Item Value Reference Range Interpretation Comments RBC (test code = RBC) 4.22 4.20-5.40 [facility] DistrictZcmevqdQDKTBUTTHP2305-61-20 09:07:00 Test Item Value Reference Range Interpretation Comments Hgb (test code = Hgb) 12.1 12.0-16.0 [facility] DistrictNsijfvvQBUHRKRYJR1637-53-07 09:07:00 Test Item Value Reference Range Interpretation Comments Hct (test code = Hct) 37.9 36.0-48.0 [facility] DistrictLeiineqSNPMWIUODQ8494-58-42 09:07:00 Test Item Value Reference Range Interpretation Comments MCH (test code = MCH) 28.7 pg 27.0-31.0 [facility] DistrictYpftwwcJWBGCMMPIU5919-51-99 09:07:00 Test Item Value Reference Range Interpretation Comments MCHC (test code = MCHC) 31.9 32.0-36.0 [facility] DistrictRqpjumdQXTDSTIOTF7529-64-16 09:07:00 Test Item Value Reference Range Interpretation Comments RDW (test code = RDW) 13.7 11.5-14.5 [facility] DistrictNghdkbpSVFIVTZJFZ5241-23-66 09:07:00 Test Item Value Reference Range Interpretation Comments MCV (test code = MCV) 90.0 80.0-98.0 [facility] ResourcesHvglyijSNCMPA9884-34-03 09:07:00 Test Item Value Reference Range Interpretation Comments VLDL (test code = VLDL) 9 1 [facility] ResourcesGftdufaJDQBLW5571-68-88 09:07:00 Test Item Value Reference Range Interpretation Comments LDL (Calculated) (test code = LDL 87 (Calculated)) [facility] ResourcesRzxjjfoXSMBBD0763-27-71 09:07:00 Test Item Value Reference Range Interpretation Comments Trig (test code = Trig) 45 [facility] ResourcesIhwjokjXSKGQL1814-70-98 09:07:00 Test Item Value Reference Range Interpretation Comments Chol (test code = Chol) 163 [id number] 09:07:00 Test Item Value Reference Range Interpretation Comments HDL (test code = HDL) 67 [facility] [id number] 09:07:00 Test Item Value Reference Range Interpretation Comments CHD Risk (test code = CHD Risk) 2.43 1 3.90-5.80 [facility] [id number] 09:07:00 Test Item Value Reference Range Interpretation Comments Hgb A1C (test code = Hgb A1C) 5.8 [facility] [id number] 05:00:00 Test Item Value Reference Range Interpretation Comments Troponin-I (test code 0.02 See_Comment [Auto mated message] The = Troponin-I) system which g enerated this result transmit zen reference range : <=0.40. The reference r tara was not used to interpr et this result as albina l/abnormal. [id number] 05:00:00 Test Item Value Reference Range Interpretation Comments D-Dimer (test code = D-Dimer) 4.23 [facility] [id number] 05:00:00 Test Item Value Reference Range Interpretation Comments Troponin-I (test code 0.02 See_Comment [Auto mated message] The = Troponin-I) system which g enerated this result transmit zen reference range : <=0.40. The reference r tara was not used to interpr et this result as albina l/abnormal. [id number] 05:00:00 Test Item Value Reference Range Interpretation Comments D-Dimer (test code = D-Dimer) 4.23 [facility] Notes Date/Time Note Provider Source 2018-11-09 01:54:00-00:00 PROCEDURE: [facility], [place] on 11/09/2018 at 0424 hours. INDICATION: Respiratory distress - For hypoxemia . COMPARISON: None. FINDINGS: Support tubes, catheters, devices: None. Small right pleural effusion . No visualized left pleural effusion. No pneumothorax. Extensive interstitial alveolar density is present throughout the bilateral upper and lower chest. No focal consolidat ion. Aortic wall calcificati ons. Cardiac silhouette is not enlarged. Mild degenerative changes. IMPRESSION: 1. Small right pleural effusion. 2. Extensive diffuse bilater al pulmonary edema or acute infiltrates, pneumonia. SL: [id number] 2018-11-08 23:25:00-00:00 Brain wo contrast MRI [facility] History: rt side weakness - right hemisensory de ficit Comparison:None. Technique: Multiplanar and m ultisequence imaging of the brain was obtained without contrast. Findings: Acute ischemic infarct invol ving the left thalamus and left occipital lobe is identified. Small volume acute ischemic infarct involving the right occipital lobe is also noted. No evidence of mass, mass ef fect, extra axial fluid collection, hydrocephalus or midline shift. Scattered and confluent kj ventricular and deep white matter T2/FLAIR changes are identified, nonspecific but commonly seen in the setting of mild to moderate chronic ischemic small vessel changes. Punctate chronic microhemorr nola or mineralization along the left medial parieto-occipital lobe. The visualized paranasal sinuses are clear. The mastoid air cells are clear. Impression: Acute ischemic infarcts invo lving the left thalamus and left occipital lobe in a left VECTOR CONTROL ASSISTANT distribution. Acute small volume infarct involving the right o ccipital lobe is also noted. Mrso-pk-fgevmdyh chronic ischemic small vessel c hanges. Findings (acute ischemic inf arcts) were discussed with patient's nurse Bibit at 6:50 AM on 11/09/2018. GOSIA: UKUDMARCE 2018-11-08 23:25:00-00:00 Clinical Indication: rt side weakness - right hemisensory. [facility] Comparison: None Technique: Magnetic resonanc e angiography of the neck was performed without gadolinium contrast with time of flight technique. 3-D maximum intensity projection images were obtained. Full and complete MRA neck without contrast exam was performed. FINDINGS: Patient motion slightly degrades exam quality. Bilateral common carotid arteries are widely pat ent. Bilateral internal carotid a rteries and carotid bulb regions are patent without significant stenosis by NASCET criteria. Bilateral external carotid arteries are patent. Motion limits evaluation of the vertebral artery origins. Bilateral vertebral arteries are widely patent without stenosis. The visualized intracranial segments of the vertebral arteries are widely patent. The source images show no evidence of carotid or vertebral artery dissection. Any reported ICA stenoses di rectly reference the distal internal carotid diameter as the denominator for stenosis measurement. (NASCET criteria) Small bilateral pleural effusions may be present . IMPRESSION: Patient motion slightly degrades exam quality. 1. No evidence to suggest he modynamically significant carotid arterial stenosis by NASCET criteria. The vertebral arteries are patent. GOSIA: AUTUMN 2018-11-08 23:25:00-00:00 Clinical Indication: rt side weakness - rigt hemisensory. [facility] Comparison: None Technique: Magnetic resonanc e angiography of the ambler of [place] was performed without contrast. 3D reconstructed images were created. Full and complete MRA of the head without contrast was performed. FINDINGS: The petrous, mariana nous, ophthalmic and supraclinoid portions of the bilateral internal carotid arteries have normal caliber. The A1 and A2 segments of the bilateral anterior cerebral arteries are patent. The M1 and M2 segments of bi lateral middle cerebral arteries and branches have normal caliber. Bilateral vertebral arteries and basilar artery are patent. Abrupt occlusion of the left VECTOR CONTROL ASSISTANT at the P2/P3 segment junction with minimal to no flow noted within the left distal VECTOR CONTROL ASSISTANT territory. The major right VECTOR CONTROL ASSISTANT is patent. There is no aneurysm, vascul ar malformation, or significant atherosclerotic disease. If there is further clinical concern, CT angiogr aphy may be performed. IMPRESSION: Abrupt occlusion of the left VECTOR CONTROL ASSISTANT at the P2/P3 segment with minimal to no flow noted within the left distal VECTOR CONTROL ASSISTANT territory. Findings were discussed with patient's nurse Bib it at 6:50 AM on 11/09/2018. GOSIA: AUTUMN
--- NOTE | 2023-01-07 11:33 | RAD REPORT ---
EXAM DESCRIPTION: US - UPPER EXTREMITY VENOUS UNILATE - 01/07/2023 11:23 am CLINICAL HISTORY: pain, swelling Arm pain and swelling COMPARISON: <Comparisons> FINDINGS: Right upper extremity venous system was interrogated with Doppler technique. Normal flow, compressibility and augmentation was noted. There is no DVT present. IMPRESSION: No evidence of right upper extremity deep venous thrombosis.
--- NOTE | 2023-01-07 11:50 | RAD REPORT ---
EXAM DESCRIPTION: RAD - Shoulder Right 2 View - 01/07/2023 11:37 am CLINICAL HISTORY: shoulder pain COMPARISON: <Comparisons> FINDINGS: Mild AC joint and glenohumeral joint arthritic changes. Mild diffuse osteopenia. No acute fracture or dislocation seen.
--- NOTE | 2023-01-07 11:52 | RAD REPORT ---
EXAM DESCRIPTION: RAD - Humerus Right - 01/07/2023 11:41 am CLINICAL HISTORY: arm pain COMPARISON: <Comparisons> FINDINGS: Mild osteopenia noted. No acute fracture or dislocation seen.
--- NOTE | 2023-01-07 11:53 | RAD REPORT ---
EXAM DESCRIPTION: RAD - Wrist Right 3 View - 01/07/2023 11:43 am CLINICAL HISTORY: wrist pain Pain COMPARISON: <Comparisons> FINDINGS: Diffuse osteopenia is seen. 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 No acute fracture or dislocation.
--- NOTE | 2023-01-07 11:55 | ER ---
Nurse's Notes [facility] Name: Jarrell Rodrigez Age: 87 yrs Sex: Female : 1935 Arrival Date: 01/07/2023 Time: 10:36 Bed 4 Private MD: Jun Austin T Diagnosis: Pain in right arm Presentation: 01/07 10:44 Chief complaint: Patient states: Right arm pain since September but was not as bad as it is nj1 now. Got bad on Wednesday, couldn't sleep Wednesday due to pain, however today it seems a little better. No known injury. Coronavirus screen: Vaccine status: Patient reports receiving the 2nd dose of the covid vaccine. Ebola Screen: Patient denies travel to an Ebola-affected area in the 21 days before illness onset. Initial Sepsis Screen: Does the patient meet any 2 criteria? No. Patient's initial sepsis screen is negative. Does the patient have a suspected source of infection? No. Patient's initial sepsis screen is negative. Risk Assessment: Do you want to hurt yourself or someone else? Patient reports no desire to harm self or others. Onset of symptoms was September 2022. 10:44 Method Of Arrival: Ambulatory nj1 10:44 Acuity: JAY 3 nj1 Historical: - Allergies: 10:48 Levaquin; nj1 10:48 Macrodantin; nj1 10:48 [place]; nj1 - PMHx: 10:48 Atrial fibrillation; High Cholesterol; Hypertensive disorder; nj1 - Immunization history:: Client reports receiving the 2nd dose of the Covid vaccine. - Social history:: Smoking status: Patient denies any tobacco usage or history of. Assessment: 12:11 Reassessment: Patient is alert, oriented x 3, equal unlabored respirations, skin aa5 warm/dry/pink. Vital Signs: 10:44 BP 171 / 87; Pulse 60; Resp 17; Pulse Ox 98% on R/A; Weight 68.04 kg; Height 5 ft. 7 nj1 in. ; Pain 6/10; 10:44 Body Mass Index 23.49 (68.04 kg, 170.18 cm) nj1 10:44 Pain Scale: Adult [facility] ED Course: 10:40 Patient arrived in ED. im 10:40 Jun Austin MD is Private Physician. im 10:41 Mickail, Farrukh, PA is PHCP. [facility] 10:42 Bartolome Pinzon MD is Attending Physician. m 10:48 Triage completed. nj1 10:49 Arm band placed on left wrist. nj1 11:24 UPPER EXTREMITY VENOUS UNILATE In Process Unspecified. EDMS 11:39 Shoulder Right (2 View) XRAY In Process Unspecified. EDMS 11:39 Wrist Right 3 View XRAY In Process Unspecified. EDMS 11:39 Humerus Right XRAY In Process Unspecified. EDMS 11:55 Lake Abbott MD is Referral Physician. jmm 12:12 No provider procedures requiring assistance completed. Patient did not have IV access aa5 during this emergency room visit. Administered Medications: No medications were administered Medication: 12:12 VIS not applicable for this client. aa5 Outcome: 11:55 Discharge ordered by MD. jmm 12:11 Discharged to home ambulatory. aa5 12:11 Condition: stable 12:11 Discharge instructions given to patient, Instructed on discharge instructions, follow up and referral plans. Demonstrated understanding of instructions, follow-up care. 12:12 Patient left the ED. aa5 Signatures: Dispatcher [employer] EDMS Farrukh Kraus PA PA [facility] Felecia Camilo, RN RN aa5 Yanelis Nettles, RN RN nj1 Heidy Gould Corrections: (The following items were deleted from the chart) 10:50 10:44 Pulse 60bpm; Resp 17bpm; Pulse Ox 98% RA; 68.04 kg; Height 5 ft. 7 in.; BMI: nj1 23.4; Pain 6/10, Adult; nj1
--- NOTE | 2023-01-07 11:55 | EDPHYS ---
Physician Documentation [facility] Name: Jarrell Rodrigez Age: 87 yrs Sex: Female : 1935 Arrival Date: 01/07/2023 Time: 10:36 Bed 4 Private MD: Jun Austin T ED Physician Bartolome Pinzon HPI: 01/07 10:43 This 87 yrs old Female presents to ER via Ambulatory with complaints of Arm Pain. jmm 10:43 The patient or guardian complains of pain. The complaints affect the anterior aspect of jmm right shoulder, right wrist and right elbow. Onset: The symptoms/episode began/occurred acutely, 3 month(s) ago. Modifying factors: The symptoms are alleviated by nothing. the symptoms are aggravated by movement. This is an 87 year old female with a history of atrial fibrillation, hlp, htn that presents to the ED with complaints right shoulder pain which began after moving her arm while sleeping. Patient felt a sudden crack sensation. has had pain which radiates down the right arm since. Noticed some swelling to her right wrist this am. . Historical: - Allergies: 10:48 Levaquin; nj1 10:48 Macrodantin; nj1 10:48 [place]; nj1 - PMHx: 10:48 Atrial fibrillation; High Cholesterol; Hypertensive disorder; nj1 - Immunization history:: Client reports receiving the 2nd dose of the Covid vaccine. - Social history:: Smoking status: Patient denies any tobacco usage or history of. ROS: 10:43 Constitutional: Negative for fever, chills, and weight loss, Cardiovascular: Negative jmm for chest pain, palpitations, and edema, Respiratory: Negative for shortness of breath, cough, wheezing, and pleuritic chest pain. 10:43 MS/extremity: Positive for pain, swelling. 10:43 All other systems are negative. Exam: 10:43 Constitutional: This is a well developed, well nourished patient who is awake, alert, jmm and in no acute distress. Head/Face: atraumatic. Eyes: EOMI, no conjunctival erythema appreciated ENT: Moist Mucus Membranes Neck: Trachea midline, Supple Chest/axilla: Normal chest wall appearance and motion. Cardiovascular: Regular rate and rhythm. No edema appreciated Respiratory: Normal respirations, no respiratory distress appreciated Abdomen/GI: Non distended Back: Normal ROM Skin: General appearance color normal 10:43 Neuro: Awake and alert Psych: Behavior is normal, Mood is normal, Patient is cooperative and pleasant 10:43 Musculoskeletal/extremity: from appreciated to the right shoulder, painful rom appreciated, mild swelling noted to the right wrist, full radial pulse, compartments are soft, NVI. Vital Signs: 10:44 BP 171 / 87; Pulse 60; Resp 17; Pulse Ox 98% on R/A; Weight 68.04 kg; Height 5 ft. 7 nj1 in. ; Pain 6; 10:44 Body Mass Index 23.49 (68.04 kg, 170.18 cm) [facility] 10:44 Pain Scale: Adult nj1 MDM: 10:43 Patient medically screened. [facility] 14:23 Differential diagnosis: osteoarthritis, wrist sprain, fracture. Data reviewed: vital [facility] signs, nurses notes, radiologic studies, plain films, ultrasound. Counseling: I had a detailed discussion with the patient and/or guardian regarding: the historical points, exam findings, and any diagnostic results supporting the discharge/admit diagnosis, radiology results, the need for outpatient follow up, to return to the emergency department if symptoms worsen or persist or if there are any questions or concerns that arise at home. 01/07 10:46 Order name: Shoulder Right (2 View) XRAY; Complete Time: 11:51 [facility] 01/07 10:46 Order name: Wrist Right 3 View XRAY; Complete Time: 11:53 [facility] 01/07 10:49 Order name: Humerus Right XRAY; Complete Time: 11:53 [facility] 01/07 11:24 Order name: UPPER EXTREMITY VENOUS UNILATE; Complete Time: 11:41 EDMS Administered Medications: No medications were administered Disposition: 15:48 Co-signature as Attending Physician, Bartolome Pinzon MD I reviewed the patient's care rn provided by the Advanced Practice Provider and agree with the diagnosis and treatment plan. Disposition Summary: 01/07/23 11:55 Discharge Ordered Location: Home [facility] Condition: Stable [facility] Diagnosis - Pain in right arm [facility] Followup: jmm - With: Private Physician - When: 2 - 3 days - Reason: Recheck today's complaints, Continuance of care, Re-evaluation by your physician Followup: [facility] - With: Lake Abbott MD - When: 2 - 3 days - Reason: Recheck today's complaints, Continuance of care, Re-evaluation by your physician Discharge Instructions: - Discharge Summary Sheet jmm - Musculoskeletal Pain jm Forms: - Medication Reconciliation Form miki - Thank You Letter miki - Antibiotic Education tabitham - Prescription Opioid Use jm - [email or web address] miki Signatures: Dispatcher [employer] EDMS Farrukh Kraus PA PA jmm Bartolome Pinzon MD MD rn Yanelis Nettles RN RN nj1 Corrections: (The following items were deleted from the chart) 11:24 10:47 Extremity Venous Uni Ltd+US.RAD.BRZ ordered. EDMS EDMS
[2023-01-07 12:21] VITALS: BP 171/87; O2SAT 98
== END 2023-01-07 12:12 | disposition home or self-care (01) ==
LOC: ER 10:36
DX: M79.601 Pain in right arm (principal); I10 Essential (primary) hypertension; Z88.1 Allergy status to other antibiotic agents; Z88.8 Allergy status to other drugs, medicaments and biological substances
CPT/HCPCS: 93971; 99283

== ENCOUNTER 2023-02-19 13:03 | Emergency (ER) | payer OTHER ==
--- OUTSIDE RECORDS SUMMARY | 2023-02-19 13:11 | XMS REPORT | Continuity of Care Document ---
:1935 Author Organization [facility] t Address [address] [place] [address] [address] [place] [address] Care Team Providers Name Role Phone Jun Austin Primary Care Physician Therapy, Adc Covid Infusion Attending Clinician Unavailable Brandon Riavs MD Attending Clinician BRANDON RIVAS Attending Clinician Unavailable Doctor Unassigned, [place] Attending Clinician Unavailable Angel Rodríguez Attending Clinician [...] STROKE STROKE 00 MULTIFOCA MULTIFOCA Active 11/08/2018 [facility] CVA CVA Diagnosis Active 2018-11-08 Mem oria ISCHEMIC ISCHEMIC 11-08 23:39:00 l Active 00:00: [place] 11/08/2018 00 [facility] Illness, Illness, Problem 2018-11-13 Memoria unspecifie unspecifie 22:16:16 l d d Todd 11/13/2018 [facility] Cerebral Cerebral Problem Active 2020-08-08 Memoria [...] OR STENOS OR STENOS OF OF Active [facility] ILLNESS, ILLNESS, Diagnosis Active 2018-11-08 Memoria UNSPECIFIE UNSPECIFIE 23:39:00 l D D Active [place] [facility] Allergies, Adverse Reactions, Alerts Allergy Allergy [...] Drug Active Univers ALLERGIE Class ity of [facility] HYDROcod HYDROcod Active Memori a one one l [place] Pollen Pollen Active Memoria l [place] Social History Social Habit Start Date Stop Date Quantity Comments Source Sex Assigned At [birth year] [facility] 00:00:00 00:00:00 Medical Branch Smoking Status Start Date Stop Date Source Unknown if ever smoked [facility] Social History [facility] Medications Ordered Filled Start Stop Current Ordering Indication Dosage Frequency Signature Comments Components Source Medication Medication Date Date Medication? Clinician (SIG) Name Name casirivimab 2020- No [id number] 1200mg 1,200 mg, Univers -imdevimab 04-10 Subcutaneo it y of (REGEN-COV 20:30: 19:25 us, ONCE, [place] (EUA)) 00 :00 1 dose, On Medical injection [place] [facility] 1,200 mg 04/10/21 at 1530, Routine atorvastati 2018-07 Yes = 2 tab, Me moria n 10 mg 1-18 PO, l oral tablet 17:33: Bedtime, # [place] 27 180 tab, 3 Refill(s), Pharmacy: [place] [id number] [facility] atorvastati 2018-07 Yes = 2 tab, Me moria n 10 mg 1-18 PO, l oral tablet 17:33: Bedtime, # [place] 27 180 tab, 3 Refill(s), Pharmacy: [place] [id number] [facility] atorvastati 2018-07 Yes = 2 tab, Me moria n 10 mg 1-18 PO, l oral tablet 17:33: Bedtime, # [place] 27 180 tab, 3 Refill(s), Pharmacy: [place] [id number] [facility] atorvastati Yes 80 mg = 1 M emoria n 80 mg 6-28 tab, PO, l oral tablet 16:09: Bedtime, # [place] 47 90 tab, 0 Refill(s), Pharmacy: [place] [id number] [facility] atorvastati Yes 80 mg = 1 M emoria n 80 mg 6-28 tab, PO, l oral tablet 16:09: Bedtime, # [place] 47 90 tab, 0 Refill(s), Pharmacy: [place] [id number] [facility] atorvastati Yes 80 mg = 1 M emoria n 80 mg 6-28 tab, PO, l oral tablet 16:09: Bedtime, # [place] 47 90 tab, 0 Refill(s), Pharmacy: [place] [id number] [facility] amitriptyli Yes 20 mg = 2 M emoria ne 10 mg 5-17 tab, PO, l oral tablet 21:35: Bedtime, 0 [place] 00 Refill(s) amitriptyli 2018- Yes 20 mg = 2 M emoria ne 10 mg 5-17 tab, PO, l oral tablet 21:35: Bedtime, 0 [place] 00 Refill(s) amitriptyli 2018- Yes 20 mg = 2 M emoria ne 10 mg 5-17 tab, PO, l oral tablet 21:35: Bedtime, 0 [place] 00 Refill(s) Aspirin 81 2019-0 Yes 81 mg = 1 Me moria MG Enteric 5-03 tab, PO, l Coated 21:06: Daily, # Todd Tablet 00 90 tab, 0 Refill(s) atorvastati 2019-0 Yes 80 mg = 1 M emoria n 80 mg 5-03 tab, PO, l oral tablet 21:06: Bedtime, # [place] 00 90 tab, 0 Refill(s) Aspirin 81 2019- Yes 81 mg = 1 Me moria MG Enteric 5-03 tab, PO, l Coated 21:06: Daily, # [place] Tablet 00 90 tab, 0 Refill(s) atorvastati 2019-0 Yes 80 mg = 1 M emoria n 80 mg 5-03 tab, PO, l oral tablet 21:06: Bedtime, # [place] 00 90 tab, 0 Refill(s) Aspirin 81 2019- Yes 81 mg = 1 Me moria MG Enteric 5-03 tab, PO, l Coated 21:06: Daily, # [place] Tablet 00 90 tab, 0 Refill(s) atorvastati 2019 Yes 80 mg = 1 M emoria n 80 mg 5-03 tab, PO, l oral tablet 21:06: Bedtime, # [place] 00 90 tab, 0 Refill(s) Amitriptyli 2018- No Amitriptyl Memoria ne 10mg tab 5-03 ine 10mg l 02:00: tab, 2 [place] 00 tab, Drug form: MISC, Route: PO, Bedtime, 11/10/18 21:00:00 CDT, Duration: 30 day, Stop date: 12/09/18 21:00:00 CDT Chlordiazep 2018-0 No Chlordiaze Memoria oxide cap 5 5-03 poxide cap l mg 02:00: 5 mg, 1 [place] 00 cap, Drug form: MISC, Route: PO, Bedtime, 11/10/18 21:00:00 CDT, Duration: 30 day, Stop date: 12/09/18 21:00:00 CDT Amitriptyli 2018-0 No Amitriptyl Memoria ne 10mg tab 5-03 ine 10mg l 02:00: tab, 2 [place] 00 tab, Drug form: MISC, Route: PO, Bedtime, 11/10/18 21:00:00 CDT, Duration: 30 day, Stop date: 12/09/18 21:00:00 CDT Chlordiazep 0 No Chlordiaze Memoria oxide cap 5 5-03 poxide cap l mg 02:00: 5 mg, 1 [place] 00 cap, Drug form: MISC, Route: PO, Bedtime, 11/10/18 21:00:00 CDT, Duration: 30 day, Stop date: 12/09/18 21:00:00 CDT Amitriptyli No Amitriptyl Memoria ne 10mg tab 5-03 ine 10mg l 02:00: tab, 2 [place] 00 tab, Drug form: MISC, Route: PO, Bedtime, 11/10/18 21:00:00 CDT, Duration: 30 day, Stop date: 12/09/18 21:00:00 CDT Chlordiazep No Chlordiaze Memoria oxide cap 5 5-03 poxide cap l mg 02:00: 5 mg, 1 [place] 00 cap, Drug form: MISC, Route: PO, Bedtime, 11/10/18 21:00:00 CDT, Duration: 30 day, Stop date: 12/09/18 21:00:00 CDT Aspirin 2018-0 No Notes: Do Memor ia 5-02 not crush l 03:00: or chew. (Same As: Ecotrin) Aspirin No Notes: Do Memor ia 5-02 not crush l 03:00: or chew. (Same As: Ecotrin) Aspirin No Notes: Do Memor ia 5-02 not crush l 03:00: or chew. (Same As: Ecotrin) atorvastati No Notes: [facility] n 5-02 (Same as: l 02:00: Lipitor) Limbitrol 2018-0 No 1 tab, Memori a 5-02 Route: PO, l 02:00: Dosing Weight 75.1, kg, Bedtime, Start date: 11/09/18 21:00:00 CDT, Duration: 30 day, Stop date: 12/08/18 21:00:00 CDT Lovenox No Notes: Memoria 5-02 (Same as: l 02:00: Lovenox) [place] 00 atorvastati No Notes: [place] n 5-02 (Same as: l 02:00: Lipitor) [place] 00 Limbitrol No 1 tab, Memori a 5- Route: PO, l 02:00: Dosing [place] Weight 75.1, kg, Bedtime, Start date: 11/09/18 21:00:00 CDT, Duration: 30 day, Stop date: 12/08/18 21:00:00 CDT Lovenox No Notes: Memoria 5-02 (Same as: l 02:00: Lovenox) atorvastati No Notes: [place] n 5- (Same as: l 02:00: Lipitor) [place] 00 Limbitrol No 1 tab, Memori a 5 Route: PO, l 02:00: Dosing [place] Weight 75.1, kg, Bedtime, Start date: 11/09/18 21:00:00 CDT, Duration: 30 day, Stop date: 12/08/18 21:00:00 CDT Lovenox No Notes: Memoria 5-02 (Same as: l 02:00: Lovenox) Docusate No Notes: Memoria 5-01 (Same as: l 22:00: Colace) Todd (Do Not Crush) sennosides, No Notes: [facility] 8.6 MG 5-01 (Same as: l Oral Tablet 22:00: Senokot) He Docusate No Notes: Memoria 5-01 (Same as: l 22:00: Colace) [place] (Do Not Crush) sennosides, No Notes: [facility] 8.6 MG 5-01 (Same as: l Oral Tablet 22:00: Senokot) He Docusate No Notes: Memoria 5-01 (Same as: l 22:00: Colace) [place] (Do Not Crush) sennosides, No Notes: [facility] 8.6 MG 5- (Same as: l Oral Tablet 22:00: Senokot) He rm No Notes: Memoria 5-01 (same as: l 16:00: Byst) formerly [facility] No Notes: [place] 5-01 (Same l 16:00: as:Singula ir) No Notes: Memoria 5-01 (same as: l 16:00: ) formerly [facility] No Notes: [place] 5-01 (Same l 16:00: as:Singula ir) No Notes: Memoria 5-01 (same as: l 16:00: ) formerly [facility] No Notes: [place] 5-01 (Same l 16:00: as:Singula ir) Saline No Notes: Memoria Flush 0.9% 5-01 Same as: l 14:00: BD Posiflush Sterile Saline No Notes: [facility]oria Flush 0.9% 5-01 Same as: l 14:00: BD Posiflush Sterile Saline No Notes: Memoria Flush 0.9% 5-01 Same as: l 14:00: BD Posiflush Sterile Limbitrol Yes PO, Memoria 5-01 Bedtime, 0 l 13:06: Refill(s) [place] Limbitrol Yes PO, Memoria 5-01 Bedtime, 0 l 13:06: Refill(s) Limbitrol Yes PO, Memoria 5-01 Bedtime, 0 l 13:06: Refill(s) nebivolol Yes 10 mg = 1 Mem oria 10 MG Oral 5-01 tab, PO, l Tablet 12:38: Daily, # [place] [olic] 00 30 tab, 0 Refill(s) Fexofenadin Yes 60 mg = 1 M emoria e 5-01 tab, PO, l hydrochlori 12:38: BID, # 60 H ermann de 60 MG 00 tab, 0 Oral Tablet Refill(s) [Maira] montelukast 20190 Yes PO, Daily, Memoria 5-01 0 l 12:38: Refill(s) nebivolol Yes 10 mg = 1 Mem oria 10 MG Oral 5-01 tab, PO, l Tablet 12:38: Daily, # [place] [Bystolic] 00 30 tab, 0 Refill(s) Fexofenadin Yes 60 mg = 1 M emoria e 5-01 tab, PO, l hydrochlori 12:38: BID, # 60 H ermann de 60 MG 00 tab, 0 Oral Tablet Refill(s) [Maira] montelukast 0 Yes PO, Daily, Memoria 5-01 0 l 12:38: Refill(s) nebivolol Yes 10 mg = 1 Mem oria 10 MG Oral 5- tab, PO, l Tablet 12:38: Daily, # [place] [Bystolic] 00 30 tab, 0 Refill(s) Fexofenadin Yes 60 mg = 1 M emoria e 5-01 tab, PO, l hydrochlori 12:38: BID, # 60 H ermann de 60 MG 00 tab, 0 Oral Tablet Refill(s) [Maira] montelukast 0 Yes PO, Daily, Memoria - 0 l 12:38: Refill(s) Insulin No Notes: Memoria Lispro 11-09 (Same as: l 04:43: Humalog) Roll in palms of hands gently; Do not shake vigorously . WASTE: F/P - Black; E - Municipal Trash Bin Stable for 28 days at room temperatur e. Expires in days from ____Date Glucagon No 1 mg, Memoria 11-09 Route: IM, l 04:43: Drug form: PDR/INJ, PRN, kg, PRN Blood Glucose Results, Start date: 11/08/18 23:43:00 CDT, Duration: 30 day, Stop date: 12/08/18 23:42:00 CDT Dextrose 2019-0 No 25 gm, 50 [place] 50% Syringe 5-01 mL, Route: l 04:43: IVP, Drug Form: INJ, kg, PRN, PRN Blood Glucose Results, Start date: 11/08/18 23:43:00 CDT, Duration: 30 day, Stop date: 12/08/18 23:42:00 CDT Insulin 2019-0 No Notes: [facility]oria Lispro 5- (Same as: l 04:43: Humalog) Roll in palms of hands gently; Do not shake vigorously . WASTE: F/P - Black; E - Municipal Trash Bin Stable for 28 days at room temperatur e. Expires in days from ____Date Glucagon 2019-0 No 1 mg, Memoria 5-01 Route: IM, l 04:43: Drug form: PDR/INJ, PRN, kg, PRN Blood Glucose Results, Start date: 11/08/18 23:43:00 CDT, Duration: 30 day, Stop date: 12/08/18 23:42:00 CDT Dextrose 2018-0 No 25 gm, 50 [place] 50% Syringe 5-01 mL, Route: l 04:43: IVP, Drug Form: INJ, kg, PRN, PRN Blood Glucose Results, Start date: 11/08/18 23:43:00 CDT, Duration: 30 day, Stop date: 12/08/18 23:42:00 CDT Insulin 2019-0 No Notes: [facility] Lispro 5- (Same as: l 04:43: Humalog) Roll in [...] Melatonin No Notes: [place] MG Extended - (Same as: l Release 04:30: Melatonin) Herm rosario Tablet Melatonin No Notes: [place] MG Extended 5-01 (Same as: l Release 04:30: Melatonin) Herm rosario Tablet Melatonin No Notes: [place] MG Extended 5-01 (Same as: l Release 04:30: Melatonin) Herm rosario Tablet Zofran No Notes: Memoria 5-01 (Same as: l 04:28: Zofran) Zofran No Notes: Memoria 5-01 (Same as: l 04:28: Zofran) Zofran No Notes: Memoria 5-01 (Same as: l 04:28: Zofran) potassium No Notes: Memori a phosphate-s - (Same as: l odium 04:27: Phos-NaK) Each 1.5 250 mg-280 gm pkt has mg-160 mg 250mg oral powder phosphorou for s. Mix reconstitut w/2.5oz ion water and stir. potassium No Notes: Memori a phosphate - (Same as: l 04:27: K Phosphate. ) Do not infuse phosphorou s concurrent ly in the same line as TPN or IVF that contains calcium. For double lumen central lines, phosphorou s may be infused in a separate lumen from TPN. 1 mMol phoshate has 1.47 mEq potassium Infuse over 4 hours sodium No Notes: Memoria phosphate - Infuse l 04:27: over 4 [place] 00 hour. Do not infuse phosphorou s concurrent ly in the same line as TPN or IVF that contains calcium. For double lumen central lines, phosphorou s may be infused in a separate lumen from TPN. Potassium No Notes: Memori a Chloride 11-09 (Same as: l 04:27: K-Dur 20) [place] 00 "Do Not Crush" Give with food and full glass of water For patients unable to swallow tablet, dissolve in one half glass of water. Allow about 2 minutes for the tablets to disintegra te. Stir before giving to prepare slurry and administer . Please exclude Patient s with feeding tube less than 14 [place] (Dobhoff, J-tube etc) and pediatric and patients. Calcium No Notes: [facility] Gluconate 11-09 WASTE: F/P l 04:27: - Sink; E [place] - Municipal Trash Bin Calcium No Notes: Memoria Carbonate 11-09 (Same As: l 500 MG 04:27: Tums) [place] Chewable 00 Calcium Tablet Carbonate 500 mg = 200 mg elemental calcium Dose = mg calcium carbonate ( mg elemental calcium) Magnesium No Notes: Memori a Sulfate 11-09 WASTE: F/P l 04:27: - Sink; E [place] - Municipal Trash Bin Magnesium No Notes: Memori a Oxide 11-09 (Same as: l 04:27: Mag-Ox [place] 00 400) Magnesium oxide 786ud=430i g elemental magnesium Dose=____m g magnesium oxide (___mg elemental magnesium) potassium No Notes: Memori a phosphate-s 11-09 (Same as: l odium 04:27: Phos-NaK) [place] phosphate 00 Each 1.5 250 mg-280 gm pkt has mg-160 mg 250mg oral powder phosphorou for s. Mix reconstitut w/2.5oz ion water and stir. potassium No Notes: Memori a phosphate 11-09 (Same as: l 04:27: K [place] 00 Phosphate. ) Do not infuse phosphorou [...] 11-09 (Same as: l 04:27: K-Dur 20) [place] 00 "Do Not Crush" Give with food and full glass of water For patients unable to swallow tablet, dissolve in one half glass of water. Allow about 2 minutes for the tablets to disintegra te. Stir before giving to prepare slurry and administer . Please exclude Patient s with feeding tube less than 14 [place] (Dobhoff, J-tube etc) and pediatric and patients. Calcium No Notes: [facility] Gluconate 11-09 WASTE: F/P l 04:27: - Sink; E [place] 00 - Municipal Trash Bin Calcium No [...] 04:27: Mag-Ox [place] 00 400) Magnesium oxide 014yc=749a g elemental magnesium Dose=____m g magnesium oxide (___mg elemental magnesium) potassium No Notes: Memori a phosphate-s 11-09 (Same as: l odium 04:27: Phos-NaK) phosphate 00 Each 1.5 250 mg-280 gm pkt has mg-160 mg 250mg oral powder phosphorou for s. Mix reconstitut w/2.5oz ion water and stir. potassium No Notes: Memori a phosphate 11-09 (Same as: l 04:27: K [place] 00 Phosphate. ) Do not infuse phosphorou s concurrent ly in the same line as TPN or IVF that contains calcium. For double lumen central lines, phosphorou s may be infused in a separate lumen from TPN. 1 mMol phoshate has 1.47 mEq potassium Infuse over 4 hours sodium No Notes: [facility]oria phosphate - Infuse l 04:27: over 4 [place] 00 hour. Do not infuse phosphorou s concurrent ly in the same line as TPN or IVF that contains calcium. For double lumen central lines, phosphorou s may be infused in a separate lumen from TPN. Potassium No Notes: Memori a Chloride 11-09 (Same as: l 04:27: K-Dur 20) 00 "Do Not Crush" Give with food and full glass of water For patients unable to swallow tablet, dissolve in one half glass of water. Allow about 2 minutes for the tablets to disintegra te. Stir before giving to prepare slurry and administer . Please exclude Patient s with feeding tube less than 14 [place] (Dobhoff, J-tube etc) and pediatric and patients. Calcium No Notes: [facility] Gluconate 11-09 WASTE: F/P l 04:27: - Sink; E - Municipal Trash Bin Calcium No Notes: [facility] Carbonate 11-09 (Same As: l 500 MG 04:27: Tums) [place] Chewable 00 Calcium Tablet Carbonate 500 mg = 200 mg elemental calcium Dose = mg calcium carbonate ( mg elemental calcium) Magnesium No Notes: Memori a Sulfate 11-09 WASTE: F/P l 04:27: - Sink; E - Municipal Trash Bin Magnesium No Notes: Memori a Oxide 11-09 (Same as: l 04:27: Mag-Ox [place] 00 400) Magnesium oxide 602dd=172v g elemental magnesium Dose=____m g magnesium oxide (___mg elemental magnesium) Saline No Notes: [facility] Flush 0.9% 11-09 Same as: l 04:25: BD Posiflush Sterile Acetaminoph No Notes: Do M emoria en 11-09 not exceed l 04:25: 4 gm/day. (Same as: Tylenol) Labetalol No Notes: Memori a 5- (Same as: l 04:25: Normodyne, [place] 00 Trandate) Push over 2 minutes Give bolus over 2-3 minutes. Saline No Notes: [facility] Flush 0.9% 11-09 Same as: l 04:25: BD [place] 00 Posiflush Sterile Acetaminoph No Notes: Do M emoria en 11-09 not exceed l 04:25: 4 gm/day. [place] 00 (Same as: Tylenol) Labetalol No Notes: Memori a 5- (Same as: l 04:25: Normodyne, [place] 00 Trandate) Push over 2 minutes Give bolus over 2-3 minutes. Saline No Notes: [facility] Flush 0.9% 11-09 Same as: l 04:25: BD [place] 00 Posiflush Sterile Acetaminoph No Notes: Do M emoria en 11-09 not exceed l 04:25: 4 gm/day. [place] (Same as: Tylenol) Labetalol No Notes: Memori a - (Same as: l 04:25: Normodyne, [place] 00 Trandate) Push over 2 minutes Give bolus over 2-3 minutes. Vital Signs Vital Name Observation Time Observation Value Comments Source Systolic blood 2021-04-10 20:10:00 147 mm[Hg] [facility] Diastolic blood 2021-04-10 20:10:00 99 mm[Hg] [facility] Heart rate 2021-04-10 20:10:00 105 /min [facility] Body temperature 2021-04-10 20:10:00 36.28 [facility] Respiratory rate 2021-04-10 20:10:00 18 /min [facility] Oxygen saturation in 2021-04-10 20:10:00 93 /min [facility] Arterial blood by [facility] Pulse oximetry Branch Body height 2021-04-10 19:22:00 170.2 cm [facility] Body weight 2021-04-10 19:22:00 77.111 kg [facility] BMI 2021-04-10 19:22:00 26.63 kg/m2 [facility] Systolic (mm Hg) 2019-08-04 15:30:00 Bull rial [place] Diastolic (mm Hg) 2019-08-04 15:30:00 Mem orial [place] Heart Rate 2019-08-04 15:30:00 [facility] [place] Respitory Rate 2019-08-04 15:30:00 Memori al [place] Height 2019-08-04 15:30:00 170.18 cm [facility] [place] Weight 2019-08-04 15:30:00 [facility] [place] BMI Calculated 2019-08-04 15:30:00 Memori al [place] Systolic (mm Hg) 2019-04-07 14:38:00 Bull rial [place] Diastolic (mm Hg) 2019-04-07 14:38:00 Mem orial [place] Heart Rate 2019-04-07 14:38:00 [facility] [place] Respitory Rate 2019-04-07 14:38:00 Memori al [place] Height 2019-04-07 14:38:00 167.64 cm [facility] [place] Weight 2019-04-07 14:38:00 [facility] [place] BMI Calculated 2019-04-07 14:38:00 Memori al [place] Height 2019-01-06 15:31:00 165.1 cm [facility] [place] BMI Calculated 2019-01-06 15:31:00 Memori al [place] Weight 2019-01-06 15:31:00 [facility] [place] Heart Rate 2019-01-06 15:31:00 [facility] [place] Systolic (mm Hg) 2019-01-06 15:31:00 Bull rial [place] Diastolic (mm Hg) 2019-01-06 15:31:00 Mem orial [place] Respitory Rate 2019-01-06 15:31:00 Memori al [place] Heart Rate 2018-11-25 21:06:00 [facility] [place] Respitory Rate 2018-11-25 21:06:00 Memori al [place] BMI Calculated 2018-11-25 21:06:00 Memori al [place] Weight 2018-11-25 21:06:00 [facility] [place] Height 2018-11-25 21:06:00 165.1 cm [facility] [place] Systolic (mm Hg) 2018-11-25 21:06:00 Bull rial [place] Diastolic (mm Hg) 2018-11-25 21:06:00 Mem orial [place] Respitory Rate 2018-11-11 17:30:00 Memori al [place] Systolic (mm Hg) 2018-11-11 17:30:00 Bull rial [place] Diastolic (mm Hg) 2018-11-11 17:30:00 Mem orial [place] Heart Rate 2018-11-11 17:30:00 [facility] [place] Temperature Oral (F) 2018-11-11 17:30:00 98.2 F [facility] [place] Systolic (mm Hg) 2018-11-11 13:00:00 Bull rial [place] Diastolic (mm Hg) 2018-11-11 13:00:00 Mem orial [place] Heart Rate 2018-11-11 13:00:00 [facility] [place] Respitory Rate 2018-11-11 13:00:00 Memori al [place] Temperature Oral (F) 2018-11-11 13:00:00 99.8 F [facility] [place] Systolic (mm Hg) 2018-11-11 09:00:00 Bull rial [place] Diastolic (mm Hg) 2018-11-11 09:00:00 Mem orial [place] Respitory Rate 2018-11-11 09:00:00 Memori al [place] Heart Rate 2018-11-11 09:00:00 [facility] [place] Temperature Oral (F) 2018-11-11 09:00:00 98.3 F [facility] [place] BMI Calculated 2018-11-09 04:49:00 Memori al [place] Height 2018-11-09 04:49:00 167.64 cm [facility] [place] Weight 2018-11-09 04:49:00 [facility] [place] Procedures Procedure Date / Time Performing Clinician Source Performed CONSENT/REFUSAL FOR 2021-04-10 05:01:00 Doctor Unassigned, No Un [facility] DIAGNOSIS AND TREATMENT Name Medical Branch Gallbladder stone [facility] Caitlin nn removal<sup>1</sup> Hysterectomy<sup>2</sup [facility] [place] > Knee [facility] [place] arthroplasty<sup>3</sup > Encounters Start End Encounter Admission Attending Care Care Encounter Source Date/Time Date/Time Type Type Clinicians Facility Department ID 2018-11-08 Inpatient SW MED [id number] [facility] W 22:56:00 2023-03-11 2023-03-11 Outpatient [facility]IE KRISTAL [id number] Memoria 14:30:00 14:30:00 07 l [place] 2021-04-10 2021-04-10 Nurse Therapy, Adc Covid Infusion [facility] [id number] Univers 14:04:17 15:04:17 Visit Brandon Rivas [id number] ity [facility] [id number] [facility] Surgical [id number] [place] [address] Branch 2021-04-10 2021-04-10 Outpatient R LITA [facility] [id number] Univers 14:00:00 14:00:00 BRANDON ity [facility] 2021-04-10 2021-04-10 Orders Doctor SARGENT [id number] Univers 00:00:00 00:00:00 Only Unassigned, [place] [id number] ity of [facility][1] [id number] Pito as [id number] [address] 2020-08-06 2020-08-06 Ambulatory nullFlavo MNA [id number] Memoria 15:30:00 15:30:00 Pre-Reg r Neurology 06 l Marshall [place] 2020-08-06 2020-08-06 Ambulatory nullFlavo MNA [id number] Memoria 15:30:00 15:30:00 Pre-Reg r Neurology 06 l María Galavizann 2020-08-06 2020-08-06 Outpatient MHIE MHIE [id number] Memoria 09:30:00 09:30:00 06 l [place] 2020-08-06 2020-08-06 Outpatient YOUSIF Rodríguez MHMISCHER [id number] 09:30:00 09:30:00 Angel 06 Jeronimo 2020-02-02 2020-02-03 Outpatient nullFlavo MNA [id number] Memoria 14:30:00 04:59:59 r Neurology 05 l María Brooks 2020-02-02 2020-02-03 Outpatient nullFlavo MNA [id number] Memoria 14:30:00 04:59:59 r Neurology 05 l María Brooks 2020-02-02 2020-02-02 Outpatient YOUSIF Rodríguez MHMISCHER [id number] 09:30:00 23:59:59 Angel 05 Jeronimo 2020-02-02 2020-02-02 Ambulatory nullFlavo MNA [id number] Memoria 14:30:00 14:30:00 Pre-Reg r Neurology 04 jose Daniel [place] 2020-02-02 2020-02-02 Ambulatory nullFlavo MNA [id number] Memoria 14:30:00 14:30:00 Pre-Reg r Neurology 04 l María [place] 2020-02-02 2020-02-02 Outpatient MHIE MHIE [id number] Memoria 09:30:00 09:30:00 05 joes [place] 2020-02-02 2020-02-02 Outpatient MHIE MHIE [id number] Memoria 09:30:00 09:30:00 04 jose [place] 2020-02-02 2020-02-02 Outpatient Marcos MISCHER MHMISCHER [id number] 09:30:00 09:30:00 Angel 04 Jeronmio 2019-08-04 2019-08-05 Outpatient nullFlavo MNA [id number] Memoria 15:45:00 05:59:59 r Neurology 03 jose Daniel [place] 2019-08-04 2019-08-05 Outpatient nullFlavo MNA [id number] Memoria 15:45:00 05:59:59 r Neurology 03 jose Daniel [place] 2019-08-04 2019-08-04 Outpatient NEELAM RodríguezMSSCHER MHMISCHER [id number] 09:45:00 23:59:59 Angel 03 Jeronimo 2019-08-04 2019-08-04 Outpatient MHIE IE [id number] Memoria 09:45:00 09:45:00 03 jose [place] 2019-04-07 2019-04-08 Outpatient nullFlavo MNA [id number] Memoria 14:30:00 04:59:59 r Neurology 02 jose Daniel [place] 2019-04-07 2019-04-08 Outpatient nullFlavo MNA [id number] Memoria 14:30:00 04:59:59 r Neurology 02 jose Daniel [place] 2019-04-07 2019-04-07 Outpatient NEELAM RodríguezMISCHER MHMISCHER [id number] 09:30:00 23:59:59 Angel 02 Jeronimo 2019-04-07 2019-04-07 Outpatient MHIE MHIE [id number] Memoria 09:30:00 09:30:00 02 jose [place] 2019-01-06 2019-01-07 Outpatient nullFlavo MNA [id number] Memoria 15:15:00 04:59:59 r Neurology 01 l [facility] [place] 2019-01-06 2019-01-07 Outpatient nullFlavo MNA [id number] Memoria 15:15:00 04:59:59 r Neurology 01 l [facility] 2019-01-06 2019-01-06 [id number] 10:15:00 23:59:59 Angel 01 [facility] 2019-01-06 2019-01-06 Outpatient MHIE MHIE [id number] Memoria 10:15:00 10:15:00 01 jose [place] 2018-11-25 2018-11-26 Outpatient nullFlavo MNA [id number] Memoria 21:00:00 04:59:59 r Neurology 00 l [facility] 2018-11-25 2018-11-26 Outpatient nullFlavo MNA [id number] Memoria 21:00:00 04:59:59 r Neurology 00 l [facility] 2018-11-25 2018-11-25 [id number] 16:00:00 23:59:59 Angel 00 [facility] 2018-11-25 2018-11-25 Outpatient MHIE MHIE [id number] Memoria 16:00:00 16:00:00 00 [facility] 2018-11-09 2018-11-12 Inpatient [facility]Flavo [facility] [id number] Memoria 03:56:00 00:00:00 r Todd 20 l [facility] 2018-11-09 2018-11-12 Inpatient [facility]Flavo [facility] [id number] Memoria 03:56:00 00:00:00 r Todd 20 l [facility] 2018-11-08 2018-11-11 Outpatient [facility] [id number] 22:56:00 19:00:00 [place] Results Test Description Test Time Test Comments Results Result Comments Source CHEM PANEL 2018-11-11 10:11:00 Test Item Value Reference Range Interpretation Comme nts Phosphorus (test code = Phosphorus) 2.9 2.5-4.5 [place] 682509-05-03 10:11:00 Test Item Value Reference Range Interpretation Comments Magnesium Lvl (test code = Magnesium 2.0 1.8-2.4 Lvl) [facility]2019-05-03 10:11:00 Test Item Value Reference Range Interpretation Comments A/G Ratio (test code = A/G Ratio) 0.8 1 0.7-1.6 [facility]2019-05-03 10:11:00 Test Item Value Reference Range Interpretation Comments Globulin (test code = Globulin) 3.8 2.7-4.2 [facility]2019-05-03 10:11:00 Test Item Value Reference Range Interpretation Comments B/C Ratio (test code = B/C Ratio) 19 1 6-25 [place] 682509-05-03 10:11:00 Test Item Value Reference Range Interpretation Comments AGAP (test code = AGAP) 14.9 10.0-20.0 [facility]2019-05-03 10:11:00 Test Item Value Reference Range Interpretation Comments eGFR (test code = eGFR) 68 [facility]2019-05-03 10:11:00 Test Item Value Reference Range Interpretation Comments Bili Total (test code = Bili Total) 0.8 0.2-1.3 [facility]2019-05-03 10:11:00 Test Item Value Reference Range Interpretation Comments Alk Phos (test code = Alk Phos) 128 39-136 [facility]2019-05-03 10:11:00 Test Item Value Reference Range Interpretation Comments AST (test code = AST) 26 See_Comment [Auto mated message] The system which ge nerated this result transmit zen reference range : <=37. The reference range was not used to interpr et this result as albina l/abnormal. [facility]2019-05-03 10:11:00 Test Item Value Reference Range Interpretation Comments ALT (test code = ALT) 36 See_Comment [Auto mated message] The system which ge nerated this result transmit zen reference range : <=65. The reference range was not used to interpr et this result as albina l/abnormal. [facility]2019-05-03 10:11:00 Test Item Value Reference Range Interpretation Comments Albumin Lvl (test code = Albumin Lvl) 3.1 3.5-5.0 [facility]2019-05-03 10:11:00 Test Item Value Reference Range Interpretation Comments Potassium Lvl (test code = Potassium 3.9 3.5-5.1 Lvl) [facility]2019-05-03 10:11:00 Test Item Value Reference Range Interpretation Comments Creatinine Lvl (test code = Creatinine 0.80 0.50-1.40 Lvl) [facility]2019-05-03 10:11:00 Test Item Value Reference Range Interpretation Comments Glucose Lvl (test code = Glucose Lvl) 77 70-99 [facility]2019-05-03 10:11:00 Test Item Value Reference Range Interpretation Comments Sodium Lvl (test code = Sodium Lvl) 140 135-145 [facility]2019-05-03 10:11:00 Test Item Value Reference Range Interpretation Comments BUN (test code = BUN) 15 7-22 [facility]2019-05-03 10:11:00 Test Item Value Reference Range Interpretation Comments Calcium Lvl (test code = Calcium Lvl) 8.6 8.5-10.5 [facility]2019-05-03 10:11:00 Test Item Value Reference Range Interpretation Comments Total Protein (test code = Total 6.9 6.4-8.4 Protein) [facility]2019-05-03 10:11:00 Test Item Value Reference Range Interpretation Comments CO2 (test code = CO2) 22 24-32 [facility]2019-05-03 10:11:00 Test Item Value Reference Range Interpretation Comments Chloride Lvl (test code = Chloride Lvl) 107 95-109 [facility]ckxfapTQGUNKAGMD2890-55-50 10:11:00 Test Item Value Reference Range Interpretation Comments MPV (test code = MPV) 8.5 7.4-10.4 [facility] HospitalPbyvegoKWKOLGQFSE6610-13-83 10:11:00 Test Item Value Reference Range Interpretation Comments Platelet (test code = Platelet) 237 133-450 [facility] HospitalJtjthbrMZYWOLEGFL2497-21-04 10:11:00 Test Item Value Reference Range Interpretation Comments MCHC (test code = MCHC) 32.5 32.0-36.0 [facility] HospitalSaayuacUIQVBUSQJN5207-24-32 10:11:00 Test Item Value Reference Range Interpretation Comments RDW (test code = RDW) 14.0 11.5-14.5 [facility] HospitalYntlqsmVBQPIPIWBU4534-46-81 10:11:00 Test Item Value Reference Range Interpretation Comments WBC (test code = WBC) 9.0 3.7-10.4 [facility] HospitalWrjhzmoEJBYQRDUOV3738-58-12 10:11:00 Test Item Value Reference Range Interpretation Comments RBC (test code = RBC) 4.06 4.20-5.40 [facility] HospitalZhlynnhWZOQAONBUX2544-25-52 10:11:00 Test Item Value Reference Range Interpretation Comments MCH (test code = MCH) 29.9 pg 27.0-31.0 [facility] HospitalXsdoyvcKOZTUVNWLK2929-76-09 10:11:00 Test Item Value Reference Range Interpretation Comments Hct (test code = Hct) 37.3 36.0-48.0 [facility] HospitalYufwpbsXIEWBMOQAL4030-06-12 10:11:00 Test Item Value Reference Range Interpretation Comments MCV (test code = MCV) 92.0 80.0-98.0 [facility] HospitalXhtnfcgJQTPRGGAMT3325-55-45 10:11:00 Test Item Value Reference Range Interpretation Comments Hgb (test code = Hgb) 12.1 12.0-16.0 [facility] HospitalDudkglzSDEIIXTAMT3601-07-41 10:11:00 Test Item Value Reference Range Interpretation Comments Eosinophils (test code = 2.7 See_Comment [A utomated message] The Eosinophils) system which ge nerated this result tra nsmitted reference range : <=4.0. The reference r tara was not used to int erpret this result as normal/abnormal . [facility] HospitalVaoopflXYZTARVUHM7493-16-13 10:11:00 Test Item Value Reference Range Interpretation Comments Lymphocytes # (test code = Lymphocytes 1.9 1.0-5.5 #) [facility] HospitalCmivnybFWQJFYGOVP7508-87-31 10:11:00 Test Item Value Reference Range Interpretation Comments Neutrophils # (test code = Neutrophils 5.9 1.5-8.1 #) [facility] HospitalAribaxgHVHALGFDBV0557-12-65 10:11:00 Test Item Value Reference Range Interpretation Comments Basophils (test code = 0.3 See_Comment [Aut omated message] The Basophils) system which ge nerated this result tra nsmitted reference range : <=1.0. The reference r tara was not used to int erpret this result as normal/abnormal . [facility] HospitalIgnkmptCLWPZVIIFY2491-43-16 10:11:00 Test Item Value Reference Range Interpretation Comments Monocytes # (test code 0.9 See_Comment [Aut omated message] The = Monocytes #) system which generated this result tra nsmitted reference range : <=0.8. The reference r tara was not used to int erpret this result as normal/abnormal . [facility] HospitalXppfxunQMWYRJLRUY5347-96-46 10:11:00 Test Item Value Reference Range Interpretation Comments Eosinophils # (test code 0.2 See_Comment [A utomated message] The = Eosinophils #) system whic h generated this result tra nsmitted reference range : <=0.5. The reference r tara was not used to int erpret this result as normal/abnormal . [facility] HospitalJokkvtfIOGONNDHUK8484-39-68 10:11:00 Test Item Value Reference Range Interpretation Comments Monocytes (test code = Monocytes) 10.5 2.0-12.0 [facility] HospitalObcofqaZSKIMKRZNB6886-93-03 10:11:00 Test Item Value Reference Range Interpretation Comments Lymphocytes (test code = Lymphocytes) 20.6 20.0-40.0 [facility] HospitalKagohteEZFTJFPFEF1681-91-55 10:11:00 Test Item Value Reference Range Interpretation Comments Segs (test code = Segs) 65.9 45.0-75.0 [facility]2019-05-03 10:11:00 Test Item Value Reference Range Interpretation Comments Phosphorus (test code = Phosphorus) 2.9 2.5-4.5 [facility]2019-05-03 10:11:00 Test Item Value Reference Range Interpretation Comments Magnesium Lvl (test code = Magnesium 2.0 1.8-2.4 Lvl) [facility]2019-05-03 10:11:00 Test Item Value Reference Range Interpretation Comments A/G Ratio (test code = A/G Ratio) 0.8 1 0.7-1.6 [facility]2019-05-03 10:11:00 Test Item Value Reference Range Interpretation Comments Globulin (test code = Globulin) 3.8 2.7-4.2 [facility]2019-05-03 10:11:00 Test Item Value Reference Range Interpretation Comments B/C Ratio (test code = B/C Ratio) 19 1 6-25 [facility]2019-05-03 10:11:00 Test Item Value Reference Range Interpretation Comments AGAP (test code = AGAP) 14.9 10.0-20.0 [facility]2019-05-03 10:11:00 Test Item Value Reference Range Interpretation Comments eGFR (test code = eGFR) 68 [facility]2019-05-03 10:11:00 Test Item Value Reference Range Interpretation Comments Bili Total (test code = Bili Total) 0.8 0.2-1.3 [facility]2019-05-03 10:11:00 Test Item Value Reference Range Interpretation Comments Alk Phos (test code = Alk Phos) 128 39-136 [facility]2019-05-03 10:11:00 Test Item Value Reference Range Interpretation Comments AST (test code = AST) 26 See_Comment [Auto mated message] The system which ge nerated this result transmit zen reference range : <=37. The reference range was not used to interpr et this result as albina l/abnormal. [facility]2019-05-03 10:11:00 Test Item Value Reference Range Interpretation Comments ALT (test code = ALT) 36 See_Comment [Auto mated message] The system which ge nerated this result transmit zen reference range : <=65. The reference range was not used to interpr et this result as albina l/abnormal. [facility]2019-05-03 10:11:00 Test Item Value Reference Range Interpretation Comments Albumin Lvl (test code = Albumin Lvl) 3.1 3.5-5.0 [facility]2019-05-03 10:11:00 Test Item Value Reference Range Interpretation Comments Potassium Lvl (test code = Potassium 3.9 3.5-5.1 Lvl) [facility]2019-05-03 10:11:00 Test Item Value Reference Range Interpretation Comments Creatinine Lvl (test code = Creatinine 0.80 0.50-1.40 Lvl) [facility]2019-05-03 10:11:00 Test Item Value Reference Range Interpretation Comments Glucose Lvl (test code = Glucose Lvl) 77 70-99 [facility]2019-05-03 10:11:00 Test Item Value Reference Range Interpretation Comments Sodium Lvl (test code = Sodium Lvl) 140 135-145 [facility]2019-05-03 10:11:00 Test Item Value Reference Range Interpretation Comments BUN (test code = BUN) 15 7-22 [facility]2019-05-03 10:11:00 Test Item Value Reference Range Interpretation Comments Calcium Lvl (test code = Calcium Lvl) 8.6 8.5-10.5 [facility]2019-05-03 10:11:00 Test Item Value Reference Range Interpretation Comments Total Protein (test code = Total 6.9 6.4-8.4 Protein) [facility]2019-05-03 10:11:00 Test Item Value Reference Range Interpretation Comments CO2 (test code = CO2) 22 24-32 [facility]2019-05-03 10:11:00 Test Item Value Reference Range Interpretation Comments Chloride Lvl (test code = Chloride Lvl) 107 95-109 [facility] HospitalUgdaunuTBQVOUKUCY6142-71-89 10:11:00 Test Item Value Reference Range Interpretation Comments MPV (test code = MPV) 8.5 7.4-10.4 [facility] HospitalFrwdxwvVYMPWCOPSG2885-32-49 10:11:00 Test Item Value Reference Range Interpretation Comments Platelet (test code = Platelet) 237 133-450 [facility] HospitalUtkldngHYKLJNPXHF7039-84-70 10:11:00 Test Item Value Reference Range Interpretation Comments MCHC (test code = MCHC) 32.5 32.0-36.0 [facility] HospitalQscejisJZVIEEPQMD1014-50-62 10:11:00 Test Item Value Reference Range Interpretation Comments RDW (test code = RDW) 14.0 11.5-14.5 [facility] HospitalXymkkgrYILZOKYBUR8720-38-24 10:11:00 Test Item Value Reference Range Interpretation Comments WBC (test code = WBC) 9.0 3.7-10.4 [facility] HospitalVncgamaTFWNGUYYME6220-81-40 10:11:00 Test Item Value Reference Range Interpretation Comments RBC (test code = RBC) 4.06 4.20-5.40 [facility] HospitalKbtgoxjSHEIRWCBZT8778-22-88 10:11:00 Test Item Value Reference Range Interpretation Comments MCH (test code = MCH) 29.9 pg 27.0-31.0 [facility] HospitalPfdktcnKIKKNPYEEC4875-36-91 10:11:00 Test Item Value Reference Range Interpretation Comments Hct (test code = Hct) 37.3 36.0-48.0 [facility] HospitalXvqgdspVZHCCDQQHE3996-62-32 10:11:00 Test Item Value Reference Range Interpretation Comments MCV (test code = MCV) 92.0 80.0-98.0 [facility] HospitalXnxyqdbMJGBCAMCRR1368-33-63 10:11:00 Test Item Value Reference Range Interpretation Comments Hgb (test code = Hgb) 12.1 12.0-16.0 [facility] HospitalXzzfvwaZRTESQPQHG9192-89-61 10:11:00 Test Item Value Reference Range Interpretation Comments Eosinophils (test code = 2.7 See_Comment [A utomated message] The Eosinophils) system which ge nerated this result tra nsmitted reference range : <=4.0. The reference r tara was not used to int erpret this result as normal/abnormal . [facility] HospitalKbywyuiDTLURIAYOW2003-83-91 10:11:00 Test Item Value Reference Range Interpretation Comments Lymphocytes # (test code = Lymphocytes 1.9 1.0-5.5 #) [facility] HospitalMhqkcgfSHPDVUJSYF4275-56-93 10:11:00 Test Item Value Reference Range Interpretation Comments Neutrophils # (test code = Neutrophils 5.9 1.5-8.1 #) [facility] HospitalDemzdyjLWCADDVGSL7384-19-75 10:11:00 Test Item Value Reference Range Interpretation Comments Basophils (test code = 0.3 See_Comment [Aut omated message] The Basophils) system which ge nerated this result tra nsmitted reference range : <=1.0. The reference r tara was not used to int erpret this result as normal/abnormal . [facility] HospitalJchsumgCSNZZGEQAB8494-44-56 10:11:00 Test Item Value Reference Range Interpretation Comments Monocytes # (test code 0.9 See_Comment [Aut omated message] The = Monocytes #) system which generated this result tra nsmitted reference range : <=0.8. The reference r tara was not used to int erpret this result as normal/abnormal . [facility] HospitalVrnjunfDIZTJHPIRE0968-56-42 10:11:00 Test Item Value Reference Range Interpretation Comments Eosinophils # (test code 0.2 See_Comment [A utomated message] The = Eosinophils #) system [facility] generated this result tra nsmitted reference range : <=0.5. The reference r tara was not used to int erpret this result as normal/abnormal . [facility] HospitalKogmwkuJUNQNDFGCP6096-12-33 10:11:00 Test Item Value Reference Range Interpretation Comments Monocytes (test code = Monocytes) 10.5 2.0-12.0 [facility] HospitalYzdnhajMNWZDQFVAB5452-74-52 10:11:00 Test Item Value Reference Range Interpretation Comments Lymphocytes (test code = Lymphocytes) 20.6 20.0-40.0 [facility] HospitalYgbgwhhXMPHPIITQE0519-62-26 10:11:00 Test Item Value Reference Range Interpretation Comments Segs (test code = Segs) 65.9 45.0-75.0 [facility] HospitalUmaayeaOSGWHMJOHH2713-72-63 10:11:00 Test Item Value Reference Range Interpretation Comments Neutrophils # (test code = Neutrophils 5.9 1.5-8.1 #) [facility] HospitalUfegqndPBDSYWIBXT0175-06-76 10:11:00 Test Item Value Reference Range Interpretation Comments Basophils (test code = 0.3 See_Comment [Aut omated message] The Basophils) system which ge nerated this result tra nsmitted reference range : <=1.0. The reference r tara was not used to int erpret this result as normal/abnormal . [facility] HospitalJcbjfjsRUXXCJQCJR9989-79-21 10:11:00 Test Item Value Reference Range Interpretation Comments Monocytes # (test code 0.9 See_Comment [Aut omated message] The = Monocytes #) system which generated this result tra nsmitted reference range : <=0.8. The reference r tara was not used to int erpret this result as normal/abnormal . [facility] HospitalIuhfqjlABWIVIXRTK1284-01-10 10:11:00 Test Item Value Reference Range Interpretation Comments Eosinophils # (test code 0.2 See_Comment [A utomated message] The = Eosinophils #) system [facility] [employer] generated this result tra nsmitted reference range : <=0.5. The reference r tara was not used to int erpret this result as normal/abnormal . [facility] HospitalAehjppxXFFOZLYADD3305-43-46 10:11:00 Test Item Value Reference Range Interpretation Comments Monocytes (test code = Monocytes) 10.5 2.0-12.0 [facility] HospitalKyegpsyBNNGEZUWHZ9656-99-28 10:11:00 Test Item Value Reference Range Interpretation Comments Lymphocytes (test code = Lymphocytes) 20.6 20.0-40.0 [facility] HospitalDqqgmxvCJIQDQKMBX6822-68-24 10:11:00 Test Item Value Reference Range Interpretation Comments Segs (test code = Segs) 65.9 45.0-75.0 [facility]2019-05-03 10:11:00 Test Item Value Reference Range Interpretation Comments Phosphorus (test code = Phosphorus) 2.9 2.5-4.5 [facility]2019-05-03 10:11:00 Test Item Value Reference Range Interpretation Comments Magnesium Lvl (test code = Magnesium 2.0 1.8-2.4 Lvl) [facility]2019-05-03 10:11:00 Test Item Value Reference Range Interpretation Comments A/G Ratio (test code = A/G Ratio) 0.8 1 0.7-1.6 [facility]2019-05-03 10:11:00 Test Item Value Reference Range Interpretation Comments Globulin (test code = Globulin) 3.8 2.7-4.2 [facility]2019-05-03 10:11:00 Test Item Value Reference Range Interpretation Comments B/C Ratio (test code = B/C Ratio) 19 1 6-25 [facility]2019-05-03 10:11:00 Test Item Value Reference Range Interpretation Comments AGAP (test code = AGAP) 14.9 10.0-20.0 [facility]2019-05-03 10:11:00 Test Item Value Reference Range Interpretation Comments eGFR (test code = eGFR) 68 [facility]2019-05-03 10:11:00 Test Item Value Reference Range Interpretation Comments Bili Total (test code = Bili Total) 0.8 0.2-1.3 [facility]2019-05-03 10:11:00 Test Item Value Reference Range Interpretation Comments Alk Phos (test code = Alk Phos) 128 39-136 [facility]2019-05-03 10:11:00 Test Item Value Reference Range Interpretation Comments AST (test code = AST) 26 See_Comment [Auto mated message] The system which ge nerated this result transmit zen reference range : <=37. The reference range was not used to interpr et this result as albina l/abnormal. [facility]2019-05-03 10:11:00 Test Item Value Reference Range Interpretation Comments ALT (test code = ALT) 36 See_Comment [Auto mated message] The system which ge nerated this result transmit zen reference range : <=65. The reference range was not used to interpr et this result as albina l/abnormal. [facility]2019-05-03 10:11:00 Test Item Value Reference Range Interpretation Comments Albumin Lvl (test code = Albumin Lvl) 3.1 3.5-5.0 [facility]2019-05-03 10:11:00 Test Item Value Reference Range Interpretation Comments Potassium Lvl (test code = Potassium 3.9 3.5-5.1 Lvl) [facility]2019-05-03 10:11:00 Test Item Value Reference Range Interpretation Comments Creatinine Lvl (test code = Creatinine 0.80 0.50-1.40 Lvl) [facility]2019-05-03 10:11:00 Test Item Value Reference Range Interpretation Comments Glucose Lvl (test code = Glucose Lvl) 77 70-99 [facility]2019-05-03 10:11:00 Test Item Value Reference Range Interpretation Comments Sodium Lvl (test code = Sodium Lvl) 140 135-145 [facility]2019-05-03 10:11:00 Test Item Value Reference Range Interpretation Comments BUN (test code = BUN) 15 7-22 [facility]2019-05-03 10:11:00 Test Item Value Reference Range Interpretation Comments Calcium Lvl (test code = Calcium Lvl) 8.6 8.5-10.5 [facility]2019-05-03 10:11:00 Test Item Value Reference Range Interpretation Comments Total Protein (test code = Total 6.9 6.4-8.4 Protein) [facility]2019-05-03 10:11:00 Test Item Value Reference Range Interpretation Comments CO2 (test code = CO2) 22 24-32 [facility]2019-05-03 10:11:00 Test Item Value Reference Range Interpretation Comments Chloride Lvl (test code = Chloride Lvl) 107 95-109 [facility] HospitalMaucpmzRKUFZGVVWQ2686-88-34 10:11:00 Test Item Value Reference Range Interpretation Comments MPV (test code = MPV) 8.5 7.4-10.4 [facility] HospitalGwekpzvCVWPGJYQKF3502-52-13 10:11:00 Test Item Value Reference Range Interpretation Comments Platelet (test code = Platelet) 237 133-450 [facility] HospitalSwwblhrSGIDUYATHO9212-51-81 10:11:00 Test Item Value Reference Range Interpretation Comments MCHC (test code = MCHC) 32.5 32.0-36.0 [facility] HospitalGjpzswrKWLSXGUZLM6144-20-40 10:11:00 Test Item Value Reference Range Interpretation Comments RDW (test code = RDW) 14.0 11.5-14.5 [facility] HospitalHvyrtdqRNOZNQDAOD3566-28-82 10:11:00 Test Item Value Reference Range Interpretation Comments WBC (test code = WBC) 9.0 3.7-10.4 [facility] HospitalQclagtvLJZCUKIXFY9265-33-00 10:11:00 Test Item Value Reference Range Interpretation Comments RBC (test code = RBC) 4.06 4.20-5.40 [facility] HospitalQzxyhdgRVMYKEFSJS2913-90-27 10:11:00 Test Item Value Reference Range Interpretation Comments MCH (test code = MCH) 29.9 pg 27.0-31.0 [facility] HospitalRisllasGXPTHFQPPE4456-95-12 10:11:00 Test Item Value Reference Range Interpretation Comments Hct (test code = Hct) 37.3 36.0-48.0 [facility] HospitalSyqgnrtBXDNHXHSXJ9445-85-14 10:11:00 Test Item Value Reference Range Interpretation Comments MCV (test code = MCV) 92.0 80.0-98.0 [facility] HospitalUnsiqwhCNSPJKIJQL5243-22-96 10:11:00 Test Item Value Reference Range Interpretation Comments Hgb (test code = Hgb) 12.1 12.0-16.0 [facility] HospitalFfmnlpvTTCAVJWJTL9805-99-88 10:11:00 Test Item Value Reference Range Interpretation Comments Eosinophils (test code = 2.7 See_Comment [A utomated message] The Eosinophils) system which ge nerated this result tra nsmitted reference range : <=4.0. The reference r tara was not used to int erpret this result as normal/abnormal . [facility] HospitalLwcdblhGJPBBTNEQJ5713-39-31 10:11:00 Test Item Value Reference Range Interpretation Comments Lymphocytes # (test code = Lymphocytes 1.9 1.0-5.5 #) [facility]2019-05-02 10:10:00 Test Item Value Reference Range Interpretation Comments Magnesium Lvl (test code = Magnesium 2.1 1.8-2.4 Lvl) [facility]2019-05-02 10:10:00 Test Item Value Reference Range Interpretation Comments Phosphorus (test code = Phosphorus) 2.9 2.5-4.5 [facility]229[facility] 10:10:00 Test Item Value Reference Range Interpretation Comments AGAP (test code = AGAP) 12.7 10.0-20.0 [facility]FfgxsefEAQTVBPJBUGT1944-85-19 10:10:00 Test Item Value Reference Range Interpretation Comments eGFR (test code = eGFR) 68 [facility]aHcudakvGRLJOBIHLOBN8966-81-85 10:10:00 Test Item Value Reference Range Interpretation Comments Calcium Lvl (test code = Calcium Lvl) 8.7 8.5-10.5 [facility] [place]penaHufedipMIQFWVHPCYNS0856-53-09 10:10:00 Test Item Value Reference Range Interpretation Comments CO2 (test code = CO2) 24 24-32 [facility]penaFqgwhsfJNTDJHBSPZDP5863-35-24 10:10:00 Test Item Value Reference Range Interpretation Comments Chloride Lvl (test code = Chloride Lvl) 109 95-109 [facility] AlpenaCujshvqEVNNTODVETJN6857-23-53 10:10:00 Test Item Value Reference Range Interpretation Comments Potassium Lvl (test code = Potassium 3.7 3.5-5.1 Lvl) [facility] AlpenaMgymanyQVDUFBRNXOYA6487-54-40 10:10:00 Test Item Value Reference Range Interpretation Comments Sodium Lvl (test code = Sodium Lvl) 142 135-145 [facility] AlpenaQkjnfmwYZGMUIQKDLZN1408-66-20 10:10:00 Test Item Value Reference Range Interpretation Comments Glucose Lvl (test code = Glucose Lvl) 86 70-99 [facility] AlpenaLadiuchWZVBHTPQMQQB5580-94-15 10:10:00 Test Item Value Reference Range Interpretation Comments Creatinine Lvl (test code = Creatinine 0.80 0.50-1.40 Lvl) [facility] AlpenaXbvsherAGDMEITGPVZM2368-33-72 10:10:00 Test Item Value Reference Range Interpretation Comments BUN (test code = BUN) 14 7-22 [facility]ScdbtmpYSBFWPNBUO7456-31-74 10:10:00 Test Item Value Reference Range Interpretation Comments RBC (test code = RBC) 4.07 4.20-5.40 [facility] HospitalOengoouGDUPRYHQUC3613-06-14 10:10:00 Test Item Value Reference Range Interpretation Comments WBC (test code = WBC) 9.4 3.7-10.4 [facility] HospitalPrrhaenIWFWCDTZOJ6691-64-38 10:10:00 Test Item Value Reference Range Interpretation Comments MCV (test code = MCV) 90.5 80.0-98.0 [facility] HospitalZadeexyFQGUYRCVXU9677-81-07 10:10:00 Test Item Value Reference Range Interpretation Comments Hct (test code = Hct) 36.8 36.0-48.0 [facility] HospitalNknfmuyMDARCDOEQG7415-82-99 10:10:00 Test Item Value Reference Range Interpretation Comments MCHC (test code = MCHC) 32.9 32.0-36.0 [facility] HospitalXnljpxlVKNXRFABLE5598-62-23 10:10:00 Test Item Value Reference Range Interpretation Comments Hgb (test code = Hgb) 12.1 12.0-16.0 [facility] HospitalMhehjbgFYBQREPQSS0530-14-09 10:10:00 Test Item Value Reference Range Interpretation Comments MCH (test code = MCH) 29.7 pg 27.0-31.0 [facility] HospitalWjxwhayAQVPTPTCOP3613-30-29 10:10:00 Test Item Value Reference Range Interpretation Comments MPV (test code = MPV) 8.8 7.4-10.4 [facility] HospitalKroielcESHAIXJRMD8370-59-49 10:10:00 Test Item Value Reference Range Interpretation Comments Platelet (test code = Platelet) 226 133-450 [facility] HospitalTraqdkvJOHTNBAQVW5199-82-22 10:10:00 Test Item Value Reference Range Interpretation Comments RDW (test code = RDW) 14.0 11.5-14.5 [facility] HospitalCaqvvobMJFHIHULED2761-46-36 10:10:00 Test Item Value Reference Range Interpretation Comments Monocytes # (test code 0.8 See_Comment [Aut omated message] The = Monocytes #) system which generated this result tra nsmitted reference range : <=0.8. The reference r tara was not used to int erpret this result as normal/abnormal . [facility] HospitalIdlmilhPDSUVAPXEX1997-09-11 10:10:00 Test Item Value Reference Range Interpretation Comments Lymphocytes # (test code = Lymphocytes 1.7 1.0-5.5 #) [facility] HospitalJwwsyccKTGRAUHESY3315-10-99 10:10:00 Test Item Value Reference Range Interpretation Comments Neutrophils # (test code = Neutrophils 6.7 1.5-8.1 #) [facility] HospitalFnaicpkFMBCDANRBL5526-96-49 10:10:00 Test Item Value Reference Range Interpretation Comments Basophils (test code = 0.5 See_Comment [Aut omated message] The Basophils) system which ge nerated this result tra nsmitted reference range : <=1.0. The reference r tara was not used to int erpret this result as normal/abnormal . [facility] HospitalMgdchojXKPHUERQGX4982-46-68 10:10:00 Test Item Value Reference Range Interpretation Comments Eosinophils (test code = 1.4 See_Comment [A utomated message] The Eosinophils) system which ge nerated this result tra nsmitted reference range : <=4.0. The reference r tara was not used to int erpret this result as normal/abnormal . [facility] HospitalHsiqssxQVNEVQEFUG2583-76-26 10:10:00 Test Item Value Reference Range Interpretation Comments Eosinophils # (test code 0.1 See_Comment [A utomated message] The = Eosinophils #) system whic h generated this result tra nsmitted reference range : <=0.5. The reference r tara was not used to int erpret this result as normal/abnormal . [facility] HospitalWozwfnvZVRFNKKSBO1903-11-70 10:10:00 Test Item Value Reference Range Interpretation Comments Monocytes (test code = Monocytes) 9.0 2.0-12.0 [facility] HospitalBpwncigRLPOLZWCZB5025-52-97 10:10:00 Test Item Value Reference Range Interpretation Comments Lymphocytes (test code = Lymphocytes) 17.9 20.0-40.0 [facility] HospitalNnqzmzoOYDEPZDVNC3371-26-99 10:10:00 Test Item Value Reference Range Interpretation Comments Segs (test code = Segs) 71.2 45.0-75.0 [facility]2019-05-02 10:10:00 Test Item Value Reference Range Interpretation Comments Magnesium Lvl (test code = Magnesium 2.1 1.8-2.4 Lvl) [facility]2019-05-02 10:10:00 Test Item Value Reference Range Interpretation Comments Phosphorus (test code = Phosphorus) 2.9 2.5-4.5 [facility] AlpenaXzevuitTDEIXOVMZJXE4412-12-98 10:10:00 Test Item Value Reference Range Interpretation Comments AGAP (test code = AGAP) 12.7 10.0-20.0 [facility] AlpenaUgnouduMYNHWFAHCZHC5709-07-79 10:10:00 Test Item Value Reference Range Interpretation Comments eGFR (test code = eGFR) 68 [facility] AlpenaJfhylbyHRJZCBGARORX5646-93-27 10:10:00 Test Item Value Reference Range Interpretation Comments Calcium Lvl (test code = Calcium Lvl) 8.7 8.5-10.5 [facility] AlpenaNzwqxrqCIRTWDPZQNWE2860-73-67 10:10:00 Test Item Value Reference Range Interpretation Comments CO2 (test code = CO2) 24 24-32 [facility] AlpenaDpcpmarWOTMJVJMJHTW0200-94-29 10:10:00 Test Item Value Reference Range Interpretation Comments Chloride Lvl (test code = Chloride Lvl) 109 95-109 [facility] AlpenaUiebkigKNOVDUSXQRPS1011-55-50 10:10:00 Test Item Value Reference Range Interpretation Comments Potassium Lvl (test code = Potassium 3.7 3.5-5.1 Lvl) [facility] AlpenaZdwjfaoFCNZHPXTABGT9910-75-37 10:10:00 Test Item Value Reference Range Interpretation Comments Sodium Lvl (test code = Sodium Lvl) 142 135-145 [facility] AlpenaHugmxeuICDMRMKEJHAT1156-18-31 10:10:00 Test Item Value Reference Range Interpretation Comments Glucose Lvl (test code = Glucose Lvl) 86 70-99 [facility] AlpenaCgyqqpcUYFPJYPOMYPR6989-33-36 10:10:00 Test Item Value Reference Range Interpretation Comments Creatinine Lvl (test code = Creatinine 0.80 0.50-1.40 Lvl) [facility] AlpenaKbdfyzuBJDIFEQGACHO2831-16-17 10:10:00 Test Item Value Reference Range Interpretation Comments BUN (test code = BUN) 14 7-22 [facility] HospitalIcebuvfEEVMLFDRDZ7768-61-47 10:10:00 Test Item Value Reference Range Interpretation Comments RBC (test code = RBC) 4.07 4.20-5.40 [facility] HospitalLhffbjzNVOQNNFFYT5728-07-56 10:10:00 Test Item Value Reference Range Interpretation Comments WBC (test code = WBC) 9.4 3.7-10.4 [facility] HospitalMjbwghjEVHLHRMKPX9045-87-03 10:10:00 Test Item Value Reference Range Interpretation Comments MCV (test code = MCV) 90.5 80.0-98.0 [facility] HospitalNvdgtkiLQNQVZKZVY9308-71-38 10:10:00 Test Item Value Reference Range Interpretation Comments Hct (test code = Hct) 36.8 36.0-48.0 [facility] HospitalAreuzilVBVASRDNQD9895-95-78 10:10:00 Test Item Value Reference Range Interpretation Comments MCHC (test code = MCHC) 32.9 32.0-36.0 [facility] HospitalDtkjzpmBCZCNQHWXJ7619-23-37 10:10:00 Test Item Value Reference Range Interpretation Comments Hgb (test code = Hgb) 12.1 12.0-16.0 [facility] HospitalDjbytfrEBXRSJAEPL6234-41-26 10:10:00 Test Item Value Reference Range Interpretation Comments MCH (test code = MCH) 29.7 pg 27.0-31.0 [facility] HospitalRtovfhiEFQMTVPAOG6350-17-64 10:10:00 Test Item Value Reference Range Interpretation Comments MPV (test code = MPV) 8.8 7.4-10.4 [facility] HospitalVsjlpopBRSYCZVWXI8188-71-27 10:10:00 Test Item Value Reference Range Interpretation Comments Platelet (test code = Platelet) 226 133-450 [facility] HospitalSuuwcjdJYJGUYBNVW9469-02-65 10:10:00 Test Item Value Reference Range Interpretation Comments RDW (test code = RDW) 14.0 11.5-14.5 [facility] HospitalXsywuwlDEGWEOMGLC2932-93-22 10:10:00 Test Item Value Reference Range Interpretation Comments Monocytes # (test code 0.8 See_Comment [Aut omated message] The = Monocytes #) system which generated this result tra nsmitted reference range : <=0.8. The reference r tara was not used to int erpret this result as normal/abnormal . [facility] HospitalLmpqkazXXTFJGUVKH6435-16-73 10:10:00 Test Item Value Reference Range Interpretation Comments Lymphocytes # (test code = Lymphocytes 1.7 1.0-5.5 #) [facility] HospitalMlrllhzNJQREHOVKL9316-72-91 10:10:00 Test Item Value Reference Range Interpretation Comments Neutrophils # (test code = Neutrophils 6.7 1.5-8.1 #) [facility] HospitalDiqnhlxQSRXRRZLWN3355-48-98 10:10:00 Test Item Value Reference Range Interpretation Comments Basophils (test code = 0.5 See_Comment [Aut omated message] The Basophils) system which ge nerated this result tra nsmitted reference range : <=1.0. The reference r tara was not used to int erpret this result as normal/abnormal . [facility] HospitalCskzrsgCRZGQVVCWW9311-34-14 10:10:00 Test Item Value Reference Range Interpretation Comments Eosinophils (test code = 1.4 See_Comment [A utomated message] The Eosinophils) system which ge nerated this result tra nsmitted reference range : <=4.0. The reference r tara was not used to int erpret this result as normal/abnormal . [facility] HospitalOagsgkwICSOMCCLZS4474-75-06 10:10:00 Test Item Value Reference Range Interpretation Comments Eosinophils # (test code 0.1 See_Comment [A utomated message] The = Eosinophils #) system whic h generated this result tra nsmitted reference range : <=0.5. The reference r tara was not used to int erpret this result as normal/abnormal . [facility] HospitalVrumxnaNIVEQJVYGB7372-43-17 10:10:00 Test Item Value Reference Range Interpretation Comments Monocytes (test code = Monocytes) 9.0 2.0-12.0 [facility] HospitalRakdrvhUHMOUZRKLX0847-43-93 10:10:00 Test Item Value Reference Range Interpretation Comments Lymphocytes (test code = Lymphocytes) 17.9 20.0-40.0 [facility] HospitalCvefygoKNWQMWGMOV0832-06-17 10:10:00 Test Item Value Reference Range Interpretation Comments Segs (test code = Segs) 71.2 45.0-75.0 [facility]2019-05-02 10:10:00 Test Item Value Reference Range Interpretation Comments Magnesium Lvl (test code = Magnesium 2.1 1.8-2.4 Lvl) [facility]2019-05-02 10:10:00 Test Item Value Reference Range Interpretation Comments Phosphorus (test code = Phosphorus) 2.9 2.5-4.5 [facility]penaIgmdpexMPACILUULWUG1418-08-77 10:10:00 Test Item Value Reference Range Interpretation Comments AGAP (test code = AGAP) 12.7 10.0-20.0 [facility] AlpenaVdloksmQWNGRDATASRH4451-81-19 10:10:00 Test Item Value Reference Range Interpretation Comments eGFR (test code = eGFR) 68 [facility] AlpenaWitojzkSMIIQGIBBHYB6619-55-86 10:10:00 Test Item Value Reference Range Interpretation Comments Calcium Lvl (test code = Calcium Lvl) 8.7 8.5-10.5 [facility] AlpenaKnctkcmEYJNLFMLFLUX6675-83-01 10:10:00 Test Item Value Reference Range Interpretation Comments CO2 (test code = CO2) 24 24-32 [facility] AlpenaIkamkusJMLFJFYCTKDP6785-40-08 10:10:00 Test Item Value Reference Range Interpretation Comments Chloride Lvl (test code = Chloride Lvl) 109 95-109 [facility] AlpenaHzwnoyiFMOPCCPLOVMG2920-96-96 10:10:00 Test Item Value Reference Range Interpretation Comments Potassium Lvl (test code = Potassium 3.7 3.5-5.1 Lvl) [facility] AlpenaAkemuhoAIAUNHYFASMV0030-33-18 10:10:00 Test Item Value Reference Range Interpretation Comments Sodium Lvl (test code = Sodium Lvl) 142 135-145 [facility] AlpenaCcxnswhHTHLAITSRURM3306-02-43 10:10:00 Test Item Value Reference Range Interpretation Comments Glucose Lvl (test code = Glucose Lvl) 86 70-99 [facility] AlpenaGgmieozOGPXTMHFJWWD1351-71-99 10:10:00 Test Item Value Reference Range Interpretation Comments Creatinine Lvl (test code = Creatinine 0.80 0.50-1.40 Lvl) [facility] AlpenaIxgortgNDNZBWMUJFYA8666-78-20 10:10:00 Test Item Value Reference Range Interpretation Comments BUN (test code = BUN) 14 7-22 [facility] HospitalIhnptajIUKODAEYZF5040-76-56 10:10:00 Test Item Value Reference Range Interpretation Comments RBC (test code = RBC) 4.07 4.20-5.40 [facility] HospitalOfvgkrmOFXHSIQXMN5621-03-11 10:10:00 Test Item Value Reference Range Interpretation Comments WBC (test code = WBC) 9.4 3.7-10.4 [facility] HospitalUmooktbTCGSQJAPPK3201-96-02 10:10:00 Test Item Value Reference Range Interpretation Comments MCV (test code = MCV) 90.5 80.0-98.0 [facility] HospitalAkyugerYOISXWFUIN5610-83-10 10:10:00 Test Item Value Reference Range Interpretation Comments Hct (test code = Hct) 36.8 36.0-48.0 [facility] HospitalWgrdtncLAMLEWMKHZ8568-62-86 10:10:00 Test Item Value Reference Range Interpretation Comments MCHC (test code = MCHC) 32.9 32.0-36.0 [facility] HospitalBdntlbqGVZZQJLZOY1712-50-58 10:10:00 Test Item Value Reference Range Interpretation Comments Hgb (test code = Hgb) 12.1 12.0-16.0 [facility] HospitalNkediboCCNVQNWVOU2908-70-40 10:10:00 Test Item Value Reference Range Interpretation Comments MCH (test code = MCH) 29.7 pg 27.0-31.0 [facility] HospitalDfqsngxPKYPTRHNPI4481-95-27 10:10:00 Test Item Value Reference Range Interpretation Comments MPV (test code = MPV) 8.8 7.4-10.4 [facility] HospitalLckiovhJUUKQOURTR1731-04-08 10:10:00 Test Item Value Reference Range Interpretation Comments Platelet (test code = Platelet) 226 133-450 [facility] HospitalOyllcszXDTCAQTCKW2219-81-50 10:10:00 Test Item Value Reference Range Interpretation Comments RDW (test code = RDW) 14.0 11.5-14.5 [facility] HospitalLckuzznMJJCLCGBLC6002-75-90 10:10:00 Test Item Value Reference Range Interpretation Comments Monocytes # (test code 0.8 See_Comment [Aut omated message] The = Monocytes #) system which generated this result tra nsmitted reference range : <=0.8. The reference r tara was not used to int erpret this result as normal/abnormal . [facility] HospitalAtmlrdfQFGQBGKOFN8816-90-20 10:10:00 Test Item Value Reference Range Interpretation Comments Lymphocytes # (test code = Lymphocytes 1.7 1.0-5.5 #) [facility] HospitalOhpxiiaZXPNNOZRLS0333-15-20 10:10:00 Test Item Value Reference Range Interpretation Comments Neutrophils # (test code = Neutrophils 6.7 1.5-8.1 #) [facility] HospitalBxudmtsRIYBPIHOVQ9784-49-79 10:10:00 Test Item Value Reference Range Interpretation Comments Basophils (test code = 0.5 See_Comment [Aut omated message] The Basophils) system which ge nerated this result tra nsmitted reference range : <=1.0. The reference r tara was not used to int erpret this result as normal/abnormal . [facility] HospitalUxoxfbxAICQCNKQOW9664-98-84 10:10:00 Test Item Value Reference Range Interpretation Comments Eosinophils (test code = 1.4 See_Comment [A utomated message] The Eosinophils) system which ge nerated this result tra nsmitted reference range : <=4.0. The reference r tara was not used to int erpret this result as normal/abnormal . [facility] BranchOwnmwrkENOABDAPPR2318-30-90 10:10:00 Test Item Value Reference Range Interpretation Comments Eosinophils # (test code 0.1 See_Comment [A utomated message] The = Eosinophils #) system whic h generated this result tra nsmitted reference range : <=0.5. The reference r tara was not used to int erpret this result as normal/abnormal . [facility] BranchDjzwnfqFDENLOFVEA1878-24-29 10:10:00 Test Item Value Reference Range Interpretation Comments Monocytes (test code = Monocytes) 9.0 2.0-12.0 [facility] BranchRmbrvzdFPIROSPDYE6234-42-48 10:10:00 Test Item Value Reference Range Interpretation Comments Lymphocytes (test code = Lymphocytes) 17.9 20.0-40.0 [facility] BranchGijmdjpGPZAFLXKSB8696-02-06 10:10:00 Test Item Value Reference Range Interpretation Comments Segs (test code = Segs) 71.2 45.0-75.0 [facility] DallasDigitrad CommunicationsTeach4Life Consulting LLJNUMKVS1592-65-21 16:25:00 Test Item Value Reference Range Interpretation Comments Troponin-I (test code 0.02 See_Comment [Auto mated message] The = Troponin-I) system which g enerated this result transmit zen reference range : <=0.40. The reference r tara was not used to interpr et this result as albina l/abnormal. [facility] DallasPresslyBTZRAKB7785-94-82 16:25:00 Test Item Value Reference Range Interpretation Comments Troponin-I (test code 0.02 See_Comment [Auto mated message] The = Troponin-I) system which g enerated this result transmit zen reference range : <=0.40. The reference r tara was not used to interpr et this result as albina l/abnormal. [facility] DallasPresslyOBYBLJP0970-24-65 16:25:00 Test Item Value Reference Range Interpretation Comments Troponin-I (test code 0.02 See_Comment [Auto mated message] The = Troponin-I) system which g enerated this result transmit zen reference range : <=0.40. The reference r tara was not used to interpr et this result as albina l/abnormal. [facility] DOLBRNS6893-[facility]13 10:17:00 Test Item Value Reference Range Interpretation Comments Troponin-I (test code 0.02 See_Comment [Auto mated message] The = Troponin-I) system which g enerated this result transmit zen reference range : <=0.40. The reference r tara was not used to interpr et this result as albina l/abnormal. [facility] YDAXDG7169-78-19 10:17:00 Test Item Value Reference Range Interpretation Comments U Amph Scr (test code Negative *NA*(11/09/18 = U Amph Scr) 5:17 AM) [facility] [id number] 10:17:00 Test Item Value Reference Range Interpretation Comments U Opiate Scr (test Negative *NA*(11/09/18 code = U Opiate Scr) 5:17 AM) [facility] [id number] 10:17:00 Test Item Value Reference Range Interpretation Comments U Cannab Scr (test Negative *NA*(11/09/18 code = U Cannab Scr) 5:17 AM) [facility] [id number] 10:17:00 Test Item Value Reference Range Interpretation Comments U Cocaine Scr (test Negative *NA*(11/09/18 code = U Cocaine Scr) 5:17 AM) [facility] [id number] 10:17:00 Test Item Value Reference Range Interpretation Comments U Benzodiaz Scr (test Positive *ABN*(11/09/18 code = U Benzodiaz Scr) 5:17 AM) [facility] [id number] 10:17:00 Test Item Value Reference Range Interpretation Comments U Adilene Scr (test code Negative *NA*(11/09/18 = U Adilene Scr) 5:17 AM) [facility] [id number] 10:17:00 Test Item Value Reference Range Interpretation Comments UDS Note (test code = See Note (11/09/18 5:17 UDS Note) AM) [facility] [id number] 10:17:00 Test Item Value Reference Range Interpretation Comments U Phencyclidine Scr (test Negative *NA*(11/09/18 code = U Phencyclidine 5:17 AM) Scr) [facility] AND [id number] 10:17:00 Test Item Value Reference Range Interpretation Comments UA Sq Epi (test code = UA Sq Epi) None Seen [facility] AND [id number] 10:17:00 Test Item Value Reference Range Interpretation Comments UA Bacteria (test code = UA Occasional /HPF Bacteria) [facility] AND [id number] 10:17:00 Test Item Value Reference Range Interpretation Comments UA Mucus (test code = UA Mucus) Few /LPF [facility] AND [id number] 10:17:00 Test Item Value Reference Range Interpretation Comments UA Urobilinogen (test code = UA no gt 0.1-1.0 Urobilinogen) [facility] AND [id number] 10:17:00 Test Item Value Reference Range Interpretation Comments UA Color (test code = UA Color) Ltyellow [facility] AND [id number] 10:17:00 Test Item Value Reference Range Interpretation Comments UA RBC (test code = 7 See_Comment [Automa zen message] The UA RBC) system which ge nerated this result transmit zen reference range : <=2. The reference range was not used to interpr et this result as albina l/abnormal. [facility] AND [id number] 10:17:00 Test Item Value Reference Range Interpretation Comments UA WBC (test code = 2 See_Comment [Automa zen message] The UA WBC) system which ge nerated this result transmit zen reference range : <=5. The reference range was not used to interpr et this result as albina l/abnormal. [facility] AND [id number] 10:17:00 Test Item Value Reference Range Interpretation Comments UA Leuk Est (test code Trace *ABN*(11/09/18 5:17 = UA Leuk Est) AM) [facility] AND [id number] 10:17:00 Test Item Value Reference Range Interpretation Comments UA Bili (test code = Negative *NA*(11/09/18 UA Bili) 5:17 AM) [facility] AND [id number] 10:17:00 Test Item Value Reference Range Interpretation Comments UA Blood (test code = Small *ABN*(11/09/18 UA Blood) 5:17 AM) [facility] [id number] 10:17:00 Test Item Value Reference Range Interpretation Comments UA Nitrite (test code Negative (11/09/18 5:17 = UA Nitrite) AM) [facility] AND [id number] 10:17:00 Test Item Value Reference Range Interpretation Comments UA Ketones (test code = UA Trace mg/dL Ketones) [facility] AND [id number] 10:17:00 Test Item Value Reference Range Interpretation Comments UA pH (test code = UA pH) 6.0 1 5.0-8.0 [facility] AND [id number] 10:17:00 Test Item Value Reference Range Interpretation Comments UA Glucose (test code = UA Negative mg/dL Glucose) [facility] AND [id number] 10:17:00 Test Item Value Reference Range Interpretation Comments UA Protein (test code = UA Negative mg/dL Protein) [facility] AND [id number] 10:17:00 Test Item Value Reference Range Interpretation Comments UA Spec Grav (test code = UA Spec 1.008 1 Grav) [facility] AND [id number] 10:17:00 Test Item Value Reference Range Interpretation Comments UA Turbidity (test code = Clear (11/09/18 5:17 UA Turbidity) AM) [facility]CARD[facility] [id number] 10:17:00 Test Item Value Reference Range Interpretation Comments Troponin-I (test code 0.02 See_Comment [Auto mated message] The = Troponin-I) system which g enerated this result transmit zen reference range : <=0.40. The reference r tara was not used to interpr et this result as albina l/abnormal. [facility] [id number] 10:17:00 Test Item Value Reference Range Interpretation Comments U Amph Scr (test code Negative *NA*(11/09/18 = U Amph Scr) 5:17 AM) [facility] [id number] 10:17:00 Test Item Value Reference Range Interpretation Comments U Opiate Scr (test Negative *NA*(11/09/18 code = U Opiate Scr) 5:17 AM) [facility] [id number] 10:17:00 Test Item Value Reference Range Interpretation Comments U Cannab Scr (test Negative *NA*(11/09/18 code = U Cannab Scr) 5:17 AM) [facility] [id number] 10:17:00 Test Item Value Reference Range Interpretation Comments U Cocaine Scr (test Negative *NA*(11/09/18 code = U Cocaine Scr) 5:17 AM) [facility] [id number] 10:17:00 Test Item Value Reference Range Interpretation Comments U Benzodiaz Scr (test Positive *ABN*(11/09/18 code = U Benzodiaz Scr) 5:17 AM) [facility] [id number] 10:17:00 Test Item Value Reference Range Interpretation Comments U Adilene Scr (test code Negative *NA*(11/09/18 = U Adilene Scr) 5:17 AM) [facility] [facility] [id number] 10:17:00 Test Item Value Reference Range Interpretation Comments UDS Note (test code = See Note (11/09/18 5:17 UDS Note) AM) [facility] [id number] 10:17:00 Test Item Value Reference Range Interpretation Comments U Phencyclidine Scr (test Negative *NA*(11/09/18 code = U Phencyclidine 5:17 AM) Scr) [facility] [id number] 10:17:00 Test Item Value Reference Range Interpretation Comments UA Sq Epi (test code = UA Sq Epi) None Seen [facility] [id number] 10:17:00 Test Item Value Reference Range Interpretation Comments UA Bacteria (test code = UA Occasional /HPF Bacteria) [facility] [id number] 10:17:00 Test Item Value Reference Range Interpretation Comments UA Mucus (test code = UA Mucus) Few /LPF [facility] [id number] 10:17:00 Test Item Value Reference Range Interpretation Comments UA Urobilinogen (test code = UA no gt 0.1-1.0 Urobilinogen) [facility] [id number] 10:17:00 Test Item Value Reference Range Interpretation Comments UA Color (test code = UA Color) Ltyellow [facility] [id number] 10:17:00 Test Item Value Reference Range Interpretation Comments UA RBC (test code = 7 See_Comment [Automa zen message] The UA RBC) system which ge nerated this result transmit zen reference range : <=2. The reference range was not used to interpr et this result as albina l/abnormal. [facility] AND [id number] 10:17:00 Test Item Value Reference Range Interpretation Comments UA WBC (test code = 2 See_Comment [Automa zen message] The UA WBC) system which ge nerated this result transmit zen reference range : <=5. The reference range was not used to interpr et this result as albina l/abnormal. [facility] AND [id number] 10:17:00 Test Item Value Reference Range Interpretation Comments UA Leuk Est (test code Trace *ABN*(11/09/18 5:17 = UA Leuk Est) AM) [facility] AND [id number] 10:17:00 Test Item Value Reference Range Interpretation Comments UA Bili (test code = Negative *NA*(11/09/18 UA Bili) 5:17 AM) [facility] AND [id number] 10:17:00 Test Item Value Reference Range Interpretation Comments UA Blood (test code = Small *ABN*(11/09/18 UA Blood) 5:17 AM) [facility] AND [id number] 10:17:00 Test Item Value Reference Range Interpretation Comments UA Nitrite (test code Negative (11/09/18 5:17 = UA Nitrite) AM) [facility] AND [id number] 10:17:00 Test Item Value Reference Range Interpretation Comments UA Ketones (test code = UA Trace mg/dL Ketones) [facility] AND [id number] 10:17:00 Test Item Value Reference Range Interpretation Comments UA pH (test code = UA pH) 6.0 1 5.0-8.0 [facility] AND [id number] 10:17:00 Test Item Value Reference Range Interpretation Comments UA Glucose (test code = UA Negative mg/dL Glucose) [facility] AND [id number] 10:17:00 Test Item Value Reference Range Interpretation Comments UA Protein (test code = UA Negative mg/dL Protein) [facility] AND [id number] 10:17:00 Test Item Value Reference Range Interpretation Comments UA Spec Grav (test code = UA Spec 1.008 1 Grav) [facility] [id number] 10:17:00 Test Item Value Reference Range Interpretation Comments UA Turbidity (test code = Clear (11/09/18 5:17 UA Turbidity) AM) [facility] [id number] 10:17:00 Test Item Value Reference Range Interpretation Comments Troponin-I (test code 0.02 See_Comment [Auto mated message] The = Troponin-I) system which g enerated this result transmit zen reference range : <=0.40. The reference r tara was not used to interpr et this result as albina l/abnormal. [facility] [id number] 10:17:00 Test Item Value Reference Range Interpretation Comments U Amph Scr (test code Negative *NA*(11/09/18 = U Amph Scr) 5:17 AM) [facility] [id number] 10:17:00 Test Item Value Reference Range Interpretation Comments U Opiate Scr (test Negative *NA*(11/09/18 code = U Opiate Scr) 5:17 AM) [facility] [id number] 10:17:00 Test Item Value Reference Range Interpretation Comments U Cannab Scr (test Negative *NA*(11/09/18 code = U Cannab Scr) 5:17 AM) [facility] [id number] 10:17:00 Test Item Value Reference Range Interpretation Comments U Cocaine Scr (test Negative *NA*(11/09/18 code = U Cocaine Scr) 5:17 AM) [facility] [id number] 10:17:00 Test Item Value Reference Range Interpretation Comments U Benzodiaz Scr (test Positive *ABN*(11/09/18 code = U Benzodiaz Scr) 5:17 AM) [facility] [id number] 10:17:00 Test Item Value Reference Range Interpretation Comments U Adilene Scr (test code Negative *NA*(11/09/18 = U Adilene Scr) 5:17 AM) [facility] [id number] 10:17:00 Test Item Value Reference Range Interpretation Comments UDS Note (test code = See Note (11/09/18 5:17 UDS Note) AM) [facility] [id number] 10:17:00 Test Item Value Reference Range Interpretation Comments U Phencyclidine Scr (test Negative *NA*(11/09/18 code = U Phencyclidine 5:17 AM) Scr) [facility] [id number] 10:17:00 Test Item Value Reference Range Interpretation Comments UA Sq Epi (test code = UA Sq Epi) None Seen [facility] [id number] 10:17:00 Test Item Value Reference Range Interpretation Comments UA Bacteria (test code = UA Occasional /HPF Bacteria) [facility] [id number] 10:17:00 Test Item Value Reference Range Interpretation Comments UA Mucus (test code = UA Mucus) Few /LPF [facility] [id number] 10:17:00 Test Item Value Reference Range Interpretation Comments UA Urobilinogen (test code = UA no gt 0.1-1.0 Urobilinogen) [facility] [id number] 10:17:00 Test Item Value Reference Range Interpretation Comments UA Color (test code = UA Color) Ltyellow [facility] [id number] 10:17:00 Test Item Value Reference Range Interpretation Comments UA RBC (test code = 7 See_Comment [Automa zen message] The UA RBC) system which ge nerated this result transmit zen reference range : <=2. The reference range was not used to interpr et this result as albina l/abnormal. [facility] [id number] 10:17:00 Test Item Value Reference Range Interpretation Comments UA WBC (test code = 2 See_Comment [Automa zen message] The UA WBC) system which ge nerated this result transmit zen reference range : <=5. The reference range was not used to interpr et this result as albina l/abnormal. [facility] [id number] 10:17:00 Test Item Value Reference Range Interpretation Comments UA Leuk Est (test code Trace *ABN*(11/09/18 5:17 = UA Leuk Est) AM) [facility] [id number] 10:17:00 Test Item Value Reference Range Interpretation Comments UA Bili (test code = Negative *NA*(11/09/18 UA Bili) 5:17 AM) [facility] AND [id number] 10:17:00 Test Item Value Reference Range Interpretation Comments UA Blood (test code = Small *ABN*(11/09/18 UA Blood) 5:17 AM) [facility] AND [id number] 10:17:00 Test Item Value Reference Range Interpretation Comments UA Nitrite (test code Negative (11/09/18 5:17 = UA Nitrite) AM) [facility] AND [id number] 10:17:00 Test Item Value Reference Range Interpretation Comments UA Ketones (test code = UA Trace mg/dL Ketones) [facility] AND [id number] 10:17:00 Test Item Value Reference Range Interpretation Comments UA pH (test code = UA pH) 6.0 1 5.0-8.0 [facility] AND [id number] 10:17:00 Test Item Value Reference Range Interpretation Comments UA Glucose (test code = UA Negative mg/dL Glucose) [facility] AND [id number] 10:17:00 Test Item Value Reference Range Interpretation Comments UA Protein (test code = UA Negative mg/dL Protein) [facility] AND [id number] 10:17:00 Test Item Value Reference Range Interpretation Comments UA Spec Grav (test code = UA Spec 1.008 1 Grav) [facility] AND [id number] 10:17:00 Test Item Value Reference Range Interpretation Comments UA Turbidity (test code = Clear (11/09/18 5:17 UA Turbidity) AM) [facility] [id number] 09:07:00 Test Item Value Reference Range Interpretation Comments MRSA by PCR (test Negative (11/09/18 4:07 code = MRSA by PCR) AM) [facility] [id number] 09:07:00 Test Item Value Reference Range Interpretation Comments Bili Direct (test code 0.1 See_Comment [Aut omated message] The = Bili Direct) system which generated this result tra nsmitted reference range : <=0.3. The reference r tara was not used to int erpret this result as albina l/abnormal. [facility] [id number] 09:07:00 Test Item Value Reference Range Interpretation Comments Globulin (test code = Globulin) 3.5 2.7-4.2 [place] 682509-05-01 09:07:00 Test Item Value Reference Range Interpretation Comments A/G Ratio (test code = A/G Ratio) 1.0 1 0.7-1.6 [facility]2019-05-01 09:07:00 Test Item Value Reference Range Interpretation Comments B/C Ratio (test code = B/C Ratio) 24 1 6-25 [place] 682509-05-01 09:07:00 Test Item Value Reference Range Interpretation Comments AGAP (test code = AGAP) 8.7 10.0-20.0 [facility]2019-05-01 09:07:00 Test Item Value Reference Range Interpretation Comments eGFR (test code = eGFR) 59 [facility]2019-05-01 09:07:00 Test Item Value Reference Range Interpretation Comments Total Protein (test code = Total 7.1 6.4-8.4 Protein) [facility]2019-05-01 09:07:00 Test Item Value Reference Range Interpretation Comments Albumin Lvl (test code = Albumin Lvl) 3.6 3.5-5.0 [facility]2019-05-01 09:07:00 Test Item Value Reference Range Interpretation Comments ALT (test code = ALT) 51 See_Comment [Auto mated message] The system which ge nerated this result transmit zen reference range : <=65. The reference range was not used to interpr et this result as albina l/abnormal. [facility]2019-05-01 09:07:00 Test Item Value Reference Range Interpretation Comments AST (test code = AST) 33 See_Comment [Auto mated message] The system which ge nerated this result transmit zen reference range : <=37. The reference range was not used to interpr et this result as albina l/abnormal. [place] 682509-05-01 09:07:00 Test Item Value Reference Range Interpretation Comments Bili Total (test code = Bili Total) 0.5 0.2-1.3 [facility]2019-05-01 09:07:00 Test Item Value Reference Range Interpretation Comments Alk Phos (test code = Alk Phos) 143 39-136 [facility]2019-05-01 09:07:00 Test Item Value Reference Range Interpretation Comments Glucose Lvl (test code = Glucose Lvl) 122 70-99 [facility]2019-05-01 09:07:00 Test Item Value Reference Range Interpretation Comments Creatinine Lvl (test code = Creatinine 0.90 0.50-1.40 Lvl) [facility]2019-05-01 09:07:00 Test Item Value Reference Range Interpretation Comments BUN (test code = BUN) 22 7-22 [facility]2019-05-01 09:07:00 Test Item Value Reference Range Interpretation Comments Sodium Lvl (test code = Sodium Lvl) 138 135-145 [facility]2019-05-01 09:07:00 Test Item Value Reference Range Interpretation Comments Potassium Lvl (test code = Potassium 3.7 3.5-5.1 Lvl) [facility]2019-05-01 09:07:00 Test Item Value Reference Range Interpretation Comments Chloride Lvl (test code = Chloride Lvl) 107 95-109 [facility]2019-05-01 09:07:00 Test Item Value Reference Range Interpretation Comments CO2 (test code = CO2) 26 24-32 [facility]2019-05-01 09:07:00 Test Item Value Reference Range Interpretation Comments Calcium Lvl (test code = Calcium Lvl) 8.8 8.5-10.5 [id number] 09:07:00 Test Item Value Reference Range Interpretation Comments Neutrophils # (test code = Neutrophils 11.5 1.5-8.1 #) [facility]HlsoxhqQLYFZINVYM1155-26-40 09:07:00 Test Item Value Reference Range Interpretation Comments Lymphocytes # (test code = Lymphocytes 0.8 1.0-5.5 #) [facility] HospitalYuxedugONSMVUKWEP9147-29-98 09:07:00 Test Item Value Reference Range Interpretation Comments Lymphocytes (test code = Lymphocytes) 5.8 20.0-40.0 [facility] HospitalUlefinuGWUOBSTCOL8962-00-65 09:07:00 Test Item Value Reference Range Interpretation Comments Basophils (test code = 0.1 See_Comment [Aut omated message] The Basophils) system which ge nerated this result tra nsmitted reference range : <=1.0. The reference r tara was not used to int erpret this result as normal/abnormal . [facility] HospitalEhdlxdqXAFOGKGDUU5333-30-26 09:07:00 Test Item Value Reference Range Interpretation Comments Monocytes # (test code 0.9 See_Comment [Aut omated message] The = Monocytes #) system which generated this result tra nsmitted reference range : <=0.8. The reference r tara was not used to int erpret this result as normal/abnormal . [facility] HospitalLpiwmwqCREQWOAJYD6009-96-51 09:07:00 Test Item Value Reference Range Interpretation Comments Segs (test code = Segs) 87.6 45.0-75.0 [facility] HospitalYzjohblGBYJCYVJVH9221-34-01 09:07:00 Test Item Value Reference Range Interpretation Comments Monocytes (test code = Monocytes) 6.5 2.0-12.0 [facility] HospitalVznwsmtYUBXNCVSDL0147-49-00 09:07:00 Test Item Value Reference Range Interpretation Comments Platelet (test code = Platelet) 229 133-450 [facility] HospitalGvfquuhTWFNHTDRTO2619-50-39 09:07:00 Test Item Value Reference Range Interpretation Comments MPV (test code = MPV) 8.6 7.4-10.4 [facility] HospitalZffilxmPNVBKLRDLQ3631-50-91 09:07:00 Test Item Value Reference Range Interpretation Comments WBC (test code = WBC) 13.2 3.7-10.4 [facility] HospitalDfpicxzVQUUGOYUUB5164-41-12 09:07:00 Test Item Value Reference Range Interpretation Comments RBC (test code = RBC) 4.22 4.20-5.40 [facility] HospitalZzuxfywLWEJTNUBHS5634-23-27 09:07:00 Test Item Value Reference Range Interpretation Comments Hgb (test code = Hgb) 12.1 12.0-16.0 [facility] HospitalBadimrgATVOIGPRCV3781-49-51 09:07:00 Test Item Value Reference Range Interpretation Comments Hct (test code = Hct) 37.9 36.0-48.0 [facility] HospitalJpnaallIJLYRMMZFF5882-21-67 09:07:00 Test Item Value Reference Range Interpretation Comments MCH (test code = MCH) 28.7 pg 27.0-31.0 [facility] HospitalKuxupmoNEBLZGKJFH1451-79-03 09:07:00 Test Item Value Reference Range Interpretation Comments MCHC (test code = MCHC) 31.9 32.0-36.0 [facility]TuvsoieRKZRODJOZE0102-43-23 09:07:00 Test Item Value Reference Range Interpretation Comments RDW (test code = RDW) 13.7 11.5-14.5 [facility] BranchShjkujgDPBBHJHHAK9771-02-05 09:07:00 Test Item Value Reference Range Interpretation Comments MCV (test code = MCV) 90.0 80.0-98.0 [facility] DallasPsdfnzkXGDXHT9891-89-71 09:07:00 Test Item Value Reference Range Interpretation Comments VLDL (test code = VLDL) 9 1 [facility] DallasSeefbnpVRCOUU5043-03-24 09:07:00 Test Item Value Reference Range Interpretation Comments LDL (Calculated) (test code = LDL 87 (Calculated)) [facility]villeMmoagdyPTSWLK5824-43-79 09:07:00 Test Item Value Reference Range Interpretation Comments Trig (test code = Trig) 45 [facility]villeCjwghqtLPLELG2641-57-16 09:07:00 Test Item Value Reference Range Interpretation Comments Chol (test code = Chol) 163 [facility] DallasFdusyklXRCVUE5746-09-91 09:07:00 Test Item Value Reference Range Interpretation Comments HDL (test code = HDL) 67 [facility] DallasMxkmnpjSUEQDA5651-13-09 09:07:00 Test Item Value Reference Range Interpretation Comments CHD Risk (test code = CHD Risk) 2.43 1 3.90-5.80 [facility] DallasSPECIAL DNRFYDOXW5741-83-02 09:07:00 Test Item Value Reference Range Interpretation Comments Hgb A1C (test code = Hgb A1C) 5.8 [facility] DallasBACTERIAL - [id number] 09:07:00 Test Item Value Reference Range Interpretation Comments MRSA by PCR (test Negative (11/09/18 4:07 code = MRSA by PCR) AM) [facility] DallasCHEM [id number] 09:07:00 Test Item Value Reference Range Interpretation Comments Bili Direct (test code 0.1 See_Comment [Aut omated message] The = Bili Direct) system which generated this result tra nsmitted reference range : <=0.3. The reference r tara was not used to int erpret this result as albina l/abnormal. [facility] DallasPuls[facility] [id number] 09:07:00 Test Item Value Reference Range Interpretation Comments Globulin (test code = Globulin) 3.5 2.7-4.2 [facility]2019-05-01 09:07:00 Test Item Value Reference Range Interpretation Comments A/G Ratio (test code = A/G Ratio) 1.0 1 0.7-1.6 [facility]2019-05-01 09:07:00 Test Item Value Reference Range Interpretation Comments B/C Ratio (test code = B/C Ratio) 24 1 6-25 [facility]2019-05-01 09:07:00 Test Item Value Reference Range Interpretation Comments AGAP (test code = AGAP) 8.7 10.0-20.0 [place] 682509-05-01 09:07:00 Test Item Value Reference Range Interpretation Comments eGFR (test code = eGFR) 59 [facility]2019-05-01 09:07:00 Test Item Value Reference Range Interpretation Comments Total Protein (test code = Total 7.1 6.4-8.4 Protein) [place] 682509-05-01 09:07:00 Test Item Value Reference Range Interpretation Comments Albumin Lvl (test code = Albumin Lvl) 3.6 3.5-5.0 [facility]2019-05-01 09:07:00 Test Item Value Reference Range Interpretation Comments ALT (test code = ALT) 51 See_Comment [Auto mated message] The system which ge nerated this result transmit zen reference range : <=65. The reference range was not used to interpr et this result as albina l/abnormal. [facility]2019-05-01 09:07:00 Test Item Value Reference Range Interpretation Comments AST (test code = AST) 33 See_Comment [Auto mated message] The system which ge nerated this result transmit zen reference range : <=37. The reference range was not used to interpr et this result as albina l/abnormal. [facility]2019-05-01 09:07:00 Test Item Value Reference Range Interpretation Comments Bili Total (test code = Bili Total) 0.5 0.2-1.3 [facility]2019-05-01 09:07:00 Test Item Value Reference Range Interpretation Comments Alk Phos (test code = Alk Phos) 143 39-136 [place] 682509-05-01 09:07:00 Test Item Value Reference Range Interpretation Comments Glucose Lvl (test code = Glucose Lvl) 122 70-99 [facility]2019-05-01 09:07:00 Test Item Value Reference Range Interpretation Comments Creatinine Lvl (test code = Creatinine 0.90 0.50-1.40 Lvl) [facility]2019-05-01 09:07:00 Test Item Value Reference Range Interpretation Comments BUN (test code = BUN) 22 7-22 [facility]2019-05-01 09:07:00 Test Item Value Reference Range Interpretation Comments Sodium Lvl (test code = Sodium Lvl) 138 135-145 [facility]2019-05-01 09:07:00 Test Item Value Reference Range Interpretation Comments Potassium Lvl (test code = Potassium 3.7 3.5-5.1 Lvl) [facility]2019-05-01 09:07:00 Test Item Value Reference Range Interpretation Comments Chloride Lvl (test code = Chloride Lvl) 107 95-109 [facility]2019-05-01 09:07:00 Test Item Value Reference Range Interpretation Comments CO2 (test code = CO2) 26 24-32 [facility]2019-05-01 09:07:00 Test Item Value Reference Range Interpretation Comments Calcium Lvl (test code = Calcium Lvl) 8.8 8.5-10.5 [facility] HospitalInqgbmdHFHBRORFIP6046-80-30 09:07:00 Test Item Value Reference Range Interpretation Comments Neutrophils # (test code = Neutrophils 11.5 1.5-8.1 #) [facility] HospitalMyxlwzvEYZBQZAPYU5394-63-05 09:07:00 Test Item Value Reference Range Interpretation Comments Lymphocytes # (test code = Lymphocytes 0.8 1.0-5.5 #) [facility] HospitalTrjfxreXEXURSEHMK3181-34-79 09:07:00 Test Item Value Reference Range Interpretation Comments Lymphocytes (test code = Lymphocytes) 5.8 20.0-40.0 [facility] HospitalMhwabanINTYXVVISJ2698-35-61 09:07:00 Test Item Value Reference Range Interpretation Comments Basophils (test code = 0.1 See_Comment [Aut omated message] The Basophils) system which ge nerated this result tra nsmitted reference range : <=1.0. The reference r tara was not used to int erpret this result as normal/abnormal . [facility] HospitalDhrkfxfJZLGMCGKDD3525-06-67 09:07:00 Test Item Value Reference Range Interpretation Comments Monocytes # (test code 0.9 See_Comment [Aut omated message] The = Monocytes #) system which generated this result tra nsmitted reference range : <=0.8. The reference r tara was not used to int erpret this result as normal/abnormal . [facility] HospitalRwdkphnAETBROOJKL7687-92-47 09:07:00 Test Item Value Reference Range Interpretation Comments Segs (test code = Segs) 87.6 45.0-75.0 [facility] HospitalTtmiiddKLYTVAKHJT6675-12-57 09:07:00 Test Item Value Reference Range Interpretation Comments Monocytes (test code = Monocytes) 6.5 2.0-12.0 [facility] HospitalFwplumrHKRNXJNCUV5295-59-65 09:07:00 Test Item Value Reference Range Interpretation Comments Platelet (test code = Platelet) 229 133-450 [facility] HospitalSxgpjkaVTUVEGJAAQ4301-59-82 09:07:00 Test Item Value Reference Range Interpretation Comments MPV (test code = MPV) 8.6 7.4-10.4 [facility] HospitalSzczdavJMOCKSYERK2531-27-09 09:07:00 Test Item Value Reference Range Interpretation Comments WBC (test code = WBC) 13.2 3.7-10.4 [facility] HospitalIsmvipuGGTSLWVXNS3520-26-94 09:07:00 Test Item Value Reference Range Interpretation Comments RBC (test code = RBC) 4.22 4.20-5.40 [facility] HospitalGvlftmjRLWTAPTLBJ9542-33-38 09:07:00 Test Item Value Reference Range Interpretation Comments Hgb (test code = Hgb) 12.1 12.0-16.0 [facility] HospitalJwhxjgpTGMVEMRYWY2787-04-36 09:07:00 Test Item Value Reference Range Interpretation Comments Hct (test code = Hct) 37.9 36.0-48.0 [facility] HospitalCwezzcgEXPHJSIVVC2681-11-67 09:07:00 Test Item Value Reference Range Interpretation Comments MCH (test code = MCH) 28.7 pg 27.0-31.0 [facility] HospitalHzsnxsuZBZNKKLQIZ0345-81-96 09:07:00 Test Item Value Reference Range Interpretation Comments MCHC (test code = MCHC) 31.9 32.0-36.0 [facility] HospitalHyustaxZLOFQAUWBR7539-88-10 09:07:00 Test Item Value Reference Range Interpretation Comments RDW (test code = RDW) 13.7 11.5-14.5 [facility] BranchJfvjvwsPCTUGYUIIU1467-46-52 09:07:00 Test Item Value Reference Range Interpretation Comments MCV (test code = MCV) 90.0 80.0-98.0 [facility]villeXxuycrfSSPKFS7433-91-09 09:07:00 Test Item Value Reference Range Interpretation Comments VLDL (test code = VLDL) 9 1 [facility] DallasIptwlsnQRTYVH4507-70-28 09:07:00 Test Item Value Reference Range Interpretation Comments LDL (Calculated) (test code = LDL 87 (Calculated)) [facility]villeEbbjstzJDJNFO7796-39-34 09:07:00 Test Item Value Reference Range Interpretation Comments Trig (test code = Trig) 45 [facility] [facility]villePjwzyoaOATUML0526-86-82 09:07:00 Test Item Value Reference Range Interpretation Comments Chol (test code = Chol) 163 [facility] DallasBzhyiqoFRNDES0232-24-08 09:07:00 Test Item Value Reference Range Interpretation Comments HDL (test code = HDL) 67 [facility] DallasIqetoeqCEYXKA1154-90-81 09:07:00 Test Item Value Reference Range Interpretation Comments CHD Risk (test code = CHD Risk) 2.43 1 3.90-5.80 [facility] DallasSPECIAL [id number] 09:07:00 Test Item Value Reference Range Interpretation Comments Hgb A1C (test code = Hgb A1C) 5.8 [facility] DallasBACTERIAL - [id number] 09:07:00 Test Item Value Reference Range Interpretation Comments MRSA by PCR (test Negative (11/09/18 4:07 code = MRSA by PCR) AM) [facility] DallasCHEM [id number] 09:07:00 Test Item Value Reference Range Interpretation Comments Bili Direct (test code 0.1 See_Comment [Aut omated message] The = Bili Direct) system which generated this result tra nsmitted reference range : <=0.3. The reference r tara was not used to int erpret this result as albina l/abnormal. [facility] DallasPulsar [id number] 09:07:00 Test Item Value Reference Range Interpretation Comments Globulin (test code = Globulin) 3.5 2.7-4.2 [facility]2019-05-01 09:07:00 Test Item Value Reference Range Interpretation Comments A/G Ratio (test code = A/G Ratio) 1.0 1 0.7-1.6 [place] 682509-05-01 09:07:00 Test Item Value Reference Range Interpretation Comments B/C Ratio (test code = B/C Ratio) 24 1 6-25 [place] 682509-05-01 09:07:00 Test Item Value Reference Range Interpretation Comments AGAP (test code = AGAP) 8.7 10.0-20.0 [place] 682509-05-01 09:07:00 Test Item Value Reference Range Interpretation Comments eGFR (test code = eGFR) 59 [place] 682509-05-01 09:07:00 Test Item Value Reference Range Interpretation Comments Total Protein (test code = Total 7.1 6.4-8.4 Protein) [place] 682509-05-01 09:07:00 Test Item Value Reference Range Interpretation Comments Albumin Lvl (test code = Albumin Lvl) 3.6 3.5-5.0 [place] 682509-05-01 09:07:00 Test Item Value Reference Range Interpretation Comments ALT (test code = ALT) 51 See_Comment [Auto mated message] The system which ge nerated this result transmit zen reference range : <=65. The reference range was not used to interpr et this result as albina l/abnormal. [place] 682509-05-01 09:07:00 Test Item Value Reference Range Interpretation Comments AST (test code = AST) 33 See_Comment [Auto mated message] The system which ge nerated this result transmit zen reference range : <=37. The reference range was not used to interpr et this result as albina l/abnormal. [place] 682509-05-01 09:07:00 Test Item Value Reference Range Interpretation Comments Bili Total (test code = Bili Total) 0.5 0.2-1.3 [facility]2019-05-01 09:07:00 Test Item Value Reference Range Interpretation Comments Alk Phos (test code = Alk Phos) 143 39-136 [facility]2019-05-01 09:07:00 Test Item Value Reference Range Interpretation Comments Glucose Lvl (test code = Glucose Lvl) 122 70-99 [facility]2019-05-01 09:07:00 Test Item Value Reference Range Interpretation Comments Creatinine Lvl (test code = Creatinine 0.90 0.50-1.40 Lvl) [facility]2019-05-01 09:07:00 Test Item Value Reference Range Interpretation Comments BUN (test code = BUN) 22 7-22 [facility]2019-05-01 09:07:00 Test Item Value Reference Range Interpretation Comments Sodium Lvl (test code = Sodium Lvl) 138 135-145 [place] 682509-05-01 09:07:00 Test Item Value Reference Range Interpretation Comments Potassium Lvl (test code = Potassium 3.7 3.5-5.1 Lvl) [place] 682509-05-01 09:07:00 Test Item Value Reference Range Interpretation Comments Chloride Lvl (test code = Chloride Lvl) 107 95-109 [facility]2019-05-01 09:07:00 Test Item Value Reference Range Interpretation Comments CO2 (test code = CO2) 26 24-32 [place] 682509-05-01 09:07:00 Test Item Value Reference Range Interpretation Comments Calcium Lvl (test code = Calcium Lvl) 8.8 8.5-10.5 [facility]ghHKOTDIMGXN9585-74-47 09:07:00 Test Item Value Reference Range Interpretation Comments Neutrophils # (test code = Neutrophils 11.5 1.5-8.1 #) [facility]PxblhbhPCDOYHMZMR3010-23-22 09:07:00 Test Item Value Reference Range Interpretation Comments Lymphocytes # (test code = Lymphocytes 0.8 1.0-5.5 #) [facility] HospitalBfngglxTJCJFBVLTD8011-47-01 09:07:00 Test Item Value Reference Range Interpretation Comments Lymphocytes (test code = Lymphocytes) 5.8 20.0-40.0 [facility] HospitalZvngkuhGFETFMXXSR2018-71-23 09:07:00 Test Item Value Reference Range Interpretation Comments Basophils (test code = 0.1 See_Comment [Aut omated message] The Basophils) system which ge nerated this result tra nsmitted reference range : <=1.0. The reference r tara was not used to int erpret this result as normal/abnormal . [facility] HospitalVmxojvjVFDLMODZCX1228-11-04 09:07:00 Test Item Value Reference Range Interpretation Comments Monocytes # (test code 0.9 See_Comment [Aut omated message] The = Monocytes #) system which generated this result tra nsmitted reference range : <=0.8. The reference r tara was not used to int erpret this result as normal/abnormal . [facility] HospitalIxzjouzTXTQWWNRXA1092-51-49 09:07:00 Test Item Value Reference Range Interpretation Comments Segs (test code = Segs) 87.6 45.0-75.0 [facility] HospitalWjifxgeAZQCXZJUXZ6575-84-39 09:07:00 Test Item Value Reference Range Interpretation Comments Monocytes (test code = Monocytes) 6.5 2.0-12.0 [facility] HospitalAmfymzrMRPGOLWHBX2972-15-03 09:07:00 Test Item Value Reference Range Interpretation Comments Platelet (test code = Platelet) 229 133-450 [facility] HospitalNlmeaghDOTMPYAOSC7877-95-44 09:07:00 Test Item Value Reference Range Interpretation Comments MPV (test code = MPV) 8.6 7.4-10.4 [facility] HospitalUdfhnzgUYZWAMLVTI0246-30-87 09:07:00 Test Item Value Reference Range Interpretation Comments WBC (test code = WBC) 13.2 3.7-10.4 [facility] HospitalUmzwmsoLMAIREXNID3548-45-04 09:07:00 Test Item Value Reference Range Interpretation Comments RBC (test code = RBC) 4.22 4.20-5.40 [facility] HospitalNlrkcdkIMUKTNBYOC8422-35-24 09:07:00 Test Item Value Reference Range Interpretation Comments Hgb (test code = Hgb) 12.1 12.0-16.0 [facility] HospitalEjaravkYHQVCAKPQJ4955-70-05 09:07:00 Test Item Value Reference Range Interpretation Comments Hct (test code = Hct) 37.9 36.0-48.0 [facility] HospitalFvaqagpJJSLDRRZBL6960-50-78 09:07:00 Test Item Value Reference Range Interpretation Comments MCH (test code = MCH) 28.7 pg 27.0-31.0 [facility] HospitalZuydiitQZOLVBYFXF1068-92-40 09:07:00 Test Item Value Reference Range Interpretation Comments MCHC (test code = MCHC) 31.9 32.0-36.0 [facility] HospitalGvelfphLEAOXREEJC6496-92-31 09:07:00 Test Item Value Reference Range Interpretation Comments RDW (test code = RDW) 13.7 11.5-14.5 [facility] DallasUcoynicGQDWLENNSR5206-99-73 09:07:00 Test Item Value Reference Range Interpretation Comments MCV (test code = MCV) 90.0 80.0-98.0 [facility] DallasYkyoehyYPPLVB1233-30-94 09:07:00 Test Item Value Reference Range Interpretation Comments VLDL (test code = VLDL) 9 1 [facility] DallasQzaapgcWJDCIQ0057-16-41 09:07:00 Test Item Value Reference Range Interpretation Comments LDL (Calculated) (test code = LDL 87 (Calculated)) [facility] DallasAfiytjwSSUQSV2675-39-05 09:07:00 Test Item Value Reference Range Interpretation Comments Trig (test code = Trig) 45 [facility]villeTorcfsfFKDBDZ1306-23-45 09:07:00 Test Item Value Reference Range Interpretation Comments Chol (test code = Chol) 163 [facility] DallasWmnfnplQINRLY5961-38-18 09:07:00 Test Item Value Reference Range Interpretation Comments HDL (test code = HDL) 67 [facility] DallasXucmgzqXBDSMW4492-69-03 09:07:00 Test Item Value Reference Range Interpretation Comments CHD Risk (test code = CHD Risk) 2.43 1 3.90-5.80 [facility] WEYWCPYFD0536[facility]37-63 09:07:00 Test Item Value Reference Range Interpretation Comments Hgb A1C (test code = Hgb A1C) 5.8 [facility] DallasCARAC [id number] 05:00:00 Test Item Value Reference Range Interpretation Comments Troponin-I (test code 0.02 See_Comment [Auto mated message] The = Troponin-I) system which g enerated this result transmit zen reference range : <=0.40. The reference r tara was not used to interpr et this result as albina l/abnormal. [facility] DallasOfrknrkZXAWIXZYHM0215-24-04 05:00:00 Test Item Value Reference Range Interpretation Comments D-Dimer (test code = D-Dimer) 4.23 [facility] [id number] 05:00:00 Test Item Value Reference Range Interpretation Comments Troponin-I (test code 0.02 See_Comment [Auto mated message] The = Troponin-I) system which g enerated this result transmit zen reference range : <=0.40. The reference r tara was not used to interpr et this result as albina l/abnormal. [facility]BzwmugrVIPLDDALZQ6606-80-95 05:00:00 Test Item Value Reference Range Interpretation Comments D-Dimer (test code = D-Dimer) 4.23 [facility] DallasCARDIAC [id number] 05:00:00 Test Item Value Reference Range Interpretation Comments Troponin-I (test code 0.02 See_Comment [Auto mated message] The = Troponin-I) system which g enerated this result transmit zen reference range : <=0.40. The reference r tara was not used to interpr et this result as albina l/abnormal. [facility]AylprxiQRBTSXEGSF3572-39-31 05:00:00 Test Item Value Reference Range Interpretation Comments D-Dimer (test code = D-Dimer) 4.23 [facility] Notes Date/Time Note Provider Source 2018-11-09 01:54:00-00:00 PROCEDURE: [facility] Chest, AP on 11/09/2018 at 0424 hours. [...] pulmonary edema or acute infiltrates, pneumonia. SL: [id number] 2018-11-09 01:54:00-00:00 PROCEDURE: [facility] Chest, AP on 11/09/2018 at 0424 hours. [...] pulmonary edema or acute infiltrates, pneumonia. SL: [id number] 2018-11-08 23:25:00-00:00 Brain wo contrast MRI [facility] History: rt side weakness - right hemisensory [...] and left occipital lobe in a left ENGINEERING INSPECTOR distribution. Acute small volume infarct involving the right o ccipital lobe is also noted. Nrty-ph-wvhyighi chronic ischemic small vessel c hanges. Findings (acute ischemic inf arcts) were discussed with patient's nurse Faye at 6:50 AM on 11/09/2018. SL: BRIANNA 2018-11-08 23:25:00-00:00 Clinical Indication: rt side weakness - right hemisensory. [facility] Comparison: None Technique: Magnetic resonanc e angiography [...] NASCET criteria. The vertebral arteries are patent. : BRIANNA 2018-11-08 23:25:00-00:00 Clinical Indication: rt side weakness - rigt hemisensory. [facility] Comparison: None Technique: Magnetic resonanc e angiography of the [place] was performed without contrast. 3D [...] are patent. 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 The major right ENGINEERING INSPECTOR is patent. There is no aneurysm, vascul ar malformation, or significant atherosclerotic disease. If there is further clinical concern, CT angiogr aphy may be performed. 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 Findings were discussed with patient's nurse Bib it at 6:50 AM on 11/09/2018. GOSIA: AUTUMN 2018-11-08 23:25:00-00:00 Brain wo contrast MRI [facility] History: rt side weakness - right hemisensory [...] and left occipital lobe in a left ENGINEERING INSPECTOR distribution. Acute small volume infarct involving the right o ccipital lobe is also noted. Cejg-en-fgzkbsrh chronic ischemic small vessel c hanges. Findings (acute ischemic inf arcts) were discussed with patient's nurse Bibit at 6:50 AM on 11/09/2018. GOSIA: AUTUMN 2018-11-08 23:25:00-00:00 Clinical Indication: rt side weakness - right hemisensory. [facility] Comparison: None Technique: Magnetic resonanc e angiography [...] vertebral arteries are patent. GOSIA: AUTUMN 2018-11-08 23::-00:00 Clinical Indication: rt side weakness - rigt hemisensory. [facility] Comparison: None Technique: Magnetic resonanc e angiography of the [place] was performed without contrast. 3D [...] are patent. 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 The major right ENGINEERING INSPECTOR is patent. There is no aneurysm, vascul ar malformation, or significant atherosclerotic disease. If there is further clinical concern, CT angiogr aphy may be performed. 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 Findings were discussed with patient's nurse Willy it at 6:50 AM on 11/09/2018. GOSIA: AUTUMN
--- NOTE | 2023-02-19 14:03 | RAD REPORT ---
EXAM DESCRIPTION: CT - Ct Stroke Brain Wo Cont - 02/19/2023 1:45 pm CLINICAL HISTORY: STROKE ALERT Headache, drowsiness, CVA symptomology COMPARISON: <Comparisons> 01/23/2022 TECHNIQUE: All CT scans are performed using dose optimization technique as appropriate and may inclu de automated exposure control or mA/KV adjustment according to patient size. FINDINGS: No intracranial hemorrhage, hydrocephalus or extra-axial fluid collection.Gliosis is seen in the left occipital lobe compatible with old infarction.Mild generalized brain atrophy is present w ith moderate periventricular and deep white matter chronic microvascular ischemic changes. The paranasal sinuses and mastoids are clear. The calvarium is intact. IMPRESSION: No acute intracranial abnormality. 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 If there is continued clinical concern for CVA, MR imaging of the brain would be recommended. The findings were discussed with Dr. Marin in the ER On 02/19/2023 at 1:58 p.m. by telephone.
--- NOTE | 2023-02-19 14:05 | RAD REPORT ---
EXAM DESCRIPTION: RAD - Chest Single View - 02/19/2023 1:55 pm CLINICAL HISTORY: PAIN Chest pain. COMPARISON: <Comparisons> FINDINGS: Portable technique limits examination quality. Mild interstitial pulmonary edema. The heart is moderately enlarged. No displaced fractures. IMPRESSION: Mild CHF.
[2023-02-19 14:15] LABS: Absolute Lymphocytes (CBC) 1.5 K/uL (0.7-4.9); Hematocrit 41.6 % (36.0-45.0); Lymphocytes % 12.5 % (15.3-44.8); MCV 91.8 fL (80-100); MPV 7.7 fL (7.6-11.3); Platelets 283 thou/uL (152-406); RBC Red Blood Cell Count 4.53 M/uL (3.86-4.86)
[2023-02-19 14:22] LABS: Protime INR 1.32
[2023-02-19 14:34] LABS: Potassium 4.3 mEq/L (3.5-5.1); Troponin High Sensitivity 8.6 pg/mL (<58.9)
--- NOTE | 2023-02-19 16:36 | EDPHYS ---
Physician Documentation [facility] Name: Jarrell Rodrigez Age: 87 yrs Sex: Female : 1935 Arrival Date: 02/19/2023 Time: 13:03 Bed 13 Private MD: Jun Austin T ED Physician Sanket Hill HPI: 02/19 16:24 This 87 yrs old Female presents to ER via Ambulatory with complaints of Facial kb Tingling, Toothache. 16:24 The patient presents with pain. The problem is located in the lower right second kb bicuspid and lower right first molar. Onset: The symptoms/episode began/occurred this morning. Duration: The symptoms are continuous. Modifying factors: The symptoms are alleviated by nothing, the symptoms are aggravated by nothing. Associated signs and symptoms: Pertinent positives: pain, Pertinent negatives: anorexia, chills, dysphagia, fever, inability to eat, nausea, redness in area, swelling, vomiting. Severity of symptoms: At their worst the symptoms were mild, in the emergency department the symptoms are unchanged. The patient has not experienced similar symptoms in the past. The patient has not recently seen a physician. Pt reports she normally has numbness to right side due to previous CVA, but this morning she was having tooth pain and tingling to right side of face. States she is concerned she is having another stroke. Historical: - Allergies: 13:15 Levaquin; nj1 13:15 Macrodantin; nj1 13:15 Ehrhardt; nj1 - Home Meds: 15:13 amiodarone 200 mg Oral tab 1 tab 2 times per day [Active]; apixaban 5 mg Oral tab 1 tab mb9 2 times per day [Active]; atorvastatin 20 mg Oral tab 1 tab once daily [Active]; - PMHx: 13:15 Atrial fibrillation; High Cholesterol; Hypertensive disorder; Cerebrovascular accident; nj1 - PSHx: 13:15 Tonsillectomy; Appendectomy; Cholecystectomy; nj1 - Immunization history:: Client reports receiving the 2nd dose of the Covid vaccine. - Social history:: Smoking status: Patient denies any tobacco usage or history of. ROS: 16:23 Constitutional: Negative for fever, chills, and weight loss. kb 16:23 ENT: Positive for dental pain. 16:23 Neuro: Positive for tingling, of the right side of head. 16:23 All other systems are negative. Exam: 16:17 Constitutional: This is a well developed, well nourished patient who is awake, alert, kb and in no acute distress. Head/Face: Normocephalic, atraumatic. Eyes: Pupils equal round and reactive to light, extra-ocular motions intact. Lids and lashes normal. Conjunctiva and sclera are non-icteric and not injected. Cornea within normal limits. Periorbital areas with no swelling, redness, or edema. ENT: Moist Mucous membranes Cardiovascular: Regular rate and rhythm with a normal S1 and S2. No gallops, murmurs, or rubs. No pulse deficits. Respiratory: Respirations even and unlabored. No increased work of breathing. Talking in full sentences Abdomen/GI: Soft, non-tender. No distention Skin: Warm, dry with normal turgor. Normal color. MS/ Extremity: Pulses equal, no cyanosis. Neurovascular intact. Full, normal range of motion. 16:17 ENT: Dental exam: normal. 16:17 Neuro: Exam negative for acute changes, Orientation: to person, place, time \T\ situation. Mentation: is normal, able to follow commands, Memory: is normal, ambulates with cane. Vital Signs: 13:10 BP 172 / 77; Pulse 60; Resp 17; Pulse Ox 96% on R/A; Weight 69.85 kg; Height 5 ft. 7 nj1 in. ; Pain 4/10; 14:39 BP 178 / 76; Pulse 62; Resp 16; Pulse Ox 98% on R/A; mb9 15:14 BP 193 / 79; Pulse 60; Resp 16; Pulse Ox 98% on R/A; mb9 16:29 BP 199 / 75; Pulse 63; Resp 16; Pulse Ox 97% on R/A; mb9 16:49 BP 190 / 83; Pulse 62; Resp 16; Pulse Ox 100% on R/A; mb9 17:10 BP 162 / 73; Pulse 60; Pulse Ox 100% on R/A; mb9 13:10 Body Mass Index 24.12 (69.85 kg, 170.18 cm) [facility] 13:10 Pain Scale: Adult [facility] MDM: 13:06 Patient medically screened. kb 16:25 Differential diagnosis: dental caries, dental abscess, trigeminal neuralgia, CVA. Data kb reviewed: vital signs, nurses notes. Management of patient was discussed with the following: Dr Hill, who also evaluated pt. Recommended stroke workup and discharge home if negative. Test considered but Not performed: MRI: MRI brain considered, but pt refused. Discussed medicating for anxiety prior to exam, but pt would not like to be medicated . Counseling: I had a detailed discussion with the patient and/or guardian regarding: the historical points, exam findings, and any diagnostic results supporting the discharge/admit diagnosis, lab results, radiology results, the need for outpatient follow up, a family practitioner, to return to the emergency department if symptoms worsen or persist or if there are any questions or concerns that arise at home. 16:35 Consideration of Admission/Observation Escalation of care including kb admission/observation considered. 02/19 13:35 Order name: Basic Metabolic Panel; Complete Time: 14:37 kb 02/19 13:35 Order name: CBC with Diff; Complete Time: 14:21 kb 02/19 13:35 Order name: High Sensitivity Troponin; Complete Time: 14:37 kb 02/19 13:35 Order name: Protime (+inr); Complete Time: 14:23 kb 02/19 13:35 Order name: Ptt, Activated; Complete Time: 14:23 kb 02/19 13:35 Order name: CT Stroke Brain w/o Contrast; Complete Time: 14:05 kb 02/19 13:35 Order name: Stroke CXR 1 View; Complete Time: 14:06 kb 02/19 14:06 Order name: MRI - Brain Wo Cont kb 02/19 13:35 Order name: EKG; Complete Time: 13:36 kb 02/19 13:35 Order name: Accucheck; Complete Time: 14:07 kb 02/19 13:35 Order name: Cardiac monitoring; Complete Time: 14:07 kb 02/19 13:35 Order name: EKG - Nurse/Tech; Complete Time: 14:07 kb 02/19 13:35 Order name: IV Saline Lock; Complete Time: 14:07 kb 02/19 13:35 Order name: Labs collected and sent; Complete Time: 14:07 kb 02/19 13:35 Order name: NPO; Complete Time: 14:07 kb 02/19 13:35 Order name: O2 Per Protocol; Complete Time: 14:07 kb 02/19 13:35 Order name: O2 Sat Monitoring; Complete Time: 14:07 kb 02/19 13:35 Order name: Stroke Swallow Screen; Complete Time: 14:07 kb Administered Medications: 16:35 Drug: cloNIDine PO 0.1 mg Route: PO; mb9 Disposition: 13:36 ED attending note: Patient is a 87-year-old female with a history of A-fib, high cp3 cholesterol, hypertension, CVA with right-sided deficits chronically who endorses right facial tingling that involves the right upper face and right lower face and is associated with pain in the teeth. The patient also endorses that she feels like her right eye is different but denies visual changes. Patient with normal motor strength. On exam patient well-appearing, no acute distress, GCS of 15 with normal baseline neurologic changes from her previous stroke. No acute deficits noted on exam. Patient ambulatory without assistance. Disposition Summary: 02/19/23 16:35 Discharge Ordered Location: Home kb Condition: Stable kb Diagnosis - Dental Pain kb - Essential (primary) hypertension kb Followup: kb - With: Emergency Department - When: As needed - Reason: Worsening of condition Followup: kb - With: - When: 2 - 3 days - Reason: Recheck today's complaints, Continuance of care, Re-evaluation by your physician Discharge Instructions: - Discharge Summary Sheet kb - Trigeminal Neuralgia kb - Hypertension, Adult, Lywa-ik-Vjtl kb - Dental Pain, Cohx-sr-Lhpz kb - How to Take Your Blood Pressure, Dixd-zp-Owei kb - Managing Your Hypertension kb Forms: - Medication Reconciliation Form kb - Thank You Letter kb - Antibiotic Education kb - Prescription Opioid Use kb - Patient Portal Instructions kb - Leadership Thank You Letter kb Signatures: Dispatcher [employer] Toshia Huff, ACTIVE DIRECTORY SYSTEMS ADMINISTRATOR-C LENOIE-Sanket Hart MD MD cp3 Kaila Acharya RN RN mb9 Yanelis Nettles RN RN nj1
--- NOTE | 2023-02-19 16:36 | ER ---
Nurse's Notes [facility] Name: Jarrell Rodrigez Age: 87 yrs Sex: Female : 1935 Arrival Date: 02/19/2023 Time: 13:03 Bed 13 Private MD: Jun Austin T Diagnosis: Dental Pain;Essential (primary) hypertension Presentation: 02/19 13:10 Chief complaint: Patient states: R facial pain along with toothache, onset this morning nj1 at 10:30am. Has gotten better since. Coronavirus screen: Vaccine status: Patient reports receiving the 2nd dose of the covid vaccine. Ebola Screen: Patient denies travel to an Ebola-affected area in the 21 days before illness onset. Initial Sepsis Screen: Does the patient meet any 2 criteria? No. Patient's initial sepsis screen is negative. Does the patient have a suspected source of infection? No. Patient's initial sepsis screen is negative. Risk Assessment: Do you want to hurt yourself or someone else? Patient reports no desire to harm self or others. Onset of symptoms was February 19, 2023 at 10:30. 13:10 Method Of Arrival: Ambulatory nj1 13:10 Acuity: JAY 3 nj1 Historical: - Allergies: 13:15 Levaquin; nj1 13:15 Macrodantin; nj1 13:15 Bancroft; nj1 - Home Meds: 15:13 amiodarone 200 mg Oral tab 1 tab 2 times per day [Active]; apixaban 5 mg Oral tab 1 tab mb9 2 times per day [Active]; atorvastatin 20 mg Oral tab 1 tab once daily [Active]; - PMHx: 13:15 Atrial fibrillation; High Cholesterol; Hypertensive disorder; Cerebrovascular accident; nj1 - PSHx: 13:15 Tonsillectomy; Appendectomy; Cholecystectomy; nj1 - Immunization history:: Client reports receiving the 2nd dose of the Covid vaccine. - Social history:: Smoking status: Patient denies any tobacco usage or history of. Screenin:30 Switchback Swallow Protocol Brief Cognitive Screen What is your name? Normal, Where are you mb9 right now? Normal, What year is it? Normal. Oral Mechanism Examination Facial Symmetry: Normal, Motion: Normal, Lip Closure: Normal, Oral Mechanism Result: Normal. 3 oz Water Swallow Challenge: Pt able to drink all water without stopping, coughing, choking or throat clearing: Yes Result: PASS. 13:51 [facility] ED Fall Risk Assessment (Adult) History of falling in the last 3 months, mb9 including since admission No falls in past 3 months (0 pts) Confusion or Disorientation No (0 pts) Intoxicated or Sedated No (0 pts) Impaired Gait No (0 pts) Mobility Assist Device Used No (0 pt) Altered Elimination No (0 pt) Score/Fall Risk Level 0 - 2 = Low Risk Oriented to surroundings, Maintained a safe environment, Educated pt \T\ family on fall prevention, incl call for assistance when getting out of bed. Abuse screen: Denies threats or abuse. Nutritional screening: No deficits noted. Tuberculosis screening: No symptoms or risk factors identified. Assessment: 14:04 General: Appears in no apparent distress. Behavior is calm, cooperative. Pain: mb9 Complains of pain in right jaw Pain radiates to tooth Quality of pain is described as tingling, throbbing, Pain began suddenly, Is continuous. Neuro: Soares Agitation-Sedation Scale (RASS): 0 - Alert and Calm Level of Consciousness is awake, alert, obeys commands, Oriented to person, place, time, situation, Appropriate for age [employer] Teacher are equal bilaterally Moves all extremities. Gait is steady, Speech is normal, Facial symmetry appears normal, Pupils are PERRLA, Tingling in right jaw. Cardiovascular: Patient's skin is warm and dry. Respiratory: Airway is patent Respiratory effort is even, unlabored, Respiratory pattern is regular, symmetrical. GI: Abdomen is flat, non-distended, Bowel sounds present X 4 quads. Abd is soft and non tender X 4 quads. : No signs and/or symptoms were reported regarding the genitourinary system. EENT: Oral mucosa is moist. Poor dentition noted. Derm: Skin is pink, warm \T\ dry. Musculoskeletal: Range of motion: intact in all extremities. 15:15 Reassessment: No changes from previously documented assessment. Patient and/or family mb9 updated on plan of care and expected duration. Pain level reassessed. Patient is alert, oriented x 3, equal unlabored respirations, skin warm/dry/pink. ERP notified of pts BP. Pt denies headache or pain. 16:15 Reassessment: No changes from previously documented assessment. Patient and/or family mb9 updated on plan of care and expected duration. Pain level reassessed. Patient is alert, oriented x 3, equal unlabored respirations, skin warm/dry/pink. Vital Signs: 13:10 BP 172 / 77; Pulse 60; Resp 17; Pulse Ox 96% on R/A; Weight 69.85 kg; Height 5 ft. 7 nj1 in. ; Pain 4/10; 14:39 BP 178 / 76; Pulse 62; Resp 16; Pulse Ox 98% on R/A; mb9 15:14 BP 193 / 79; Pulse 60; Resp 16; Pulse Ox 98% on R/A; mb9 16:29 BP 199 / 75; Pulse 63; Resp 16; Pulse Ox 97% on R/A; mb9 16:49 BP 190 / 83; Pulse 62; Resp 16; Pulse Ox 100% on R/A; mb9 17:10 BP 162 / 73; Pulse 60; Pulse Ox 100% on R/A; mb9 13:10 Body Mass Index 24.12 (69.85 kg, 170.18 cm) nj1 13:10 Pain Scale: Adult [facility] ED Course: 13:05 Patient arrived in ED. rg4 13:05 Jun Austin MD is Private Physician. rg4 13:05 [facility] kb 13:05 Sanket Hill MD is Attending Physician. kb 13:15 Triage completed. nj1 13:16 Arm band placed on right wrist. nj1 13:43 Kaila Acharya, MARLEN is Primary Nurse. mb9 13:47 CT Stroke Brain w/o Contrast In Process Unspecified. EDMS 13:52 Placed in gown. Bed in low position. Call light in reach. Side rails up X 1. Client mb9 placed on continuous cardiac and pulse oximetry monitoring. NIBP monitoring applied. Pulse ox on. 13:57 Stroke CXR 1 View In Process Unspecified. EDMS 14:02 Initial lab(s) drawn, by me, sent to lab. EKG done. Inserted saline lock: 22 gauge in tm3 left antecubital area, using aseptic technique. 14:07 No provider procedures requiring assistance completed. mb9 16:35 Jun Austin MD is Referral Physician. kb 17:14 IV discontinued, intact, bleeding controlled, No redness/swelling at site. Pressure mb9 dressing applied. Administered Medications: 16:35 Drug: cloNIDine PO 0.1 mg Route: PO; mb9 Medication: 14:06 VIS not applicable for this client. mb9 Outcome: 16:35 Discharge ordered by MD. walker 17:14 Discharged to home ambulatory. mb9 17:14 Condition: stable 17:14 Discharge instructions given to patient, Instructed on discharge instructions, follow up and referral plans. Demonstrated understanding of instructions, follow-up care. 17:15 Patient left the ED. mb9 Signatures: Dispatcher [employer] EDMS Toshia Ross, MARINE STEWARD-C MARINE STEWARD-Ckb Rick [place] tm3 Zainab Noonan rg4 Kaila Acharya RN RN mb9 Yanelis Nettles RN RN nj1
[2023-02-19] MEDS ORDERED: cloNIDine HCL 0.1 MG TAB ONE (16:44)
[2023-02-19 17:25] VITALS: O2SAT 100
[2023-02-19 17:27] VITALS: BP 162/73
--- NOTE | 2023-02-21 15:32 | EKG ---
Test Date: 2023-02-19 Test Time: 14:08:05 Recovery Agent: LUBNA MEASUREMENT RESULTS: Intervals: Rate: 58 [place]: 208 QRSD: 90 QT: 502 QTc: 492 [place]: P: 85 [place]: 208 QRS: 77 T: 65 INTERPRETIVE STATEMENTS: Sinus bradycardia Prolonged QT Abnormal ECG Compared to ECG 03/30/2022 10:45:42 Prolonged QT interval now present Sinus rhythm no longer present Electronically Signed On 02-21-23 15:30:22 CDT by Ulises Martinez
== END 2023-02-19 17:15 | disposition home or self-care (01) ==
LOC: ER 13:03
DX: K08.89 Other specified disorders of teeth and supporting structures (principal); I10 Essential (primary) hypertension; I69.398 Other sequelae of cerebral infarction; I48.91 Unspecified atrial fibrillation; E78.00 Pure hypercholesterolemia, unspecified; Z88.1 Allergy status to other antibiotic agents; Z88.5 Allergy status to narcotic agent
CPT/HCPCS: 36415; 70450; 71045; 80048; 84484; 85025; 85610; 85730; 93005; 99284

== ENCOUNTER 2023-05-21 05:36 | Observation (INO) | payer OTHER ==
--- OUTSIDE RECORDS SUMMARY | 2023-05-21 05:45 | XMS REPORT | Continuity of Care Document ---
:[address] [facility] t Address [address] [place] [address] [place] [id number] Care Team Providers Name Role Phone Geovanna Jun Nick Primary Care Physician Angel Rodríguez Attending Clinician Therapy, [facility] Covid Infusion Attending Clinician Unavailable Brandon Rivas MD Attending Clinician BRANDON RIVAS Attending Clinician Unavailable Doctor Unassigned, [place] [facility] Attending Clinician Unavailable Mitul Ontiveros I Attending Clinician Mitul Ontiveros I Admitting Clinician Payers Payer Name Policy Type Policy Number Effective Date Expiration Date S ource Problems Condition Condition Condition Status Onset Resolution Last Treating Co mments Source Name Details Category Date Date Treatment Clinician Date ACUTE ACUTE Diagnosis Active 2018-11-21 Ia moria ARTERIAL ARTERIAL 11-08 22:18:00 l ISCHEMIC ISCHEMIC 00:00: Cipriano lee STROKE STROKE 00 MULTIFOCA MULTIFOCA Active 11/08/2018 [facility] CVA CVA Diagnosis Active 2018-11-08 Mem oria ISCHEMIC ISCHEMIC 11-08 23:39:00 l Active 00:00: Todd 11/08/2018 [facility] Illness, Illness, Problem 2018-11-13 Memoria unspecifie unspecifie 22:16:16 l d d Todd 11/13/2018 [facility] CEREB CEREB Diagnosis Active 2018-11-21 Me moria INFRC D/T INFRC D/T 22:18:00 l UNSP OCCLS UNSP OCCLS He rmann OR STENOS OR STENOS OF OF Active [facility] ILLNESS, ILLNESS, Diagnosis Active 2018-11-08 Memoria UNSPECIFIE UNSPECIFIE 23:39:00 l D D Active [facility] Cerebral Cerebral Problem Active 2023-04-30 Memoria infarction infarction 23:37:48 l (disorder) (disorder) He rmann Active Problem 04/30/2023 [facility] Hypertensi Hypertens Problem Active 2023-04-30 Memoria ve valdemar 23:37:48 l disorder, disorder, Herm rosario systemic systemic arterial arterial (disorder) (disorder) Active Problem 04/30/2023 [facility] Hyperlipid Problem Active 2023-04-30 M emoria emia Hyperlipid 23:37:48 l (disorder) emia Cipriano n (disorder) Active Problem 04/30/2023 [facility] 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 23:37:48 l (finding) (finding) Herm rosario Active Problem 04/30/2023 [facility] Allergies, Adverse Reactions, Alerts Allergy Allergy Status Severity Reaction(s) Onset Inactive Treating Comm ents Source Name Type Date Date Clinician Nitrofur Propensi Active Unknown - Uni vers antoin ty to See comments 04-10 ity of [place] adverse 00:00: [place] stalline reaction 00 Medica l s Branch NITROFUR DRUG Active Unknown-Cmnt Un cecile ANTOIN INGREDI 9 ity of MACROCRY 00:00: [place] STALLINE 00 Medical Branch HYDROcod HYDROcod Active Memori a one one l Blanch Pollen Pollen Active Memoria l Todd NO KNOWN Drug Active Univers ALLERGIE Class ity of [facility] Social History Social Habit Start Date Stop Date Quantity Comments Source Sex Assigned At [birth year] [facility] 00:00:00 00:00:00 Medical Branch Smoking Status Start Date Stop Date Source Unknown if ever smoked [facility] Tobacco smoking status [facility] Medications Ordered Filled Start Stop Current Ordering Indication Dosage Frequency Signature Comments Components Source Medication Medication Date Date Medication? Clinician (SIG) Name Name atorvastati Yes = 1 tab, Me moria n 20 mg 1-11 PO, l oral tablet 17:53: Bedtime, # Blanch 00 90 tab, 3 Refill(s), Pharmacy: [facility] [id number] [facility], 170.18, cm, 08/04/19 9:42:00 [employer], Height, 76.364, kg, 08/04/19 9:42:00 [employer], Weight casirivimab 0 2021- No [id number] 1200mg 1,200 mg, Univers -imdevimab 04-10 Subcutaneo it y of (REGEN-COV 20:30: 19:25 us, ONCE, [place] (EUA)) 00 :00 1 dose, On Medical injection [place] Branch 1,200 mg 04/10/21 at 1530, Routine atorvastati 2018-07 Yes = 2 tab, Me moria n 10 mg 1-18 PO, l oral tablet 17:33: Bedtime, # Blanch 27 180 tab, 3 Refill(s), Pharmacy: [place] [id number] [facility] atorvastati 2018-07 Yes = 2 tab, Me moria n 10 mg 1-18 PO, l oral tablet 17:33: Bedtime, # Blanch 27 180 tab, 3 Refill(s), Pharmacy: [place] [id number] [facility] atorvastati 2018-07 Yes = 2 tab, Me moria n 10 mg 1-18 PO, l oral tablet 17:33: Bedtime, # Blanch 27 180 tab, 3 Refill(s), Pharmacy: [place] [id number] [facility] atorvastati 2018-07 Yes = 2 tab, Me moria n 10 mg 1-18 PO, l oral tablet 17:33: Bedtime, # Todd 27 180 tab, 3 Refill(s), Pharmacy: [place] [id number] [facility] atorvastati Yes 80 mg = 1 M emoria n 80 mg 6-28 tab, PO, l oral tablet 16:09: Bedtime, # Todd 47 90 tab, 0 Refill(s), Pharmacy: [place] [id number] [facility] atorvastati Yes 80 mg = 1 M emoria n 80 mg 6-28 tab, PO, l oral tablet 16:09: Bedtime, # Todd 47 90 tab, 0 Refill(s), Pharmacy: [place] [address] [facility] atorvastati Yes 80 mg = 1 M emoria n 80 mg 6-28 tab, PO, l oral tablet 16:09: Bedtime, # Todd 47 90 tab, 0 Refill(s), Pharmacy: [place] [id number] [facility] atorvastati Yes 80 mg = 1 M emoria n 80 mg 6-28 tab, PO, l oral tablet 16:09: Bedtime, # Blanch 47 90 tab, 0 Refill(s), Pharmacy: [place] [id number] [facility] amitriptyli Yes 20 mg = 2 M emoria ne 10 mg 5-17 tab, PO, l oral tablet 21:35: Bedtime, 0 Todd 00 Refill(s) amitriptyli 2019 Yes 20 mg = 2 M emoria ne 10 mg 5-17 tab, PO, l oral tablet 21:35: Bedtime, 0 Blanch 00 Refill(s) amitriptyli 2019- Yes 20 mg = 2 M emoria ne 10 mg 5-17 tab, PO, l oral tablet 21:35: Bedtime, 0 Blanch 00 Refill(s) amitriptyli 0 Yes 20 mg = 2 M emoria ne 10 mg 5-17 tab, PO, l oral tablet 21:35: Bedtime, 0 Blanch 00 Refill(s) Aspirin 81 2019-0 Yes 81 mg = 1 Me moria MG Enteric 5-03 tab, PO, l Coated 21:06: Daily, # Todd Tablet 00 90 tab, 0 Refill(s) atorvastati 2019- Yes 80 mg = 1 M emoria n 80 mg 5-03 tab, PO, l oral tablet 21:06: Bedtime, # Blanch 00 90 tab, 0 Refill(s) Aspirin 81 2019-0 Yes 81 mg = 1 Me moria MG Enteric 5-03 tab, PO, l Coated 21:06: Daily, # Todd Tablet 00 90 tab, 0 Refill(s) atorvastati 2019- Yes 80 mg = 1 M emoria n 80 mg 5-03 tab, PO, l oral tablet 21:06: Bedtime, # Todd 00 90 tab, 0 Refill(s) Aspirin 81 2019-0 Yes 81 mg = 1 Me moria MG Enteric 5-03 tab, PO, l Coated 21:06: Daily, # Blanch Tablet 00 90 tab, 0 Refill(s) atorvastati 2019-0 Yes 80 mg = 1 M emoria n 80 mg 5-03 tab, PO, l oral tablet 21:06: Bedtime, # Blanch 00 90 tab, 0 Refill(s) Aspirin 81 2019- Yes 81 mg = 1 Me moria MG Enteric 5-03 tab, PO, l Coated 21:06: Daily, # Todd Tablet 00 90 tab, 0 Refill(s) atorvastati 2019-0 Yes 80 mg = 1 M emoria n 80 mg 5-03 tab, PO, l oral tablet 21:06: Bedtime, # Blanch 00 90 tab, 0 Refill(s) aspirin 81 2019-0 Yes 81 mg = 1 Me moria mg tablet, 5-03 tab, PO, l enteric 21:06: Daily, # Cipriano n coated 00 90 tab, 0 Refill(s) Amitriptyli 2019-0 No Amitriptyl Memoria ne 10mg tab 5-03 ine 10mg l 02:00: tab, 2 Todd 00 tab, Drug form: MISC, Route: PO, Bedtime, 11/10/18 21:00:00 CDT, Duration: 30 day, Stop date: 12/09/18 21:00:00 CDT Chlordiazep 2019-0 No Chlordiaze Memoria oxide cap 5 5-03 poxide cap l mg 02:00: 5 mg, 1 Todd 00 cap, Drug form: MISC, Route: PO, Bedtime, 11/10/18 21:00:00 CDT, Duration: 30 day, Stop date: 12/09/18 21:00:00 CDT Amitriptyli 2019-0 No Amitriptyl Memoria ne 10mg tab 5-03 ine 10mg l 02:00: tab, 2 Blanch 00 tab, Drug form: MISC, Route: PO, Bedtime, 11/10/18 21:00:00 CDT, Duration: 30 day, Stop date: 12/09/18 21:00:00 CDT Chlordiazep 2019-0 No Chlordiaze Memoria oxide cap 5 5-03 [...] day, Stop date: 12/09/18 21:00:00 CDT Amitriptyli 0 No Amitriptyl Memoria ne 10mg tab 5-03 ine 10mg l 02:00: tab, 2 Todd 00 tab, Drug form: MISC, Route: PO, Bedtime, 11/10/18 21:00:00 CDT, Duration: 30 day, Stop date: 12/09/18 21:00:00 CDT Chlordiazep 2018-0 No Chlordiaze Memoria oxide cap 5 5-03 poxide cap l mg 02:00: 5 mg, 1 Blanch 00 cap, Drug form: MISC, Route: PO, Bedtime, 11/10/18 21:00:00 CDT, Duration: 30 day, Stop date: 12/09/18 21:00:00 CDT Aspirin 2018-0 No Notes: Do Memor ia 5-02 not crush l 03:00: or chew. (Same As: Ecotrin) Aspirin 2018-0 No Notes: Do Memor ia 5-02 not crush l 03:00: or chew. (Same As: Ecotrin) Aspirin 2018-0 No Notes: Do Memor ia 5-02 not crush l 03:00: or chew. Blanch 00 (Same As: Ecotrin) Aspirin No Notes: Do Memor ia 5-02 not crush l 03:00: or chew. (Same As: Ecotrin) atorvastati No Notes: Bull sheridan n 5-02 (Same as: l 02:00: Lipitor) Limbitrol No 1 tab, Memori a 5-02 Route: PO, l 02:00: Dosing Blanch 00 Weight 75.1, kg, Bedtime, Start date: [...] Lipitor) Limbitrol No 1 tab, Memori a 5-02 Route: PO, l 02:00: Dosing Todd Weight 75.1, kg, Bedtime, Start date: 11/09/18 21:00:00 CDT, Duration: 30 day, Stop date: 12/08/18 21:00:00 CDT Lovenox No Notes: Memoria 5-02 (Same as: l 02:00: Lovenox) atorvastati No Notes: Bull sheridan n 5-02 (Same as: l 02:00: Lipitor) Limbitrol No 1 tab, Memori a 5-02 Route: PO, l 02:00: Dosing Weight 75.1, kg, Bedtime, Start date: 11/09/18 21:00:00 CDT, Duration: 30 day, Stop date: 12/08/18 21:00:00 CDT Lovenox No Notes: Memoria 5-02 (Same as: l 02:00: Lovenox) Docusate No Notes: Memoria 5-01 (Same as: l 22:00: Colace) Blanch (Do Not Crush) sennosides, No Notes: Bull sheridan SHELTER 8.6 MG 5-01 (Same as: l Oral Tablet 22:00: Senokot) He Docusa No Notes: Memoria 5-01 (Same as: l 22:00: Colace) Blanch 00 (Do Not Crush) sennosides, No Notes: Bull sheridan SHELTER 8.6 MG 5-01 (Same as: l Oral Tablet 22:00: Senokot) He Docusate No Notes: Memoria 5-01 (Same as: l 22:00: Colace) Blanch (Do Not Crush) sennosides, No Notes: Bull sheridan SHELTER 8.6 MG 5-01 (Same as: l Oral Tablet 22:00: Senokot) He Docusate No Notes: Memoria 5-01 (Same as: l 22:00: Colace) Blanch (Do Not Crush) sennosides, No Notes: Bull sheridan SHELTER 8.6 MG 5-01 (Same as: l Oral Tablet 22:00: Senokot) He rm No Notes: Memoria 5-01 (same as: l 16:00: Bystolic) montelukast No Notes: Bull sheridan 5-01 (Same l 16:00: as:Singula Blanch ir) No Notes: Memoria 5-01 (same as: l 16:00: Bystolic) montelukast No Notes: Bull sheridan 5-01 (Same l 16:00: as:Singula Todd ir) olic No Notes: Memoria 5-01 (same as: l 16:00: ) Todd montelukast No Notes: Bull sheridan 5-01 (Same l 16:00: as:Singula Blanch ir) Bystolic No Notes: Memoria 5-01 (same as: l 16:00: ) Blanch montelukast No Notes: Bull sheridan 5-01 (Same l 16:00: as:Singula Blanch 00 ir) Saline No Notes: Memoria Flush 0.9% 5-01 Same as: l 14:00: BD Blanch Posiflush Sterile Saline No Notes: Memoria Flush 0.9% 5-01 Same as: l 14:00: BD Blanch Posiflush Sterile Saline No Notes: Memoria Flush 0.9% 5-01 Same as: l 14:00: BD Blanch Posiflush Sterile Saline No Notes: Memoria Flush 0.9% 5-01 Same as: l 14:00: BD Blanch 00 Posiflush Sterile Limbitrol Yes PO, Memoria 5-01 Bedtime, 0 l 13:06: Refill(s) Todd 00 Limbitrol Yes PO, Memoria 5-01 Bedtime, 0 l 13:06: Refill(s) Blanch 00 Limbitrol Yes PO, Memoria 5-01 Bedtime, 0 l 13:06: Refill(s) Todd 00 Limbitrol Yes PO, Memoria 5-01 Bedtime, 0 l 13:06: Refill(s) Todd 00 [...] Refill(s) [Maira] montelukast Yes PO, Daily, Memoria - 0 l 12:38: Refill(s) Blanch 00 nebivolol Yes 10 mg = 1 Mem oria 10 MG Oral 5- tab, PO, l Tablet 12:38: Daily, # Blanch [Bystolic] 00 30 tab, 0 Refill(s) Fexofenadin Yes 60 mg = 1 M emoria e 5- tab, PO, l hydrochlori 12:38: BID, # 60 H ermann de 60 MG 00 tab, 0 Oral Tablet Refill(s) [Maira] montelukast 0 Yes PO, Daily, Memoria 11-09 0 l 12:38: Refill(s) Blanch 00 nebivolol Yes 10 mg = 1 Mem oria 10 MG Oral - tab, PO, l Tablet 12:38: Daily, # Todd [Bystolic] 00 30 tab, 0 Refill(s) Fexofenadin Yes 60 mg = 1 M emoria e 5- tab, PO, l hydrochlori 12:38: BID, # 60 H ermann de 60 MG 00 tab, 0 Oral Tablet Refill(s) [Maira] montelukast 0 Yes PO, Daily, Memoria 11-09 0 l 12:38: Refill(s) Todd 00 nebivolol Yes 10 mg = 1 Mem oria 10 MG Oral - tab, PO, l Tablet 12:38: Daily, # Todd [olic] 00 30 tab, 0 Refill(s) Fexofenadin Yes 60 mg = 1 M emoria e 5- tab, PO, l hydrochlori 12:38: BID, # 60 H ermann de 60 MG 00 tab, 0 Oral Tablet Refill(s) [Maira] montelukast 2018-0 Yes PO, Daily, Memoria 11-09 0 l 12:38: Refill(s) Blanch Bystolic 10 Yes 10 mg = 1 M emoria mg oral 5- tab, PO, l tablet 12:38: Daily, # Todd 00 30 tab, 0 Refill(s) Maira 0 Yes 60 mg = 1 Memor ia Allergy 12 11-09 tab, PO, l hour oral 12:38: BID, # 60 [place] tablet (60 00 tab, 0 mg) Refill(s) montelukast 2018-0 Yes PO, Daily, Memoria 5- 0 l 12:38: Refill(s) Blanch Insulin 2018-0 No Notes: Memoria Lispro - (Same as: [...] day, Stop date: 12/08/18 23:42:00 CDT Insulin 2018-0 No Notes: Memoria Lispro - (Same as: l 04:43: Humalog) Roll in palms of hands gently; Do not shake vigorously . WASTE: F/P - Black; E - Municipal Trash Bin Stable for 28 days at room temperatur e. Expires in days from ____Date Glucagon 2018-0 No 1 mg, Memoria 5- Route: IM, l 04:43: Drug form: Blanch 00 PDR/INJ, PRN, kg, PRN Blood Glucose [...] Zofran) potassium No Notes: Memori a phosphate-s 11-09 (Same as: l odium 04:27: Phos-NaK) Each 1.5 250 mg-280 gm pkt has mg-160 mg 250mg oral powder phosphorou for s. Mix reconstitut w/2.5oz ion water and stir. potassium No Notes: Memori a phosphate 11-09 (Same as: l 04:27: K Phosphate. ) Do not infuse phosphorou s concurrent ly in the same line as TPN or IVF that contains calcium. For double lumen central lines, phosphorou s may be infused in a separate lumen from TPN. 1 mMol phoshate has 1.47 mEq potassium Infuse over 4 hours sodium 2018- No Notes: Memoria phosphate - Infuse l [...] s with feeding tube less than 14 Swiss (Dobhoff, J-tube etc) and pediatric and patients. Calcium No Notes: Memoria Gluconate 11-09 WASTE: F/P l 04:27: - Sink; E 00 - Municipal Trash Bin Calcium No [...] 04:27: Mag-Ox Todd 00 400) Magnesium oxide 530oj=454y g elemental magnesium Dose=____m g magnesium oxide (___mg elemental magnesium) potassium No Notes: Memori a phosphate-s - (Same as: l odium 04:27: Phos-NaK) Blanch phosphate 00 Each 1.5 250 mg-280 gm pkt has mg-160 mg 250mg oral powder phosphorou for s. Mix reconstitut w/2.5oz ion water and stir. potassium No Notes: Memori a phosphate - (Same as: l 04:27: K Blanch 00 Phosphate. ) Do not infuse phosphorou [...] s with feeding tube less than 14 Swiss (Dobhoff, J-tube etc) and pediatric and patients. Calcium No Notes: Memoria Gluconate 11-09 WASTE: F/P l 04:27: - Sink; E Todd 00 - Municipal Trash Bin Calcium No Notes: Memoria Carbonate 11-09 (Same As: l 500 MG 04:27: Tums) Todd Chewable 00 Calcium Tablet Carbonate 500 mg = 200 mg elemental calcium Dose = mg calcium carbonate ( mg elemental calcium) Magnesium No Notes: Memori a Sulfate 11-09 WASTE: F/P l 04:27: - Sink; E Todd - [employer] Trash Bin Magnesium No Notes: Memori a Oxide 11-09 (Same as: l 04:27: Mag-Ox Todd 00 400) Magnesium oxide 452bk=907v g elemental magnesium Dose=____m g magnesium oxide (___mg elemental magnesium) potassium No Notes: Memori a phosphate-s - (Same as: l odium 04:27: Phos-NaK) Blanch phosphate 00 Each 1.5 250 mg-280 gm pkt has mg-160 mg 250mg oral powder phosphorou for s. Mix reconstitut w/2.5oz ion water and stir. potassium No Notes: Memori a phosphate - (Same as: l 04:27: K Todd 00 Phosphate. ) Do not infuse phosphorou s concurrent ly in the same line as TPN or IVF that contains calcium. For double lumen central lines, phosphorou s may be infused in a separate lumen from TPN. 1 mMol phoshate has 1.47 mEq potassium Infuse over 4 hours sodium 2018- No Notes: Memoria phosphate - Infuse l 04:27: over 4 Blanch 00 hour. Do not infuse phosphorou s [...] s with feeding tube less than 14 Swiss (Dobhoff, J-tube etc) and pediatric and patients. Calcium No Notes: Memoria Gluconate 11-09 WASTE: F/P l 04:27: - Sink; E Blanch - [employer] Trash Bin Calcium No Notes: Memoria Carbonate 11-09 (Same As: l 500 MG 04:27: Tums) Blanch Chewable 00 Calcium Tablet Carbonate 500 mg = 200 mg elemental calcium Dose = mg calcium carbonate ( mg elemental calcium) Magnesium No Notes: Memori a Sulfate 11-09 WASTE: F/P l 04:27: - Sink; E Blanch - Municipal Trash Bin Magnesium No Notes: Memori a Oxide 11-09 (Same as: l 04:27: Mag-Ox Todd 00 400) Magnesium oxide 226sm=607q g elemental magnesium Dose=____m g magnesium oxide (___mg elemental magnesium) potassium No Notes: Memori a phosphate-s 11-09 (Same as: l odium 04:27: Phos-NaK) Blanch phosphate 00 Each 1.5 250 mg-280 gm pkt has mg-160 mg 250mg oral powder phosphorou for s. Mix reconstitut w/2.5oz ion water and stir. potassium No Notes: Memori a phosphate - (Same as: l 04:27: K Todd 00 [...] s with feeding tube less than 14 Swiss (Dobhoff, J-tube etc) and pediatric and patients. Calcium No Notes: Memoria Gluconate 11-09 WASTE: F/P l 04:27: - Sink; E Todd - Municipal Trash Bin Calcium No Notes: Memoria Carbonate 11-09 (Same As: l 500 MG 04:27: Tums) Blanch Chewable 00 Calcium Tablet Carbonate 500 mg = 200 mg elemental calcium Dose = mg calcium carbonate ( mg elemental calcium) Magnesium No Notes: Memori a Sulfate 11-09 WASTE: F/P l 04:27: - Sink; E Blanch - Municipal Trash Bin Magnesium No Notes: Memori a Oxide 11-09 (Same as: l 04:27: Mag-Ox Todd 00 400) Magnesium oxide 109rj=177c g elemental magnesium Dose=____m g magnesium oxide (___mg elemental magnesium) Saline No Notes: Memoria Flush 0.9% 5-01 Same as: l 04:25: BD Blanch 00 Posiflush Sterile Acetaminoph No Notes: Do M emoria en 5- not exceed l 04:25: 4 gm/day. Blanch 00 (Same as: Tylenol) Labetalol No Notes: Memori a 5-01 (Same as: l 04:25: Normodyne, Blanch 00 Trandate) Push over 2 minutes Give bolus over 2-3 minutes. Saline No Notes: Memoria Flush 0.9% 5-01 Same as: l 04:25: BD Todd 00 Posiflush Sterile Acetaminoph No Notes: Do M emoria en 5- not exceed l 04:25: 4 gm/day. Todd 00 (Same as: Tylenol) Labetalol No Notes: Memori a 5-01 (Same as: l 04:25: Normodyne, Blanch 00 Trandate) Push over 2 minutes Give bolus over 2-3 minutes. Saline No Notes: Memoria Flush 0.9% 5-01 Same as: l 04:25: BD Todd 00 Posiflush Sterile Acetaminoph No Notes: Do M emoria en 5 not exceed l 04:25: 4 gm/day. Tdod 00 (Same as: Tylenol) Labetalol No Notes: Memori a 5-01 (Same as: l 04:25: Normodyne, Blanch 00 Trandate) Push over 2 minutes Give bolus over 2-3 minutes. Saline No Notes: Memoria Flush 0.9% 5-01 Same as: l 04:25: BD Todd 00 Posiflush Sterile Acetaminoph No Notes: Do M emoria en 11-09 not exceed l 04:25: 4 gm/day. Todd 00 (Same as: Tylenol) Labetalol No Notes: Memori a 5-01 (Same as: l 04:25: Normodyne, Blanch 00 Trandate) Push over 2 minutes Give bolus over 2-3 minutes. Vital Signs Vital Name Observation Time Observation Value Comments Source Systolic blood 2021-04-10 20:10:00 147 mm[Hg] [facility] Diastolic blood 2021-04-10 20:10:00 99 mm[Hg] Unive rsity of pressure [facility] Heart rate 2021-04-10 20:10:00 105 /min [facility] Body temperature 2021-04-10 20:10:00 36.28 [facility] Respiratory rate 2021-04-10 20:10:00 18 /min [facility] O[facility] saturation in 2021-04-10 20:10:00 93 /min [facility] Arterial blood by [facility] Pulse oximetry Branch Body height 2021-04-10 19:22:00 170.2 cm [facility] Body weight 2021-04-10 19:22:00 77.111 kg [facility] BMI 2021-04-10 19:22:00 26.63 kg/m2 [facility] Systolic (mm Hg) 2019-08-04 15:30:00 Bull rial Blanch Diastolic (mm Hg) 2019-08-04 15:30:00 Mem orial Blanch Heart Rate 2019-08-04 15:30:00 [facility] Todd Respitory Rate 2019-08-04 15:30:00 Memori al Blanch Height 2019-08-04 15:30:00 170.18 cm [facility] Blanch Weight 2019-08-04 15:30:00 Memorial Blanch BMI Calculated 2019-08-04 15:30:00 Memori al Blanch Systolic (mm Hg) 2019-04-07 14:38:00 Bull rial Blanch Diastolic (mm Hg) 2019-04-07 14:38:00 Mem orial Blanch Heart Rate 2019-04-07 14:38:00 [facility] Todd Respitory Rate 2019-04-07 14:38:00 Memori al Todd Height 2019-04-07 14:38:00 167.64 cm Memorial Todd Weight 2019-04-07 14:38:00 Memorial Todd BMI Calculated 2019-04-07 14:38:00 Memori al Blanch Height 2019-01-06 15:31:00 165.1 cm [facility] Todd BMI Calculated 2019-01-06 15:31:00 Memori al Todd Weight 2019-01-06 15:31:00 Memorial Blanch Heart Rate 2019-01-06 15:31:00 [facility] Todd Systolic (mm Hg) 2019-01-06 15:31:00 Bull rial Todd Diastolic (mm Hg) 2019-01-06 15:31:00 Mem orial Blanch Respitory Rate 2019-01-06 15:31:00 Memori al Blanch Heart Rate 2018-11-25 21:06:00 Memorial Blanch Respitory Rate 2018-11-25 21:06:00 Memori al Blanch BMI Calculated 2018-11-25 21:06:00 Memori al Todd Weight 2018-11-25 21:06:00 [facility] Todd Height 2018-11-25 21:06:00 165.1 cm [facility] Todd Systolic (mm Hg) 2018-11-25 21:06:00 Bull rial Blanch Diastolic (mm Hg) 2018-11-25 21:06:00 Mem orial Todd Respitory Rate 2018-11-11 17:30:00 Memori al Blanch Systolic (mm Hg) 2018-11-11 17:30:00 Bull rial Blanch Diastolic (mm Hg) 2018-11-11 17:30:00 Mem orial Todd Heart Rate 2018-11-11 17:30:00 [facility] Todd Temperature Oral (F) 2018-11-11 17:30:00 98.2 F [facility] Todd Systolic (mm Hg) 2018-11-11 13:00:00 Bull rial Todd Diastolic (mm Hg) 2018-11-11 13:00:00 Mem orial Blanch Heart Rate 2018-11-11 13:00:00 Memorial Blanch Respitory Rate 2018-11-11 13:00:00 Memori al Todd Temperature Oral (F) 2018-11-11 13:00:00 99.8 F [facility] Todd Systolic (mm Hg) 2018-11-11 09:00:00 Bull rial Todd Diastolic (mm Hg) 2018-11-11 09:00:00 Mem orial Blanch Respitory Rate 2018-11-11 09:00:00 Memori al Blanch Heart Rate 2018-11-11 09:00:00 [facility] Todd Temperature Oral (F) 2018-11-11 09:00:00 98.3 F [facility] Blanch BMI Calculated 2018-11-09 04:49:00 Memori al Blanch Height 2018-11-09 04:49:00 167.64 cm Jose Alberto Brooks Weight 2018-11-09 04:49:00 [facility] Blanch Procedures Procedure Date / Time Performing Clinician Source Performed CONSENT/REFUSAL FOR 2021-04-10 05:01:00 Doctor Unassigned, No Un [facility] DIAGNOSIS AND TREATMENT Name Medical Branch Knee [facility] Blanch arthroplasty<sup>3</sup > Gallbladder stone [facility] Caitlin nn removal<sup>1</sup> Hysterectomy<sup>2</sup Memorial Blanch > Encounters Start End Encounter Admission Attending Care Care Encounter Source Date/Time Date/Time Type Type Clinicians Facility Department ID 2018-11-08 Inpatient MH MED [id number] [facility]HS W 22:56:00 2023-04-28 2023-04-28 Ambulatory MHIE MNA [id number] Memoria 15:45:00 15:45:00 Pre-Reg Neurology 07 jose Galavizann 2023-04-28 2023-04-28 Outpatient YOUSIF Rodríguez MIKENNEDI [id number] 10:45:00 10:45:00 Angel Rola Decker 2023-03-11 2023-03-11 Outpatient MHIE MHIE [id number] Memoria 14:30:00 14:30:00 07 jose Todd 2023-03-11 2023-03-11 Outpatient MHIE MHIE [id number] Memoria 14:30:00 14:30:00 07 jose Todd 2021-04-10 2021-04-10 Nurse Therapy, Adc Covid Infusion [facility] [id number] Univers 14:04:17 15:04:17 Visit Brandon Rivas [id number] manuelito [facility] [id number] [facility] [id number] Med [facility] 053 Branch 2021-04-10 2021-04-10 Outpatient Anibal RIVAS [facility] [id number] Univers 14:00:00 14:00:00 BRANDON billings of [facility] 2021-04-10 2021-04-10 Orders Doctor SARGENT [id number] Univers 00:00:00 00:00:00 Only UnassignedEVERETT [id number] ity of [facility] [id number] Pito as [id number] [address] 2020-08-06 2020-08-06 Ambulatory nullFlavo MNA [id number] Memoria 15:30:00 15:30:00 Pre-Reg r Neurology 06 l María Brooks 2020-08-06 2020-08-06 Ambulatory nullFlavo MNA [id number] Memoria 15:30:00 15:30:00 Pre-Reg r Neurology 06 jose Brooks 2020-08-06 2020-08-06 Outpatient MHIE MHIE [id number] Memoria 09:30:00 09:30:00 06 jose Brooks 2020-08-06 2020-08-06 Outpatient YOUSIF Rodríguez RUSTSCH [id number] 09:30:00 09:30:00 Angel Tami Jeronimo 2020-02-02 2020-02-03 Outpatient nullFlavo MNA [id number] Memoria 14:30:00 04:59:59 r Neurology 05 jose Galavizann 2020-02-02 2020-02-03 Outpatient nullFlavo MNA [id number] Memoria 14:30:00 04:59:59 r Neurology 05 jose Galavizann 2020-02-02 2020-02-02 Outpatient YOUSIF Rodríguez RUSTSCHMALCOLM [id number] 09:30:00 23:59:59 Angel Breanne Jeronimo 2020-02-02 2020-02-02 Ambulatory nullFlavo MNA [id number] Memoria 14:30:00 14:30:00 Pre-Reg r Neurology 04 jose Brooks 2020-02-02 2020-02-02 Ambulatory nullFlavo MNA [id number] Memoria 14:30:00 14:30:00 Pre-Reg r Neurology 04 jose Galavizann 2020-02-02 2020-02-02 Outpatient MHIE MHIE [id number] Memoria 09:30:00 09:30:00 05 jose Blanch 2020-02-02 2020-02-02 Outpatient MHIE MHIE [id number] Memoria 09:30:00 09:30:00 04 jose Brooks 2020-02-02 2020-02-02 Outpatient ANGÉLICA RodríguezER RUSTSCHER [id number] 09:30:00 09:30:00 Angel 04 Jeronimo 2019-08-04 2019-08-05 Outpatient nullFlavo MNA [id number] Memoria 15:45:00 05:59:59 r Neurology 03 jose Brooks 2019-08-04 2019-08-05 Outpatient nullFlavo MNA [id number] Memoria 15:45:00 05:59:59 r Neurology 03 jose Brooks 2019-08-04 2019-08-04 Outpatient Marcos RUSTSCHER RUSTSCHER [id number] 09:45:00 23:59:59 Angel 03 Jeronimo 2019-08-04 2019-08-04 Outpatient MHIE MHIE [id number] Memoria 09:45:00 09:45:00 03 jose Brooks 2019-04-07 2019-04-08 Outpatient nullFlavo MNA [id number] Memoria 14:30:00 04:59:59 r Neurology 02 jose Daniel Blanch 2019-04-07 2019-04-08 Outpatient nullFlavo MNA [id number] Memoria 14:30:00 04:59:59 r Neurology 02 jose Daniel Blanch 2019-04-07 2019-04-07 Outpatient Marcos RUSTSCHER RUSTSCHER [id number] 09:30:00 23:59:59 Angel Maryan Decker 2019-04-07 2019-04-07 Outpatient MHIE MHIE [id number] Memoria 09:30:00 09:30:00 02 jose Todd 2019-01-06 2019-01-07 Outpatient nullFlavo MNA [id number] Memoria 15:15:00 04:59:59 r Neurology 01 jose Daniel Blanch 2019-01-06 2019-01-07 Outpatient nullFlavo MNA [id number] Memoria 15:15:00 04:59:59 r Neurology 01 jose Daniel Todd 2019-01-06 2019-01-06 Outpatient Marcos RUSTSCHER MISCHER [id number] 10:15:00 23:59:59 Angel Carola Decker 2019-01-06 2019-01-06 Outpatient MHIE MHIE [id number] Memoria 10:15:00 10:15:00 l Blanch 2018-11-25 2018-11-26 Outpatient nullFlavo MNA [id number] Memoria 21:00:00 04:59:59 r Neurology 00 l María Blanch 2018-11-25 2018-11-26 Outpatient nullFlavo MNA [id number] Memoria 21:00:00 04:59:59 r Neurology 00 l María Blanch 2018-11-25 2018-11-25 Outpatient YOUSIF Rodríguez [facility] [id number] 16:00:00 23:59:59 Angel 00 Jeronimo 2018-11-25 2018-11-25 Outpatient MHIE IE [id number] Memoria 16:00:00 16:00:00 00 jose Blanch 2018-11-09 2018-11-12 Inpatient nullFlavo [facility] [id number] Memoria 03:56:00 00:00:00 r Todd [address] [facility] 2018-11-09 2018-11-12 Inpatient loriFlavo [facility] [id number] Memoria 03:56:00 00:00:[address] [facility] 2018-11-08 2018-11-11 Outpatient [place], [facility] [id number] 22:56:00 19:00:00 Mitul Brown 20 Results Test Description Test Time Test Comments Results Result Comments Source CHEM [facility] 2018-11-11 10:11:00 Test Item Value Reference Range Interpretation Comme nts Phosphorus (test code = Phosphorus) 2.9 2.5-4.5 [facility] [employer] [id number] 10:11:00 Test Item Value Reference Range Interpretation Comments Magnesium Lvl (test code = Magnesium 2.0 1.8-2.4 Lvl) [facility] [employer] [id number] 10:11:00 Test Item Value Reference Range Interpretation Comments A/G Ratio (test code = A/G Ratio) 0.8 1 0.7-1.6 [facility] [employer] [id number] 10:11:00 Test Item Value Reference Range Interpretation Comments Globulin (test code = Globulin) 3.8 2.7-4.2 [facility] [employer] [id number] 10:11:00 Test Item Value Reference Range Interpretation Comments B/C Ratio (test code = B/C Ratio) 19 1 6-25 [facility]2019-05-03 10:11:00 Test Item Value Reference Range Interpretation Comments AGAP (test code = AGAP) 14.9 10.0-20.0 [facility]2019-05-03 10:11:00 Test Item Value Reference Range Interpretation Comments eGFR (test code = eGFR) 68 [facility]2019-05-03 10:11:00 Test Item Value Reference Range Interpretation Comments Bili Total (test code = Bili Total) 0.8 0.2-1.3 [facility]2019-05-03 10:11:00 Test Item Value Reference Range Interpretation Comments Alk Phos (test code = Alk Phos) 128 39-136 [facility]2019-05-03 10:11:00 Test Item Value Reference Range Interpretation Comments AST (test code = AST) 26 See_Comment [Auto mated message] The system which ge nerated this result transmit zen reference range : <=37. The reference range was not used to interpr et this result as albina l/abnormal. [facility]2019-05-03 10:11:00 Test Item Value Reference Range Interpretation Comments ALT (test code = ALT) 36 See_Comment [Auto mated message] The system which ge nerated this result transmit zen reference range : <=65. The reference range was not used to interpr et this result as albina l/abnormal. [facility]2019-05-03 10:11:00 Test Item Value Reference Range Interpretation Comments Albumin Lvl (test code = Albumin Lvl) 3.1 3.5-5.0 [facility]2019-05-03 10:11:00 Test Item Value Reference Range Interpretation Comments Potassium Lvl (test code = Potassium 3.9 3.5-5.1 Lvl) [facility]2019-05-03 10:11:00 Test Item Value Reference Range Interpretation Comments Creatinine Lvl (test code = Creatinine 0.80 0.50-1.40 Lvl) [facility]2019-05-03 10:11:00 Test Item Value Reference Range Interpretation Comments Glucose Lvl (test code = Glucose Lvl) 77 70-99 [facility]2019-05-03 10:11:00 Test Item Value Reference Range Interpretation Comments Sodium Lvl (test code = Sodium Lvl) 140 135-145 [facility]2019-05-03 10:11:00 Test Item Value Reference Range Interpretation Comments BUN (test code = BUN) 15 7-22 [facility]2019-05-03 10:11:00 Test Item Value Reference Range Interpretation Comments Calcium Lvl (test code = Calcium Lvl) 8.6 8.5-10.5 [facility]2019-05-03 10:11:00 Test Item Value Reference Range Interpretation Comments Total Protein (test code = Total 6.9 6.4-8.4 Protein) [facility]2019-05-03 10:11:00 Test Item Value Reference Range Interpretation Comments CO2 (test code = CO2) 22 24-32 [facility]2019-05-03 10:11:00 Test Item Value Reference Range Interpretation Comments Chloride Lvl (test code = Chloride Lvl) 107 95-109 [facility]RrruhoeWOAXAHXTFG1392-34-47 10:11:00 Test Item Value Reference Range Interpretation Comments MPV (test code = MPV) 8.5 7.4-10.4 [facility] TexasBzlqkmbRWCKUPMEDC6318-07-14 10:11:00 Test Item Value Reference Range Interpretation Comments Platelet (test code = Platelet) 237 133-450 [facility] TexasHhluqbvOKNTWVCVXW4495-67-27 10:11:00 Test Item Value Reference Range Interpretation Comments MCHC (test code = MCHC) 32.5 32.0-36.0 [facility] TexasWkffqtxYXKJQBKSNW6649-18-54 10:11:00 Test Item Value Reference Range Interpretation Comments RDW (test code = RDW) 14.0 11.5-14.5 [facility] TexasYgdytmuGYDNCSPAKW1233-27-64 10:11:00 Test Item Value Reference Range Interpretation Comments WBC (test code = WBC) 9.0 3.7-10.4 [facility] TexasKbmxexsEYJLFTUVQP1961-34-47 10:11:00 Test Item Value Reference Range Interpretation Comments RBC (test code = RBC) 4.06 4.20-5.40 [facility] TexasMrxnuflHODZPWYWFG2320-11-49 10:11:00 Test Item Value Reference Range Interpretation Comments MCH (test code = MCH) 29.9 pg 27.0-31.0 [facility] TexasWudxdeiDSKIHADARD1286-08-43 10:11:00 Test Item Value Reference Range Interpretation Comments Hct (test code = Hct) 37.3 36.0-48.0 [facility] TexasKvcvpqhFNBKIENROE0831-12-79 10:11:00 Test Item Value Reference Range Interpretation Comments MCV (test code = MCV) 92.0 80.0-98.0 [facility] TexasBssrjamJQYPOWAGTP3879-03-52 10:11:00 Test Item Value Reference Range Interpretation Comments Hgb (test code = Hgb) 12.1 12.0-16.0 [facility] TexasAypwlwjZGBDFJPTWM6114-84-09 10:11:00 Test Item Value Reference Range Interpretation Comments Eosinophils (test code = 2.7 See_Comment [A utomated message] The Eosinophils) system which ge nerated this result tra nsmitted reference range : <=4.0. The reference r tara was not used to int erpret this result as normal/abnormal . [facility] TexasTdkdivuRJHRWSKGWR5930-76-62 10:11:00 Test Item Value Reference Range Interpretation Comments Lymphocytes # (test code = Lymphocytes 1.9 1.0-5.5 #) [facility] TexasHnglmyuQOERYSUOAP7182-19-90 10:11:00 Test Item Value Reference Range Interpretation Comments Neutrophils # (test code = Neutrophils 5.9 1.5-8.1 #) [facility] TexasFmowmqwTOTFUTZBML9762-30-50 10:11:00 Test Item Value Reference Range Interpretation Comments Basophils (test code = 0.3 See_Comment [Aut omated message] The Basophils) system which ge nerated this result tra nsmitted reference range : <=1.0. The reference r tara was not used to int erpret this result as normal/abnormal . [facility] TexasRpmqnwySLKVXHNENS8841-87-09 10:11:00 Test Item Value Reference Range Interpretation Comments Monocytes # (test code 0.9 See_Comment [Aut omated message] The = Monocytes #) system which generated this result tra nsmitted reference range : <=0.8. The reference r tara was not used to int erpret this result as normal/abnormal . [facility] TexasKssodkqGBNLCXAHWZ1495-63-07 10:11:00 Test Item Value Reference Range Interpretation Comments Eosinophils # (test code 0.2 See_Comment [A utomated message] The = Eosinophils #) system whic h generated this result tra nsmitted reference range : <=0.5. The reference r tara was not used to int erpret this result as normal/abnormal . [facility] TexasGbdkvnsLNYDIWBXPX5955-49-75 10:11:00 Test Item Value Reference Range Interpretation Comments Monocytes (test code = Monocytes) 10.5 2.0-12.0 [facility] TexasOexhfrcRMLFKYJMDX5168-07-21 10:11:00 Test Item Value Reference Range Interpretation Comments Lymphocytes (test code = Lymphocytes) 20.6 20.0-40.0 [facility] TexasYudewxyLXHDCBAJSB4983-06-83 10:11:00 Test Item Value Reference Range Interpretation Comments Segs (test code = Segs) 65.9 45.0-75.0 [facility]2019-05-03 10:11:00 Test Item Value Reference Range Interpretation Comments Phosphorus (test code = Phosphorus) 2.9 2.5-4.5 [facility]2019-05-03 10:11:00 Test Item Value Reference Range Interpretation Comments Magnesium Lvl (test code = Magnesium 2.0 1.8-2.4 Lvl) [facility]2019-05-03 10:11:00 Test Item Value Reference Range Interpretation Comments A/G Ratio (test code = A/G Ratio) 0.8 1 0.7-1.6 [facility]2019-05-03 10:11:00 Test Item Value Reference Range Interpretation Comments Globulin (test code = Globulin) 3.8 2.7-4.2 [facility]2019-05-03 10:11:00 Test Item Value Reference Range Interpretation Comments B/C Ratio (test code = B/C Ratio) 19 1 6-25 [facility]2019-05-03 10:11:00 Test Item Value Reference Range Interpretation Comments AGAP (test code = AGAP) 14.9 10.0-20.0 [facility]2019-05-03 10:11:00 Test Item Value Reference Range Interpretation Comments eGFR (test code = eGFR) 68 [facility]2019-05-03 10:11:00 Test Item Value Reference Range Interpretation Comments Bili Total (test code = Bili Total) 0.8 0.2-1.3 [facility]2019-05-03 10:11:00 Test Item Value Reference Range Interpretation Comments Alk Phos (test code = Alk Phos) 128 39-136 [facility]2019-05-03 10:11:00 Test Item Value Reference Range Interpretation Comments AST (test code = AST) 26 See_Comment [Auto mated message] The system which ge nerated this result transmit zen reference range : <=37. The reference range was not used to interpr et this result as albina l/abnormal. [facility]2019-05-03 10:11:00 Test Item Value Reference Range Interpretation Comments ALT (test code = ALT) 36 See_Comment [Auto mated message] The system which ge nerated this result transmit zen reference range : <=65. The reference range was not used to interpr et this result as albina l/abnormal. [facility]2019-05-03 10:11:00 Test Item Value Reference Range Interpretation Comments Albumin Lvl (test code = Albumin Lvl) 3.1 3.5-5.0 [facility]2019-05-03 10:11:00 Test Item Value Reference Range Interpretation Comments Potassium Lvl (test code = Potassium 3.9 3.5-5.1 Lvl) [facility]2019-05-03 10:11:00 Test Item Value Reference Range Interpretation Comments Creatinine Lvl (test code = Creatinine 0.80 0.50-1.40 Lvl) [facility]2019-05-03 10:11:00 Test Item Value Reference Range Interpretation Comments Glucose Lvl (test code = Glucose Lvl) 77 70-99 [facility]2019-05-03 10:11:00 Test Item Value Reference Range Interpretation Comments Sodium Lvl (test code = Sodium Lvl) 140 135-145 [facility]2019-05-03 10:11:00 Test Item Value Reference Range Interpretation Comments BUN (test code = BUN) 15 7-22 [facility]2019-05-03 10:11:00 Test Item Value Reference Range Interpretation Comments Calcium Lvl (test code = Calcium Lvl) 8.6 8.5-10.5 [facility]2019-05-03 10:11:00 Test Item Value Reference Range Interpretation Comments Total Protein (test code = Total 6.9 6.4-8.4 Protein) [facility]2019-05-03 10:11:00 Test Item Value Reference Range Interpretation Comments CO2 (test code = CO2) 22 24-32 [facility]2019-05-03 10:11:00 Test Item Value Reference Range Interpretation Comments Chloride Lvl (test code = Chloride Lvl) 107 95-109 [facility] TexasHvszdadSONDILHAFW1666-57-98 10:11:00 Test Item Value Reference Range Interpretation Comments MPV (test code = MPV) 8.5 7.4-10.4 [facility] TexasMqcdhivEOYNVUIWHM5938-19-50 10:11:00 Test Item Value Reference Range Interpretation Comments Platelet (test code = Platelet) 237 133-450 [facility] TexasEizhvprJUFBEFSFEB9922-91-93 10:11:00 Test Item Value Reference Range Interpretation Comments MCHC (test code = MCHC) 32.5 32.0-36.0 [facility] TexasDnfnjnfRCSKSMGNXQ3343-44-64 10:11:00 Test Item Value Reference Range Interpretation Comments RDW (test code = RDW) 14.0 11.5-14.5 [facility] TexasUmleqnrGBAFCTJZRQ6621-69-93 10:11:00 Test Item Value Reference Range Interpretation Comments WBC (test code = WBC) 9.0 3.7-10.4 [facility] TexasNbpyhjjNMEMKSLSQW8538-75-15 10:11:00 Test Item Value Reference Range Interpretation Comments RBC (test code = RBC) 4.06 4.20-5.40 [facility] TexasElwocbeLXIBTENOBA7938-36-25 10:11:00 Test Item Value Reference Range Interpretation Comments MCH (test code = MCH) 29.9 pg 27.0-31.0 [facility] TexasGcjdhyrSHYHFVDWQZ0565-33-86 10:11:00 Test Item Value Reference Range Interpretation Comments Hct (test code = Hct) 37.3 36.0-48.0 [facility] TexasRclfsfmXDBVOPZOTC1208-77-80 10:11:00 Test Item Value Reference Range Interpretation Comments MCV (test code = MCV) 92.0 80.0-98.0 [facility] TexasIlttpdzOFJHKBOQUT0302-36-99 10:11:00 Test Item Value Reference Range Interpretation Comments Hgb (test code = Hgb) 12.1 12.0-16.0 [facility] TexasSzfeghdKRLLEXILTH1446-85-39 10:11:00 Test Item Value Reference Range Interpretation Comments Eosinophils (test code = 2.7 See_Comment [A utomated message] The Eosinophils) system which ge nerated this result tra nsmitted reference range : <=4.0. The reference r tara was not used to int erpret this result as normal/abnormal . [facility] TexasAonrxceXPHHCJSUDB2268-10-95 10:11:00 Test Item Value Reference Range Interpretation Comments Lymphocytes # (test code = Lymphocytes 1.9 1.0-5.5 #) [facility] TexasYibmqenCGRAIVHUNN4273-99-26 10:11:00 Test Item Value Reference Range Interpretation Comments Neutrophils # (test code = Neutrophils 5.9 1.5-8.1 #) [facility] TexasRsmehlpVVKOURBPFE5036-41-52 10:11:00 Test Item Value Reference Range Interpretation Comments Basophils (test code = 0.3 See_Comment [Aut omated message] The Basophils) system which ge nerated this result tra nsmitted reference range : <=1.0. The reference r tara was not used to int erpret this result as normal/abnormal . [facility] TexasEkppfnoDISWAIXROZ7726-05-38 10:11:00 Test Item Value Reference Range Interpretation Comments Monocytes # (test code 0.9 See_Comment [Aut omated message] The = Monocytes #) system which generated this result tra nsmitted reference range : <=0.8. The reference r tara was not used to int erpret this result as normal/abnormal . [facility] TexasCwlrgvsGAFWQNGTTP4906-90-10 10:11:00 Test Item Value Reference Range Interpretation Comments Eosinophils # (test code 0.2 See_Comment [A utomated message] The = Eosinophils #) system [facility] h generated this result tra nsmitted reference range : <=0.5. The reference r tara was not used to int erpret this result as normal/abnormal . [facility] TexasWcebeolGPUNSFTPQJ0458-32-67 10:11:00 Test Item Value Reference Range Interpretation Comments Monocytes (test code = Monocytes) 10.5 2.0-12.0 [facility] TexasIniuqooPSVHUHLCAW1713-49-83 10:11:00 Test Item Value Reference Range Interpretation Comments Lymphocytes (test code = Lymphocytes) 20.6 20.0-40.0 [facility] TexasYnjmcbjBHBKQHBRCP9251-26-76 10:11:00 Test Item Value Reference Range Interpretation Comments Segs (test code = Segs) 65.9 45.0-75.0 [facility]2019-05-03 10:11:00 Test Item Value Reference Range Interpretation Comments Phosphorus (test code = Phosphorus) 2.9 2.5-4.5 [facility]2019-05-03 10:11:00 Test Item Value Reference Range Interpretation Comments Magnesium Lvl (test code = Magnesium 2.0 1.8-2.4 Lvl) [facility]2019-05-03 10:11:00 Test Item Value Reference Range Interpretation Comments A/G Ratio (test code = A/G Ratio) 0.8 1 0.7-1.6 [facility]2019-05-03 10:11:00 Test Item Value Reference Range Interpretation Comments Globulin (test code = Globulin) 3.8 2.7-4.2 [facility]2019-05-03 10:11:00 Test Item Value Reference Range Interpretation Comments B/C Ratio (test code = B/C Ratio) 19 1 6-25 [place] 020249-05-03 10:11:00 Test Item Value Reference Range Interpretation Comments AGAP (test code = AGAP) 14.9 10.0-20.0 [facility]2019-05-03 10:11:00 Test Item Value Reference Range Interpretation Comments eGFR (test code = eGFR) 68 [facility]2019-05-03 10:11:00 Test Item Value Reference Range Interpretation Comments Bili Total (test code = Bili Total) 0.8 0.2-1.3 [facility]2019-05-03 10:11:00 Test Item Value Reference Range Interpretation Comments Alk Phos (test code = Alk Phos) 128 39-136 [facility]2019-05-03 10:11:00 Test Item Value Reference Range Interpretation Comments AST (test code = AST) 26 See_Comment [Auto mated message] The system which ge nerated this result transmit zen reference range : <=37. The reference range was not used to interpr et this result as albina l/abnormal. [place] 020249-05-03 10:11:00 Test Item Value Reference Range Interpretation Comments ALT (test code = ALT) 36 See_Comment [Auto mated message] The system which ge nerated this result transmit zen reference range : <=65. The reference range was not used to interpr et this result as albina l/abnormal. [facility]2019-05-03 10:11:00 Test Item Value Reference Range Interpretation Comments Albumin Lvl (test code = Albumin Lvl) 3.1 3.5-5.0 [facility]2019-05-03 10:11:00 Test Item Value Reference Range Interpretation Comments Potassium Lvl (test code = Potassium 3.9 3.5-5.1 Lvl) [facility]2019-05-03 10:11:00 Test Item Value Reference Range Interpretation Comments Creatinine Lvl (test code = Creatinine 0.80 0.50-1.40 Lvl) [facility]2019-05-03 10:11:00 Test Item Value Reference Range Interpretation Comments Glucose Lvl (test code = Glucose Lvl) 77 70-99 [facility]2019-05-03 10:11:00 Test Item Value Reference Range Interpretation Comments Sodium Lvl (test code = Sodium Lvl) 140 135-145 [facility]2019-05-03 10:11:00 Test Item Value Reference Range Interpretation Comments BUN (test code = BUN) 15 7-22 [facility]2019-05-03 10:11:00 Test Item Value Reference Range Interpretation Comments Calcium Lvl (test code = Calcium Lvl) 8.6 8.5-10.5 [facility]2019-05-03 10:11:00 Test Item Value Reference Range Interpretation Comments Total Protein (test code = Total 6.9 6.4-8.4 Protein) [facility]2019-05-03 10:11:00 Test Item Value Reference Range Interpretation Comments CO2 (test code = CO2) 22 24-32 [facility]2019-05-03 10:11:00 Test Item Value Reference Range Interpretation Comments Chloride Lvl (test code = Chloride Lvl) 107 95-109 [facility] TexasVuxrghtKWTUAMSENK9281-63-12 10:11:00 Test Item Value Reference Range Interpretation Comments MPV (test code = MPV) 8.5 7.4-10.4 [facility] TexasGbnjacpCPDBWDWNYL0836-84-02 10:11:00 Test Item Value Reference Range Interpretation Comments Platelet (test code = Platelet) 237 133-450 [facility] TexasZtipmksBWGECBSPXL0608-70-89 10:11:00 Test Item Value Reference Range Interpretation Comments MCHC (test code = MCHC) 32.5 32.0-36.0 [facility] TexasFmufnidANJQQTZNFG1306-52-30 10:11:00 Test Item Value Reference Range Interpretation Comments RDW (test code = RDW) 14.0 11.5-14.5 [facility] TexasDhukpcrSILZEBTASJ6884-09-02 10:11:00 Test Item Value Reference Range Interpretation Comments WBC (test code = WBC) 9.0 3.7-10.4 [facility] TexasCjqkmbfPXHHSHQEYU8539-91-25 10:11:00 Test Item Value Reference Range Interpretation Comments RBC (test code = RBC) 4.06 4.20-5.40 [facility] TexasLjfoeetDSQZVYVLMX4840-26-54 10:11:00 Test Item Value Reference Range Interpretation Comments MCH (test code = MCH) 29.9 pg 27.0-31.0 [facility] TexasIcxwgatQBBCSPIKQV9819-02-13 10:11:00 Test Item Value Reference Range Interpretation Comments Hct (test code = Hct) 37.3 36.0-48.0 [facility] TexasBvjivpfHHQTXGZODN9304-57-37 10:11:00 Test Item Value Reference Range Interpretation Comments MCV (test code = MCV) 92.0 80.0-98.0 [facility] TexasGqlogowTVCRLWADKH3051-18-74 10:11:00 Test Item Value Reference Range Interpretation Comments Hgb (test code = Hgb) 12.1 12.0-16.0 [facility] TexasGjdraqkVRKUAJPMTY6030-54-20 10:11:00 Test Item Value Reference Range Interpretation Comments Eosinophils (test code = 2.7 See_Comment [A utomated message] The Eosinophils) system which ge nerated this result tra nsmitted reference range : <=4.0. The reference r tara was not used to int erpret this result as normal/abnormal . [facility] TexasPdmpmtaCVDMQHYTAV0539-82-70 10:11:00 Test Item Value Reference Range Interpretation Comments Lymphocytes # (test code = Lymphocytes 1.9 1.0-5.5 #) [facility] TexasAtlgqqfOZAHWYZDIH2131-88-16 10:11:00 Test Item Value Reference Range Interpretation Comments Neutrophils # (test code = Neutrophils 5.9 1.5-8.1 #) [facility] TexasQwcwytgBSKXRCPAFN6445-17-35 10:11:00 Test Item Value Reference Range Interpretation Comments Basophils (test code = 0.3 See_Comment [Aut omated message] The Basophils) system which ge nerated this result tra nsmitted reference range : <=1.0. The reference r tara was not used to int erpret this result as normal/abnormal . [facility] TexasUjrlrikRVPPKTCEMF7564-15-81 10:11:00 Test Item Value Reference Range Interpretation Comments Monocytes # (test code 0.9 See_Comment [Aut omated message] The = Monocytes #) system which generated this result tra nsmitted reference range : <=0.8. The reference r tara was not used to int erpret this result as normal/abnormal . [facility] TexasXujptesGHMDBEMQZV5297-52-75 10:11:00 Test Item Value Reference Range Interpretation Comments Eosinophils # (test code 0.2 See_Comment [A utomated message] The = Eosinophils #) system whic h generated this result tra nsmitted reference range : <=0.5. The reference r tara was not used to int erpret this result as normal/abnormal . [facility] TexasYbkibgmJAKHKQYLPS1680-32-65 10:11:00 Test Item Value Reference Range Interpretation Comments Monocytes (test code = Monocytes) 10.5 2.0-12.0 [facility] TexasYpajnakNVAXXGOXST1433-06-58 10:11:00 Test Item Value Reference Range Interpretation Comments Lymphocytes (test code = Lymphocytes) 20.6 20.0-40.0 [facility] TexasKqvupwpQYFXXBAQUH9935-54-20 10:11:00 Test Item Value Reference Range Interpretation Comments Segs (test code = Segs) 65.9 45.0-75.0 [facility] TexasHajqgwtSSTCFIPDSK0967-70-24 10:11:00 Test Item Value Reference Range Interpretation Comments MCH (test code = MCH) 29.9 pg 27.0-31.0 [facility] TexasTkalnwjDBPTYUDHLH0879-36-48 10:11:00 Test Item Value Reference Range Interpretation Comments Hct (test code = Hct) 37.3 36.0-48.0 [facility] TexasQjwwljoAKDYMKFJVM1141-13-49 10:11:00 Test Item Value Reference Range Interpretation Comments MCV (test code = MCV) 92.0 80.0-98.0 [facility] TexasYwgjuycGMNBWJBDLW4579-46-61 10:11:00 Test Item Value Reference Range Interpretation Comments Hgb (test code = Hgb) 12.1 12.0-16.0 [facility] TexasPagdkfpDLOWPCXIIL2597-03-50 10:11:00 Test Item Value Reference Range Interpretation Comments Eosinophils (test code = Eosinophils) 2.7 <=4.0 [facility] TexasYxaqytcDOAJWDVDQU2353-51-10 10:11:00 Test Item Value Reference Range Interpretation Comments Lymphocytes # (test code = Lymphocytes 1.9 1.0-5.5 #) [facility] TexasDawsxdfTREQVHJVQF5494-24-95 10:11:00 Test Item Value Reference Range Interpretation Comments Neutrophils # (test code = Neutrophils 5.9 1.5-8.1 #) [facility] TexasTptsgfuRCLZPZIMZW2765-70-43 10:11:00 Test Item Value Reference Range Interpretation Comments Basophils (test code = Basophils) 0.3 <=1.0 [facility] TexasGdjnylhRZDRLUKGVU5743-97-06 10:11:00 Test Item Value Reference Range Interpretation Comments Monocytes # (test code = Monocytes #) 0.9 <=0.8 [facility] TexasDehaxlbAHTNNTCTNG9148-33-22 10:11:00 Test Item Value Reference Range Interpretation Comments Eosinophils # (test code = Eosinophils 0.2 <=0.5 #) [facility] TexasBmdentfARLHAHCGHB5856-65-32 10:11:00 Test Item Value Reference Range Interpretation Comments Monocytes (test code = Monocytes) 10.5 2.0-12.0 [facility] TexasVphdnhmMQPFPJWTSQ9751-70-71 10:11:00 Test Item Value Reference Range Interpretation Comments Lymphocytes (test code = Lymphocytes) 20.6 20.0-40.0 [facility] TexasHqxvgdyGKXWAUSTMI1321-70-07 10:11:00 Test Item Value Reference Range Interpretation Comments Segs (test code = Segs) 65.9 45.0-75.0 [facility]2019-05-03 10:11:00 Test Item Value Reference Range Interpretation Comments Phosphorus (test code = Phosphorus) 2.9 2.5-4.5 [facility]2019-05-03 10:11:00 Test Item Value Reference Range Interpretation Comments Magnesium Lvl (test code = Magnesium 2.0 1.8-2.4 Lvl) [facility]2019-05-03 10:11:00 Test Item Value Reference Range Interpretation Comments A/G Ratio (test code = A/G Ratio) 0.8 1 0.7-1.6 [facility]2019-05-03 10:11:00 Test Item Value Reference Range Interpretation Comments Globulin (test code = Globulin) 3.8 2.7-4.2 [facility]2019-05-03 10:11:00 Test Item Value Reference Range Interpretation Comments B/C Ratio (test code = B/C Ratio) 19 1 6-25 [facility]2019-05-03 10:11:00 Test Item Value Reference Range Interpretation Comments AGAP (test code = AGAP) 14.9 10.0-20.0 [facility]2019-05-03 10:11:00 Test Item Value Reference Range Interpretation Comments eGFR (test code = eGFR) 68 [facility]2019-05-03 10:11:00 Test Item Value Reference Range Interpretation Comments Bili Total (test code = Bili Total) 0.8 0.2-1.3 [facility]2019-05-03 10:11:00 Test Item Value Reference Range Interpretation Comments Alk Phos (test code = Alk Phos) 128 39-136 [facility]2019-05-03 10:11:00 Test Item Value Reference Range Interpretation Comments AST (test code = AST) 26 <=37 [facility]2019-05-03 10:11:00 Test Item Value Reference Range Interpretation Comments ALT (test code = ALT) 36 <=65 [facility]2019-05-03 10:11:00 Test Item Value Reference Range Interpretation Comments Albumin Lvl (test code = Albumin Lvl) 3.1 3.5-5.0 [facility]2019-05-03 10:11:00 Test Item Value Reference Range Interpretation Comments Potassium Lvl (test code = Potassium 3.9 3.5-5.1 Lvl) [facility]2019-05-03 10:11:00 Test Item Value Reference Range Interpretation Comments Creatinine Lvl (test code = Creatinine 0.80 0.50-1.40 Lvl) [facility]2019-05-03 10:11:00 Test Item Value Reference Range Interpretation Comments Glucose Lvl (test code = Glucose Lvl) 77 70-99 [facility]2019-05-03 10:11:00 Test Item Value Reference Range Interpretation Comments Sodium Lvl (test code = Sodium Lvl) 140 135-145 [facility]2019-05-03 10:11:00 Test Item Value Reference Range Interpretation Comments BUN (test code = BUN) 15 7-22 [facility]2019-05-03 10:11:00 Test Item Value Reference Range Interpretation Comments Calcium Lvl (test code = Calcium Lvl) 8.6 8.5-10.5 [facility]2019-05-03 10:11:00 Test Item Value Reference Range Interpretation Comments Total Protein (test code = Total 6.9 6.4-8.4 Protein) [facility]2019-05-03 10:11:00 Test Item Value Reference Range Interpretation Comments CO2 (test code = CO2) 22 24-32 [facility]2019-05-03 10:11:00 Test Item Value Reference Range Interpretation Comments Chloride Lvl (test code = Chloride Lvl) 107 95-109 [facility] TexasIyhelhjMYOUJFZUHT8410-63-74 10:11:00 Test Item Value Reference Range Interpretation Comments MPV (test code = MPV) 8.5 7.4-10.4 [facility] TexasWosjzphJKTJXXLCCU3282-26-10 10:11:00 Test Item Value Reference Range Interpretation Comments Platelet (test code = Platelet) 237 133-450 [facility] TexasNkqoffxUOWVVWDJHD0670-20-36 10:11:00 Test Item Value Reference Range Interpretation Comments MCHC (test code = MCHC) 32.5 32.0-36.0 [facility] TexasEanmtqmRSZTHVJLPD9942-46-91 10:11:00 Test Item Value Reference Range Interpretation Comments RDW (test code = RDW) 14.0 11.5-14.5 [facility] TexasJvftwsaGOQKLLWHRW7258-36-17 10:11:00 Test Item Value Reference Range Interpretation Comments WBC (test code = WBC) 9.0 3.7-10.4 [facility] TexasEwunlkfLMYYPBEQJN2308-79-34 10:11:00 Test Item Value Reference Range Interpretation Comments RBC (test code = RBC) 4.06 4.20-5.40 [facility]2019-05-02 10:10:00 Test Item Value Reference Range Interpretation Comments Magnesium Lvl (test code = Magnesium 2.1 1.8-2.4 Lvl) [facility]2019-05-02 10:10:00 Test Item Value Reference Range Interpretation Comments Phosphorus (test code = Phosphorus) 2.9 2.5-4.5 [facility]FtlunxpMFXAOAHRLOOV4554-83-30 10:10:00 Test Item Value Reference Range Interpretation Comments AGAP (test code = AGAP) 12.7 10.0-20.0 [facility]MzpcmevXWTXIZIIKMGP7011-82-19 10:10:00 Test Item Value Reference Range Interpretation Comments eGFR (test code = eGFR) 68 [facility]MnfpvwuVKIYFZJOXUVN3094-86-20 10:10:00 Test Item Value Reference Range Interpretation Comments Calcium Lvl (test code = Calcium Lvl) 8.7 8.5-10.5 [facility]iacScivageRGLEAGHAECXI1417-46-24 10:10:00 Test Item Value Reference Range Interpretation Comments CO2 (test code = CO2) 24 24-32 [facility]CmlmjixKENWQCBBMYON4877-09-41 10:10:00 Test Item Value Reference Range Interpretation Comments Chloride Lvl (test code = Chloride Lvl) 109 95-109 [facility]iacBvacuatGASDYJNZMNIK2284-08-49 10:10:00 Test Item Value Reference Range Interpretation Comments Potassium Lvl (test code = Potassium 3.7 3.5-5.1 Lvl) [facility]JiuuwdiVRFGORPNDLDZ1783-64-21 10:10:00 Test Item Value Reference Range Interpretation Comments Sodium Lvl (test code = Sodium Lvl) 142 135-145 [facility]iacTrndrugQFFWWBBFHKGP0876-40-75 10:10:00 Test Item Value Reference Range Interpretation Comments Glucose Lvl (test code = Glucose Lvl) 86 70-99 [facility]iacTlmdtnvNICJDNSKHHNP8427-27-54 10:10:00 Test Item Value Reference Range Interpretation Comments Creatinine Lvl (test code = Creatinine 0.80 0.50-1.40 Lvl) [facility]iacKykyabzQVYIFSIWDLRA8374-27-02 10:10:00 Test Item Value Reference Range Interpretation Comments BUN (test code = BUN) 14 7-22 [facility] TexasMoclocmTNVIKPKCDR9213-99-86 10:10:00 Test Item Value Reference Range Interpretation Comments RBC (test code = RBC) 4.07 4.20-5.40 [facility] TexasCxcgiijBHNSIAAGXR6016-30-85 10:10:00 Test Item Value Reference Range Interpretation Comments WBC (test code = WBC) 9.4 3.7-10.4 [facility] TexasUiqfrjyGWQCRMYZAV0600-40-57 10:10:00 Test Item Value Reference Range Interpretation Comments MCV (test code = MCV) 90.5 80.0-98.0 [facility] TexasMuxvgauTWHWSAWEXG2869-95-84 10:10:00 Test Item Value Reference Range Interpretation Comments Hct (test code = Hct) 36.8 36.0-48.0 [facility] TexasSbtknpaXGARSBYBZQ8039-96-15 10:10:00 Test Item Value Reference Range Interpretation Comments MCHC (test code = MCHC) 32.9 32.0-36.0 [facility] TexasLbixvzuVALYILLOWJ9061-95-33 10:10:00 Test Item Value Reference Range Interpretation Comments Hgb (test code = Hgb) 12.1 12.0-16.0 [facility] TexasHevullxPAGALXNNVL4192-75-02 10:10:00 Test Item Value Reference Range Interpretation Comments MCH (test code = MCH) 29.7 pg 27.0-31.0 [facility] TexasZemvaeqPXSTENFKQT9060-36-99 10:10:00 Test Item Value Reference Range Interpretation Comments MPV (test code = MPV) 8.8 7.4-10.4 [facility] TexasHuuwtoxFPMJNHEPIT9474-79-46 10:10:00 Test Item Value Reference Range Interpretation Comments Platelet (test code = Platelet) 226 133-450 [facility] TexasZtfjjkaNMPRYSMCQK3961-92-29 10:10:00 Test Item Value Reference Range Interpretation Comments RDW (test code = RDW) 14.0 11.5-14.5 [facility] TexasRtvsefmJZTFGAXKTZ1524-51-27 10:10:00 Test Item Value Reference Range Interpretation Comments Monocytes # (test code 0.8 See_Comment [Aut omated message] The = Monocytes #) system which generated this result tra nsmitted reference range : <=0.8. The reference r tara was not used to int erpret this result as normal/abnormal . [facility] TexasLzfisumWVMQWNXRJB5958-01-01 10:10:00 Test Item Value Reference Range Interpretation Comments Lymphocytes # (test code = Lymphocytes 1.7 1.0-5.5 #) [facility] TexasYbfbranTWQHEGLCTW3126-34-91 10:10:00 Test Item Value Reference Range Interpretation Comments Neutrophils # (test code = Neutrophils 6.7 1.5-8.1 #) [facility] TexasJpzuezkAHYTOFFOUV9006-60-20 10:10:00 Test Item Value Reference Range Interpretation Comments Basophils (test code = 0.5 See_Comment [Aut omated message] The Basophils) system which ge nerated this result tra nsmitted reference range : <=1.0. The reference r tara was not used to int erpret this result as normal/abnormal . [facility] TexasNormgmbPMLQIQPSKQ0030-01-80 10:10:00 Test Item Value Reference Range Interpretation Comments Eosinophils (test code = 1.4 See_Comment [A utomated message] The Eosinophils) system which ge nerated this result tra nsmitted reference range : <=4.0. The reference r tara was not used to int erpret this result as normal/abnormal . [facility] TexasBfcwpmvHDMTVWOSDJ8390-62-68 10:10:00 Test Item Value Reference Range Interpretation Comments Eosinophils # (test code 0.1 See_Comment [A utomated message] The = Eosinophils #) system whic h generated this result tra nsmitted reference range : <=0.5. The reference r tara was not used to int erpret this result as normal/abnormal . [facility] TexasZlcasekEHGXDNWRFV0312-36-11 10:10:00 Test Item Value Reference Range Interpretation Comments Monocytes (test code = Monocytes) 9.0 2.0-12.0 [facility] TexasCimaiasNNNFNBHXJE7426-03-01 10:10:00 Test Item Value Reference Range Interpretation Comments Lymphocytes (test code = Lymphocytes) 17.9 20.0-40.0 [facility] TexasVwxaqtyZFJXKJYTPK5060-51-93 10:10:00 Test Item Value Reference Range Interpretation Comments Segs (test code = Segs) 71.2 45.0-75.0 [facility] GJMYU7847-69-46 10:10:00 Test Item Value Reference Range Interpretation Comments Magnesium Lvl (test code = Magnesium 2.1 1.8-2.4 Lvl) [facility] LVCOV9266-23-95 10:10:00 Test Item Value Reference Range Interpretation Comments Phosphorus (test code = Phosphorus) 2.9 2.5-4.5 [facility]MyxdxzdIEQTTUKCBJJS4674-34-78 10:10:00 Test Item Value Reference Range Interpretation Comments AGAP (test code = AGAP) 12.7 10.0-20.0 [facility]ByhgftlNSKKOTRFCOSN0826-60-80 10:10:00 Test Item Value Reference Range Interpretation Comments eGFR (test code = eGFR) 68 [facility]iacFwgbawbMECSMZBSFVEW1063-72-95 10:10:00 Test Item Value Reference Range Interpretation Comments Calcium Lvl (test code = Calcium Lvl) 8.7 8.5-10.5 [facility]iacVnsroppOZUCBDZBGNFA4312-70-39 10:10:00 Test Item Value Reference Range Interpretation Comments CO2 (test code = CO2) 24 24-32 [facility]iacRpsmusmHYIIRPHYQSIT3132-40-59 10:10:00 Test Item Value Reference Range Interpretation Comments Chloride Lvl (test code = Chloride Lvl) 109 95-109 [facility]IsdvdsuZVEYWDSDWGPZ6712-90-86 10:10:00 Test Item Value Reference Range Interpretation Comments Potassium Lvl (test code = Potassium 3.7 3.5-5.1 Lvl) [facility]iacVzwjduiCYTBHEWOXBMU7112-14-34 10:10:00 Test Item Value Reference Range Interpretation Comments Sodium Lvl (test code = Sodium Lvl) 142 135-145 [facility]iacOhbvhexSCOAAJTZNONP4205-94-58 10:10:00 Test Item Value Reference Range Interpretation Comments Glucose Lvl (test code = Glucose Lvl) 86 70-99 [facility]CpotpgeYDFVOVKQZRPH2156-53-26 10:10:00 Test Item Value Reference Range Interpretation Comments Creatinine Lvl (test code = Creatinine 0.80 0.50-1.40 Lvl) [facility]MfcwoduSFOWCPZNAHDK9069-57-56 10:10:00 Test Item Value Reference Range Interpretation Comments BUN (test code = BUN) 14 7-22 [facility] TexasOetemqrSIGZSAMUAS9764-74-16 10:10:00 Test Item Value Reference Range Interpretation Comments RBC (test code = RBC) 4.07 4.20-5.40 [facility] TexasIsvtqbuQDAMRFNAHJ6067-15-95 10:10:00 Test Item Value Reference Range Interpretation Comments WBC (test code = WBC) 9.4 3.7-10.4 [facility] TexasWpsonarANGSFRLIWM4803-68-75 10:10:00 Test Item Value Reference Range Interpretation Comments MCV (test code = MCV) 90.5 80.0-98.0 [facility] TexasOdxmfuwDMTQFVXPFU6726-43-36 10:10:00 Test Item Value Reference Range Interpretation Comments Hct (test code = Hct) 36.8 36.0-48.0 [facility] TexasLgnvqltDRHMZOANMA9976-03-78 10:10:00 Test Item Value Reference Range Interpretation Comments MCHC (test code = MCHC) 32.9 32.0-36.0 [facility] TexasMpaenqbMTLHDMDIEU6070-19-61 10:10:00 Test Item Value Reference Range Interpretation Comments Hgb (test code = Hgb) 12.1 12.0-16.0 [facility] TexasBultbokLMTUFEYZHY6415-45-98 10:10:00 Test Item Value Reference Range Interpretation Comments MCH (test code = MCH) 29.7 pg 27.0-31.0 [facility] TexasMxeqlocAGXABBHVSV6840-14-31 10:10:00 Test Item Value Reference Range Interpretation Comments MPV (test code = MPV) 8.8 7.4-10.4 [facility] TexasFvkotkgRZLOATDJAG1067-81-04 10:10:00 Test Item Value Reference Range Interpretation Comments Platelet (test code = Platelet) 226 133-450 [facility] TexasVecurwhYKTKXMDVHT1866-96-58 10:10:00 Test Item Value Reference Range Interpretation Comments RDW (test code = RDW) 14.0 11.5-14.5 [facility] TexasPzqhkvyLCHSCUVZYC0266-11-11 10:10:00 Test Item Value Reference Range Interpretation Comments Monocytes # (test code 0.8 See_Comment [Aut omated message] The = Monocytes #) system which generated this result tra nsmitted reference range : <=0.8. The reference r tara was not used to int erpret this result as normal/abnormal . [facility] TexasUpxigzuFKPWYXLGWN9460-28-61 10:10:00 Test Item Value Reference Range Interpretation Comments Lymphocytes # (test code = Lymphocytes 1.7 1.0-5.5 #) [facility] TexasUgjleeiWNAIVCXIBV2715-34-73 10:10:00 Test Item Value Reference Range Interpretation Comments Neutrophils # (test code = Neutrophils 6.7 1.5-8.1 #) [facility] TexasUdxyyczMEVGFEVFPP1345-39-10 10:10:00 Test Item Value Reference Range Interpretation Comments Basophils (test code = 0.5 See_Comment [Aut omated message] The Basophils) system which ge nerated this result tra nsmitted reference range : <=1.0. The reference r tara was not used to int erpret this result as normal/abnormal . [facility] TexasMtdgkjzHTMYQQGJPW9564-21-97 10:10:00 Test Item Value Reference Range Interpretation Comments Eosinophils (test code = 1.4 See_Comment [A utomated message] The Eosinophils) system which ge nerated this result tra nsmitted reference range : <=4.0. The reference r tara was not used to int erpret this result as normal/abnormal . [facility] TexasTawfosjDGWHFFRJPW6410-08-92 10:10:00 Test Item Value Reference Range Interpretation Comments Eosinophils # (test code 0.1 See_Comment [A utomated message] The = Eosinophils #) system whic h generated this result tra nsmitted reference range : <=0.5. The reference r tara was not used to int erpret this result as normal/abnormal . [facility] TexasHffqmdlOHOZMHODJS6230-47-33 10:10:00 Test Item Value Reference Range Interpretation Comments Monocytes (test code = Monocytes) 9.0 2.0-12.0 [facility] TexasKfpnjwuICMXQGCXLG6816-40-65 10:10:00 Test Item Value Reference Range Interpretation Comments Lymphocytes (test code = Lymphocytes) 17.9 20.0-40.0 [facility] TexasMvxuujwZGCRZKJEEG9424-25-85 10:10:00 Test Item Value Reference Range Interpretation Comments Segs (test code = Segs) 71.2 45.0-75.0 [facility]2019-05-02 10:10:00 Test Item Value Reference Range Interpretation Comments Magnesium Lvl (test code = Magnesium 2.1 1.8-2.4 Lvl) [facility]2019-05-02 10:10:00 Test Item Value Reference Range Interpretation Comments Phosphorus (test code = Phosphorus) 2.9 2.5-4.5 [facility]UoqxukaQFYHZTUCVXVB5696-16-34 10:10:00 Test Item Value Reference Range Interpretation Comments AGAP (test code = AGAP) 12.7 10.0-20.0 [facility]ObgrirlDUAGOCOHSDUO9032-47-61 10:10:00 Test Item Value Reference Range Interpretation Comments eGFR (test code = eGFR) 68 [facility]iacMjxeidaVVJLTKGHMSJW8484-85-67 10:10:00 Test Item Value Reference Range Interpretation Comments Calcium Lvl (test code = Calcium Lvl) 8.7 8.5-10.5 [facility]iacFoqakugYXTKEYGYYHKQ1295-91-58 10:10:00 Test Item Value Reference Range Interpretation Comments CO2 (test code = CO2) 24 24-32 [facility]iacIbatcryMZTADIZYCMSD3170-28-07 10:10:00 Test Item Value Reference Range Interpretation Comments Chloride Lvl (test code = Chloride Lvl) 109 95-109 [facility]iacNkbxbajGECBTQMQAJUJ9524-67-29 10:10:00 Test Item Value Reference Range Interpretation Comments Potassium Lvl (test code = Potassium 3.7 3.5-5.1 Lvl) [facility]PxmlvmlXPJAJOTTLCHV0902-69-54 10:10:00 Test Item Value Reference Range Interpretation Comments Sodium Lvl (test code = Sodium Lvl) 142 135-145 [facility]iacMdlvonjXGHQUXYZERRI2607-31-51 10:10:00 Test Item Value Reference Range Interpretation Comments Glucose Lvl (test code = Glucose Lvl) 86 70-99 [facility]iacYiobukwPRNRDEQXYMCT3664-03-09 10:10:00 Test Item Value Reference Range Interpretation Comments Creatinine Lvl (test code = Creatinine 0.80 0.50-1.40 Lvl) [facility]iacPomgyxaMYXAZEERZRML1935-38-84 10:10:00 Test Item Value Reference Range Interpretation Comments BUN (test code = BUN) 14 7-22 [facility] TexasMykehuzQBWDMKMZVJ0463-68-23 10:10:00 Test Item Value Reference Range Interpretation Comments RBC (test code = RBC) 4.07 4.20-5.40 [facility] TexasVyvftgaPOUJXDXPPH1737-26-06 10:10:00 Test Item Value Reference Range Interpretation Comments WBC (test code = WBC) 9.4 3.7-10.4 [facility] TexasObgxxwoASUNGTDKQZ7877-30-42 10:10:00 Test Item Value Reference Range Interpretation Comments MCV (test code = MCV) 90.5 80.0-98.0 [facility] TexasNprcmpkYTEHSRBBOF4917-10-19 10:10:00 Test Item Value Reference Range Interpretation Comments Hct (test code = Hct) 36.8 36.0-48.0 [facility] TexasShvcwysOPLLVDZEXK9899-75-15 10:10:00 Test Item Value Reference Range Interpretation Comments MCHC (test code = MCHC) 32.9 32.0-36.0 [facility] TexasEtbulnxEERARMJQLM8917-05-44 10:10:00 Test Item Value Reference Range Interpretation Comments Hgb (test code = Hgb) 12.1 12.0-16.0 [facility] TexasSaivwszLENZJSTVSF6213-37-47 10:10:00 Test Item Value Reference Range Interpretation Comments MCH (test code = MCH) 29.7 pg 27.0-31.0 [facility] TexasXheyfovAYMDRFYEZB6882-24-15 10:10:00 Test Item Value Reference Range Interpretation Comments MPV (test code = MPV) 8.8 7.4-10.4 [facility] TexasCrqumejXWKELIGLWG5338-14-72 10:10:00 Test Item Value Reference Range Interpretation Comments Platelet (test code = Platelet) 226 133-450 [facility] TexasMslndplXSJIIAHBXC9154-83-96 10:10:00 Test Item Value Reference Range Interpretation Comments RDW (test code = RDW) 14.0 11.5-14.5 [facility] TexasVnqghijWVOANTJCHP8970-09-90 10:10:00 Test Item Value Reference Range Interpretation Comments Monocytes # (test code 0.8 See_Comment [Aut omated message] The = Monocytes #) system which generated this result tra nsmitted reference range : <=0.8. The reference r tara was not used to int erpret this result as normal/abnormal . [facility] TexasOvtyzecUJCXKWXUTB3902-80-33 10:10:00 Test Item Value Reference Range Interpretation Comments Lymphocytes # (test code = Lymphocytes 1.7 1.0-5.5 #) [facility] TexasQeuvfebYSIXJLRLYD6720-50-13 10:10:00 Test Item Value Reference Range Interpretation Comments Neutrophils # (test code = Neutrophils 6.7 1.5-8.1 #) [facility] TexasQqaevluTONFGORNIZ3185-03-61 10:10:00 Test Item Value Reference Range Interpretation Comments Basophils (test code = 0.5 See_Comment [Aut omated message] The Basophils) system which ge nerated this result tra nsmitted reference range : <=1.0. The reference r tara was not used to int erpret this result as normal/abnormal . [facility] TexasRahjafoPJQZVRISSD2048-83-06 10:10:00 Test Item Value Reference Range Interpretation Comments Eosinophils (test code = 1.4 See_Comment [A utomated message] The Eosinophils) system which ge nerated this result tra nsmitted reference range : <=4.0. The reference r tara was not used to int erpret this result as normal/abnormal . [facility] Tex[id number] 10:10:00 Test Item Value Reference Range Interpretation Comments Eosinophils # (test code 0.1 See_Comment [A utomated message] The = Eosinophils #) system whic h generated this result tra nsmitted reference range : <=0.5. The reference r tara was not used to int erpret this result as normal/abnormal . [facility] TexasXaoewgwEZZGXYOCHM3389-86-96 10:10:00 Test Item Value Reference Range Interpretation Comments Monocytes (test code = Monocytes) 9.0 2.0-12.0 [facility] TexasXqcdvacFUUNCZRFDN5774-77-52 10:10:00 Test Item Value Reference Range Interpretation Comments Lymphocytes (test code = Lymphocytes) 17.9 20.0-40.0 [facility] TexasHdbkawwSGFKXQZAUD4290-40-39 10:10:00 Test Item Value Reference Range Interpretation Comments Segs (test code = Segs) 71.2 45.0-75.0 [facility]2019-05-02 10:10:00 Test Item Value Reference Range Interpretation Comments Magnesium Lvl (test code = Magnesium 2.1 1.8-2.4 Lvl) [facility]2019-05-02 10:10:00 Test Item Value Reference Range Interpretation Comments Phosphorus (test code = Phosphorus) 2.9 2.5-4.5 [facility][id number] 10:10:00 Test Item Value Reference Range Interpretation Comments AGAP (test code = AGAP) 12.7 10.0-20.0 [facility]iacZzqenepIAZKWKIGQSUP5328-61-43 10:10:00 Test Item Value Reference Range Interpretation Comments eGFR (test code = eGFR) 68 [facility]iacCnnigdpBLFLGVLWCCXN3458-37-74 10:10:00 Test Item Value Reference Range Interpretation Comments Calcium Lvl (test code = Calcium Lvl) 8.7 8.5-10.5 [facility]iacMrnroelVYERIPRCQYCX8779-80-61 10:10:00 Test Item Value Reference Range Interpretation Comments CO2 (test code = CO2) 24 24-32 [facility]DmefxoaNEDVKUVBRPXZ6278-57-94 10:10:00 Test Item Value Reference Range Interpretation Comments Chloride Lvl (test code = Chloride Lvl) 109 95-109 [facility]iacMyoqdxoAWMAVPPHRLYS3495-02-52 10:10:00 Test Item Value Reference Range Interpretation Comments Potassium Lvl (test code = Potassium 3.7 3.5-5.1 Lvl) [facility]HzekbdyNABURSQQMOKF7322-82-08 10:10:00 Test Item Value Reference Range Interpretation Comments Sodium Lvl (test code = Sodium Lvl) 142 135-145 [facility]iacYdykahjOZDZHHFJFFAU6104-13-38 10:10:00 Test Item Value Reference Range Interpretation Comments Glucose Lvl (test code = Glucose Lvl) 86 70-99 [facility]iacZsaaupwQSXZKZZRICIL7443-98-04 10:10:00 Test Item Value Reference Range Interpretation Comments Creatinine Lvl (test code = Creatinine 0.80 0.50-1.40 Lvl) [facility]iacEoagdsyRHFFZSOAZPKN0492-54-43 10:10:00 Test Item Value Reference Range Interpretation Comments BUN (test code = BUN) 14 7-22 [facility] TexasKtrdphsUPKSUNGZCW5323-33-54 10:10:00 Test Item Value Reference Range Interpretation Comments RBC (test code = RBC) 4.07 4.20-5.40 [facility] TexasYpyxgsdRSSVLKBFQE8617-41-87 10:10:00 Test Item Value Reference Range Interpretation Comments WBC (test code = WBC) 9.4 3.7-10.4 [facility] TexasOpqjcnhCATYDQZFFE3316-97-02 10:10:00 Test Item Value Reference Range Interpretation Comments MCV (test code = MCV) 90.5 80.0-98.0 [facility] TexasVtybrkdLYBJRWSNSJ8013-53-59 10:10:00 Test Item Value Reference Range Interpretation Comments Hct (test code = Hct) 36.8 36.0-48.0 [facility] TexasEssrptcYUJKTQUSYM7614-53-35 10:10:00 Test Item Value Reference Range Interpretation Comments MCHC (test code = MCHC) 32.9 32.0-36.0 [facility] TexasIoliqthVPACZDLOVJ7518-12-75 10:10:00 Test Item Value Reference Range Interpretation Comments Hgb (test code = Hgb) 12.1 12.0-16.0 [facility] TexasAyfkhdjXKCTSVXHXX1801-49-07 10:10:00 Test Item Value Reference Range Interpretation Comments MCH (test code = MCH) 29.7 pg 27.0-31.0 [facility] TexasAlzaqoeGIJOFJGEWA8434-55-95 10:10:00 Test Item Value Reference Range Interpretation Comments MPV (test code = MPV) 8.8 7.4-10.[address] [facility]YsypktxIVOFNSPPIO2329-74-16 10:10:00 Test Item Value Reference Range Interpretation Comments Platelet (test code = Platelet) 226 133-450 [facility] TexasPltoylwSADDTFFAXA2192-44-68 10:10:00 Test Item Value Reference Range Interpretation Comments RDW (test code = RDW) 14.0 11.5-14.[address] [facility] HospitalIatuykdTDFJLERVJY2276-45-09 10:10:00 Test Item Value Reference Range Interpretation Comments Monocytes # (test code = Monocytes #) 0.8 <=0.[address] [facility] HospitalUumuvaiFXMNAQNQET2406-74-79 10:10:00 Test Item Value Reference Range Interpretation Comments Lymphocytes # (test code = Lymphocytes 1.7 1.0-5.5 #) [facility] TexasUlmcssuNSMTQJDSOR9992-09-23 10:10:00 Test Item Value Reference Range Interpretation Comments Neutrophils # (test code = Neutrophils 6.7 1.5-8.1 #) [facility] TexasYthxksxNKPFSHZEGT9615-69-76 10:10:00 Test Item Value Reference Range Interpretation Comments Basophils (test code = Basophils) 0.5 <=1.0 [facility] TexasWcphbbcEIXZHTRQFZ1614-07-08 10:10:00 Test Item Value Reference Range Interpretation Comments Eosinophils (test code = Eosinophils) 1.[address] [facility] HospitalSohejbrRKCQQBSQOJ9458-63-10 10:10:00 Test Item Value Reference Range Interpretation Comments Eosinophils # (test code = Eosinophils 0.1 <=0.5 #) [facility] TexasDupyrkpMJZSHTYDHX8915-08-17 10:10:00 Test Item Value Reference Range Interpretation Comments Monocytes (test code = Monocytes) 9.0 2.0-12.0 [facility] TexasTrqkhmgULFZVOWOLL6395-72-13 10:10:00 Test Item Value Reference Range Interpretation Comments Lymphocytes (test code = Lymphocytes) 17.9 20.0-40.[address] [facility] HospitalZpojzcgKCJYRWRIOX9848-76-09 10:10:00 Test Item Value Reference Range Interpretation Comments Segs (test code = Segs) 71.2 45.0-75.0 [facility] [id number] 16:25:00 Test Item Value Reference Range Interpretation Comments Troponin-I (test code 0.02 See_Comment [Auto mated message] The = Troponin-I) system which g enerated this result transmit zen reference range : <=0.40. The reference r tara was not used to interpr et this result as albina l/abnormal. [facility] [employer]2019-05-01 16:25:00 Test Item Value Reference Range Interpretation Comments Troponin-I (test code 0.02 See_Comment [Auto mated message] The = Troponin-I) system which g enerated this result transmit zen reference range : <=0.40. The reference r tara was not used to interpr et this result as albina l/abnormal. [facility] [employer]2019-05-01 16:25:00 Test Item Value Reference Range Interpretation Comments Troponin-I (test code 0.02 See_Comment [Auto mated message] The = Troponin-I) system which g enerated this result transmit zen reference range : <=0.40. The reference r tara was not used to interpr et this result as albina l/abnormal. [facility] [employer]2019-05-01 16:25:00 Test Item Value Reference Range Interpretation Comments Troponin-I (test code = Troponin-I) 0.02 <=0.40 [facility] [employer]2019-05-01 10:17:00 Test Item Value Reference Range Interpretation Comments Troponin-I (test code 0.02 See_Comment [Auto mated message] The = Troponin-I) system which g enerated this result transmit zen reference range : <=0.40. The reference r tara was not used to interpr et this result as albina l/abnormal. [facility] [employer] [id number] 10:17:00 Test Item Value Reference Range Interpretation Comments U Amph Scr (test code Negative *NA*(11/09/18 = U Amph Scr) 5:17 AM) [facility] [employer] [id number] 10:17:00 Test Item Value Reference Range Interpretation Comments U Opiate Scr (test Negative *NA*(11/09/18 code = U Opiate Scr) 5:17 AM) [facility] [employer] [id number] 10:17:00 Test Item Value Reference Range Interpretation Comments U Cannab Scr (test Negative *NA*(11/09/18 code = U Cannab Scr) 5:17 AM) [facility] [id number] 10:17:00 Test Item Value Reference Range Interpretation Comments U Cocaine Scr (test Negative *NA*(11/09/18 code = U Cocaine Scr) 5:17 AM) [facility] [id number] 10:17:00 Test Item Value Reference Range Interpretation Comments U Benzodiaz Scr (test Positive *ABN*(11/09/18 code = U Benzodiaz Scr) 5:17 AM) [facility] [id number] 10:17:00 Test Item Value Reference Range Interpretation Comments U Adilene Scr (test code Negative *NA*(11/09/18 = U Adilene Scr) 5:17 AM) [facility] [id number] 10:17:00 Test Item Value Reference Range Interpretation Comments UDS Note (test code = See Note (11/09/18 5:17 UDS Note) AM) [facility] [id number] 10:17:00 Test Item Value Reference Range Interpretation Comments U Phencyclidine Scr (test Negative *NA*(11/09/18 code = U Phencyclidine 5:17 AM) Scr) [facility] [id number] 10:17:00 Test Item Value Reference Range Interpretation Comments UA Sq Epi (test code = UA Sq Epi) None [facility]en [facility] [id number] 10:17:00 Test Item Value Reference Range Interpretation Comments UA Bacteria (test code = UA Occasional /HPF Bacteria) [facility] [id number] 10:17:00 Test Item Value Reference Range Interpretation Comments UA Mucus (test code = UA Mucus) Few /LPF [facility] [id number] 10:17:00 Test Item Value Reference Range Interpretation Comments UA Urobilinogen (test code = UA no gt 0.1-1.0 Urobilinogen) [facility] [id number] 10:17:00 Test Item Value Reference Range Interpretation Comments UA Color (test code = UA Color) Ltyellow [facility] [id number] 10:17:00 Test Item Value Reference Range Interpretation Comments UA RBC (test code = 7 See_Comment [Automa zen message] The UA RBC) system which ge nerated this result transmit zen reference range : <=2. The reference range was not used to interpr et this result as albina l/abnormal. [facility] AND [id number] 10:17:00 Test Item Value Reference Range Interpretation Comments UA WBC (test code = 2 See_Comment [Automa zen message] The UA WBC) system which ge nerated this result transmit zen reference range : <=5. The reference range was not used to interpr et this result as albina l/abnormal. [facility] AND [id number] 10:17:00 Test Item Value Reference Range Interpretation Comments UA Leuk Est (test code Trace *ABN*(11/09/18 5:17 = UA Leuk Est) AM) [facility] AND [id number] 10:17:00 Test Item Value Reference Range Interpretation Comments UA Bili (test code = Negative *NA*(11/09/18 UA Bili) 5:17 AM) [facility] AND [id number] 10:17:00 Test Item Value Reference Range Interpretation Comments UA Blood (test code = Small *ABN*(11/09/18 UA Blood) 5:17 AM) [facility] AND [id number] 10:17:00 Test Item Value Reference Range Interpretation Comments UA Nitrite (test code Negative (11/09/18 5:17 = UA Nitrite) AM) [facility] AND [id number] 10:17:00 Test Item Value Reference Range Interpretation Comments UA Ketones (test code = UA Trace mg/dL Ketones) [facility] AND [id number] 10:17:00 Test Item Value Reference Range Interpretation Comments UA pH (test code = UA pH) 6.0 1 5.0-8.0 [facility] AND [id number] 10:17:00 Test Item Value Reference Range Interpretation Comments UA Glucose (test code = UA Negative mg/dL Glucose) [facility] AND [id number] 10:17:00 Test Item Value Reference Range Interpretation Comments UA Protein (test code = UA Negative mg/dL Protein) [facility] AND [id number] 10:17:00 Test Item Value Reference Range Interpretation Comments UA Spec Grav (test code = UA Spec 1.008 1 Grav) [facility] AND [id number] 10:17:00 Test Item Value Reference Range Interpretation Comments UA Turbidity (test code = Clear (11/09/18 5:17 UA Turbidity) AM) [facility] [id number] 10:17:00 Test Item Value Reference Range Interpretation Comments Troponin-I (test code 0.02 See_Comment [Auto mated message] The = Troponin-I) system which g enerated this result transmit zen reference range : <=0.40. The reference r tara was not used to interpr et this result as albina l/abnormal. [facility] [id number] 10:17:00 Test Item Value Reference Range Interpretation Comments U Amph Scr (test code Negative *NA*(11/09/18 = U Amph Scr) 5:17 AM) [facility] [id number] 10:17:00 Test Item Value Reference Range Interpretation Comments U Opiate Scr (test Negative *NA*(11/09/18 code = U Opiate Scr) 5:17 AM) [facility] [id number] 10:17:00 Test Item Value Reference Range Interpretation Comments U Cannab Scr (test Negative *NA*(11/09/18 code = U Cannab Scr) 5:17 AM) [facility] [id number] 10:17:00 Test Item Value Reference Range Interpretation Comments U Cocaine Scr (test Negative *NA*(11/09/18 code = U Cocaine Scr) 5:17 AM) [facility] [id number] 10:17:00 Test Item Value Reference Range Interpretation Comments U Benzodiaz Scr (test Positive *ABN*(11/09/18 code = U Benzodiaz Scr) 5:17 AM) [facility] [id number] 10:17:00 Test Item Value Reference Range Interpretation Comments U Adilene Scr (test code Negative *NA*(11/09/18 = U Adilene Scr) 5:17 AM) [facility] [id number] 10:17:00 Test Item Value Reference Range Interpretation Comments UDS Note (test code = See Note (11/09/18 5:17 UDS Note) AM) [facility] [id number] 10:17:00 Test Item Value Reference Range Interpretation Comments U Phencyclidine Scr (test Negative *NA*(11/09/18 code = U Phencyclidine 5:17 AM) Scr) [facility] AND [id number] 10:17:00 Test Item Value Reference Range Interpretation Comments UA Sq Epi (test code = UA Sq Epi) None Seen [facility] AND [id number] 10:17:00 Test Item Value Reference Range Interpretation Comments UA Bacteria (test code = UA Occasional /HPF Bacteria) [facility] AND [id number] 10:17:00 Test Item Value Reference Range Interpretation Comments UA Mucus (test code = UA Mucus) Few /LPF [facility] AND [id number] 10:17:00 Test Item Value Reference Range Interpretation Comments UA Urobilinogen (test code = UA no gt 0.1-1.0 Urobilinogen) [facility] AND [id number] 10:17:00 Test Item Value Reference Range Interpretation Comments UA Color (test code = UA Color) Ltyellow [facility] AND [id number] 10:17:00 Test Item Value Reference Range Interpretation Comments UA RBC (test code = 7 See_Comment [Automa zen message] The UA RBC) system which ge nerated this result transmit zen reference range : <=2. The reference range was not used to interpr et this result as albina l/abnormal. [facility] AND [id number] 10:17:00 Test Item Value Reference Range Interpretation Comments UA WBC (test code = 2 See_Comment [Automa zen message] The UA WBC) system which ge nerated this result transmit zen reference range : <=5. The reference range was not used to interpr et this result as albina l/abnormal. [facility] AND [id number] 10:17:00 Test Item Value Reference Range Interpretation Comments UA Leuk Est (test code Trace *ABN*(11/09/18 5:17 = UA Leuk Est) AM) [facility] AND [id number] 10:17:00 Test Item Value Reference Range Interpretation Comments UA Bili (test code = Negative *NA*(11/09/18 UA Bili) 5:17 AM) [facility] AND [id number] 10:17:00 Test Item Value Reference Range Interpretation Comments UA Blood (test code = Small *ABN*(11/09/18 UA Blood) 5:17 AM) [facility] AND [id number] 10:17:00 Test Item Value Reference Range Interpretation Comments UA Nitrite (test code Negative (11/09/18 5:17 = UA Nitrite) AM) [facility] AND [id number] 10:17:00 Test Item Value Reference Range Interpretation Comments UA Ketones (test code = UA Trace mg/dL Ketones) [facility] AND [id number] 10:17:00 Test Item Value Reference Range Interpretation Comments UA pH (test code = UA pH) 6.0 1 5.0-8.0 [facility] AND [id number] 10:17:00 Test Item Value Reference Range Interpretation Comments UA Glucose (test code = UA Negative mg/dL Glucose) [facility] AND [id number] 10:17:00 Test Item Value Reference Range Interpretation Comments UA Protein (test code = UA Negative mg/dL Protein) [facility] AND [id number] 10:17:00 Test Item Value Reference Range Interpretation Comments UA Spec Grav (test code = UA Spec 1.008 1 Grav) [facility] AND [id number] 10:17:00 Test Item Value Reference Range Interpretation Comments UA Turbidity (test code = Clear (11/09/18 5:17 UA Turbidity) AM) [facility] [id number] 10:17:00 Test Item Value Reference Range Interpretation Comments Troponin-I (test code 0.02 See_Comment [Auto mated message] The = Troponin-I) system which g enerated this result transmit zen reference range : <=0.40. The reference r tara was not used to interpr et this result as albina l/abnormal. [facility] [id number] 10:17:00 Test Item Value Reference Range Interpretation Comments U Amph Scr (test code Negative *NA*(11/09/18 = U Amph Scr) 5:17 AM) [facility] [id number] 10:17:00 Test Item Value Reference Range Interpretation Comments U Opiate Scr (test Negative *NA*(11/09/18 code = U Opiate Scr) 5:17 AM) [facility] [id number] 10:17:00 Test Item Value Reference Range Interpretation Comments U Cannab Scr (test Negative *NA*(11/09/18 code = U Cannab Scr) 5:17 AM) [facility] [id number] 10:17:00 Test Item Value Reference Range Interpretation Comments U Cocaine Scr (test Negative *NA*(11/09/18 code = U Cocaine Scr) 5:17 AM) [facility] [id number] 10:17:00 Test Item Value Reference Range Interpretation Comments U Benzodiaz Scr (test Positive *ABN*(11/09/18 code = U Benzodiaz Scr) 5:17 AM) [facility] [id number] 10:17:00 Test Item Value Reference Range Interpretation Comments U Adilene Scr (test code Negative *NA*(11/09/18 = U Adilene Scr) 5:17 AM) [facility] [id number] 10:17:00 Test Item Value Reference Range Interpretation Comments UDS Note (test code = See Note (11/09/18 5:17 UDS Note) AM) [facility] [id number] 10:17:00 Test Item Value Reference Range Interpretation Comments U Phencyclidine Scr (test Negative *NA*(11/09/18 code = U Phencyclidine 5:17 AM) Scr) [facility] [id number] 10:17:00 Test Item Value Reference Range Interpretation Comments UA Sq Epi (test code = UA Sq Epi) None [facility]en [facility] [id number] 10:17:00 Test Item Value Reference Range Interpretation Comments UA Bacteria (test code = UA Occasional /HPF Bacteria) [facility] [id number] 10:17:00 Test Item Value Reference Range Interpretation Comments UA Mucus (test code = UA Mucus) Few /LPF [facility] [id number] 10:17:00 Test Item Value Reference Range Interpretation Comments UA Urobilinogen (test code = UA no gt 0.1-1.0 Urobilinogen) [facility] [id number] 10:17:00 Test Item Value Reference Range Interpretation Comments UA Color (test code = UA Color) Ltyellow [facility] [id number] 10:17:00 Test Item Value Reference Range Interpretation Comments UA RBC (test code = 7 See_Comment [Automa zen message] The UA RBC) system which ge nerated this result transmit zen reference range : <=2. The reference range was not used to interpr et this result as albina l/abnormal. [facility] AND [id number] 10:17:00 Test Item Value Reference Range Interpretation Comments UA WBC (test code = 2 See_Comment [Automa zen message] The UA WBC) system which ge nerated this result transmit zen reference range : <=5. The reference range was not used to interpr et this result as albina l/abnormal. [facility] AND [id number] 10:17:00 Test Item Value Reference Range Interpretation Comments UA Leuk Est (test code Trace *ABN*(11/09/18 5:17 = UA Leuk Est) AM) [facility] AND [id number] 10:17:00 Test Item Value Reference Range Interpretation Comments UA Bili (test code = Negative *NA*(11/09/18 UA Bili) 5:17 AM) [facility] AND [id number] 10:17:00 Test Item Value Reference Range Interpretation Comments UA Blood (test code = Small *ABN*(11/09/18 UA Blood) 5:17 AM) [facility] AND [id number] 10:17:00 Test Item Value Reference Range Interpretation Comments UA Nitrite (test code Negative (11/09/18 5:17 = UA Nitrite) AM) [facility] AND [id number] 10:17:00 Test Item Value Reference Range Interpretation Comments UA Ketones (test code = UA Trace mg/dL Ketones) [facility] AND [id number] 10:17:00 Test Item Value Reference Range Interpretation Comments UA pH (test code = UA pH) 6.0 1 5.0-8.0 [facility] AND [id number] 10:17:00 Test Item Value Reference Range Interpretation Comments UA Glucose (test code = UA Negative mg/dL Glucose) [facility] AND [id number] 10:17:00 Test Item Value Reference Range Interpretation Comments UA Protein (test code = UA Negative mg/dL Protein) [facility] AND [id number] 10:17:00 Test Item Value Reference Range Interpretation Comments UA Spec Grav (test code = UA Spec 1.008 1 Grav) [facility] [id number] 10:17:00 Test Item Value Reference Range Interpretation Comments UA Turbidity (test code = Clear (11/09/18 5:17 UA Turbidity) AM) [facility] [id number] 10:17:00 Test Item Value Reference Range Interpretation Comments Troponin-I (test code = Troponin-I) 0.02 <=0.40 [facility] [id number] 10:17:00 Test Item Value Reference Range Interpretation Comments U Amph Scr (test code Negative *NA*(11/09/18 = U Amph Scr) 5:17 AM) [facility] [id number] 10:17:00 Test Item Value Reference Range Interpretation Comments U Opiate Scr (test Negative *NA*(11/09/18 code = U Opiate Scr) 5:17 AM) [facility] [id number] 10:17:00 Test Item Value Reference Range Interpretation Comments U Cannab Scr (test Negative *NA*(11/09/18 code = U Cannab Scr) 5:17 AM) [facility] [id number] 10:17:00 Test Item Value Reference Range Interpretation Comments U Cocaine Scr (test Negative *NA*(11/09/18 code = U Cocaine Scr) 5:17 AM) [facility] [id number] 10:17:00 Test Item Value Reference Range Interpretation Comments U Benzodiaz Scr (test Positive *ABN*(11/09/18 code = U Benzodiaz Scr) 5:17 AM) [facility] [id number] 10:17:00 Test Item Value Reference Range Interpretation Comments U Adilene Scr (test code Negative *NA*(11/09/18 = U Adilene Scr) 5:17 AM) [facility] [id number] 10:17:00 Test Item Value Reference Range Interpretation Comments UDS Note (test code = See Note (11/09/18 5:17 UDS Note) AM) [facility] [id number] 10:17:00 Test Item Value Reference Range Interpretation Comments U Phencyclidine Scr (test Negative *NA*(11/09/18 code = U Phencyclidine 5:17 AM) Scr) [facility] AND [id number] 10:17:00 Test Item Value Reference Range Interpretation Comments UA Sq Epi (test code = UA Sq Epi) None Seen [facility] AND [id number] 10:17:00 Test Item Value Reference Range Interpretation Comments UA Bacteria (test code = UA Occasional /HPF Bacteria) [facility] AND [id number] 10:17:00 Test Item Value Reference Range Interpretation Comments UA Mucus (test code = UA Mucus) Few /LPF [facility] AND [id number] 10:17:00 Test Item Value Reference Range Interpretation Comments UA Urobilinogen (test code = UA no gt 0.1-1.0 Urobilinogen) [facility] AND [id number] 10:17:00 Test Item Value Reference Range Interpretation Comments UA Color (test code = UA Color) Ltyellow [facility] AND [id number] 10:17:00 Test Item Value Reference Range Interpretation Comments UA RBC (test code = UA RBC) 7 <=2 [facility] AND [id number] 10:17:00 Test Item Value Reference Range Interpretation Comments UA WBC (test code = UA WBC) 2 <=5 [facility] AND [id number] 10:17:00 Test Item Value Reference Range Interpretation Comments UA Leuk Est (test code Trace *ABN*(11/09/18 5:17 = UA Leuk Est) AM) [facility] AND [id number] 10:17:00 Test Item Value Reference Range Interpretation Comments UA Bili (test code = Negative *NA*(11/09/18 UA Bili) 5:17 AM) [facility] AND [id number] 10:17:00 Test Item Value Reference Range Interpretation Comments UA Blood (test code = Small *ABN*(11/09/18 UA Blood) 5:17 AM) [facility] AND [id number] 10:17:00 Test Item Value Reference Range Interpretation Comments UA Nitrite (test code Negative (11/09/18 5:17 = UA Nitrite) AM) [facility] AND [id number] 10:17:00 Test Item Value Reference Range Interpretation Comments UA Ketones (test code = UA Trace mg/dL Ketones) [facility] AND [id number] 10:17:00 Test Item Value Reference Range Interpretation Comments UA pH (test code = UA pH) 6.0 1 5.0-8.0 [facility] AND [id number] 10:17:00 Test Item Value Reference Range Interpretation Comments UA Glucose (test code = UA Negative mg/dL Glucose) [facility] AND [id number] 10:17:00 Test Item Value Reference Range Interpretation Comments UA Protein (test code = UA Negative mg/dL Protein) [facility] AND [id number] 10:17:00 Test Item Value Reference Range Interpretation Comments UA Spec Grav (test code = UA Spec 1.008 1 Grav) [facility] AND [id number] 10:17:00 Test Item Value Reference Range Interpretation Comments UA Turbidity (test code = Clear (11/09/18 5:17 UA Turbidity) AM) [facility] [id number] 09:07:00 Test Item Value Reference Range Interpretation Comments MRSA by PCR (test Negative (11/09/18 4:07 code = MRSA by PCR) AM) [facility] [id number] 09:07:00 Test Item Value Reference Range Interpretation Comments Bili Direct (test code 0.1 See_Comment [Aut omated message] The = Bili Direct) system which generated this result tra nsmitted reference range : <=0.3. The reference r tara was not used to int erpret this result as albina l/abnormal. [facility] [id number] 09:07:00 Test Item Value Reference Range Interpretation Comments Globulin (test code = Globulin) 3.5 2.7-4.2 [facility] [id number] 09:07:00 Test Item Value Reference Range Interpretation Comments A/G Ratio (test code = A/G Ratio) 1.0 1 0.7-1.6 [facility] [id number] 09:07:00 Test Item Value Reference Range Interpretation Comments B/C Ratio (test code = B/C Ratio) 24 1 6-25 [facility] [id number] 09:07:00 Test Item Value Reference Range Interpretation Comments AGAP (test code = AGAP) 8.7 10.0-20.0 [facility]2019-05-01 09:07:00 Test Item Value Reference Range Interpretation Comments eGFR (test code = eGFR) 59 [facility]2019-05-01 09:07:00 Test Item Value Reference Range Interpretation Comments Total Protein (test code = Total 7.1 6.4-8.4 Protein) [facility]2019-05-01 09:07:00 Test Item Value Reference Range Interpretation Comments Albumin Lvl (test code = Albumin Lvl) 3.6 3.5-5.0 [place] 020249-05-01 09:07:00 Test Item Value Reference Range Interpretation Comments ALT (test code = ALT) 51 See_Comment [Auto mated message] The system which ge nerated this result transmit zen reference range : <=65. The reference range was not used to interpr et this result as albina l/abnormal. [facility]2019-05-01 09:07:00 Test Item Value Reference Range Interpretation Comments AST (test code = AST) 33 See_Comment [Auto mated message] The system which ge nerated this result transmit zen reference range : <=37. The reference range was not used to interpr et this result as albina l/abnormal. [facility]2019-05-01 09:07:00 Test Item Value Reference Range Interpretation Comments Bili Total (test code = Bili Total) 0.5 0.2-1.3 [facility]2019-05-01 09:07:00 Test Item Value Reference Range Interpretation Comments Alk Phos (test code = Alk Phos) 143 39-136 [place] 020249-05-01 09:07:00 Test Item Value Reference Range Interpretation Comments Glucose Lvl (test code = Glucose Lvl) 122 70-99 [facility]2019-05-01 09:07:00 Test Item Value Reference Range Interpretation Comments Creatinine Lvl (test code = Creatinine 0.90 0.50-1.40 Lvl) [facility]2019-05-01 09:07:00 Test Item Value Reference Range Interpretation Comments BUN (test code = BUN) 22 7-22 [place] 020249-05-01 09:07:00 Test Item Value Reference Range Interpretation Comments Sodium Lvl (test code = Sodium Lvl) 138 135-145 [facility]2019-05-01 09:07:00 Test Item Value Reference Range Interpretation Comments Potassium Lvl (test code = Potassium 3.7 3.5-5.1 Lvl) [facility]2019-05-01 09:07:00 Test Item Value Reference Range Interpretation Comments Chloride Lvl (test code = Chloride Lvl) 107 95-109 [facility]2019-05-01 09:07:00 Test Item Value Reference Range Interpretation Comments CO2 (test code = CO2) 26 24-32 [facility]2019-05-01 09:07:00 Test Item Value Reference Range Interpretation Comments Calcium Lvl (test code = Calcium Lvl) 8.8 8.5-10.5 [facility] TexasGxtcpppNZBDUXPRFG5379-38-25 09:07:00 Test Item Value Reference Range Interpretation Comments Neutrophils # (test code = Neutrophils 11.5 1.5-8.1 #) [facility] TexasSeurgvgPBCDFGCYKX5703-92-70 09:07:00 Test Item Value Reference Range Interpretation Comments Lymphocytes # (test code = Lymphocytes 0.8 1.0-5.5 #) [facility] TexasCailuneMLCYDJURCC9701-16-57 09:07:00 Test Item Value Reference Range Interpretation Comments Lymphocytes (test code = Lymphocytes) 5.8 20.0-40.0 [facility] TexasVitoovrDFZAKMLASS8269-20-50 09:07:00 Test Item Value Reference Range Interpretation Comments Basophils (test code = 0.1 See_Comment [Aut omated message] The Basophils) system which ge nerated this result tra nsmitted reference range : <=1.0. The reference r tara was not used to int erpret this result as normal/abnormal . [facility] TexasEuvqvxrFEPDKPSMSM6271-00-07 09:07:00 Test Item Value Reference Range Interpretation Comments Monocytes # (test code 0.9 See_Comment [Aut omated message] The = Monocytes #) system which generated this result tra nsmitted reference range : <=0.8. The reference r tara was not used to int erpret this result as normal/abnormal . [facility] TexasKcmwpqoHNLTRDGDNI0254-01-47 09:07:00 Test Item Value Reference Range Interpretation Comments Segs (test code = Segs) 87.6 45.0-75.0 [facility] TexasDpaygwfQVCULWDAPR5085-52-28 09:07:00 Test Item Value Reference Range Interpretation Comments Monocytes (test code = Monocytes) 6.5 2.0-12.0 [facility] TexasMeupqufGSHVYPHANT1175-05-41 09:07:00 Test Item Value Reference Range Interpretation Comments Platelet (test code = Platelet) 229 133-450 [facility] TexasGoixnzcGLGTNSAXGL4698-27-46 09:07:00 Test Item Value Reference Range Interpretation Comments MPV (test code = MPV) 8.6 7.4-10.4 [facility] TexasUunlbozZESUSTFTJR6747-08-70 09:07:00 Test Item Value Reference Range Interpretation Comments WBC (test code = WBC) 13.2 3.7-10.4 [facility] TexasHrpdekmXDSITTBLXD1269-60-49 09:07:00 Test Item Value Reference Range Interpretation Comments RBC (test code = RBC) 4.22 4.20-5.40 [facility] TexasPezakrvDYZEPQKQPQ6753-78-42 09:07:00 Test Item Value Reference Range Interpretation Comments Hgb (test code = Hgb) 12.1 12.0-16.0 [facility] TexasUtoaatjNPBEHKTNLC2711-60-75 09:07:00 Test Item Value Reference Range Interpretation Comments Hct (test code = Hct) 37.9 36.0-48.0 [facility] TexasQhawanvXSABMISCFJ5767-20-79 09:07:00 Test Item Value Reference Range Interpretation Comments MCH (test code = MCH) 28.7 pg 27.0-31.0 [facility] TexasRhzkiasKWYLUTDEUW9543-15-35 09:07:00 Test Item Value Reference Range Interpretation Comments MCHC (test code = MCHC) 31.9 32.0-36.0 [facility] TexasAvyvabcGHODJQZXFF9228-31-85 09:07:00 Test Item Value Reference Range Interpretation Comments RDW (test code = RDW) 13.7 11.5-14.5 [facility] TexasCbyznpuBHFSLCLKXG0567-63-03 09:07:00 Test Item Value Reference Range Interpretation Comments MCV (test code = MCV) 90.0 80.0-98.0 [facility] AustinIayzorpUQKAFW4534-17-62 09:07:00 Test Item Value Reference Range Interpretation Comments VLDL (test code = VLDL) 9 1 [facility] AustinIpvsmkeWNQWTI2822-73-13 09:07:00 Test Item Value Reference Range Interpretation Comments LDL (Calculated) (test code = LDL 87 (Calculated)) [facility] RockwallSpuuggoVIIECJ2298-78-52 09:07:00 Test Item Value Reference Range Interpretation Comments Trig (test code = Trig) 45 [facility] UptownNxgsszrIIJWDD3393-52-42 09:07:00 Test Item Value Reference Range Interpretation Comments Chol (test code = Chol) 163 [facility] RockwallZtyuzacGMOSMV8473-93-87 09:07:00 Test Item Value Reference Range Interpretation Comments HDL (test code = HDL) 67 [facility] RockwallTwhtzjwXDEWWT0358-08-57 09:07:00 Test Item Value Reference Range Interpretation Comments CHD Risk (test code = CHD Risk) 2.43 1 3.90-5.80 [facility] UptownBeta DashIAL RCBJDDTFP9973-28-58 09:07:00 Test Item Value Reference Range Interpretation Comments Hgb A1C (test code = Hgb A1C) 5.8 [facility] UptownBACTERIAL - [id number] 09:07:00 Test Item Value Reference Range Interpretation Comments MRSA by PCR (test Negative (11/09/18 4:07 code = MRSA by PCR) AM) [facility] [employer] [id number] 09:07:00 Test Item Value Reference Range Interpretation Comments Bili Direct (test code 0.1 See_Comment [Aut omated message] The = Bili Direct) system which generated this result tra nsmitted reference range : <=0.3. The reference r tara was not used to int erpret this result as albina l/abnormal. [facility] [employer] [id number] 09:07:00 Test Item Value Reference Range Interpretation Comments Globulin (test code = Globulin) 3.5 2.7-4.2 [facility] [employer] [id number] 09:07:00 Test Item Value Reference Range Interpretation Comments A/G Ratio (test code = A/G Ratio) 1.0 1 0.7-1.6 [facility] [employer] [id number] 09:07:00 Test Item Value Reference Range Interpretation Comments B/C Ratio (test code = B/C Ratio) 24 1 6-25 [facility] [employer] [id number] 09:07:00 Test Item Value Reference Range Interpretation Comments AGAP (test code = AGAP) 8.7 10.0-20.0 [facility]2019-05-01 09:07:00 Test Item Value Reference Range Interpretation Comments eGFR (test code = eGFR) 59 [facility]2019-05-01 09:07:00 Test Item Value Reference Range Interpretation Comments Total Protein (test code = Total 7.1 6.4-8.4 Protein) [facility]2019-05-01 09:07:00 Test Item Value Reference Range Interpretation Comments Albumin Lvl (test code = Albumin Lvl) 3.6 3.5-5.0 [place] 020249-05-01 09:07:00 Test Item Value Reference Range Interpretation Comments ALT (test code = ALT) 51 See_Comment [Auto mated message] The system which ge nerated this result transmit zen reference range : <=65. The reference range was not used to interpr et this result as albina l/abnormal. [facility]2019-05-01 09:07:00 Test Item Value Reference Range Interpretation Comments AST (test code = AST) 33 See_Comment [Auto mated message] The system which ge nerated this result transmit zen reference range : <=37. The reference range was not used to interpr et this result as albina l/abnormal. [facility]2019-05-01 09:07:00 Test Item Value Reference Range Interpretation Comments Bili Total (test code = Bili Total) 0.5 0.2-1.3 [facility]2019-05-01 09:07:00 Test Item Value Reference Range Interpretation Comments Alk Phos (test code = Alk Phos) 143 39-136 [facility]2019-05-01 09:07:00 Test Item Value Reference Range Interpretation Comments Glucose Lvl (test code = Glucose Lvl) 122 70-99 [facility]2019-05-01 09:07:00 Test Item Value Reference Range Interpretation Comments Creatinine Lvl (test code = Creatinine 0.90 0.50-1.40 Lvl) [facility]2019-05-01 09:07:00 Test Item Value Reference Range Interpretation Comments BUN (test code = BUN) 22 7-22 [facility]2019-05-01 09:07:00 Test Item Value Reference Range Interpretation Comments Sodium Lvl (test code = Sodium Lvl) 138 135-145 [facility]2019-05-01 09:07:00 Test Item Value Reference Range Interpretation Comments Potassium Lvl (test code = Potassium 3.7 3.5-5.1 Lvl) [facility]2019-05-01 09:07:00 Test Item Value Reference Range Interpretation Comments Chloride Lvl (test code = Chloride Lvl) 107 95-109 [facility]2019-05-01 09:07:00 Test Item Value Reference Range Interpretation Comments CO2 (test code = CO2) 26 24-32 [place] 020249-05-01 09:07:00 Test Item Value Reference Range Interpretation Comments Calcium Lvl (test code = Calcium Lvl) 8.8 8.5-10.5 [facility] TexasSrhcywkODBEHSPRIC8590-33-52 09:07:00 Test Item Value Reference Range Interpretation Comments Neutrophils # (test code = Neutrophils 11.5 1.5-8.1 #) [facility] TexasFwtdxgfAIYSSQMOJP4129-00-12 09:07:00 Test Item Value Reference Range Interpretation Comments Lymphocytes # (test code = Lymphocytes 0.8 1.0-5.5 #) [facility] TexasIhpqgjiBLLZYZLJWP5500-59-24 09:07:00 Test Item Value Reference Range Interpretation Comments Lymphocytes (test code = Lymphocytes) 5.8 20.0-40.0 [facility] TexasQoywwtkPGNRJDKDOZ3981-55-96 09:07:00 Test Item Value Reference Range Interpretation Comments Basophils (test code = 0.1 See_Comment [Aut omated message] The Basophils) system which ge nerated this result tra nsmitted reference range : <=1.0. The reference r tara was not used to int erpret this result as normal/abnormal . [facility] TexasLikteqqFTNBMGPNAH9134-23-87 09:07:00 Test Item Value Reference Range Interpretation Comments Monocytes # (test code 0.9 See_Comment [Aut omated message] The = Monocytes #) system which generated this result tra nsmitted reference range : <=0.8. The reference r tara was not used to int erpret this result as normal/abnormal . [facility] TexasMzphqkjGBDVKTCOMU7249-86-84 09:07:00 Test Item Value Reference Range Interpretation Comments Segs (test code = Segs) 87.6 45.0-75.0 [place] 257979-05-01 09:07:00 Test Item Value Reference Range Interpretation Comments Monocytes (test code = Monocytes) 6.5 2.0-12.0 [facility] TexasXgonpsiRGOEWCXLPF3478-80-59 09:07:00 Test Item Value Reference Range Interpretation Comments Platelet (test code = Platelet) 229 133-450 [facility] TexasYqrchzwLZIWLZELOC9593-75-26 09:07:00 Test Item Value Reference Range Interpretation Comments MPV (test code = MPV) 8.6 7.4-10.4 [facility] TexasNcplodrMMBYFKXYUH7612-98-84 09:07:00 Test Item Value Reference Range Interpretation Comments WBC (test code = WBC) 13.2 3.7-10.4 [facility] TexasGqrnqamYORHMISCEE4835-98-88 09:07:00 Test Item Value Reference Range Interpretation Comments RBC (test code = RBC) 4.22 4.20-5.40 [facility] TexasQsqksvoAPGKQPPIGP4284-82-38 09:07:00 Test Item Value Reference Range Interpretation Comments Hgb (test code = Hgb) 12.1 12.0-16.0 [facility] TexasJrbbceaUWKKUIVRHQ3022-24-38 09:07:00 Test Item Value Reference Range Interpretation Comments Hct (test code = Hct) 37.9 36.0-48.0 [facility] TexasZgqzlwqAMVFUXMRUH3529-99-20 09:07:00 Test Item Value Reference Range Interpretation Comments MCH (test code = MCH) 28.7 pg 27.0-31.0 [facility] TexasGosjbnwCMZOLSBEDW1411-45-01 09:07:00 Test Item Value Reference Range Interpretation Comments MCHC (test code = MCHC) 31.9 32.0-36.0 [facility] TexasPcsqzwbXHNGPFGGEN2748-64-74 09:07:00 Test Item Value Reference Range Interpretation Comments RDW (test code = RDW) 13.7 11.5-14.5 [facility] TexasEsdgqrnWIWZNJGYMK1348-00-09 09:07:00 Test Item Value Reference Range Interpretation Comments MCV (test code = MCV) 90.0 80.0-98.0 [facility] AustinUyuvacdDPXJNB7887-23-27 09:07:00 Test Item Value Reference Range Interpretation Comments VLDL (test code = VLDL) 9 1 [facility] AustinSjsjpyqNWXBST7333-83-35 09:07:00 Test Item Value Reference Range Interpretation Comments LDL (Calculated) (test code = LDL 87 (Calculated)) [facility]wallBhlunxhDVSWFZ0374-31-30 09:07:00 Test Item Value Reference Range Interpretation Comments Trig (test code = Trig) 45 [facility] RockwallWhxctpeBMAIIB1871-18-73 09:07:00 Test Item Value Reference Range Interpretation Comments Chol (test code = Chol) 163 [facility] RockwallVwdnpbaFSLWUL3319-46-56 09:07:00 Test Item Value Reference Range Interpretation Comments HDL (test code = HDL) 67 [facility] RockwallUaxwfgfFICJZJ8946-72-20 09:07:00 Test Item Value Reference Range Interpretation Comments CHD Risk (test code = CHD Risk) 2.43 1 3.90-5.80 [facility] RockwallSpiced BitsIAL MBLOQJTAR0579-01-40 09:07:00 Test Item Value Reference Range Interpretation Comments Hgb A1C (test code = Hgb A1C) 5.8 [facility]ownBACTERIAL - [id number] 09:07:00 Test Item Value Reference Range Interpretation Comments MRSA by PCR (test Negative (11/09/18 4:07 code = MRSA by PCR) AM) [facility] [employer] [id number] 09:07:00 Test Item Value Reference Range Interpretation Comments Bili Direct (test code 0.1 See_Comment [Aut omated message] The = Bili Direct) system which generated this result tra nsmitted reference range : <=0.3. The reference r tara was not used to int erpret this result as albina l/abnormal. [facility] [employer] [id number] 09:07:00 Test Item Value Reference Range Interpretation Comments Globulin (test code = Globulin) 3.5 2.7-4.2 [facility] [employer] [id number] 09:07:00 Test Item Value Reference Range Interpretation Comments A/G Ratio (test code = A/G Ratio) 1.0 1 0.7-1.6 [facility] [employer] WABGL2249-12-48 09:07:00 Test Item Value Reference Range Interpretation Comments B/C Ratio (test code = B/C Ratio) 24 1 6-25 [facility] [employer] [id number] 09:07:00 Test Item Value Reference Range Interpretation Comments AGAP (test code = AGAP) 8.7 10.0-20.0 [facility] [employer] [id number] 09:07:00 Test Item Value Reference Range Interpretation Comments eGFR (test code = eGFR) 59 [facility]2019-05-01 09:07:00 Test Item Value Reference Range Interpretation Comments Total Protein (test code = Total 7.1 6.4-8.4 Protein) [facility]2019-05-01 09:07:00 Test Item Value Reference Range Interpretation Comments Albumin Lvl (test code = Albumin Lvl) 3.6 3.5-5.0 [place] 020249-05-01 09:07:00 Test Item Value Reference Range Interpretation Comments ALT (test code = ALT) 51 See_Comment [Auto mated message] The system which ge nerated this result transmit zen reference range : <=65. The reference range was not used to interpr et this result as albina l/abnormal. [facility]2019-05-01 09:07:00 Test Item Value Reference Range Interpretation Comments AST (test code = AST) 33 See_Comment [Auto mated message] The system which ge nerated this result transmit zen reference range : <=37. The reference range was not used to interpr et this result as albina l/abnormal. [facility]2019-05-01 09:07:00 Test Item Value Reference Range Interpretation Comments Bili Total (test code = Bili Total) 0.5 0.2-1.3 [facility]2019-05-01 09:07:00 Test Item Value Reference Range Interpretation Comments Alk Phos (test code = Alk Phos) 143 39-136 [facility]2019-05-01 09:07:00 Test Item Value Reference Range Interpretation Comments Glucose Lvl (test code = Glucose Lvl) 122 70-99 [place] 020249-05-01 09:07:00 Test Item Value Reference Range Interpretation Comments Creatinine Lvl (test code = Creatinine 0.90 0.50-1.40 Lvl) [facility]2019-05-01 09:07:00 Test Item Value Reference Range Interpretation Comments BUN (test code = BUN) 22 7-22 [facility]2019-05-01 09:07:00 Test Item Value Reference Range Interpretation Comments Sodium Lvl (test code = Sodium Lvl) 138 135-145 [facility]2019-05-01 09:07:00 Test Item Value Reference Range Interpretation Comments Potassium Lvl (test code = Potassium 3.7 3.5-5.1 Lvl) [facility]2019-05-01 09:07:00 Test Item Value Reference Range Interpretation Comments Chloride Lvl (test code = Chloride Lvl) 107 95-109 [facility]2019-05-01 09:07:00 Test Item Value Reference Range Interpretation Comments CO2 (test code = CO2) 26 24-32 [place] 020249-05-01 09:07:00 Test Item Value Reference Range Interpretation Comments Calcium Lvl (test code = Calcium Lvl) 8.8 8.5-10.5 [facility] TexasXlgvfvkXNICQUGWDK8205-52-77 09:07:00 Test Item Value Reference Range Interpretation Comments Neutrophils # (test code = Neutrophils 11.5 1.5-8.1 #) [facility] TexasCyscumtSBOOOLARHH2276-89-51 09:07:00 Test Item Value Reference Range Interpretation Comments Lymphocytes # (test code = Lymphocytes 0.8 1.0-5.5 #) [facility] TexasVyvxuzqDZRRAWOZNO6258-01-46 09:07:00 Test Item Value Reference Range Interpretation Comments Lymphocytes (test code = Lymphocytes) 5.8 20.0-40.0 [facility] TexasNmvultxLHDZGNOYIV0564-18-50 09:07:00 Test Item Value Reference Range Interpretation Comments Basophils (test code = 0.1 See_Comment [Aut omated message] The Basophils) system which ge nerated this result tra nsmitted reference range : <=1.0. The reference r tara was not used to int erpret this result as normal/abnormal . [facility] TexasRxwntgaKOFKQXMARO5989-04-70 09:07:00 Test Item Value Reference Range Interpretation Comments Monocytes # (test code 0.9 See_Comment [Aut omated message] The = Monocytes #) system which generated this result tra nsmitted reference range : <=0.8. The reference r tara was not used to int erpret this result as normal/abnormal . [facility] TexasWrhmrypHKHNVCLYII8553-11-14 09:07:00 Test Item Value Reference Range Interpretation Comments Segs (test code = Segs) 87.6 45.0-75.0 [facility] TexasTuhletcNLLACUPSUC7232-07-37 09:07:00 Test Item Value Reference Range Interpretation Comments Monocytes (test code = Monocytes) 6.5 2.0-12.0 [facility] TexasSmsandlXFKAQJUOAS4199-75-98 09:07:00 Test Item Value Reference Range Interpretation Comments Platelet (test code = Platelet) 229 133-450 [facility] TexasFbyrydzRRUALHVSPZ1919-95-35 09:07:00 Test Item Value Reference Range Interpretation Comments MPV (test code = MPV) 8.6 7.4-10.4 [facility] TexasLqmmsajUYCEEEZRPW5547-10-54 09:07:00 Test Item Value Reference Range Interpretation Comments WBC (test code = WBC) 13.2 3.7-10.4 [facility] TexasEmqyyczYNRKAAEYBD8777-06-74 09:07:00 Test Item Value Reference Range Interpretation Comments RBC (test code = RBC) 4.22 4.20-5.40 [facility] TexasFgsolnxRURJEMUBMJ1671-10-62 09:07:00 Test Item Value Reference Range Interpretation Comments Hgb (test code = Hgb) 12.1 12.0-16.0 [facility] TexasNotnrqqFRAEVDHEEG2375-80-94 09:07:00 Test Item Value Reference Range Interpretation Comments Hct (test code = Hct) 37.9 36.0-48.0 [facility] TexasXtmiolkGWGQXVYRON1380-18-52 09:07:00 Test Item Value Reference Range Interpretation Comments MCH (test code = MCH) 28.7 pg 27.0-31.0 [facility] TexasBeqtoetFCXPMDPBFC1703-26-90 09:07:00 Test Item Value Reference Range Interpretation Comments MCHC (test code = MCHC) 31.9 32.0-36.0 [facility] TexasUysmaooCGUWKQIMUZ5535-24-22 09:07:00 Test Item Value Reference Range Interpretation Comments RDW (test code = RDW) 13.7 11.5-14.5 [facility] TexasBrsxwpjTWHESFPRSM6887-68-45 09:07:00 Test Item Value Reference Range Interpretation Comments MCV (test code = MCV) 90.0 80.0-98.0 [facility] AustinMrcabitCQQRZF2620-35-09 09:07:00 Test Item Value Reference Range Interpretation Comments VLDL (test code = VLDL) 9 1 [facility] AustinRljntttAIYQNB2272-90-24 09:07:00 Test Item Value Reference Range Interpretation Comments LDL (Calculated) (test code = LDL 87 (Calculated)) [facility] AustinXzsxvsnGADIGT6330-24-90 09:07:00 Test Item Value Reference Range Interpretation Comments Trig (test code = Trig) 45 [facility] HtgrmiiKSMAEA5255-60-58 09:07:00 Test Item Value Reference Range Interpretation Comments Chol (test code = Chol) 163 [facility]wallPmjmtxzMPOSGN0255-42-97 09:07:00 Test Item Value Reference Range Interpretation Comments HDL (test code = HDL) 67 [facility] RockwallQchmbqpRIFHCR9400-28-58 09:07:00 Test Item Value Reference Range Interpretation Comments CHD Risk (test code = CHD Risk) 2.43 1 3.90-5.80 [facility] UWOPRWPKG9463[facility]68[facility]10 09:07:00 Test Item Value Reference Range Interpretation Comments Hgb A1C (test code = Hgb A1C) 5.8 [facility]ownBACTERIAL - [id number] 09:07:00 Test Item Value Reference Range Interpretation Comments MRSA by PCR (test Negative (11/09/18 4:07 code = MRSA by PCR) AM) [facility] 3G[employer] [id number] 09:07:00 Test Item Value Reference Range Interpretation Comments Bili Direct (test code = Bili Direct) 0.1 <=0.3 [facility] RockwallLensVector [id number] 09:07:00 Test Item Value Reference Range Interpretation Comments Globulin (test code = Globulin) 3.5 2.7-4.2 [facility] RockwallLensVector [id number] 09:07:00 Test Item Value Reference Range Interpretation Comments A/G Ratio (test code = A/G Ratio) 1.0 1 0.7-1.6 [facility] [employer] [id number] 09:07:00 Test Item Value Reference Range Interpretation Comments B/C Ratio (test code = B/C Ratio) 24 1 6-25 [facility]wallLens[facility] [id number] 09:07:00 Test Item Value Reference Range Interpretation Comments AGAP (test code = AGAP) 8.7 10.0-20.0 [facility]wallLens[facility] [id number] 09:07:00 Test Item Value Reference Range Interpretation Comments eGFR (test code = eGFR) 59 [facility]wallL[facility] [id number] 09:07:00 Test Item Value Reference Range Interpretation Comments Total Protein (test code = Total 7.1 6.4-8.4 Protein) [facility]2019-05-01 09:07:00 Test Item Value Reference Range Interpretation Comments Albumin Lvl (test code = Albumin Lvl) 3.6 3.5-5.0 [facility]2019-05-01 09:07:00 Test Item Value Reference Range Interpretation Comments ALT (test code = ALT) 51 <=65 [facility]2019-05-01 09:07:00 Test Item Value Reference Range Interpretation Comments AST (test code = AST) 33 <=37 [facility]2019-05-01 09:07:00 Test Item Value Reference Range Interpretation Comments Bili Total (test code = Bili Total) 0.5 0.2-1.3 [facility]2019-05-01 09:07:00 Test Item Value Reference Range Interpretation Comments Alk Phos (test code = Alk Phos) 143 39-136 [facility]2019-05-01 09:07:00 Test Item Value Reference Range Interpretation Comments Glucose Lvl (test code = Glucose Lvl) 122 70-99 [facility]2019-05-01 09:07:00 Test Item Value Reference Range Interpretation Comments Creatinine Lvl (test code = Creatinine 0.90 0.50-1.40 Lvl) [facility]2019-05-01 09:07:00 Test Item Value Reference Range Interpretation Comments BUN (test code = BUN) 22 7-22 [facility]2019-05-01 09:07:00 Test Item Value Reference Range Interpretation Comments Sodium Lvl (test code = Sodium Lvl) 138 135-145 [facility]2019-05-01 09:07:00 Test Item Value Reference Range Interpretation Comments Potassium Lvl (test code = Potassium 3.7 3.5-5.1 Lvl) [facility]2019-05-01 09:07:00 Test Item Value Reference Range Interpretation Comments Chloride Lvl (test code = Chloride Lvl) 107 95-109 [facility]2019-05-01 09:07:00 Test Item Value Reference Range Interpretation Comments CO2 (test code = CO2) 26 24-32 [facility]2019-05-01 09:07:00 Test Item Value Reference Range Interpretation Comments Calcium Lvl (test code = Calcium Lvl) 8.8 8.5-10.5 [facility] TexasVivsmgtRWQSPZIQIT6296-37-91 09:07:00 Test Item Value Reference Range Interpretation Comments Neutrophils # (test code = Neutrophils 11.5 1.5-8.1 #) [facility] TexasLfvovpkUXKHDRXSVP4052-48-02 09:07:00 Test Item Value Reference Range Interpretation Comments Lymphocytes # (test code = Lymphocytes 0.8 1.0-5.5 #) [facility] TexasJjfwrtkEZPKGMDVJZ5726-93-15 09:07:00 Test Item Value Reference Range Interpretation Comments Lymphocytes (test code = Lymphocytes) 5.8 20.0-40.0 [facility] TexasSnilzcaMJGGPVTXHB6187-63-52 09:07:00 Test Item Value Reference Range Interpretation Comments Basophils (test code = Basophils) 0.1 <=1.0 [facility] TexasGxqzbpyMKZBUOUDQC4525-05-16 09:07:00 Test Item Value Reference Range Interpretation Comments Monocytes # (test code = Monocytes #) 0.9 <=0.8 [facility] TexasOqvqmucBMCPTHPJDX1745-29-88 09:07:00 Test Item Value Reference Range Interpretation Comments Segs (test code = Segs) 87.6 45.0-75.0 [facility] TexasRucmnliXWQVSWLPWR9985-74-84 09:07:00 Test Item Value Reference Range Interpretation Comments Monocytes (test code = Monocytes) 6.5 2.0-12.0 [facility] TexasKaiszufCMCZUXRIZT9450-58-87 09:07:00 Test Item Value Reference Range Interpretation Comments Platelet (test code = Platelet) 229 133-450 [facility] TexasGtwwaynKXCOXYYTLX0541-42-83 09:07:00 Test Item Value Reference Range Interpretation Comments MPV (test code = MPV) 8.6 7.4-10.4 [facility] TexasNsficltYDBLPNEEET3553-46-88 09:07:00 Test Item Value Reference Range Interpretation Comments WBC (test code = WBC) 13.2 3.7-10.4 [facility] TexasOgamdexREDTIRIEHK8992-99-52 09:07:00 Test Item Value Reference Range Interpretation Comments RBC (test code = RBC) 4.22 4.20-5.40 [facility] TexasFfvgjcgNSIGMWKXFP2063-02-74 09:07:00 Test Item Value Reference Range Interpretation Comments Hgb (test code = Hgb) 12.1 12.0-16.0 [facility] TexasEonncciFEHMPNKXFA9525-11-69 09:07:00 Test Item Value Reference Range Interpretation Comments Hct (test code = Hct) 37.9 36.0-48.0 [facility]wallMnywudpWNXELVEUXS0423-67-51 09:07:00 Test Item Value Reference Range Interpretation Comments MCH (test code = MCH) 28.7 pg 27.0-31.0 [facility] RockwallHztwfjyOKPMDGENGR6122-16-01 09:07:00 Test Item Value Reference Range Interpretation Comments MCHC (test code = MCHC) 31.9 32.0-36.0 [facility]wallKstlnobOJRIJUSKDH5527-35-64 09:07:00 Test Item Value Reference Range Interpretation Comments RDW (test code = RDW) 13.7 11.5-14.5 [facility] UptownMuqyumiIVWHJZUWXM7312-84-48 09:07:00 Test Item Value Reference Range Interpretation Comments MCV (test code = MCV) 90.0 80.0-98.0 [facility] RockwallRdkcaidSZVVKK9506-39-58 09:07:00 Test Item Value Reference Range Interpretation Comments VLDL (test code = VLDL) 9 1 [facility] RockwallXfmcuxpUYTHKC5533-45-41 09:07:00 Test Item Value Reference Range Interpretation Comments LDL (Calculated) (test code = LDL 87 (Calculated)) [facility] RockwallBkzptpgNABAQS2874-47-86 09:07:00 Test Item Value Reference Range Interpretation Comments Trig (test code = Trig) 45 [facility] RockwallSvjtozeTVDZPA9008-32-34 09:07:00 Test Item Value Reference Range Interpretation Comments Chol (test code = Chol) 163 [facility] RockwallUpeipouQZGWYS7994-58-63 09:07:00 Test Item Value Reference Range Interpretation Comments HDL (test code = HDL) 67 [facility] RockwallYqjewwdMLWHMS5258-39-82 09:07:00 Test Item Value Reference Range Interpretation Comments CHD Risk (test code = CHD Risk) 2.43 1 3.90-5.80 [facility]ownSPECIAL QMMYKLOPZ0924-49-97 09:07:00 Test Item Value Reference Range Interpretation Comments Hgb A1C (test code = Hgb A1C) 5.8 [facility] UptownCARDIAC [id number] 05:00:00 Test Item Value Reference Range Interpretation Comments Troponin-I (test code 0.02 See_Comment [Auto mated message] The = Troponin-I) system which g enerated this result transmit zen reference range : <=0.40. The reference r tara was not used to interpr et this result as albina l/abnormal. [facility]NfmjpfzCLZVVIGEHX0717-24-03 05:00:00 Test Item Value Reference Range Interpretation Comments D-Dimer (test code = D-Dimer) 4.23 [facility] [id number] 05:00:00 Test Item Value Reference Range Interpretation Comments Troponin-I (test code 0.02 See_Comment [Auto mated message] The = Troponin-I) system which g enerated this result transmit zen reference range : <=0.40. The reference r tara was not used to interpr et this result as albina l/abnormal. [facility] TexasLdxqsjqTSOJYZIFZR3470-59-54 05:00:00 Test Item Value Reference Range Interpretation Comments D-Dimer (test code = D-Dimer) 4.23 [facility] MYMHNHV8615-75-32 05:00:00 Test Item Value Reference Range Interpretation Comments Troponin-I (test code 0.02 See_Comment [Auto mated message] The = Troponin-I) system which g enerated this result transmit zen reference range : <=0.40. The reference r tara was not used to interpr et this result as albina l/abnormal. [facility] HospitalIclqglfERBCGZYTAL7476-20-89 05:00:00 Test Item Value Reference Range Interpretation Comments D-Dimer (test code = D-Dimer) 4.23 [facility] YSUWULK7603-99-25 05:00:00 Test Item Value Reference Range Interpretation Comments Troponin-I (test code = Troponin-I) 0.02 <=0.40 [facility] TexasDjwbdghJHBARHDSTJ8675-80-26 05:00:00 Test Item Value Reference Range Interpretation Comments D-Dimer (test code = D-Dimer) 4.23 [facility]
[2023-05-21 06:02] LABS: Absolute Lymphocytes (CBC) 1.5 K/uL (0.7-4.9); Hematocrit 36.3 % (36.0-45.0); Lymphocytes % 19.3 % (15.3-44.8); MCV 90.3 fL (80-100); MPV 7.8 fL (7.6-11.3); Platelets 230 thou/uL (152-406); RBC Red Blood Cell Count 4.02 M/uL (3.86-4.86)
[2023-05-21] MEDS ORDERED: NITROGLYCERIN 0.4 MG/TAB SL ONE (06:10)
[2023-05-21 06:19] LABS: Albumin 3.4 g/dL (3.4-5.0); Bilirubin Direct 0.2 mg/dL (0-0.2); Bilirubin Indirect, Calculated 0.3 mg/dL (0.2-0.8); Bilirubin Total 0.5 mg/dL (0.2-1.0); Magnesium 2.4 mg/dL (1.6-2.4); Potassium 3.9 mEq/L (3.5-5.1); Protein, Total 7.5 g/dL (6.4-8.2); Troponin High Sensitivity 9.9 pg/mL (<58.9)
--- NOTE | 2023-05-21 06:52 | EDPHYS ---
Physician Documentation [facility] Name: Jarrell Rodrigez Age: 87 yrs Sex: Female : 1935 Arrival Date: 05/21/2023 Time: 05:36 Bed 7 Private MD: ED Physician Da Troncoso HPI: 05/21 05:59 This 87 yrs old Female presents to ER via EMS with complaints of Chest Tightness. rt 05:59 Patient presents to the ED with chest tightness. Patient's had the symptoms off and on rt for about a week. They occur mostly at nighttime improved throughout the day. Symptoms did worsen today. Received aspirin, nitro by EMS, this did improve but not resolve her symptoms. Does report of shortness of breath but denies other acute complaints. Symptoms are moderate severity, no other aggravating or alleviating factors.. Historical: - Allergies: 05:49 Levaquin; jw7 05:49 Macrodantin; jw7 05:49 Kerman; jw7 - Home Meds: 05:49 amiodarone 200 mg Oral tab 1 tab daily [Active]; atorvastatin 20 mg Oral tab 1 tab once jw7 daily [Active]; montelukast 10 mg Oral tab 1 tab once daily [Active]; Meclizine Oral [Active]; Aspirin EC Oral [Active]; Eliquis oral [Active]; - PMHx: 05:49 Atrial fibrillation; Cerebrovascular accident; High Cholesterol; Hypertensive disorder; jw7 - PSHx: 05:49 Appendectomy; Cholecystectomy; Tonsillectomy; Total abdominal hysterectomy; jw7 - Immunization history:: Adult Immunizations up to date, Client reports receiving the 2nd dose of the Covid vaccine, Pneumococcal vaccine is up to date, Flu vaccine is up to date. - Family history:: not pertinent. - Social history:: Smoking status: Patient denies any tobacco usage or history of. Patient/guardian denies using alcohol, street drugs, IV drugs. ROS: 05:59 Constitutional: Negative for fever, chills, and weight loss, Abdomen/GI: Negative for rt abdominal pain, nausea, vomiting, diarrhea, and constipation, MS/Extremity: Negative for injury and deformity, Skin: Negative for injury, rash, and discoloration, Neuro: Negative for headache, weakness, numbness, tingling, and seizure, Psych: Negative for depression, anxiety, suicide ideation, homicidal ideation, and hallucinations, 05:59 Cardiovascular: Positive for chest pain, Negative for edema, 05:59 Respiratory: Positive for shortness of breath, Negative for cough, Exam: 05:59 Constitutional: This is a well developed, well nourished patient who is awake, alert, rt and in no acute distress. Head/Face: Normocephalic, atraumatic. Chest/axilla: Normal chest wall appearance and motion. Nontender with no deformity. No lesions are appreciated. Cardiovascular: Regular rate and rhythm with a normal S1 and S2. No gallops, murmurs, or rubs. Normal PMI, no JVD. No pulse deficits. Respiratory: Lungs have equal breath sounds bilaterally, clear to auscultation and percussion. No rales, rhonchi or wheezes noted. No increased work of breathing, no retractions or nasal flaring. Abdomen/GI: Soft, non-tender, with normal bowel sounds. No distension or tympany. No guarding or rebound. No evidence of tenderness throughout. Skin: Warm, dry with normal turgor. Normal color with no rashes, no lesions, and no evidence of cellulitis. MS/ Extremity: Pulses equal, no cyanosis. Neurovascular intact. Full, normal range of motion. Neuro: Awake and alert, GCS 15, oriented to person, place, time, and situation. Cranial nerves II-XII grossly intact. Motor strength 5/5 in all extremities. Sensory grossly intact. Cerebellar exam normal. Normal gait. Psych: Awake, alert, with orientation to person, place and time. Behavior, mood, and affect are within normal limits. 05:59 ECG was reviewed by the Attending Physician. Vital Signs: 05:42 BP 155 / 74; Pulse 59; Resp 16; Temp 97.9; Pulse Ox 96% on R/A; Weight 70.31 kg; Height jw7 5 ft. 7 in. ; Pain 6/10; 06:55 BP 152 / 80; Pulse 59; Resp 17 S; Pulse Ox 96% on R/A; ha1 19:04 BP 133 / 55; Pulse 63; Resp 18; Pulse Ox 97% on R/A; jb4 05:42 Body Mass Index 24.28 (70.31 kg, 170.18 cm) jw7 05:42 Pain Scale: Adult jw7 MDM: 05:40 Patient medically screened. rt 06:52 Differential diagnosis: acute myocardial infarction, coronary artery disease congestive rt heart failure pneumonia, pneumothorax. HEART Score: History: Moderately Suspicious (1), ECG: Normal (0), Age: > or = 65 years (2), Risk Factors: > or = 3 Risk factors for atherosclerotic disease (2), Troponin: < or = 1 x Normal Limit (0), Total Score = 5. The patient was not given aspirin in the Emergency Department. Administered by EMS. Data reviewed: vital signs, nurses notes, lab test result(s), EKG, radiologic studies. Consideration of Admission/Observation Patient was admitted/placed on observation. Management of patient was discussed with the following: Hospitalist: Agrees to admit. Independent interpretation of the following test(s) in the Emergency Department X-Ray: My interpretation is Pulmonary edema seen on interpretation of x-ray images. Test considered but Not performed: CT: Low suspicion for PE, CT angiogram not indicated. Counseling: I had a detailed discussion with the patient and/or guardian regarding the historical points, exam findings, and any diagnostic results supporting the discharge/admit diagnosis, lab results, radiology results, the need for further work-up and treatment in the hospital. Response to treatment: the patient's symptoms have markedly improved after treatment. 05/21 05:41 Order name: Basic Metabolic Panel; Complete Time: 06:20 rt 05/21 05:41 Order name: CBC with Diff; Complete Time: 06:20 rt 05/21 05:41 Order name: LFT's; Complete Time: 06:20 rt 05/21 05:41 Order name: Magnesium; Complete Time: 06:20 rt 05/21 05:41 Order name: NT PRO-BNP; Complete Time: 06:20 rt 05/21 05:41 Order name: Troponin HS; Complete Time: 06:20 rt 05/21 13:53 Order name: Troponin High Sensitivity; Complete Time: 16:12 EDMS 05/21 13:53 Order name: Lipid Profile; Complete Time: 16:12 EDMS 05/21 18:13 Order name: Troponin High Sensitivity EDMI 05/21 05:41 Order name: XRAY Chest (1 view); Complete Time: 09:07 rt 05/21 05:41 Order name: EKG; Complete Time: 05:42 rt 05/21 05:41 Order name: Cardiac monitoring; Complete Time: 05:54 rt 05/21 05:41 Order name: EKG - Nurse/Tech; Complete Time: 54 rt 05/21 05:41 Order name: IV Saline Lock; Complete Time: 05:54 rt 05/21 05:41 Order name: Labs collected and sent; Complete Time: :54 rt 05/21 05:41 Order name: O2 Per Protocol; Complete Time: 54 rt 05/21 05:41 Order name: O2 Sat Monitoring; Complete Time: 05:54 rt EC:59 Rate is 56 beats/min. Rhythm is regular, Sinus bradycardia with No ectopy. QRS [place] is rt Normal. [place] interval is normal. QRS interval is normal. QT interval is normal. No Q waves. T waves are Normal. No ST changes noted. Interpreted by me. Administered Medications: 05:59 Drug: Nitroglycerin Sublingual 0.4 mg Sublingual once; every five minute if needed x3 ha1 Route: Sublingual; 06:55 Follow up: Response: No adverse reaction ha1 06:48 Drug: Furosemide IVP 40 mg IVP once; give over 2 minutes Route: IVP; Site: right hand; [facility] Disposition Summary: 05/21/23 06:52 Hospitalization Ordered Notes: Hospitalization Status: Observation rt Provider: Andrew Pinzon rt Condition: Stable rt Problem: new rt Symptoms: have improved rt Bed/Room Type: Standard rt Location: Telemetry/MedSurg (observation)(05/21/23 18:24) eb Room Assignment: [facility](05/21/23 18:24) eb Diagnosis - Chest pain, unspecified rt - Pulmonary edema rt Forms: - Medication Reconciliation Form rt - SBAR form rt - Leadership Thank You Letter rt Signatures: Dispatcher [employer] Srinivas Sarmiento, LEONIE-C CONCRETE FLOAT MAKER-Cla1 Yasemin Mcgee Jodi, RN RN jw7 Dariela Lopez, MARLEN RN ha1 Da Troncoso MD MD rt Corrections: (The following items were deleted from the chart) 06:07 05:49 Home Meds: apixaban 5 mg Oral tab 1 tab 2 times per day; jw7 jw7 06:07 05:49 PSHx: hysterectomy (Tonsillectomy); jw7 jw7 06: 05:49 PSHx: Hysterectomy (Tonsillectomy); jw7 jw7 : 06:52 Telemetry/MedSurg (observation) rt eb : 06:52 rt eb 18:24 07:40 [facility] ER HOLD eb eb 18:24 07:40 ERHOLD- eb eb
--- NOTE | 2023-05-21 06:52 | ER ---
Nurse's Notes [facility] Name: Jarrell Rodrigez Age: 87 yrs Sex: Female : 1935 Arrival Date: 05/21/2023 Time: 05:36 Bed 7 Private MD: Diagnosis: Chest pain, unspecified;Pulmonary edema Presentation: 05/21 05:42 Chief complaint: Patient states: "I started having some chest tightness that woke me up jw7 this morning around 0400". Coronavirus screen: At this time, the client does not indicate any symptoms associated with coronavirus-19. Ebola Screen: No symptoms or risks identified at this time. Initial Sepsis Screen: Does the patient meet any 2 criteria? No. Patient's initial sepsis screen is negative. Does the patient have a suspected source of infection? No. Patient's initial sepsis screen is negative. Risk Assessment: Do you want to hurt yourself or someone else? Patient reports no desire to harm self or others. Onset of symptoms was May 14, 2023. 05:42 Acuity: JAY 3 jw7 05:42 Method Of Arrival: EMS: [facility] 7 05:42 Care prior to arrival: Medication(s) given: ASA, 81 mg, x 3, Nitroglycerin, 0.4 mg SL x jw7 1, IV initiated. 20 GA, in the right hand. Triage Assessment: 05:47 General: Appears in no apparent distress. comfortable, Behavior is calm, cooperative. jw7 Pain: Complains of pain in chest Pain does not radiate. Pain currently is 6 out of 10 on a pain scale. Quality of pain is described as tightness Pain began gradually, Is episodic. EENT: No deficits noted. No signs and/or symptoms were reported regarding the EENT system. Neuro: Soares Agitation-Sedation Scale (RASS): 0 - Alert and Calm Level of Consciousness is awake, alert, obeys commands, Oriented to person, place, time, situation. Cardiovascular: Reports Chest tightness Heart tones S1 S2 present Capillary refill < 3 seconds Clubbing of nail beds is absent JVD is absent Patient's skin is warm and dry. Rhythm is atrial fibrillation. Respiratory: Airway is patent Trachea midline Respiratory effort is even, unlabored, Respiratory pattern is regular, symmetrical. GI: No deficits noted. No signs and/or symptoms were reported involving the gastrointestinal system. : No deficits noted. No signs and/or symptoms were reported regarding the genitourinary system. Derm: No deficits noted. No signs and/or symptoms reported regarding the dermatologic system. Musculoskeletal: No deficits noted. No signs and/or symptoms reported regarding the musculoskeletal system. Historical: - Allergies: 05:49 Levaquin; jw7 05:49 Macrodantin; jw7 05:49 [place]; jw7 - Home Meds: 05:49 amiodarone 200 mg Oral tab 1 tab daily [Active]; atorvastatin 20 mg Oral tab 1 tab once jw7 daily [Active]; montelukast 10 mg Oral tab 1 tab once daily [Active]; Meclizine Oral [Active]; Aspirin EC Oral [Active]; Eliquis oral [Active]; - PMHx: 05:49 Atrial fibrillation; Cerebrovascular accident; High Cholesterol; Hypertensive disorder; jw7 - PSHx: 05:49 Appendectomy; Cholecystectomy; Tonsillectomy; Total abdominal hysterectomy; jw7 - Immunization history:: Adult Immunizations up to date, Client reports receiving the 2nd dose of the Covid vaccine, Pneumococcal vaccine is up to date, Flu vaccine is up to date. - Family history:: not pertinent. - Social history:: Smoking status: Patient denies any tobacco usage or history of. Patient/guardian denies using alcohol, street drugs, IV drugs. Screenin:41 [facility] ED Fall Risk Assessment (Adult) History of falling in the last 3 months, jw7 including since admission No falls in past 3 months (0 pts) Score/Fall Risk Level 0 - 2 = Low Risk Oriented to surroundings, Maintained a safe environment. Abuse screen: Denies threats or abuse. Denies injuries from another. Nutritional screening: No deficits noted. Tuberculosis screening: No symptoms or risk factors identified. Assessment: 06:55 Reassessment: Patient and/or family updated on plan of care and expected duration. Pain ha1 level reassessed. Patient is alert, oriented x 3, equal unlabored respirations, skin warm/dry/pink. Patient states feeling better. Patient states symptoms have improved. 07:30 Reassessment: Patient appears in no apparent distress at this time. Patient and/or hb family updated on plan of care and expected duration. Pain level reassessed. Patient is alert, oriented x 3, equal unlabored respirations, skin warm/dry/pink. 19:05 Reassessment: Patient appears in no apparent distress at this time. Patient and/or jb4 family updated on plan of care and expected duration. Pain level reassessed. Patient is alert, oriented x 3, equal unlabored respirations, skin warm/dry/pink. 19:25 Reassessment:. rv Vital Signs: 05:42 BP 155 / 74; Pulse 59; Resp 16; Temp 97.9; Pulse Ox 96% on R/A; Weight 70.31 kg; Height jw7 5 ft. 7 in. ; Pain 6/10; 06:55 BP 152 / 80; Pulse 59; Resp 17 S; Pulse Ox 96% on R/A; ha1 19:04 BP 133 / 55; Pulse 63; Resp 18; Pulse Ox 97% on R/A; jb4 05:42 Body Mass Index 24.28 (70.31 kg, 170.18 cm) jw7 05:42 Pain Scale: Adult jw7 ED Course: 05:40 Patient arrived in ED. jj6 05:40 Da Troncoso MD is Attending Physician. rt 05:41 Mariluz Monge RN is Primary Nurse. jw7 05:41 Patient has correct armband on for positive identification. Placed in gown. Bed in low jw7 position. Call light in reach. Client placed on continuous cardiac and pulse oximetry monitoring. NIBP monitoring applied. 05:41 Maintain EMS IV. Dressing intact. Good blood return noted. Site clean \\T\\ dry. Gauge \\T\\ jw 7 site: 20g R Hand. Patient maintains SpO2 saturation greater than 95% on room air. 05:46 Triage completed. jw7 05:47 Arm band placed on. jw7 06:00 NT PRO-BNP Sent. ha1 06:00 Troponin HS Sent. ha1 06:00 Magnesium Sent. ha1 06:00 LFT's Sent. ha1 06:00 CBC with Diff Sent. ha1 06:00 Basic Metabolic Panel Sent. ha1 06:23 XRAY Chest (1 view) In Process Unspecified. EDMS 06:51 Andrew Pinzon MD is Hospitalizing Provider. rt 07:44 No provider procedures requiring assistance completed. Patient admitted, IV remains in hb place. 07:45 Provided Education on: . hb Administered Medications: 05:59 Drug: Nitroglycerin Sublingual 0.4 mg Sublingual once; every five minute if needed x3 ha1 Route: Sublingual; 06:55 Follow up: Response: No adverse reaction ha1 06:48 Drug: Furosemide IVP 40 mg IVP once; give over 2 minutes Route: IVP; Site: right hand; jw7 Medication: 07:45 VIS not applicable for this client. hb Outcome: 06:52 Decision to Hospitalize by Provider. rt 07:44 Admitted to ER Hold. Please see [facility] for further documentation. hb 07:44 Condition: stable 07:44 Instructed on the need for admit, Demonstrated understanding of instructions, 19:25 Admitted to Med/surg accompanied by tech, via stretcher, room 217, with chart, Report rv called to DEMETRIO GEE 19:25 Patient left the ED. rv Signatures: Dispatcher [employer] EDMS Stacy Adam RN RN Raz Hill RN RN jb4 Hitesh Ferrer RN RN rv Peggy Parsonsj6 Mariluz Monge RN RN jw7 Dariela Lopez RN RN ha1 Da Troncoso MD MD rt Corrections: (The following items were deleted from the chart) 06:07 05:49 Home Meds: apixaban 5 mg Oral tab 1 tab 2 times per day; jw7 jw7 06:07 05:49 PSHx: hysterectomy (Tonsillectomy); jw7 jw7 06:07 05:49 PSHx: Hysterectomy (Tonsillectomy); jw7 jw7
[2023-05-21] MEDS ORDERED: FUROSEMIDE 40 MG/4 ML VIAL ONE (06:57)
[2023-05-21] MEDS ORDERED: ONDANSETRON 4 MG/2 ML VIAL IV PRN (07:26)
--- NOTE | 2023-05-21 07:40 | RAD REPORT ---
EXAM DESCRIPTION: RAD - Chest Single View - 05/21/2023 6:21 am CLINICAL HISTORY: CHEST PAIN Chest pain. COMPARISON: Chest Single View dated 02/19/2023; Chest Single View dated 02/09/2022; Chest Single View d ated 01/23/2022; Chest Single View dated 04/11/2021 FINDINGS: Portable technique limits examination quality. Moderate bilateral pulmonary opacities are present probably representing pulmonary edema. The heart i s mildly enlarged in size. No displaced fractures.Aortic atherosclerosis. IMPRESSION: Mild CHF.
[2023-05-21 08:02] VITALS: BMI 26.0
[2023-05-21] MEDS: ASPIRIN EC 81 MG TAB PO SCH (08:13)
[2023-05-21] MEDS: APIXABAN 5 MG TABLET PO SCH ×2 (08:14→20:23)
[2023-05-21] MEDS: AMIODARONE HCL 200 MG TAB PO SCH (08:14)
[2023-05-21] MEDS ORDERED: AMIODARONE HCL 200 MG TAB ONE (08:24)
[2023-05-21] MEDS ORDERED: APIXABAN 5 MG TABLET ONE (08:24)
[2023-05-21] MEDS ORDERED: ASPIRIN EC 81 MG TAB PO ONE (08:24)
--- NOTE | 2023-05-21 09:47 | P.HP ---
Certification for Inpatient Patient admitted to: Observation With expected LOS: <2 Midnights Patient will require the following post-hospital care: None Practitioner: I am a practitioner with admitting privileges, knowledge of patient current condition, hospital course, and medical plan of care. Services: Services provided to patient in accordance with Admission requirements found in Title 42 Section 412.3 of the Code of Federal Regulations Patient History Date of Service: 05/21/23 Reason for admission: Chest pain History of Present Illness: 87-year-old female with history of atrial fibrillation on chronic anticoagulation, mild CAD, previous CVA, hypertension, hyperlipidemia presented to the emergency department with chief complaint of chest pain. She reports that she has been having intermittent chest tightness with associated shortness of breath over the course of the last 1 week typically occurring at night waking her from her sleep, seems to resolve throughout the course of the day. Last heart catheterization was performed in 2021 and showed mild CAD. Last echocardiogram also performed 01/23/2022 showed EF, right ventricular pressure. Patient was evaluated in the emergency department her labs were significant for creatinine of 1.22 GFR 43 initial high-sensitivity troponin 9.9 BNP 513 CBC unremarkable chest x-ray showed possible mild CHF pattern. ED provider wishes to admit patient under observation for ACS rule out. Allergies acetaminophen [From [place]] Allergy (Verified 01/23/22 19:52) Itching hydrocodone [From [place]] Allergy (Verified 01/23/22 19:52) Itching levofloxacin [From Levaquin] Allergy (Verified 01/23/22 19:52) Nausea/Vomiting nitrofurantoin [From Macrodantin] Allergy (Verified 01/23/22 19:52) Hives/Rash Home Medications: Atorvastatin Calcium 20 mg PO BEDTIME 04/12/21 Montelukast [Singulair*] 10 mg PO DAILY 04/12/21 Apixaban [Eliquis] 5 mg PO BID #60 tablet 04/17/21 Cholecalciferol (Vitamin D3) [Vitamin D3] 4,000 unit PO DAILY #60 capsule 04/17/21 Amiodarone HCl [Cordarone*] 1 tab PO DAILY 01/23/22 hydroCHLOROthiazide [Hydrochlorothiazide] 1 tab PO DAILY 01/23/22 Aspirin [Aspirin EC 81 MG] 81 mg PO DAILY #30 tablet. 01/26/22 Meclizine HCl 25 mg PO TID PRN #30 tablet 01/26/22 - Past Medical/Surgical History Has patient received pneumonia vaccine in the past: Yes Diabetic: No -: HTN -: CVA -: Mild CAD -: Hyperlipidemia -: Atrial fibrillation on chronic anticoagulation -: Hysterectomy -: Cholecystectomy Psychosocial/ Personal History: Retired, lives at home by self - Family History Father -: Heart disease - Social History Smoking Status: Never smoker Alcohol use: No CD- Drugs: No Caffeine use: No Place of Residence: Home Review of Systems 10-point ROS is otherwise unremarkable Respiratory: Shortness of Breath Cardiovascular: Chest Pain Physical Examination - Vital Signs Temperature: 98.1 F Blood Pressure: 124/76 Pulse: 58 Respirations: 15 Pulse Ox (%): 100 - Physical Exam General: Alert, In no apparent distress, Oriented x3 HEENT: Atraumatic, Mucous membr. moist/pink Neck: Supple Respiratory: Clear to auscultation bilaterally, Normal air movement Cardiovascular: Regular rate/rhythm, Normal S1 S2 Gastrointestinal: Normal bowel sounds, No tenderness Musculoskeletal: No tenderness Integumentary: No rashes Neurological: Normal speech, Normal strength at 5/5 x4 extr, Normal affect - Studies Laboratory Data (last 24 hrs) 05/21/23 05/21/23 05:45 05:45 WBC 7.70 Hgb 12.1 Hct 36.3 Plt Count 230 Sodium 140 Potassium 3.9 BUN 24 H Creatinine 1.22 H Glucose 109 H Magnesium 2.4 Total Bilirubin 0.5 AST 25 ALT 29 Alkaline Phosphatase 133 H Assessment and Plan - Plan Assessment: Chest pain rule out ACShistory of mild CAD Atrial fibrillation on chronic anticoagulation therapy Hypertension Hyperlipidemia Previous CVA Plan: Chest pain rule out ACShistory of mild CAD Trend troponin, cardiology consult, continue aspirin, statin Pain wakes her up from sleep is associated with shortness of breath BNP mildly elevated, chest x-ray shows possible mild CHF pattern Obtain echocardiogram, will try diuresis with Lasix Atrial fibrillation on chronic anticoagulation therapy Continue home medications including Eliquis currently rate controlled Hypertension Hyperlipidemia Previous CVA Continue home medications DVT PPX: Continue Eliquis Code status: Full Discharge Plan: Home Plan to discharge in: 24 Hours - Advance Directives Does patient have a Living Will: No Does patient have a Durable POA for Healthcare: No - Code Status/Comfort Care Code Status Assessed: Yes (Full code) Critical Care: No Time Spent Managing Pts Care (In Minutes): 55
[2023-05-21] MEDS: FUROSEMIDE 20 MG/ 2ML VIAL IV SCH (16:29)
[2023-05-21] MEDS ORDERED: FUROSEMIDE 20 MG/ 2ML VIAL ONE (16:38)
[2023-05-21] MEDS ORDERED: HYDRALAZINE HCL 20 MG/ML VIAL IV PRN (17:21)
[2023-05-21] MEDS ORDERED: NEBIVOLOL HCL 5 MG TAB PO SCH (18:00)
[2023-05-21] MEDS ORDERED: NA CHLORIDE 0.9% 1,000 ML ONE (18:57)
[2023-05-21 19:34] VITALS: O2SAT 97
[2023-05-21] MEDS ORDERED: ATORVASTATIN 20 MG TAB PO SCH (21:00)
[2023-05-21] MEDS ORDERED: APIXABAN 5 MG TABLET PO SCH (21:00)
[2023-05-21] MEDS: MONTELUKAST 10 MG TAB PO SCH (23:24)
[2023-05-22 04:39] LABS: Absolute Lymphocytes (CBC) 1.4 K/uL (0.7-4.9); Lymphocytes % 17.2 % (15.3-44.8); MCV 90.5 fL (80-100); MPV 7.9 fL (7.6-11.3); Platelets 230 thou/uL (152-406)
[2023-05-22 04:54] LABS: Potassium 3.6 mEq/L (3.5-5.1)
[2023-05-22] MEDS: MONTELUKAST 10 MG TAB PO SCH (09:00)
[2023-05-22] MEDS: FUROSEMIDE 20 MG/ 2ML VIAL IV SCH (10:20)
[2023-05-22] MEDS: APIXABAN 5 MG TABLET PO SCH (10:20)
[2023-05-22] MEDS: ASPIRIN EC 81 MG TAB PO SCH (10:20)
[2023-05-22] MEDS: AMIODARONE HCL 200 MG TAB PO SCH (10:20)
--- NOTE | 2023-05-22 13:57 | P.DS ---
Admission Date: 05/21/23 Discharge Date: 05/22/23 Disposition: ROUTINE DISCHARGE Discharge Condition: GOOD Reason for Admission: Chest pain Consultations: Cardiology Brief History of Present Illness: 87-year-old female with history of atrial fibrillation on chronic anticoagulation, mild CAD, previous CVA, hypertension, hyperlipidemia presented to the emergency department with chief complaint of chest pain. She reports that she has been having intermittent chest tightness with associated shortness of breath over the course of the last 1 week typically occurring at night waking her from her sleep, seems to resolve throughout the course of the day. Last heart catheterization was performed in 2021 and showed mild CAD. Last echocardiogram also performed 01/23/2022 showed EF, right ventricular pressure. Patient was evaluated in the emergency department her labs were significant for creatinine of 1.22 GFR 43 initial high-sensitivity troponin 9.9 BNP 513 CBC unremarkable chest x-ray showed possible mild CHF pattern. ED provider wishes to admit patient under observation for ACS rule out. Hospital Course: Patient was admitted to the hospital for chest pain, troponins have been negative. Chest x-ray showed mild CHF pattern and BNP was really elevated. Echocardiogram was performed, results are pending at discharge. Patient was seen and evaluated by cardiology who recommended no further inpatient work-up, follow-up in 1 to 2 weeks with cardiology and primary care doctor. Patient is to monitor weight daily, if there is consistent gain of two or more pounds daily with associated shortness of breath she should take a daily dose of the prescribed lasix. If she is needing to take the lasix regularly or more often she should schedule an appointment with her aqua ammonia operator/PCP. Strict return precautions given. Vital Signs/Physical Exam: Temp Pulse Resp BP Pulse Ox 99.1 F 60 16 167/76 H 94 05/22/23 12:00 05/22/23 12:00 05/22/23 12:00 05/22/23 12:00 05/22/23 12:00 General: Alert, In no apparent distress, Oriented x3 HEENT: Atraumatic Neck: Supple Respiratory: Clear to auscultation bilaterally, Normal air movement Cardiovascular: Regular rate/rhythm, Normal S1 S2 Gastrointestinal: Non-distended Musculoskeletal: No tenderness Integumentary: No rashes Neurological: Normal speech Laboratory Data at Discharge: WBC 8.10 thou/uL (4.3-10.9) 05/22/23 04:26 Hgb 12.9 g/dL (12.0-15.0) 05/22/23 04:26 Hct 38.0 % (36.0-45.0) 05/22/23 04:26 Plt Count 230 thou/uL (152-406) 05/22/23 04:26 Sodium 137 mEq/L (136-145) 05/22/23 04:26 Potassium 3.6 mEq/L (3.5-5.1) 05/22/23 04:26 BUN 25 mg/dL (7-18) H 05/22/23 04:26 Creatinine 1.12 mg/dL (0.55-1.02) H 05/22/23 04:26 Glucose 106 mg/dL (74-106) 05/22/23 04:26 Magnesium 2.4 mg/dL (1.6-2.4) 05/21/23 05:45 Total Bilirubin 0.5 mg/dL (0.2-1.0) 05/21/23 05:45 AST 25 U/L (15-37) 05/21/23 05:45 ALT 29 U/L (13-56) 05/21/23 05:45 Alkaline Phosphatase 133 U/L (45-117) H 05/21/23 05:45 Triglycerides 76 mg/dL (<150) 05/21/23 13:18 Cholesterol 163 mg/dL (<200) 05/21/23 13:18 HDL Cholesterol 89 mg/dL (40-60) H 05/21/23 13:18 Cholesterol/HDL Ratio 1.83 05/21/23 13:18 Home Medications: Atorvastatin Calcium 20 mg PO BEDTIME 04/12/21 Montelukast [Singulair*] 10 mg PO DAILY 04/12/21 Apixaban [Eliquis] 5 mg PO BID #60 tablet 04/17/21 Cholecalciferol (Vitamin D3) [Vitamin D3] 4,000 unit PO DAILY #60 capsule 04/17/21 Amiodarone HCl [Cordarone*] 1 tab PO DAILY 01/23/22 Aspirin [Aspirin EC 81 MG] 81 mg PO DAILY #30 tablet. 01/26/22 Furosemide [Lasix] 20 mg PO DAILY PRN #20 tab 05/22/23 New Medications: Furosemide [Lasix] 20 mg PO DAILY PRN #20 tab PRN Reason: Shortness Of Breath Physician Discharge Instructions: Patient was admitted to the hospital for chest pain, troponins have been negative. Chest x-ray showed mild CHF pattern and BNP was really elevated. Echocardiogram was performed, results are pending at discharge. Patient was seen and evaluated by cardiology who recommended no further inpatient work-up, follow-up in 1 to 2 weeks with cardiology and primary care doctor. Patient is to monitor weight daily, if there is consistent gain of two or more pounds daily with associated shortness of breath she should take a daily dose of the pre scribed lasix. If she is needing to take the lasix regularly or more often she should schedule an appointment with her aqua ammonia operator/PCP. Strict return precautions given. Diet: AHA Activity: Fall precautions Followup: Jun Austin MD [Primary Care Provider] - 1-2 Weeks Ulises Martinez MD [ACTIVE - CAN ADMIT] - 1-2 Weeks Time spent managing pt's care (in minutes): 35
--- NOTE | 2023-05-22 14:10 | EKG ---
Test Date: 2023-05-21 Test Time: 05:46:52 Colon And Rectal Surgeon: OZZIE MEASUREMENT RESULTS: Intervals: Rate: 56 CO: 196 QRSD: 90 QT: 494 QTc: 476 [place]: P: 83 CO: 196 QRS: 8 T: 62 INTERPRETIVE STATEMENTS: Sinus bradycardia Otherwise normal ECG Compared to ECG 02/19/2023 14:08:05 Prolonged QT interval no longer present Electronically Signed On 05-22-23 14:07:28 PASTE UP WORKER by Ulises Martinez
[2023-05-22] MEDS ORDERED: FUROSEMIDE 20 MG TABLET PO SCH (17:00)
[2023-05-22 18:09] VITALS: BP 139/64; TEMP 98
[2023-05-22] MEDS ORDERED: MONTELUKAST 10 MG TAB PO SCH (21:00)
--- NOTE | 2023-05-24 07:43 | ECHO ---
HEIGHT: 5 ft 7 in WEIGHT: 155 lb 0 oz DATE OF STUDY: 05/21/[address]: Srinivas Sharp NP 2-DIMENSIONAL: YES M.MODE: YES DOPPLER: YES COLOR FLOW: YES TDS: PORTABLE: YES DEFINITY: BUBBLE STUDY: DIAGNOSIS: CHEST PAIN, SHORTNESS OF BREATH, ABNORMAL CHEST XRAY CARDIAC HISTORY: CATHERIZATION: SURGERY: PROSTHETIC VALVE: PACEMAKER: MEASUREMENTS (cm) DIASTOLIC (NORMALS) SYSTOLIC (NORMALS) IVSd 1.0 (0.6-1.2) LA Diam 3.9 (1.9-4.0) LVEF 71% LVIDd 4.2 (3.5-5.7) LVIDs 2.5 (2.0-3.5) %FS 40% LVPWd 1.0 (0.6-1.2) Ao Diam 2.7 (2.0-3.7) 2 DIMENSIONAL ASSESSMENT: RIGHT ATRIUM: NORMAL LEFT ATRIUM: ENLARGED RIGHT VENTRICLE: NORMAL LEFT VENTRICLE: MILD LEFT VENTRICULAR HYPERTENSION TRICUSPID VALVE: MILD TRICUSPID REGURGITATION MITRAL VALVE: MITRAL ANNULAR CALCIFICATION WITH MILD MITRAL REGURGITATION PULMONIC VALVE: NORMAL AORTIC VALVE: MILD AORTIC INSUFFICIENCY PERICARDIAL EFFUSION: NONE AORTIC ROOT: NORMAL LEFT VENTRICULAR WALL MOTION: NORMAL DOPPLER/COLOR FLOW: SEE BELOW COMMENTS: 1. NORMAL LEFT VENTRICULAR EJECTION FRACTION 60-65% WITH NORMAL WALL MOTION 2. LEFT ATRIAL ENLARGEMENT 3. MODERATE DIASTOLIC DYSFUNCTION 4. 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 MILD CONCENTRIC LEFT VENTRICULAR HYPERTROPHY 6. MILD TRICUSPID REGURGITATION TECHNOLOGIST: DIANE CURRAN
== END 2023-05-22 18:30 | disposition home or self-care (01) ==
LOC: ER 05:36 → ERHOLD 06:55 → 2ND 19:23
PROVIDERS: ADMIT Hospitalist; ATTEND Hospitalist
DX: R07.9 Chest pain, unspecified (principal); I48.11 Longstanding persistent atrial fibrillation; I25.10 Atherosclerotic heart disease of native coronary artery without angina pectoris; I10 Essential (primary) hypertension; E78.5 Hyperlipidemia, unspecified; Z86.73 Personal history of transient ischemic attack (TIA), and cerebral infarction without residual deficits; Z88.6 Allergy status to analgesic agent; Z79.01 Long term (current) use of anticoagulants; Z88.8 Allergy status to other drugs, medicaments and biological substances
CPT/HCPCS: 93005; 93306; 85025 ×2; 80048 ×2; 36415; 83735; 80061; 80076; 84484 ×3; 83880; 71045; 97116; 96374; 99285; J0360; J1940 ×3; J7030